=== PATIENT | female | born 1965 | race Caucasian/White ===

== ENCOUNTER 2021-01-21 13:11 | Outpatient (RCR) | payer MEDICARE, SELFPAY ==
[2018-10-16 16:53] VITALS: BMI 27.1
== END 2021-04-05 23:59 ==
LOC: IMMUN 13:11
PROVIDERS: Visit Provider Family Medicine
DX: Z23 Encounter for immunization (principal)
CPT/HCPCS: 0001A; 0002A; 91300

== ENCOUNTER → 2023-05-22 | Outpatient (CLI) | payer SELFPAY ==
--- NOTE | 2023-05-22 10:42 | RAD_ITS ---
INDICATION: mass right anterior shoulder -- clinically a ganglion cyst EXAMINATION/TECHNIQUE: X-RAY - RIGHT XR Shoulder Min 2 Views 4 VIEWS COMPARISON: FINDINGS: SOFT TISSUES: No soft tissue swelling or gas. No radiopaque foreign body. BONES/JOINTS: No acute fracture or subluxation.. Normal alignment. Preservation of the joint space.. No sclerotic or destructive changes observed. RAD/Shoulder min 2 Views IMPRESSION: Negative. Electronically Signed: Diallo Hooper, at 11:58 EDT ,
== END | disposition home or self-care (01) ==
PROVIDERS: Referring Provider Surgery; Visit Provider Surgery
DX: M25.811 Other specified joint disorders, right shoulder (principal); M67.40 Ganglion, unspecified site
CPT/HCPCS: 73030

== ENCOUNTER 2023-06-27 08:08 | Day surgery (SDC) | payer SELFPAY ==
--- NOTE | 2023-06-27 | MASS_PTH ---
PATIENT: DEREK SHETTY LOC: [facility] – [place] U#:[id number] AGE/SX: 57/F ROOM: RE06/27/[address]: Dr. Anirudh Amado MD : 1965 BED: DIS: 06/27/2023 SPEC #: [id number] RECD: 06/27/23 15:19 STATUS: MELODY LUISA #: [id number] RITA: 06/27/23 00:[address]: Anirudh Amado DEPT: SURGICAL PATHOLOGY RECD BY: Farhan Meza ENTERED: 06/28/23 09:33 SP TYPE: Mass OTHR DR: No Primary Care Phys Tissues: Shoulder, NOS Procedures: Surgery Specimen Level III HEADER OPERATION: Excision soft tissue mass right anterior shoulder PRE-OP DIAGNOSIS: Soft tissue mass right anterior shoulder TISSUE SUBMITTED: Soft tissue mass right anterior shoulder MICROSCOPIC DIAGNOSIS Soft tissue mass of right anterior shoulder, excision: Consistent with intramuscular fibrolipoma. AM:javier 06/29/2023 COMMENT Case has been reviewed in consultation with Dr. Carrizales who concurs with the above diagnosis. IDC:[place] MICROSCOPIC DESCRIPTION Slides are reviewed. GROSS DESCRIPTION Received in fixative is one container labeled with the patient's name and designated soft tissue mass right anterior shoulder. The specimen consists of a lobulated piece of brenner-yellow adipose tissue measuring 3.5 x 3.0 x 2.5 cm. The specimen is partially, previously sectioned. Sections reveal yellow adipose cut surfaces without area of hemorrhage, necrosis or cystic degeneration. Also present in the container are detached piece of soft tissue measuring in aggregate 1.5 x 1.5 x 0.5 cm. Clinical Laboratory Service Teacher sections are submitted in four cassettes. Cassette 4 contains the detached pieces of tissue. / [place]:javier 06/28/2023 TC:1 CPT: 58434
--- NOTE | 2023-06-27 07:49 | HP.PCM_ITS ---
History and Physical Date of Admission: 06/27/23 HISTORY OF PRESENT ILLNESS 57 year old woman presents with a soft tissue mass on her right anterior shoulder that she has had for 10 years. It has bee getting larger over the past several months. She denies trauma. She denies fever. She has no trouble moving her shoulder. Denies paresthesias right upper extremity. Patient is right hand dominant. She had a right shoulder x-ray on 05/22/23. It showed No soft tissue swelling or gas. No radiopaque foreign body. No acute fracture or subluxation.. Normal alignment. Preservation of the joint space.. No sclerotic or destructive changes observed. She presents at this time for further evaluation and treatment. PAST MEDICAL HISTORY Ganglion, right shoulder Mass of joint of right shoulder PAST SURGICAL HISTORY None. ALLERGIES No Known Allergies MEDICATIONS NK FAMILY HISTORY Non-contributory. SOCIAL HISTORY Smoking Status: Never smoker alcohol intake: current REVIEW OF SYSTEMS General - Denies fever, fatigue, and weight loss. Eyes - Denies cataracts and glaucoma. ENT - Denies nasal congestion and sore throat. Endocrine - Denies excessive thirst and urination. Skin - Denies suspicious lesions and skin cancer. Musculoskeletal - Denies joint pain, joint stiffness, weakness of muscles and joints, back pain, and arthritis. Has soft tissue mass right anterior shoulder. Neuro - Denies headaches. Cardiovascular - Denies chest pain, fatigue, and shortness of breath with exertion. Psych - Denies anxiety and depression. Respiratory - Denies chronic cough and shortness of breath. Gastrointestinal - Denies nausea, vomiting, diarrhea, and constipation. Hematologic - Denies abnormal bruising and bleeding. Genitourinary - Denies hematuria and urinary frequency. PHYSICAL EXAMINATION General - Alert and Oriented. HEENT - PERRL. EOMI. Throat is clear. Neck - Supple and nontender. No cervical adenopathy. Lungs - Clear to auscultation. Heart - Regular rate and rhythm. Abdomen - Soft and nondistended. Extremities - FROM. No axillary adenopathy. Radial pulses are palpable. Patient is right hand dominant. On her right anterior shoulder is a soft tissue mass that measures 7 cm. The mass is mobile. No evidence of infection. No recent infection. No paresthesias. Neuro - CN II-XII grossly intact. Psych - Normal mood and affect. ASSESSMENT 7 cm mass right anterior shoulder, clinically a ganglion cyst. PLAN Clinically the patient appears to have a ganglion cyst right anterior shoulder. She had a right shoulder x-ray on 05/22/23. It showed No soft tissue swelling or gas. No radiopaque foreign body. No acute fracture or subluxation.. Normal alignment. Preservation of the joint space.. No sclerotic or destructive changes observed. A ganglion cyst will have a stalk tracking to the shoulder joint or tendon. Surgery involves removing the cyst and the stalk that attaches it to the joint or tendon. Osteophytic spurs may be present as well and should be excised as well. Surgery will be done under general anesthetic on an outpatient basis. Tissue that is removed will be sent to Pathology for analysis to rule out carcinoma. Depending on the size of the cavity after removal of the mass will determine if a drain is necessary for a few days. A compression dressing will help to minimize seroma formation postoperatively. Patient was informed of the risks and complications of the procedure including alternatives to surgery. These were discussed with the patient personally. Patient voices understanding and wishes to proceed. Some of the risks and complications were included in a form from the [place] [employer]. Potential risks and complications included but not inclusive of bleeding, infection, seroma, hematoma, bruising, swelling, prolonged need for drains, loss of sensation to skin, wound breakdown, need for wound care, poor scarring, poor aesthetic outcome, intra operative cardiac or neurologic events, DVT, PE, and reaction to anesthesia. Assessment & Plan Assessment/Plan (1) Mass of joint of right shoulder: (2) Ganglion, right shoulder:
[2023-06-27 08:41] VITALS: BP 118/60; PULSE 64; RESP 18; TEMP 36.4; O2SAT 99; BMI 28.3
[2023-06-27] MEDS: Lactated Ringers 1,000 ML 15 ML IV (08:53)
[2023-06-27] MEDS: Cefazolin 2 GM in 0.9% Normal Saline 100 ML IV (11:52)
[2023-06-27] MEDS: Lidocaine 1%/Epi 1:100 (30ml) 30 ML VIAL (12:24)
--- NOTE | 2023-06-27 14:28 | OP.PCM_ITS ---
Problems Associated Problem List Diagnoses (1) Mass of joint of right shoulder: (2) Lipoma of right shoulder: (3) Ganglion, right shoulder: Report of Operation Date of Procedure: 06/27/23 Pre-Operative Diagnosis: 7 cm mass right anterior shoulder, clinically a ganglion cyst. Post-Operative Diagnosis: 7 cm submuscular mass right anterior shoulder, clinically a lipoma. Surgery/Procedure Performed:: Excision 7 cm submuscular mass lipoma right anterior shoulder with 7 cm complex closure. Description of Surgical Findings:: 7 year old woman presents with a soft tissue mass on her right anterior shoulder that she has had for 10 years. It has bee getting larger over the past several months. She denies trauma. She denies fever. She has no trouble moving her shoulder. Denies paresthesias right upper extremity. Patient is right hand dominant. She had a right shoulder x-ray on 05/22/23. It showed No soft tissue swelling or gas. No radiopaque foreign body. No acute fracture or subluxation.. Normal alignment. Preservation of the joint space.. No sclerotic or destructive changes observed. Patient was informed of the risks and complications of the procedure including alternatives to surgery. These were discussed with the patient personally. Patient voices understanding and wishes to proceed. Some of the risks and complications were included in a form from the [place] [employer]. Potential risks and complications included but not inclusive of bleeding, infection, seroma, hematoma, bruising, swelling, prolonged need for drains, loss of sensation to skin, partial or complete loss of skin flap and/or skin graft, wound breakdown, need for wound care, poor scarring, poor aesthetic outcome, intra operative cardiac or neurologic events, DVT, PE, and reaction to anesthesia. I used Oscar absorbable hemostat. Reference Number - [id number]. Lot Number - [id number]. Expiration - January 24, 2028. Surgeon: Anirudh Amado MD animal nutritionist: None Type of Anesthesia: General Anesthesiologist: Alexi Cary MD and Loni Vazquez CRNA Specimen's removed: Submuscular soft tissue mass lipoma right anterior shoulder to Pathology. Drains: Patrick. Estimated Blood Loss (mL): 50. Description of Procedure: Patient was taken to OR in supine position and was placed under general anesthesia. The right anterior shoulder was prepped and draped in the usual fashion. SCD's were placed for DVT prophylaxis. Perioperative antibiotics were given intravenously. Using xylocaine with epinephrine, the soft tissue mass right anterior shoulder was infiltrated. After waiting 5 minutes for the anesthetic to take effect, I made a curvilinear incision in a longitudinal direction down into the subcutaneous tissue. I the subcutaneous tissue down to the deltoid muscle. The soft tissue mass was submuscular. I the muscle fibers to gain access to this mass. Clinically looked like a lipoma and not a ganglion cyst. I sharply dissected the mass and excised it. It was well-encapsulated. After excision, the mass was sent to Pathology for analysis to rule out carcinoma. The wound was irrigated with saline. Hemostasis was obtained with electrocautery. Some of the deltoid muscle fibers were torn with the dissection of the submuscular mass. Oscar absorbable hemostat was sprayed into the wound to minimize seroma formation. A size 15 Patrick drain was placed through a separate stab incision inferiorly and secured to the skin with 3-0 Nylon purse string suture. The wound was closed in a complex fashion by approximating the deltoid muscle using 3-0 Vicry figure of eight interrupted sutures. The sutures were tied gently so as not to further tear the muscle. It was for approximation. Some of the deltoid muscle was stretched out and flabby. This made approximating the muscle a little easier without tearing the muscle any further as well as tightening an already stretched and flabby muscle. The adjacent trapezius muscle showed no evidence of involvement with this submuscular lipoma. After securing the muscle closure, I placed 3-0 Monocryl interrupted sutures for the deep dermis and subcutaneous tissue. The skin was approximated with 3-0 V lock unidirectional barbed running subcuticular suture. This was followed with Dermabond skin tissue adhesive. 4x4 gauze was applied to the incision followed by a compression guido wrap. Patient tolerated the procedure well and was sent to PACU in satisfactory condition. Patient will be sent home on antibiotics and pain medication and Valium for spasm. She will keep her head elevated during the initial postoperative period and be on a lifting restriction. Patient will followup in a week for a wound check and for discussion of the pathology report. Grafts/Implants Used: Oscar. Procedure Start Time: 12:24 Procedure Stop Time: 14:22 Complications None. Admit VTE Documentation VTE Present on Admission: No VTE Mechan Device Prophylaxis: SCD's VTE Pharm Prophylaxis ordered?: No Addendum Addendum: Surgery Charges CPT - 11676 ICD-10 - D17.21, M25.811 60090 D17.21, M25.811
[2023-06-27 14:31] VITALS: BP 118/60; BP 126/67; PULSE 88; RESP 16; TEMP 36.6; O2SAT 94
[2023-06-27 14:45] VITALS: BP 118/60; BP 121/64; PULSE 81; RESP 16; O2SAT 95
--- NOTE | 2023-06-27 14:47 | DCINST_ITS ---
Discharge Instructions Diet Discharge Diet: No restrictions (encourage nutritional supplementation with protein to help the healing process.) Activity Discharge Activity: May Not Drive, May Not Shower (until the drain is removed.) and - (no heavy lifting, elevate head. elevate head of bed when sleeping for 2 weeks (alternately may sleep on an extra pillow.) May shower in (days): 10 (tentative. after the drain is removed.) May resume sexual activity in: 4-6 weeks Weight Bearing Status: Weight bearing as tolerated Lifting Restrictions: 20 lbs. Keep extremity elevated above heart level: - (elevate head) Dressing / Incision Call your doctor if your incision/area has: Continuous Slow Oozing, Sudden Inc reased Bleeding, Increased Pain/ Swelling, Increased Redness, Foul Smelling Discharge and Swelling at the incision site Call your doctor if you observe: Fever of 101 or Higher, Coldness, Increased Pain, Shortness of breath, Chest pain, Calf discomfort and Uncontrolled pain Change Dressing in: do not change dressing (will change operative dressing in the office.) Cleanse incision/area with: - (may get incision wet in the shower after the drain is removed.) Drain: Suction (federica drain to bulb suction. empty and record output daily.) Follow Up Care Please Follow Up With: Anirudh Amado MD When: one week, 07/05/23, at 230pm. Call [phone] if any questions. Test Results: Test results from this visit will be discussed in further detail at your follow- up appointment, if applicable. Discharge Plan Admission Primary Reason for Your Visit: excision mass right anterior shoulder Attending Provider: Anirudh Amado Primary Care Provider: Care Physician,No Primary Discharge Orders/Prescriptions Prescriptions: New cefadroxil 500 mg capsule 500 mg PO BID Qty: 28 0RF L.acidoph,saliva-B.bif-S.therm [Acidophilus Probiotic Blend] 175 mg capsule 1 cap PO DAILY Qty: 30 0RF oxycodone-acetaminophen [Percocet] 5-325 mg tablet 1 tab PO Q6H PRN (Reason: pain (scale score 7-10)) 7 Days Qty: 28 0RF Rx Instructions: 28 tabs (twenty-eight) diazepam [Valium] 5 mg tablet 5 mg PO 4X/DAY PRN (Reason: muscle spasm) Qty: 30 0RF Rx Instructions: 30 tabs (thirty) Referrals / Follow Up: Care Physician,No Primary [Primary Care Provider] - Disposition Disposition (needs filled in before D/C Order can be placed): Home, Self Care
[2023-06-27 15:00] VITALS: BP 116/62; BP 118/60; PULSE 81; RESP 16; TEMP 36.2; O2SAT 95
[2023-06-27] MEDS: Acetaminophen 325 MG Tablet 650 MG PO (15:31)
[2023-06-27 16:32] VITALS: BP 116/61; BP 118/60; PULSE 71; RESP 16; TEMP 36.6; O2SAT 97
== END 2023-06-27 16:41 | disposition home or self-care (01) ==
LOC: SDC 08:10 → AC 08:11
PROVIDERS: Referring Provider Surgery; Visit Provider Surgery
PROC: (CPT 23073; principal; 2023-06-27 09:30)
DX: D17.21 Benign lipomatous neoplasm of skin and subcutaneous tissue of right arm (principal); M25.811 Other specified joint disorders, right shoulder
CPT/HCPCS: 23073; 13121; 01610; 88304; 88305; J7120; J2405

== ENCOUNTER 2023-10-16 00:59 | Emergency (ER) | payer OTHER, SELFPAY ==
[2023-10-16 01:00] VITALS: BP 127/79; PULSE 60; RESP 14; TEMP 36.1; O2SAT 97; BMI 24.5
--- NOTE | 2023-10-16 01:20 | CT_ITS ---
EXAM: CT ABDOMEN AND PELVIS WITHOUT INTRAVENOUS CONTRAST CLINICAL INDICATION: left flank pain left flank pain TECHNIQUE: Helically acquired images were obtained of the abdomen and pelvis without intravenous contrast. This CT exam was performed using one or more of the following dose reduction techniques: automated exposure control, adjustment of the mA and/or kV according to patient size, and/or use of iterative reconstruction technique. RADIATION DOSE: CTDIvol = 8.22 mGy, DLP = 406.44 mGy-cm COMPARISON: No relevant prior studies available. FINDINGS: LOWER THORAX: There is mild left basilar atelectasis. No cardiomegaly. No significant pericardial effusion. ABDOMEN: LIVER: The liver is enlarged. GALLBLADDER AND BILE DUCTS: Unremarkable. No calcified gallstones. No gallbladder distention or wall edema. No intra- or extrahepatic biliary ductal dilation. PANCREAS: Unremarkable. No focal cystic mass. SPLEEN: There are calcified granulomas in the spleen. ADRENALS: Unremarkable. No nodules. KIDNEYS AND URETERS: As seen on axial images 81-82, 5 mm wide mid left ureteral calculus at the L3-4 level. There is associated mild left hydronephrosis as well as proximal left periureteral fat infiltration. As seen on axial images 114-115, there is a 4 mm wide left pelvic calcification at the S1-2 level. The course of the left ureter is not clearly seen at and around this level, and this might represent a distal left ureteral calculus or might represent a phlebolith. There is a 6 mm nonobstructive left lower pole renal calculus. There is a simple appearing left lower pole renal cyst. No follow-up imaging is necessary for simple renal cysts or cysts that are too small to characterize. STOMACH AND BOWEL: Unremarkable. No stomach or bowel distention. No focal inflammatory change. PELVIS: APPENDIX: The appendix is seen on axial images 94-123. There is no evidence for acute appendicitis. BLADDER: Unremarkable. REPRODUCTIVE: There is a 3 cm simple appearing left ovarian cyst. ABDOMEN and PELVIS: INTRAPERITONEAL SPACE: Unremarkable. No ascites or other fluid collection. No free air. BONES/JOINTS: There are small calcifications in the uterus, possibly representing degenerating leiomyomas. There are multilevel degenerative changes in the visualized spine. There is grade 1 anterolisthesis at the L4-5 level, on a degenerative basis. No suspicious lytic or blastic abnormality. SOFT TISSUES: Unremarkable. No discrete abdominal or pelvic wall hernia. VASCULATURE: Unremarkable. Abdominal aorta is non-dilated. LYMPH NODES: Unremarkable. No enlarged lymph nodes. CT/Abdomen/Pelvis without Cont IMPRESSION: 1. 5 mm wide mid left ureteral calculus at the L3-4 level. There is associated mild left hydronephrosis. 2. Questionable finding of a 4 mm wide nonobstructive distal left ureteral calculus at the S1-2 level versus phlebolith. 3. Small nonobstructive left renal calculus. 4. Hepatomegaly. 5. 3 cm simple-appearing left ovarian cyst. No follow-up is necessary. 6. Small uterine calcifications, probably degenerating leiomyomas. Electronically Signed: Edmond Aguirre MD at 2:33 EST ,
--- NOTE | 2023-10-16 01:21 | EDS_ITS ---
HPI History of Present Illness Chief Complaint: Flank Pain Informant: patient Onset/Context/Timing Onset: Days Context: Gradual Onset Timing: Intermittent Narrative Narrative: Patient presents secondary to left flank pain. Over the past 2 days she has had intermittent pain to the left flank and some slight blood in her urine. Tonight she woke from sleep with severe pain in the left flank region. It seems to have subsided at this time. Her urine is currently bright red in color. She does not have dysuria. She denies history of kidney stone. [facility] Medical History Alcohol use Fibrolipoma Ganglion, right shoulder Lipoma of right shoulder Mass of joint of right shoulder Non-smoker Post-menopausal Restless legs Wears glasses Home Medications hydrocodone-acetaminophen 5-325mg 5mg-325mg 1 tab PO Q6H PRN PRN Pain 3 days #10 TABLETS 10/16/23 [Rx Last Taken Unknown] ibuprofen 600 mg tablet 600 mg PO Q8H PRN PRN pain #20 TABLETS 10/16/23 [Rx Last Taken Unknown] ondansetron 4 mg disintegrating tablet 4 mg PO Q8H PRN PRN Nausea #10 tabs 10/16/23 [Rx Last Taken Unknown] sulfamethoxazole 800 mg-trimethoprim 160 mg tablet (Bactrim DS) 1 tab PO BID #10 tabs 10/16/23 [Rx Last Taken Unknown] Allergy/AdvReac Type Severity Reaction Status Date / Time No Known Allergies Allergy Verified 10/16/23 01:04 Surgical History History of excision of mass Social History Smoking Status: Never smoker alcohol intake: current ROS ROS ED Constitutional Constitutional ED: Denies chills or fever(s) Eyes Eyes: Denies discharge from eye(s) ENT ENT ED: Denies discharge from eye(s), rhinorrhea or sore throat Cardiovascular Cardiovascular: Denies chest pain or palpitations Respiratory/Chest Respiratory/Chest: Denies cough or dyspnea Gastrointestinal Gastrointestinal: Reports abdominal pain; Denies diarrhea, nausea or vomiting Genitourinary Genitourinary ED: Reports hematuria; Denies difficulty urinating or dysuria Musculoskeletal Musculoskeletal: Reports back pain; Denies extremity pain Integumentary Denies Abrasions or rash Neurologic Neurologic: Denies headache(s) or weakness Psychiatric Psychiatric: Denies anxiety or depression Allergic/Immunologic Allergic/Immunologic ED: Denies lip swelling or urticaria EXAM Physical Exam Const Vital Signs: 10/16/23 01:00 Temperature 97 F L Temperature Source Temporal Pulse Rate 60 Respiratory Rate 14 Blood Pressure 127/79 H Blood Pressure Mean 95 Pulse Ox 97 Oxygen Delivery Method Room Air Positive well nourished and well developed General Appearance ED: well developed HEENT Reports moist mucous membranes Eyes EOMs intact bilaterally Chest Wall inspection of chest normal and palpation of chest normal Resp normal respiratory effort and clear to auscultation bilaterally Cardio regular rate and regular rhythm GI non-tender Palpation: soft Back/Spine General Back: CVA tenderness left Neuro oriented x3 and no sensory deficits noted Motor Exam: strength 5/5 throughout Psych mental status grossly normal Skin no rashes or lesions noted MDM MDM MDM Narrative Medical decision making narrative: IV line established. Patient given a dose of Toradol. Labwork obtained to evaluate for leukocytosis, anemia, and electrolyte derangement. Urinalysis obtained to evaluate for infection/hematuria. CT flank obtained to evaluate for possible kidney stone. History & Record Review Discussion w/independent historian: Patient Lab Data Attestation: I reviewed the patient's lab results. Labs: Laboratory Results - last 24 hr 10/16/23 10/16/23 01:40 01:48 WBC 6.7 RBC 4.70 Hgb 13.1 Hct 41.8 MCV 88.9 MCH 27.9 MCHC 31.3 L RDW Std Deviation 42.5 RDW Coeff of Vanessa 13.0 Plt Count 251 MPV 9.7 Immature Gran % (Auto) 0.400 Neut % (Auto) 69.7 Lymph % (Auto) 19.6 Donley % (Auto) 6.6 Eos % (Auto) 3.1 Baso % (Auto) 0.6 Absolute Neuts (auto) 4.7 Absolute Lymphs (auto) 1.31 Nucleated RBC % 0 Sodium 141 Potassium 3.3 L Chloride 109 H Carbon Dioxide 28.0 Anion Gap 4 L BUN 18 Creatinine 0.73 Estim Creat Clear Calc 83.68 Est GFR (MDRD) Af Amer 106 Est GFR (MDRD) Non-Af 88 BUN/Creatinine Ratio 24.7 H Glucose 124 H Calcium 9.9 Urine Color SEE COMMENT BELOW Urine Clarity Cloudy Urine pH 6.0 Ur Specific [place] 1.025 Urine Protein 100 H Urine Glucose (UA) Normal Urine Ketones 5 H Urine Occult Blood 250 H Urine Nitrite Positive H Urine Bilirubin Negative Urine Urobilinogen 1 H Ur Leukocyte Esterase 500 H Urine RBC > 100 SEEN Urine WBC 10-25 SEEN Ur Squamous Epith Cells 0-5 SEEN Urine Bacteria RARE Urine Mucus 0 SEEN Radiography Diagnostic Testing: Clinical Impression(s) from Imaging Studies Abdomen/Pelvis CT 10/16/23 01:20 IMPRESSION: 1. 5 mm wide mid left ureteral calculus at the L3-4 level. There is associated mild left hydronephrosis. 2. Questionable finding of a 4 mm wide nonobstructive distal left ureteral calculus at the S1-2 level versus phlebolith. 3. Small nonobstructive left renal calculus. 4. Hepatomegaly. 5. 3 cm simple-appearing left ovarian cyst. No follow-up is necessary. 6. Small uterine calcifications, probably degenerating leiomyomas. Electronically Signed: Edmond Aguirre MD at 2:33 EST , Treatment and Re-Evaluation :: CBC was normal white count 6.7 the hemoglobin of 13.1. Chemistry studies reveal slightly low potassium at 3.3. Urinalysis is positive for nitrites with greater than 100 red cells and 10-25 white cells. Rare bacteria are noted. Urine will be sent for culture and patient is given a dose of Rocephin here. CT flank reveals a 5 mm left mid ureteral calculus at the L3-L4 level. There is mild lef t hydronephrosis. There is a questionable distal 4 mm nonobstructive stone versus phlebolith. Test results are discussed with the patient. She is comfortable after only receiving Toradol here. I will write her prescriptions for Zofran, [place], ibuprofen along with Bactrim. Her urine has been sent for culture. She will call urology today for follow-up. Return instructions are given. Discharge Plan Triage Chief Complaint: Flank Pain ED Provider: Antonella Aguila Dx/Rx/DC Orders Clinical Impression: UTI (urinary tract infection), Ureterolithiasis Instructions: ED Cystitis Female Adult, ED Kidney Stone with Pain Prescriptions: New hydrocodone-acetaminophen 5-325 mg tablet 1 tab PO Q6H PRN PRN (Reason: Pain) 3 Days Qty: 10 0RF ibuprofen 600 mg tablet 600 mg PO Q8H PRN PRN (Reason: pain) Qty: 20 0RF ondansetron 4 mg tablet,disintegrating 4 mg PO Q8H PRN PRN (Reason: Nausea) Qty: 10 0RF sulfamethoxazole-trimethoprim [Bactrim DS] 800-160 mg tablet 1 tab PO BID Qty: 10 0RF Primary Care Provider: Care Physician,No Primary Referrals: Rajesh Arevalo MD [Med Staff - Active Staff] - As soon as possible Care Physician,No Primary [Primary Care Provider] - Disposition Disposition: Home, Self Care
[2023-10-16] MEDS: Ketorolac 15 MG/ML Vial IV (01:45)
[2023-10-16] MEDS: 0.9% Normal Saline (1000mL) 1,000 ML 150 ML IV (01:45)
[2023-10-16 01:51] LABS: Mucous, Urine 0 SEEN /hpf (<or=2+)
[2023-10-16 01:52] LABS: Absolute Lymphocyte Count 1.31 X10^3/uL (0.83-4.51); Absolute Neutrophil Count 4.7 X10^3/uL (2.0-7.7); Basophil# 0.04 X10^3/uL; Basophil% 0.6 % (0-1); Eosinophil# 0.21 X10^3/uL; Eosinophils% 3.1 % (0-5); Hematocrit 41.8 % (37-47); Hemoglobin 13.1 g/dL (12.0-15.0); Lymphocyte # 1.31 X10^3/ul (0.83-4.51); Lymphocyte % 19.6 % (19-41); Mean Corp Hgb Conc 31.3 g/dL (32-36); Mean Corpuscular Hgb 27.9 pg (27.0-32.0); Mean Corpuscular Volume 88.9 fL (81-99); Mean Platelet Vol. 9.7 fl (6.2-12.0); Monocyte# 0.44 X10^3/uL; Monocyte% 6.6 % (0-10); NRBC Flagged by Analyzer 0 % (0-5); Neutrophil # 4.67 X10^3/uL (2.7-7.7); Neutrophil % 69.7 % (47-70); Platelet Count 251 K/mm3 (150-450); RBC Distribution Width SD 42.5 fl (35.1-43.9); White Blood Count 6.7 K/mm3 (4.4-11.0)
[2023-10-16 01:53] LABS: Glucose, Dipstick Normal (Normal); Ketone-Dipstick 5 mg/dl (Negative); Leukocyte Esterase-Dipstick 500 /ul (Negative); Nitrite-Dipstick Positive (Negative); Occult Blood-Urine 250 /ul (Negative); Protein-Dipstick 100 mg/dl (Negative); Specific Gravity, Urine 1.025 (1.002-1.030); Urine Bilirubin Dipstick Negative (Negative); Urine Clarity Cloudy (Clear); Urine Urobilinogen 1 mg/dl (Normal)
[2023-10-16 01:54] LABS: Color, Urine SEE COMMENT BELOW (Yellow)
[2023-10-16 02:03] LABS: Bacteria RARE /hpf (None Seen); Red Blood Cells-Urine > 100 SEEN /hpf (0-5); Squamous Epithelial Cells - UA 0-5 SEEN /hpf (5-10); White Blood Cells 10-25 SEEN /hpf (0-5)
[2023-10-16 02:04] LABS: Anion Gap 4 (5-15); BUN 18 mg/dL (7-18); BUN/Creat Ratio 24.7 RATIO (10-20); Calcium,Total 9.9 mg/dL (8.5-10.1); Chloride 109 mmol/L (98-107); Creatinine, Serum 0.73 mg/dL (0.55-1.02); EST Glomerular Filtration Rate 88 mL/min (>60); Est Glom Filt Rate - Afr Amer 106 mL/min (>60); Estimated Creatinine Clearance 83.68 ml/min; Glucose 124 mg/dL (74-106); Potassium 3.3 mmol/L (3.5-5.1); Sodium Level 141 mmol/L (136-145)
[2023-10-16] MEDS: Ceftriaxone 1 GM/50 ML BAG IV (02:39)
== END 2023-10-16 03:36 | disposition home or self-care (01) ==
PROVIDERS: Emergency Provider Emergency Medicine; Visit Provider Emergency Medicine
DX: N20.1 Calculus of ureter (principal); N39.0 Urinary tract infection, site not specified; R31.9 Hematuria, unspecified; G25.81 Restless legs syndrome; Z79.899 Other long term (current) drug therapy
CPT/HCPCS: 74176; 80048; 81001; 85025; 87086; 96361; 96365; 96375; 99283; J7030

== ENCOUNTER → 2024-01-29 | Outpatient (CLI) | payer MEDICAID, SELFPAY ==
[2024-01-29 11:16] LABS: Bacteria 0 SEEN /hpf (None Seen); Mucous, Urine 0 SEEN /hpf (<or=2+); Red Blood Cells-Urine 0 SEEN /hpf (0-5); White Blood Cells 0 SEEN /hpf (0-5)
[2024-01-29 12:27] LABS: Color, Urine Yellow (Yellow); Glucose, Dipstick Normal (Normal); Ketone-Dipstick Negative (Negative); Leukocyte Esterase-Dipstick Negative /ul (Negative); Nitrite-Dipstick Negative (Negative); Occult Blood-Urine Negative /ul (Negative); Protein-Dipstick 15 mg/dl (Negative); Urine Bilirubin Dipstick Negative (Negative); Urine Clarity Sl. Cloudy (Clear); Urine Urobilinogen Normal (Normal)
[2024-01-29 12:39] LABS: Absolute Lymphocyte Count 1.41 X10^3/uL (0.83-4.51); Absolute Neutrophil Count 3.7 X10^3/uL (2.0-7.7); Basophil# 0.03 X10^3/uL; Basophil% 0.5 % (0-1); Eosinophil# 0.19 X10^3/uL; Eosinophils% 3.3 % (0-5); Hematocrit 42.7 % (37-47); Hemoglobin 13.3 g/dL (12.0-15.0); Lymphocyte # 1.41 X10^3/ul (0.83-4.51); Lymphocyte % 24.3 % (19-41); Mean Corp Hgb Conc 31.1 g/dL (32-36); Mean Corpuscular Hgb 27.5 pg (27.0-32.0); Mean Corpuscular Volume 88.4 fL (81-99); Mean Platelet Vol. 9.8 fl (6.2-12.0); Monocyte# 0.42 X10^3/uL; Monocyte% 7.2 % (0-10); NRBC Flagged by Analyzer 0 % (0-5); Neutrophil # 3.74 X10^3/uL (2.7-7.7); Neutrophil % 64.5 % (47-70); Platelet Count 321 K/mm3 (150-450); RBC Distribution Width CV 13.2 % (11.6-14.6); RBC Distribution Width SD 42.7 fl (35.1-43.9); Red Blood Count 4.83 M/mm3 (4.2-5.4); Squamous Epithelial Cells - UA 0-5 SEEN /hpf (5-10); White Blood Count 5.8 K/mm3 (4.4-11.0)
[2024-01-29 13:06] LABS: AST(SGOT) 27 U/L (15-37); Alanine Aminotransfer ALT/SGPT 29 U/L (13-56); Albumin, Serum 3.7 g/dL (3.2-5.0); Alkaline Phosphatase 129 U/L (45-117); Anion Gap 4 (5-15); BUN 18 mg/dL (7-18); BUN/Creat Ratio 26.5 RATIO (10-20); Calcium,Total 9.8 mg/dL (8.5-10.1); Chloride 109 mmol/L (98-107); Cholesterol 174 mg/dL (200); Creatinine, Serum 0.68 mg/dL (0.55-1.02); EST Glomerular Filtration Rate 95 mL/min (>60); Est Glom Filt Rate - Afr Amer 115 mL/min (>60); Globulin 3.8 g/dL (2.2-4.2); Glucose 96 mg/dL (74-106); High Density Lipoprotein 91 mg/dL; Potassium 4.1 mmol/L (3.5-5.1); Protein, Total 7.5 g/dL (6.4-8.2); Sodium Level 140 mmol/L (136-145); Triglycerides 77 mg/dL; Very Low Density Lipoprotein 15 mg/dL (5-40)
== END | disposition home or self-care (01) ==
LOC: BIMLAB 11:15
PROVIDERS: PCP Internal Medicine; Referring Provider Internal Medicine; Visit Provider Internal Medicine
DX: Z13.6 Encounter for screening for cardiovascular disorders (principal); N20.0 Calculus of kidney
CPT/HCPCS: 36415; 80053; 80061; 81001; 85025

== ENCOUNTER → 2024-02-06 | Outpatient (CLI) | payer MEDICAID, SELFPAY ==
--- NOTE | 2024-02-06 15:12 | BI_ITS ---
MAMMOGRAPHY - BILATERAL SCREENING REASON FOR EXAM: Female, 58 years old. Routine annual screening examination. PERTINENT HISTORY: Non-contributory. TECHNIQUE: Digital bilateral breast joseph (3D mammographic acquisition) in the CC and MLO projections. 2-D mediolateral oblique (MLO) and craniocaudad (CC) views of both breasts were obtained. CAD: Full Field Digital Mammography with Computer Added Detection was performed. COMPARISON: None. Baseline examination. FINDINGS: Breast Composition: There are scattered areas of fibroglandular density. There are no dominant masses or suspicious calcifications. There is a 4.5 mm x 7.3 mm well-defined nodule in the axillary region of the right breast suggestive of a small lymph node. No other significant abnormalities are identified. BI/SCRN MAMM (CAD)W/JOSEPH BILAT IMPRESSION: Negative screening mammogram. Yearly followup mammogram recommended. (A) ASSESSMENT CATEGORY: BIRADS Category 2: Benign. A letter regarding these results will be sent to the patient by the facility within 30 days. Approximately 10% of breast cancers are not detected by mammography. A normal mammogram should not delay biopsy of a clinically suspicious abnormality. [id number] Electronically Signed: Chao Moscoso MD at 8:26 EDT ,
== END | disposition home or self-care (01) ==
LOC: OPBI 15:12
PROVIDERS: PCP Nurse Practitioner; Referring Provider Internal Medicine; Visit Provider Internal Medicine
DX: Z12.31 Encounter for screening mammogram for malignant neoplasm of breast (principal)
CPT/HCPCS: 77063; 77067

== ENCOUNTER → 2024-03-06 | Outpatient (CLI) | payer MEDICAID, SELFPAY | END | disposition home or self-care (01) | LOC: LABSPEC 14:55 | PROVIDERS: PCP Nurse Practitioner; Referring Provider Nurse Practitioner Family; Visit Provider Nurse Practitioner Family | DX: Z12.4 Encounter for screening for malignant neoplasm of cervix (principal) | CPT/HCPCS: 87624; 88175; G0145 ==

== ENCOUNTER 2024-03-11 09:50 | Day surgery (SDC) | payer MEDICAID, SELFPAY ==
[2024-03-11 10:17] VITALS: BP 110/55; PULSE 70; RESP 16; TEMP 36.1; O2SAT 100; BMI 23.3
[2024-03-11] MEDS: Lactated Ringers 1,000 ML 15 ML IV (10:19)
--- NOTE | 2024-03-11 11:26 | HP.PCM_ITS ---
History and Physical Date of Admission: 03/11/24 Patient is a 58-year-old female who presents for screening colonoscopy. She confirms her preappointment questionnaire that she has not experienced any change in her bowel habits-and particularly denies any notice of blood. She also denies any family history of GI illness to include diverticulitis, inflammatory bowel disease, or colon cancer. Lastly she confirms that her prep was completed successfully and that her output is now clear.
--- NOTE | 2024-03-11 11:28 | HP.PCM_ITS ---
[facility] - General General Date of Service: 03/11/24 HPI Narrative DEREK SHETTY, is a 58 F who presents for screening colonoscopy. She confirms her preappointment questionnaire that she has not experienced any change in her bowel habits-and particularly denies any notice of blood. She also denies any family history of GI illness to include diverticulitis, inflammatory bowel disease, or colon cancer. Lastly she confirms that her prep was completed successfully and that her output is now clear. [facility] Medical History Alcohol use Fibrolipoma Kidney stone Non-smoker Post-menopausal Restless legs Wears glasses Home Medications ?Medication ?Instructions ?Recorded ?Last Taken ?Type ibuprofen 600 mg tablet 600 mg PO Q8H PRN PRN pain #20 10/16/23 Unknown Rx TABLETS aspirin 325 mg tablet 325 mg PO DAILY 02/22/24 03/06/24 History sennosides 15 mg tablet (Ex-Lax 15 mg PO DAILY PRN constipation 02/22/24 Unknown History (sennosides)) Allergy/AdvReac Type Severity Reaction Status Date / Time No Known Allergies Allergy Verified 03/11/24 10:16 Family History Father Diabetes Aortic aneurysm Sister Cancer nonhodgkins lymphoma Surgical History History of excision of mass Social History (Updated 03/06/24 @ 13:14 by Yennifer Mccray) adopted: No household members: significant other current occupational status: employed current occupation: [employer] pets and animals: No Smoking Status: Never smoker Electronic Cigarette Use: not used alcohol intake: current alcohol intake frequency: a few times a week Alcohol type: wine substance use type: does not use caffeine: Yes (1) Type: coffee what type of physical activity do you participate in: walking and aerobics frequency: 5-6 times per week seatbelt use: always do you feel safe at home: Yes additional social history: Single Past Medical/Surgical History Planned Operation Planned Operative Procedure/s: COLONOSCOPY Previous Hospitalizations/Surgeries HX Hospitalizations: No Any Problems With Anesthesia: No You/Your Family Experience Fever (Hyperthermia) With Anes: No Cholinesterase deficiency: No Cardiovascular Hx Hypertension: No Respiratory Hx Sleep Apnea: No Hx Respiratory Tract Infection/Cold (presently): No Do You Snore Loudly (louder than talking or can be heard): No Do You Often Feel Tired/ Fatigued/ Sleepy Dring Daytime?: No Has Anyone Observed You Stop Breathing During Sleep?: No Result (for STOP score): Negative Smoking Status: Never smoker Neurological Does patient have nerve stimulator: No Miscellaneous Recent Exposure to Contagious Disease: No Allergies No Known Allergies Allergy (Verified 03/11/24 10:16) Discharge After D/C, Where Do you Plan to Go: Return Home Vital Signs Vital Signs Vital Signs: 03/11/24 10:17 03/11/24 10:17 Temperature 96.9 F L Temperature Source Temporal Pulse Rate 70 Respiratory Rate 16 Respiratory Pattern Normal Blood Pressure 110/55 L Blood Pressure Mean 73 Blood Pressure Source Monitor Blood Pressure Position Semi-Fowlers Blood Pressure Location Left Arm Pulse Ox 100 Oxygen Delivery Method Room Air Weight Weight: 148 lb 9.465 oz Body Mass Index (BMI) 23.3 Physical Exam Const alert, oriented x3 and no apparent distress Resp normal respiratory effort GI GI Narrative: No scars, nondistended, soft, nontender to palpation x 4 quadrants Assessment & Plan Assessment/Plan (1) Encounter for screening for malignant neoplasm of colon: PLAN: Patient 58-year-old female with average risk for colon cancer who presents for first screening colonoscopy. She confirms her questionnaire and appears appropriate for today's procedure. Further she confirms that she completed a prep in anticipation of today's procedure. Procedure expectations and expectations for post procedure results reporting were discussed. Neither patient nor her spouse have any questions. Will now proceed to endoscopy suite for planned colonoscopy. Surgery Risks - Colonoscopy Risks Include but are not Limited To: Risks include but are not limited to: Bleeding, perforation requiring further surgery, inability to complete colonoscopy requiring barium enema.
[2024-03-11 12:30] VITALS: BP 107/68; BP 110/55; PULSE 64; RESP 16; TEMP 35.9; O2SAT 97
--- NOTE | 2024-03-11 12:33 | OP.COLON_ITS ---
Patient Name: Gabriela Wilson Procedure Date: 03/11/2024 11:28 AM Date of : 1965 Age: 58 Procedure: Colonoscopy Indications: Screening for colorectal malignant neoplasm Providers: Margarito Reyes MD Referring MD: Marlen Rodríguez Md Medicines: See the Anesthesia note for documentation of the administered medications Patient Profile: Last Colonoscopy: none. The patient's first colonoscopy is today. Complications: No immediate complications. Estimated blood loss: None. Procedure: Pre-Anesthesia Assessment: - The heart rate, respiratory rate, oxygen saturations, blood pressure, adequacy of pulmonary ventilation, and response to care were monitored throughout the procedure. After I obtained informed consent, the scope was passed under direct vision. Throughout the procedure, the patient's blood pressure, pulse, and oxygen saturations were monitored continuously. The Colonoscope was introduced through the anus and advanced to the cecum, identified by the appendiceal orifice, IC valve and transillumination. The colonoscopy was technically difficult and complex due to a tortuous colon. Successful completion of the procedure was aided by changing the patient to a supine position and using manual pressure. The patient tolerated the procedure well. The quality of the bowel preparation was good and adequate to identify polyps. Scope In: 11:43:21 AM Scope Withdrawal Time 0 hours 9 minutes 59 seconds Scope Out: 12:26:07 PM Total Procedure Duration Time 0 hours 42 minutes 46 seconds Findings: Skin tags were found on perianal exam. The ascending colon was moderately tortuous. The colon (entire examined portion) appeared normal. Internal hemorrhoids were found during retroflexion. The hemorrhoids were mild and Grade I (internal hemorrhoids that do not prolapse). No biopsies or other specimens were collected for this exam. Impression: - Perianal skin tags found on perianal exam. - Tortuous colon. - The entire examined colon is normal. - Internal hemorrhoids. No specimens collected. Recommendation: - Discharge patient to home (via wheelchair). - Resume previous diet today. - Continue present medications. - Repeat colonoscopy in 10 years for screening purposes. Procedure Code(s): --- Professional --- G0121, Colorectal cancer screening; colonoscopy on individual not meeting criteria for high risk Diagnosis Code(s): --- Professional --- Z12.11, Encounter for screening for malignant neoplasm of colon K64.0, First degree hemorrhoids K64.4, Residual hemorrhoidal skin tags Q43.8, Other specified congenital malformations of intestine CPT copyright 2021 [employer]. All rights reserved. The codes documented in this report are preliminary and upon pet care technician review may be revised to meet current compliance requirements. Margarito Reyes MD 03/11/2024 12:33:17 PM This report has been signed electronically. Number of Addenda: 0 Note Initiated On: 03/11/2024 11:28 AM
--- NOTE | 2024-03-11 12:33 | OP.CCLET_ITS ---
03/11/2024 Marlen Rodríguez Md Re : Colonoscopy procedure for Gabriela Wilson Dear Marcos This procedure was performed on Monday, March 11, 2024. My impressions and recommendations are as follows: Impressions : - Perianal skin tags found on perianal exam. - Tortuous colon. - The entire examined colon is normal. - Internal hemorrhoids. No specimens collected. Recommendations : - Discharge patient to home (via wheelchair). - Resume previous diet today. - Continue present medications. - Repeat colonoscopy in 10 years for screening purposes. My findings are described in the full procedure note, which is enclosed. If I can be of further assistance, please feel free to contact me at Doctor phone number(s): , Work: . Sincerely, Margarito Reyes MD 03/11/2024 12:33:17 PM This report has been signed electronically.
[2024-03-11 12:35] VITALS: BP 110/55; BP 114/74; PULSE 65; RESP 16; O2SAT 98
[2024-03-11 12:40] VITALS: BP 101/67; BP 110/55; PULSE 71; RESP 16; TEMP 36.3; O2SAT 99
[2024-03-11 12:50] VITALS: BP 110/55
== END 2024-03-11 13:12 | disposition home or self-care (01) ==
LOC: EN 09:52 → AC 09:54
PROVIDERS: PCP Internal Medicine; Referring Provider Internal Medicine; Visit Provider Surgery
PROC: 0DJD8ZZ Inspection of Lower Intestinal Tract, Via Natural or Artificial Opening Endoscopic (ICD-10-PCS; CPT 45378; principal; 2024-03-11 11:25)
DX: Z12.11 Encounter for screening for malignant neoplasm of colon (principal); K64.0 First degree hemorrhoids; Z79.82 Long term (current) use of aspirin; K64.4 Residual hemorrhoidal skin tags; Q43.8 Other specified congenital malformations of intestine; Z87.442 Personal history of urinary calculi
CPT/HCPCS: G0121; J7120; J2405

== ENCOUNTER → 2024-03-12 | Outpatient (CLI) | payer MEDICAID, SELFPAY ==
--- NOTE | 2024-03-12 15:11 | US_ITS ---
STUDY: ULTRASOUND TRANSVAGINAL CLINICAL: Female, 58 years old. pelvic pain; friable cervix TECHNIQUE: Transvaginal COMPARISON: None. FINDINGS: Normal uterine size measuring 7.2 x 5.9 x 4.5 cm in maximal craniocaudal dimension. 2.2 cm hypoechoic mass in the posterior fundus the uterus consistent with an intramural fibroid. Another 1.8 cm isoechoic mass in the posterior body of uterus consistent with an intramural fibroid.. Normal endometrial thickness measuring 2 mm. There are no endometrial masses, and there is no fluid in the endometrial cavity. Normal uterine cervix. Normal right ovary, measuring 3.0 x 1.8 x 2.0 cm. There are multiple follicles without a dominant cyst. Normal left ovary, measuring 4.3 x 3.8 x 3.2 cm. 3.2 cm oval anechoic mass with increased transmission of the left ovary consistent with a corpus luteum cyst.. There is no free fluid in the pelvis. Polycystic ovary disease: No. US/Transvaginal Non- IMPRESSION: 1. Multiple small uterine fibroids. Overall normal size of the uterus. 2. 3.2 cm left ovarian corpus luteum cyst. Electronically Signed: Maciej Carvalho MD at 20:17 EDT ,
== END | disposition home or self-care (01) ==
LOC: US 15:10
PROVIDERS: PCP Internal Medicine; Referring Provider Nurse Practitioner Family; Visit Provider Nurse Practitioner Family
DX: R10.2 Pelvic and perineal pain (principal)
CPT/HCPCS: 76830

== ENCOUNTER → 2024-05-13 | Outpatient (CLI) | payer MEDICAID, SELFPAY ==
--- NOTE | 2024-05-13 08:30 | PET_ITS ---
EXAMINATION: FDG PET-CT INDICATIONS: A 58-year-old with a history of cervical carcinoma presenting for initial staging examination. COMPARISON EXAMINATION: Pelvic ultrasound report dated 03/12/24. INDEX LESION SIZE SUV INTERPRETATION Lower pelvis, uterus-uterine cervix 43.7 mm 8.4 Fulfills quantitative criteria for viable neoplasm. TECHNIQUE: Following the intravenous administration of 13.16 mCi of F-18 deoxyglucose via the left antecubital fossa, multiplanar image acquisitions of the head, neck, chest, abdomen and pelvis to level of mid-thigh, lower extremities obtained at one hour post radiopharmaceutical administration contemporaneously interpreted with the current CT of the head, neck, chest, abdomen and pelvis to level of mid-thigh, lower extremities dated 05/13/24 via coregistration and pelvic ultrasound report dated 03/12/24 reveal: SERUM GLUCOSE LEVEL: 109 mg/dl. HEIGHT: 67 inches. WEIGHT: 151 lbs. FINDINGS: Head/Neck: There is no evidence of abnormal increased glucose metabolism in the pharyngeal mucosal space, parapharyngeal space, bilateral-lateral and anterior neck, hypopharynx and distribution of the laryngeal structures. The visualized portion of the cerebral cortical-subcortical structures demonstrate symmetric and preserved glucose metabolism. CHEST: There is no quantitative scintigraphic evidence of abnormal increased glucose metabolism within the context of the bilateral hemithorax pulmonary parenchyma, right and left hemithoracic pleural interface, mediastinal structures and thoracic perihilum.? Pertinent chest CT findings are as follows. There is atherosclerotic calcification defined in the thoracic aorta without evidence of dilatation-aneurysm formation. Coronary arterial calcification is observed. Right and left axillary soft tissue densities are ametabolic. There are no parenchymal densities-nodules defined in the right and left hemithorax with quantitively significant increased FDG uptake. Bilateral axillary soft tissue densities are ametabolic. Meticulous attention paid to the bilateral hemithorax reveals no evidence of increased tracer uptake. Abdomen/Pelvis: Enhanced tracer uptake is defined in the lower pelvis, uterus-uterine cervix. The calculated maximum standard uptake value is 8.4. The maximum axial diameter of the largest metabolic abnormality is 43.7 mm. Normal physiologic distribution of the radiopharmaceutical is apparent in the hepatic (3.0) and splenic parenchyma, both renal units, bladder and visualized intestinal tract. Diffuse radiopharmaceutical concentration is noted in all four quadrants of the abdomen and pelvis. Abdomen and pelvis CT findings are as follows. There is atherosclerotic calcification defined in the abdominal aorta without evidence of dilatation-aneurysm formation. Abdominal-pelvic arterial calcification is defined. Colonic diverticula are defined without evidence of diverticulitis. Bilateral inguinal soft tissue densities with fatty hilus are nonglucose avid. Right and left inguinal soft tissue densities are ametabolic. Calcifications are defined within the uterine mass formation. Cyst formation is defined without increased FDG uptake in the left adnexal region. Skeletal: L4 on L5 anterolisthesis is demonstrated. Degenerative changes are noted in the cervical, thoracic and lumbar spine. PET/PET/CT Tumor Base -Thigh Init IMPRESSION: 1. ABNORMAL EXAMINATION INDICATIVE OF MALIGNANT-VIABLE NEOPLASM. 2. Increased tracer uptake noted in the pelvis associated with the uterus-uterine cervix fulfills quantitative criteria for viable neoplasm. 3. No other quantitative significant hypermetabolic abnormalities are encountered. Electronic Signature Maciej Pearson D.O. Accurate Quantification of SUVs for this report are calculated using the exclusive [employer], (U.S. Patent No. [id number] [phone] [id number] [phone] [place] patent [id number] [phone] [phone] ). Standardization and correction of the FDG SUV metric exclusively available with [employer] intellectual property, allow for vendor non-specific objective quantitative sequential FDG PET-CT comparison and otherwise unobtainable optimization of the sensitivity and specificity of the examination. [email or web address]/[email or web address] Electronically Signed: Maciej Pearson DO at 8:32 EDT ,
== END | disposition home or self-care (01) ==
LOC: ONC 07:57
PROVIDERS: PCP Internal Medicine; Referring Provider Obstetrics & Gynecology; Visit Provider Obstetrics & Gynecology
DX: C53.8 Malignant neoplasm of overlapping sites of cervix uteri (principal); C57.8 Malignant neoplasm of overlapping sites of female genital organs; R87.613 High grade squamous intraepithelial lesion on cytologic smear of cervix (HGSIL); N93.9 Abnormal uterine and vaginal bleeding, unspecified
CPT/HCPCS: 78815; A9552

== ENCOUNTER → 2024-05-26 | Outpatient (CLI) | payer MEDICAID, SELFPAY ==
--- NOTE | 2024-05-26 07:52 | MRI_ITS ---
EXAM: MR PELVIS WITHOUT AND WITH INTRAVENOUS CONTRAST CLINICAL INDICATION: VAGINAL BLEEDING, ABNORMAL PAP TECHNIQUE: Multiplanar and multisequence MR images of the pelvis without and with intravenous contrast. CONTRAST: IV 15 cc Clariscan COMPARISON: No relevant prior studies available. FINDINGS: INTRAPERITONEAL SPACE: Normal. No ascites or other fluid collection. BLADDER: Normal. OVARIES: Right ovary measures 2.0 x 1.7 x 1.6 cm. Left ovary measures 4.1 x 3.9 x 3.5 cm and contains simple appearing 3.5 cm cyst which is likely physiologic in nature. ACR White Paper guidelines (Antunez, et. al. JACR 2020;17(2):248-254) suggest no follow-up is necessary. UTERUS/CERVIX: Uterus is retroverted measuring 7.6 x 6.4 x 4.7 cm. There are multiple uterine fibroids noted measuring up to 2.5 cm in diameter. 19 mm solid tissue nodule distends the fundal portion of the endometrial cavity which may represent an endometrial polyp or submucosal fibroid. BONES/JOINTS: Normal. SOFT TISSUES: Normal. No pelvic wall hernia. LYMPH NODES: Normal. No enlarged lymph nodes. MRI/Pelvis W/WO Contrast IMPRESSION: Fibroid uterus. Question submucosal fibroid versus endometrial polyp. Gynecological follow up recommended. Electronically Signed: Wilfred Kern MD at 10:06 EDT ,
== END | disposition home or self-care (01) ==
LOC: MRI 07:43
PROVIDERS: PCP Internal Medicine; Referring Provider Obstetrics & Gynecology; Visit Provider Obstetrics & Gynecology
DX: N93.9 Abnormal uterine and vaginal bleeding, unspecified (principal); R87.613 High grade squamous intraepithelial lesion on cytologic smear of cervix (HGSIL)
CPT/HCPCS: 72197; A9575

== ENCOUNTER 2024-06-13 07:30 | Day surgery (SDC) | payer MEDICAID, SELFPAY ==
[2024-06-13] VITALS (8 sets, daily range): BP systolic 107–119; BP diastolic 64–77; PULSE 59–67; RESP 16–18; TEMP 36.2–36.3; O2SAT 97–100; BMI 23.1
--- NOTE | 2024-06-13 08:02 | PRE.ANES_ITS ---
ASA Classification* ASA Classification ASA Classification: 2 Assessment & Plan Anesthesia* Anesthesia Assessment Anesthesia Assessment: Discussed sedation and/or anesthesia options, risks, benefits, and alternatives with patient/parents/legal guardian/POA. Questions invited. The patient/parents/legal guardian/POA seems to understand and agrees to proceed with anesthesia plan. Reviewed the physical assessment, medical history, allergy history and patient home medications list prior to surgery/procedure/anesthetic and documented any changes. Performed airway and anesthesia risk assessments. Anesthesia Type Anesthesia Type: MAC Anesthesia Focused Assessment* Airway Assessment Mouth opens: >3 cm Mallampati Score: II Focused Labs Anesthesia Preop lab: CBC WBC 5.9 K/mm3 (4.4-11.0) 06/05/24 10:35 RBC 4.73 M/mm3 (4.2-5.4) 06/05/24 10:35 Hgb 13.2 g/dL (12.0-15.0) 06/05/24 10:35 Hct 42.0 % (37-47) 06/05/24 10:35 Plt Count 289 K/mm3 (150-450) 06/05/24 10:35 CHEMISTRY Potassium 3.9 mmol/L (3.5-5.1) 06/05/24 10:35 Sodium 141 mmol/L (136-145) 06/05/24 10:35 Magnesium 2.4 mg/dL (1.6-2.6) 06/05/24 10:35 Phosphorus 3.1 mg/dL (2.5-4.9) 06/05/24 10:35 BUN 14 mg/dL (7-18) 06/05/24 10:35 Creatinine 0.69 mg/dL (0.55-1.02) 06/05/24 10:35 Glucose 83 mg/dL (74-106) 06/05/24 10:35 COAG Pre-Assessment Diagnosis/Proposed Procedure Planned Operative Procedure(s): RIGHT POSS LEFT INTERNAL JUGULAR PORT Anesthesia History Anesthesia History - gold leaf layer: Anesthesia History - gold leaf layer Hx Hospitalization No 06/12/24 13:45 Any Problems With Anesthesia No 06/12/24 13:45 Cholinesterase deficiency No 06/12/24 13:45 You/Your Family Experience No 06/12/24 13:45 fever (hyperthermia) with Relationship Recent Exposure to Contagious No 06/05/24 10:44 Disease Does patient have nerve No 06/12/24 13:45 stimulator Patient instructed to have device shut off --Does patient have Pacemaker or ICD? When Was Last Pacemaker Check QUESTION #4 FULL TEXT: You/Your Family Experience fever (hyperthermia) with Anesthesia Last Oral Intake Last Oral intake: Last Oral Intake NPO since Meds taken in AM with sips of water? Meds patient instructed to take am of surgery PONV PONV - gold leaf layer: PONV - gold leaf layer Female Yes 06/12/24 13:45 HX of Motion Sickness No 06/12/24 13:45 HX of N/V After Surgery No 06/12/24 13:45 Non-Smoker Yes 06/12/24 13:45 Duration of Surgery greater No 06/12/24 13:45 than 60 minutes Number of Risk Factors 2 06/12/24 13:45 PONV Score Moderate Risk 06/12/24 13:45 Height & Weight Height & Weight: Anesthesia: Height & Weight Height 5 ft 7 in 06/11/24 09:01 Respiratory Assessment Respiratory Assessment - gold leaf layer: Respiratory Tract Infection Hx - gold leaf layer Hx Respiratory Tract Infection No 06/12/24 13:45 STOP Sleep Apnea STOP Sleep Apnea - gold leaf layer: STOP Sleep Apnea - gold leaf layer Hx Hypertension No 06/12/24 13:45 Hx Sleep Apnea No 06/12/24 13:45 CPAP BIPAP Do you snore loudly (louder No 06/12/24 13:45 than talking or can be heard Do you often feel tired/ No 06/12/24 13:45 fatigued/ sleepy during daytime? Has anyone observed you stop No 06/12/24 13:45 breathing during sleep? STOP Results Negative 06/12/24 13:45 QUESTION #5 FULL TEXT : Do you snore loudly (louder than talking or can be heard through closed doors)? Tobacco Use History Tobacco Use History - gold leaf layer: Tobacco Use History - gold leaf layer Tobacco Use Smoking Status Never smoker 06/12/24 13:45 Hx Tobacco Use No 06/12/24 13:45 Years Smoking Packs Smoked per Day Smoking Cessation Date was within the last 15 years Hx Smoking Cessation Date Hx Smoking Cessation Counseling Hematologic Medial History Hematologic Hx - gold leaf layer: Hematologic Medical Hx - science consultant Hx of Blood Transfusion No 06/12/24 13:45 Hx of Transfusion in last 3 No 06/12/24 13:45 Months Date of Last Transfusion (if within last 3 months) Ever experience any problems No 06/12/24 13:45 with transfusion(s)? Specify any problems Hx of Preganancy in last 3 No 06/12/24 13:45 Months Nurse Filling Out Transfusion DSCHRIBER 06/12/24 13:45 & Questions: Date: 06/12/24 06/12/24 13:45 Time: 13:46 06/12/24 13:45 Patient unable to answer at this time (ie. confused, unrespo /Reproduction History /Reproductive History - gold leaf layer: /Reproductive Hx- gold leaf layer Hx Now No 06/12/24 13:45 Gestational Age (in weeks): EDC: Hx Hx Para Hx Section SAB No 06/12/24 13:45 Active Medications Active Medications: Current Medications Generic Name Dose Route Start Last Admin Trade Name Deonna PRN Reason Stop Dose Admin Cefazolin Sodium 2 gm/ Sodium 110 mls @ 150 mls/hr 06/13/24 09:30 Chloride IV 06/13/24 10:13 PREOP ONE Lactated Ringer's 1,000 mls @ 15 mls/hr 06/13/24 07:45 IV .Q48H SAWYER PFSH Medical History Cancer Alcohol use Encounter for education Fibrolipoma Wears glasses Post-menopausal Non-smoker Home Medications ?Medication ?Instructions ?Recorded ?Last Taken ?Type ibuprofen 600 mg tablet 600 mg PO Q8H PRN PRN pain #20 10/16/23 Unknown Rx TABLETS aspirin 325 mg tablet 325 mg PO DAILY 02/22/24 06/05/24 History lidocaine-prilocaine 2.5 %-2.5 % 1 applic topical ONCE PRN port 06/09/24 Unknown Rx topical cream access 30 days #30 grams ondansetron 8 mg disintegrating 8 mg PO Q8H PRN nausea and 06/09/24 Unknown Rx tablet vomiting #30 tabs prochlorperazine maleate 10 mg 10 mg PO Q6H PRN nausea and 06/09/24 Unknown Rx tablet vomiting #30 tabs Allergy/AdvReac Type Severity Reaction Status Date / Time No Known Allergies Allergy Verified 06/13/24 08:01 Family History Father Diabetes Aortic aneurysm Sister Cancer nonhodgkins lymphoma Surgical History Hx of shoulder surgery Hx of colonoscopy History of excision of mass Social History adopted: No household members: significant other current occupational status: employed current occupation: [employer] pets and animals: No Smoking Status: Never smoker Electronic Cigarette Use: not used alcohol intake: current alcohol intake frequency: a few times a week Alcohol type: wine substance use type: does not use caffeine: Yes (1) Type: coffee what type of physical activity do you participate in: walking and aerobics frequency: 5-6 times per week seatbelt use: always do you feel safe at home: Yes additional social history: Single Review of Systems (Anesthesia) ROS Narrative System reviewed and no additional complaints, except as documented.
[2024-06-13] MEDS: Lactated Ringers 1,000 ML 15 ML IV (08:05)
--- NOTE | 2024-06-13 09:42 | HP.PCM_ITS ---
History and Physical Date of Admission: 06/13/24 Date of Service: 06/11/24 MR#: [id number] Acct: [id number] Name: DEREK SHETTY Rep #: [id number] : 1965 Provider: Dr. Margarito Reyes MD Age/Sex: 58/F Location: [facility] Status: Signed Intake Vital Signs 06/05/2409:41 06/05/2410:44 06/09/2410:13 06/11/2409:01 Height 5 ft 7 in 5 ft 7 in 5 ft 7 in 5 ft 7 in Weight: 149 lb 5 oz 149 lb BMI 23.3 23.3 BP 129/74 H 111/73 Blood Pressure Location Lt brachial Rt brachial Position Sitting Sitting Respiration 16 17 Pulse 76 62 Pulse Source Monitor Monitor Temp 97.5 F L Pulse Oximetry (%) 95 97 Oxygen Delivery Method room air room air Intake Visit Reasons: PORT PLACEMENT Chief Complaint: port placement Is patient in pain?: No Allergies No Known Allergies Allergy (Verified 06/11/24 09:02) Medications ?Medication ?Instructions ?Recorded ?Confirmed ?Type ibuprofen 600 mg tablet 600 mg PO Q8H PRN PRN pain #20 10/16/23 06/11/24 Rx TABLETS aspirin 325 mg tablet 325 mg PO DAILY 02/22/24 06/11/24 History lidocaine-prilocaine 2.5 %-2.5 % 1 applic topical ONCE PRN port 06/09/24 06/11/24 Rx topical cream access 30 days #30 grams ondansetron 8 mg disintegrating 8 mg PO Q8H PRN nausea and 06/09/24 06/11/24 Rx tablet vomiting #30 tabs prochlorperazine maleate 10 mg 10 mg PO Q6H PRN nausea and 06/09/24 06/11/24 Rx tablet vomiting #30 tabs PFSH Medical History Encounter for education Kidney stone Fibrolipoma Wears glasses Post-menopausal Restless legs Non-smoker Surgical History History of excision of mass Family History Father Diabetes Aortic aneurysmSister Cancer nonhodgkins lymphoma Social History adopted: No household members: significant other current occupational status: employed current occupation: [employer] pets and animals: No Smoking Status: Never smoker Electronic Cigarette Use: not used alcohol intake: current alcohol intake frequency: a few times a week Alcohol type: wine substance use type: does not use caffeine: Yes (1) Type: coffee what type of physical activity do you participate in: walking and aerobics frequency: 5-6 times per week seatbelt use: always do you feel safe at home: Yes additional social history: Single HPI HPI HPI: Patient is a 58-year-old female who presents for consideration of port placement. Patient was diagnosed with squamous cell carcinoma of the cervix on April 28, 2024 after colposcopy with [employer]. They have met with oncology and plans are to begin chemotherapy 06/16/2024. Patient has no prior history of central line placement. Patient has no pacemaker or intracardiac defibrillator. Patient has no renal dysfunction and are not on hemodialysis. There is no history of staph or MRSA infection Mrs. Shetty is not currently prescribed blood thinners. ROS General General: No weight change, appetite, fatigue, colon cancer, breast cancer or weakness HEENT HEENT: No difficulty swallowing, eye injury, eye surgery, swollen glands or hoar seness Endo Endocrine: No thyroid disease, diabetes mellitus, thyroid cancer, Hair loss, heat intolerance or cold intolerance Skin Skin: No rash or changing moles Musc Musculoskeletal: No back problems, arthritis, rheumatoid arthritis, gout or joint pain Cardio Cardiovascular: No murmur, pacemaker, heart disease, atrial fibrillation, high blood pressure, heart attack, heart stent, palpitations, shortness of breat with exertion or chest pain Psych Psychiatric: No depression, anxiety or hearing voices Resp Respiratory: No shortness of breath, No sleep apnea, No cough, No COPD, No asthma, No emphysema and No wheezing Gastro Gastrointestinal: No abdominal pain, No nausea or vomiting, No diarrhea, Yes constipation, No blood in stool, No acid reflux, No hemorrhoids, No ulcers, No gallbladder problem and No black,tarry stools Cuauhtemoc Hematologic: Yes blood thinners, No blood disorders, No bleeding, No anemia and No blood clots Additional Details: asa 325mg Neuro Neurologic: No system reviewed and no additional complaints, except as documented, No as per HPI, No abnormal gait, No abnormal hearing, No abnormal movements, No abnormal speech, No behavioral changes, No burning sensations, No confusion, No convulsions, No disequilibrium, No dizziness, No localized weakness, No frequent falls, No headache(s), No lack of coordination, No loss of vision, No memory loss, No numbness, No other visual disturbances, No radicular pain, No restless legs, No sensory deficit, No syncope, No tingling, No tremor(s), No weakness and No other Exam Const General: cooperative and comfortable Orientation: alert, awake and oriented x3 Chest Other: Well-healed scar extending from shoulder to right upper lateral aspect of the chest. Otherwise no scars, rashes, or signs of infection bilaterally Assessment and Plan Assessment and Plan (1) Encounter for insertion of venous access port: Status: Acute Comment: Patient is a 58-year-old female with recent diagnosis of cervical SCC who requires placement of Port-A-Cath for chemotherapy administration. She is due to start chemotherapy in 5 days. Thus she has been placed on the schedule for this procedure on 06/13/2024. I find no contraindication with proceeding and did discuss with her procedure details as well as postprocedure expectations. Additionally, I discussed the need to monitor the area for signs of infection and to use the port only as necessary. All questions were answered. Plan: Plan to proceed to the operating room for ultrasound and fluoroscopic guided right possible left Port-A-Cath placement on 06/13/2024 I have examined the patient and the H&P has been reviewed. There are no clinical changes since date of exam.Procedure and post procedure expectations were reviewed. Neither patient or spouse offer any additional questions. Proceed to the operating room for port placement as described in detail above.
[2024-06-13] MEDS: Cefazolin 2 GM in 0.9% Normal Saline (100mL Bag) 100 ML IV (10:00)
[2024-06-13] MEDS: Bupiv/Epi 0.25% 30 ML Vial (11:05)
--- NOTE | 2024-06-13 11:16 | OP.PCM_ITS ---
Report of Operation Date of Procedure: 06/13/24 Pre-Operative Diagnosis: Cervical cancer requiring durable venous access for ad ministration of chemotherapy Post-Operative Diagnosis: Same Surgery/Procedure Performed:: Ultrasound and fluoroscopic guided placement of left internal jugular Port-A-Cath Surgeon: Margarito Reyes foreign exchange clerk: None Anesthesiologist: Alexi Cary Specimen's removed: None Estimated Blood Loss (mL): 15 Description of Procedure: After appropriate identification in the preoperative holding area the patient was brought to the operating room. There she was administered preoperative antibiotics and positioned supine on the operating room table. Once sedation was begun, the upper chest and lower cervical region were prepped and draped in usual sterile fashion. A formal timeout was then conducted to confirm both the patient and procedure. Ultrasound was used to localize the right internal jugu lar vein. Then a wheal of 0.25% bupivacaine with epinephrine was raised superficially in this location and the vein was accessed with 1 attempt under direct ultrasound guidance using a Seldinger technique and micro access kit to place a guidewire. Unfortunately the micro access guidewire would not pass in an antegrade fashion and fluoroscopy revealed curling in the region of the confluence of the internal jugular vein with the subclavian vein. Thus this wire was removed. I made a second attempt with the standard 035 guidewire and, again, could not achieve antegrade passage. This resistance to passage of the wire appeared to externally correspond to the level of the clavicular head. While experiencing this resistance I also noted on ultrasound that there was slight hematoma and contraction of the vein thus pressure was applied. I considered trying a third time in this region, however, diminutive size of the vessel at this point led me to proceed to the contralateral side. Now the left internal jugular vein was identified with ultrasound. Another wheal of 0.25% bupivacaine with epinephrine was raised over the successful and this time a 035 guidewire was inserted without initial resistance. Still, when I obtained a fluoroscopic picture the wire appeared to double back upon itself and so live fluoroscopy was used to advance the wire into the correct position within the [facility]. Next the position of the port pocket was determined and again local anesthetic was used to anesthetize the area of both the pocket and the tunneling cephalad. A transverse incision 3 cm in width was made down through the subcutaneous tissue. Selective electrocautery was used to obtain hemostasis. Then with blunt dissection the port pocket was developed. The catheter was connected to the tunneler and was tunneled up to the position of the guidewire. Here the dilator and peel-away sheath were placed over the guidewire and the guidewire was removed. Position was again confirmed with fluoroscopy. The catheter length was estimated based on the external placement of a hemostat to approximate the level of the joan and the cavoatrial junction. The catheter was then fed into the sheath and slowly the sheath was peeled away as the catheter was inserted fully into the neck. Back in the chest the excess catheter was trimmed and the port was connected to the catheter. The port was tied into the pocket using 2-0 Vicryl. Function was then tested using sterile saline on a Echevarria needle. It was locked with 3 mL of heparinized saline (concentration 50U/5mL). The port pocket was closed with a deep dermal stitch using a running 3-0 Vicryl followed by 4-0 Monocryl subcuticular stitch. The 1 cm incision in the neck was closed with a single interrupted subcuticular stitch using 4-0 Monocryl. Dermabond was applied as a dressing. Patient was then aroused from the sedation and taken to PACU for ongoing recovery were a portable chest x-ray was obtained to confirm port positioning and exclude any pneumothorax. Grafts/Implants Used: PowerPort 8 Danish ISP, reference [id number], lot [id number] Complications None Admit VTE Documentation VTE Mechan Device Prophylaxis: SCD's Procedures Cardiovascular CF Procedures 33xxx-39xxx: [id number] Insert tunneled cv cath
--- NOTE | 2024-06-13 11:18 | DCINST_ITS ---
Discharge Instructions Diet Discharge Diet: No restrictions Activity Discharge Activity: May Shower May shower in (days): 1 Ice area for (Minutes): 20 Additional Activity Instructions:: Limit the activity by the nearest upper extremity for 48 hours postop Dressing / Incision Call your doctor if your incision/area has: Increased Pain/ Swelling, Increased Redness, Foul Smelling Discharge and Swelling at the incision site Call your doctor if you observe: Fever of 101 or Higher Remove Dressing in: do not remove dressing (Dermabond (surgical glue) expected to dissolve spontaneously within 7 to 10 days postop using regular showering) Cleanse incision/area with: Soap & Water Follow Up Care Test Results: Test results from this visit will be discussed in further detail at your follow- up appointment, if applicable. Discharge Plan Admission Primary Reason for Your Visit: Port-A-Cath placement Attending Provider: Margarito Reyes Primary Care Provider: Marlen Rodríguez Instructions Print Language: Filipino Discharge Orders/Prescriptions Prescriptions: Continued aspirin 325 mg tablet 325 mg PO DAILY Patient Comments: ON HOLD FOR COLONOSCOPY 03/11/22 prochlorperazine maleate 10 mg tablet 10 mg PO Q6H PRN (Reason: nausea and vomiting) Qty: 30 2RF ondansetron 8 mg tablet,disintegrating 8 mg PO Q8H PRN (Reason: nausea and vomiting) Qty: 30 2RF lidocaine-prilocaine 2.5-2.5 % cream 1 applic topical ONCE PRN (Reason: port access) 30 Days Qty: 30 2RF ibuprofen 600 mg tablet 600 mg PO Q8H PRN PRN (Reason: pain) Qty: 20 0RF Referrals / Follow Up: Marlen Rodríguez MD [Primary Care Provider] - Disposition Disposition (needs filled in before D/C Order can be placed): Home, Self Care
--- NOTE | 2024-06-13 11:23 | PCM.POST.ANE ---
Anesthesia: Postop Eval I Current Vital Signs Temperature: 97.2 F Pulse Rate: 63 Blood Pressure: 110/69 Respiratory Rate: 18 Pulse Ox: 98 Oxygen Delivery Method: Room Air Assessment Airway patent: Yes Spontaneous unlabored respirations: Yes Mental status: Awake and Calm nausea: No Vomiting: No Anesthesia Complication: No Fluid Hydration Crystalloid volume administer (ml): 800 Total IV fluid infused: 800 Progress Note Anesthesia document: Postop Eval 1 completed: Yes
--- NOTE | 2024-06-13 11:25 | RAD_ITS ---
STUDY: X-RAY CHEST REASON FOR EXAM: Female, 58 years old. Status post port placement. TECHNIQUE: Single frontal view of the chest. COMPARISON: None. FINDINGS: Left internal jugular catheter placed with tip projected over the mid-SVC. Linear atelectasis at both bases. There is no demonstrated pleural abnormality. Normal size heart. Normal mediastinum and sally. Normal visualized pulmonary arteries. Normal visualized aortic arch and descending thoracic aorta. No abnormality of the visualized soft tissue structures of the upper abdomen. RAD/CXR for Line Placement IMPRESSION: Left internal jugular catheter placed with no complicating features. Bibasilar atelectasis. Electronically Signed: Lio Bain MD at 11:59 EDT ,
--- NOTE | 2024-06-13 12:48 | POSTOPAN2_ITS ---
Anesthesia Postop Eval I Sum Postop Eval Completion status Anesthesia document: Postop Eval 1 completed: Yes Anesthesia Postop Eval I Summary Anesthesia Postop Eval I Summary: Anesthesia Postop Eval I: Assessment Summary Airway patent Yes 06/13/24 11:29 GRINDER SET UP OPERATOR [email or web address] Spontaneous unlabored Yes 06/13/24 11:29 GRINDER SET UP OPERATOR [email or web address] respirations Mental status Awake,Calm 06/13/24 11:29 GRINDER SET UP OPERATOR [email or web address] nausea No 06/13/24 11:29 GRINDER SET UP OPERATOR [email or web address] Vomiting No 06/13/24 11:29 GRINDER SET UP OPERATOR [email or web address] Anesthesia Postop Eval I: Fluid Summary Crystalloid volume administer 800 06/13/24 11:29 GRINDER SET UP OPERATOR [email or web address] (ml) Colloids volume administered ( ml) Blood Product volume administered (ml) Total IV fluid infused 800 06/13/24 11:29 GRINDER SET UP OPERATOR [email or web address] Anesthesia Postop Eval I: Summary Notes Anesthesia Complication No 06/13/24 11:29 GRINDER SET UP OPERATOR [email or web address] Anesthesia Complication Comment: Post-operative progress note Anesthesia: Postop Eval II Evaluation Mental status: Awake Pain Level: 0 nausea: No Vomiting: No
--- NOTE | 2024-06-13 12:48 | PCM.POSTANE2 ---
Anesthesia Postop Eval I Sum Postop Eval Completion status Anesthesia document: Postop Eval 1 completed: Yes Anesthesia Postop Eval I Summary Anesthesia Postop Eval I Summary: Anesthesia Postop Eval I: Assessment Summary Airway patent Yes 06/13/24 11:29 [email or web address] [email or web address] Spontaneous unlabored Yes 06/13/24 11:29 HIDE [email or web address] respirations Mental status Awake,Calm 06/13/24 11:29 HIDE [email or web address] nausea No 06/13/24 11:29 HIDE MILL [email or web address] Vomiting No 06/13/24 11:29 HIDE [email or web address] Anesthesia Postop Eval I: Fluid Summary Crystalloid volume administer 800 06/13/24 11:29 HIDE [email or web address] (ml) Colloids volume administered ( ml) Blood Product volume administered (ml) Total IV fluid infused 800 06/13/24 11:29 HIDE [email or web address] Anesthesia Postop Eval I: Summary Notes Anesthesia Complication No 06/13/24 11:29 HIDE [email or web address] Anesthesia Complication Comment: Post-operative progress note Anesthesia: Postop Eval II Evaluation Mental status: Awake Pain Level: 0 nausea: No Vomiting: No
== END 2024-06-13 13:03 | disposition home or self-care (01) ==
LOC: SDC 07:31 → AC 07:33
PROVIDERS: PCP Internal Medicine; Referring Provider Surgery; Visit Provider Surgery
PROC: (CPT 36561; principal; 2024-06-13 09:15)
DX: Z45.2 Encounter for adjustment and management of vascular access device (principal); C53.9 Malignant neoplasm of cervix uteri, unspecified; Z79.82 Long term (current) use of aspirin
CPT/HCPCS: 36561; 00532; 71045; 77001; C1894; J7120; C1788; J2405

== ENCOUNTER → 2024-11-11 | Outpatient (CLI) | payer MEDICAID, SELFPAY ==
--- NOTE | 2024-11-11 07:30 | PET_ITS ---
EXAMINATION: FDG PET-CT INDICATIONS: A 59-year-old female with history of cervical carcinoma presenting for restaging examination. COMPARISON EXAMINATION: FDG PET-CT study dated 05/13/24 TECHNIQUE: Following the intravenous administration of 12.49 mCi of F-18 deoxyglucose via the left antecubital fossa, multiplanar image acquisitions of the neck, chest, abdomen and pelvis to level of mid thigh, obtained at one hour post radiopharmaceutical administration contemporaneously interpreted with the current CT of the neck, chest, abdomen and pelvis, to level of mid thigh, dated 11/11/24 via coregistration and FDG PET-CT study dated 05/13/24 reveals: BLOOD GLUCOSE LEVEL:?? 72 mg/dl?HEIGHT:?67 inches?WEIGHT: 151 lbs. FINDINGS: HEAD/NECK: There is no evidence of abnormal increased glucose metabolism in the pharyngeal mucosal space, parapharyngeal space, bilateral-lateral and anterior neck, hypopharynx and distribution of the laryngeal structures. The visualized portion of the cerebral cortical-subcortical structures demonstrate symmetric and preserved glucose metabolism. CHEST: There is no quantitative scintigraphic evidence of abnormal increased glucose metabolism within the context of the bilateral hemithorax pulmonary parenchyma, right and left hemithorax pleural interface, mediastinal structures and right-left thoracic perihilum. Alba-cath placement is noted. Previously defined morphologic-anatomic changes noted on review of CT of the chest dated 05/13/24, are essentially unchanged on the current examination. ABDOMEN/PELVIS: Normal physiologic distribution of the radiopharmaceutical is apparent in the hepatic and splenic parenchyma, both renal units, bladder and visualized intestinal tract. Diffuse radiopharmaceutical concentration is noted in all four quadrants of the abdomen and pelvis. The previously identified uterus-uterine cervix hypermetabolic foci defined on the examination dated 05/13/24 are not apparent on the present examination. Review of CT of the abdomen and pelvis dated 05/13/24 demonstrates no significant interval change. SKELETAL: Degenerative changes are noted in the cervical, thoracic and lumbar spine without evidence of increased radiopharmaceutical concentration. PET/PET/CT Tumor Base -Thigh Subs IMPRESSION: 1. NEGATIVE EXAMINATION. There is no definitive quantitative scintigraphic evidence of recurrent-metastatic/viable neoplasm. 2. Overall, compared to the prior FDG PET study dated 05/13/24, there is interim resolution of the prior defined uterus, uterine cervix hypermetabolic foci with current absence of defined viable neoplastic disease. Electronic Signature Maciej Pearson D.O. Accurate Quantification of SUVs for this report are calculated using the exclusive [employer]. (U.S. Patent No. [phone] [phone] patent [phone]). Standardization and correction of the FDG SUV metric via [employer] technology allow for vendor non-specific objective quantitative examination comparison and optimization of the sensitivity and specificity of the FDG PET-CT examination. [email or web address] Electronically Signed: Maciej Pearson DO at 7:39 EST ,
== END | disposition home or self-care (01) ==
LOC: ONC 07:13
PROVIDERS: PCP Internal Medicine; Referring Provider Obstetrics & Gynecology; Visit Provider Obstetrics & Gynecology
DX: C53.8 Malignant neoplasm of overlapping sites of cervix uteri (principal)
CPT/HCPCS: 78815; A9552

== ENCOUNTER → 2025-02-09 | Outpatient (CLI) | payer MEDICAID, SELFPAY ==
--- NOTE | 2025-02-09 13:56 | BI_ITS ---
EXAM: SCRN MAMM (CAD)W/JOSEPH BILAT DATE: 02/09/2025 CLINICAL HISTORY: F, Age 59 y/o , ANNUAL SCREENING BREAST CANCER RISK ASSESSMENT: Has not been calculated TECHNIQUE: Bilateral screening digital breast tomosynthesis with 2D and 3D images. Computer aided detection. COMPARISON: Prior exam(s) dated 02/06/2024. FINDINGS: TISSUE DENSITY: The breast tissue is heterogenously dense, which may obscure small masses. Bilateral Breast Mammographic Findings: There are no suspicious masses, suspicious microcalcifications, architectural distortion or secondary sign of malignancy identified in either breast. Benign-appearing round calcifications are seen in the right breast. Benign vascular calcifications are seen in the left breast. BI/SCRN MAMM (CAD)W/JOSEPH BILAT IMPRESSION: Right Breast: BIRADS 2 BENIGN FINDING. Left Breast: BIRADS 2 BENIGN FINDING. OVERALL FINAL ASSESSMENT: BIRADS 2 BENIGN FINDING RECOMMENDATION: Routine annual follow-up in 1 Year A letter with findings and recommendations will be mailed to the patient. Reading Location: [id number]
== END | disposition home or self-care (01) ==
LOC: OPBI 13:56
PROVIDERS: PCP Internal Medicine; Referring Provider Internal Medicine Hematology & Oncology; Visit Provider Internal Medicine Hematology & Oncology
DX: Z12.31 Encounter for screening mammogram for malignant neoplasm of breast (principal)
CPT/HCPCS: 77063; 77067

== ENCOUNTER 2025-02-24 10:57 | Inpatient (IN) | payer MEDICAID, SELFPAY ==
[2025-02-24 10:58] VITALS: BP 123/59; PULSE 85; RESP 14; TEMP 36.1; O2SAT 100; BMI 22.4
[2025-02-24 12:58] VITALS: PULSE 78; RESP 16
--- NOTE | 2025-02-24 13:22 | CT_ITS ---
PROCEDURE: ABDOMEN/PELVIS W IV CONT ONLY (procedure code [id number]), 02/24/2025 REASON FOR EXAM: ABDOMINAL PAIN AND VOMITING TECHNIQUE: CT abdomen and pelvis was performed with IV contrast. Multiplanar reformats were generated. CONTRAST: Isovue-300 VOLUME: 89mL RADIATION DOSE SUMMARY: CTDlvol: 6.65+ 11.07 mGy DLP: 536.85 mGycm One or more dose reduction techniques were used (e.g., Automated exposure control, adjustment of the mA and/or kV according to patient size, use of iterative reconstruction technique). COMPARISON: 11/11/2024 and prior FINDINGS: Lung bases: Mild atelectasis/scarring.. Liver: Unremarkable. Spleen: Granulomas. Gallbladder: Unremarkable. Pancreas: Unremarkable. Adrenals: Unremarkable. Kidneys: Small LEFT renal cysts and additional tiny hypodensities too small to characterize but likely to reflect additional cysts. Similar small nonobstructing intrarenal calculus on the LEFT. Bowel: Distended stomach. Marked wall thickening with trace adjacent stranding along the gastric pylorus and duodenal bulb with mild associated mucosal hyperemia. Question a contained perforation or focal ulcer posteriorly within the region measuring roughly 1.5 cm. Diverticulosis. Liquid contents of the colon suggesting malabsorption/diarrhea. Mild wall thickening and suggestion of mucosal hyperemia along the cecum/proximal ascending colon. Areas of apparent mild distal small bowel wall thickening may be related to underdistention in the absence of convincing adjacent inflammation. Top-normal caliber of the appendix without convincing adjacent inflammation. Lymph nodes: Unremarkable. Vasculature: Unremarkable. Peritoneum: Trace pelvic free fluid. Bladder: Underdistended and suboptimally evaluated, grossly unremarkable. Reproductive Organs: Uterine lesions up to roughly 2.7 cm with associated calcifications, incompletely characterized by CT, not clearly visible on prior exams possibly due to the lack of IV contrast. LEFT ovarian cyst measures 3.6 cm, similar to 11/11/2014 and minimally enlarged from 3.1 cm on 10/16/2023 and not previously FDG avid on recent PET/CT 11/11/2024, suggesting a benign neoplasm. Body Wall: Tiny fat containing umbilical hernia.. Bones: Lower lumbar spondylosis. Suspect demineralization. CT/Abdomen/Pelvis W IV Cont ONLY IMPRESSION: 1. Findings concerning for peptic ulcer disease with including a small 1.5 cm c ontained perforation versus ulcer. Given the degree of wall thickening, recommend either CT follow-up to resolution or endos copy to exclude an underlying infiltrative neoplasm. Distention of the upstream stomach could be physiologic in the setti ng of recent recently ingested material, reflective of gastroparesis, or perhaps associated gastric outlet obstruction. 2. Correlate for mild enterocolitis. Given mild RIGHT colonic wall thickening, recommend clinical follow-up to ensure resolution. 3. Trace pelvic free fluid, potentially physiologic if the patient is premenopa usal, or potentially reactive to the above. 4. Uterine lesions up to 2.7 cm, incompletely characterized by CT, possible fib roids however this is not definite. Given provided history of cervical cancer, recommend clinical/oncologic follow-up. 5. 3.6 cm LEFT ovarian cyst, also incompletely characterized by CT but minimall y enlarged from 10/16/2023 and not previously FDG avid, suggesting a benign neoplasm such as cystadenoma. 6. Additional description as above. Reading Location: [id number]
[2025-02-24 13:34] LABS: Absolute Lymphocyte Count 0.56 X10^3/uL (0.83-4.51); Absolute Neutrophil Count 4.4 X10^3/uL (2.0-7.7); Basophil# 0.03 X10^3/uL; Basophil% 0.5 % (0-1); Eosinophil# 0.09 X10^3/uL; Eosinophils% 1.6 % (0-5); Hematocrit 38.4 % (37-47); Hemoglobin 12.7 g/dL (12.0-15.0); Lymphocyte # 0.56 X10^3/ul (0.83-4.51); Lymphocyte % 10.2 % (19-41); Mean Corp Hgb Conc 33.1 g/dL (32-36); Mean Corpuscular Volume 90.8 fL (81-99); Mean Platelet Vol. 8.5 fl (6.2-12.0); Monocyte% 7.3 % (0-10); NRBC Flagged by Analyzer 0 % (0-5); Neutrophil # 4.41 X10^3/uL (2.7-7.7); Neutrophil % 80.2 % (47-70); POSITIVE DIFFERENTIAL YES; Platelet Count 192 K/mm3 (150-450); RBC Distribution Width CV 13.1 % (11.6-14.6); RBC Distribution Width SD 43.2 fl (35.1-43.9); Red Blood Count 4.23 M/mm3 (4.2-5.4); White Blood Count 5.5 K/mm3 (4.4-11.0)
[2025-02-24 13:57] LABS: AST(SGOT) 24 U/L (<=31); Alanine Aminotransfer ALT/SGPT 18 U/L (<=34); Albumin, Serum 4.1 g/dL (3.5-5.0); Alkaline Phosphatase 118 U/L (35-104); Anion Gap 11 (5-15); BUN 14 mg/dL (4-19); BUN/Creat Ratio 19.9 RATIO (10-20); Bilirubin, Direct 0.15 mg/dL (0.00-0.30); Calcium,Total 9.6 mg/dL (7.6-11.0); Carbon Dioxide 23.6 mmol/L (21.0-32.0); Chloride 103 mmol/L (98-108); Creatinine, Serum 0.69 mg/dL (0.70-1.20); EST Glomerular Filtration Rate 101 (>60); Estimated Creatinine Clearance 87.48 ml/min (50-250); Globulin 2.5 g/dL (2.2-4.2); Glucose 98 mg/dL (70-99); Lipase 43 U/L (13-75); Potassium 3.1 mmol/L (3.3-5.1); Protein, Total 6.6 g/dL (5.9-8.4); Sodium Level 138 mmol/L (133-145); Total Bilirubin 0.31 mg/dL (0.00-1.30)
[2025-02-24 14:00] VITALS: BP 117/63; PULSE 57; RESP 15; O2SAT 97
[2025-02-24 14:19] LABS: Bacteria 0 SEEN /hpf (None Seen); Mucous, Urine 0 SEEN /hpf (<or=2+); Red Blood Cells-Urine 0 SEEN /hpf (0-5); Squamous Epithelial Cells - UA 0 SEEN /hpf (5-10)
[2025-02-24 14:26] LABS: Color, Urine Straw (Yellow); Glucose, Dipstick Normal (Normal); Ketone-Dipstick 50 mg/dl (Negative); Leukocyte Esterase-Dipstick 25 /ul (Negative); Nitrite-Dipstick Negative (Negative); Occult Blood-Urine Negative /ul (Negative); Protein-Dipstick 30 mg/dl (Negative); Specific Gravity, Urine 1.015 (1.002-1.030); Urine Bilirubin Dipstick Negative (Negative); Urine Clarity Clear (Clear); Urine Urobilinogen Normal (Normal)
[2025-02-24 14:37] LABS: White Blood Cells 0-5 SEEN /hpf (0-5)
--- NOTE | 2025-02-24 14:37 | EX.ED.DYSGE1 ---
HPI History of Present Illness Chief Complaint: Abd Pain Informant: patient Narrative Narrative: 59-year-old female presenting to the emergency room with a chief complaint of abdominal pain and vomiting. Patient notes that on Sunday she began to have pain from her epigastrium to the suprapubic region. She states that anytime she tries to eat anything solid she has vomiting. She notes no real change in bowel movements or urination. No fevers. She states that she has several large lipomas that she was can have Dr. Reyes evaluate for removal and wonders if they are constricting something. She does not feel bloated. She denies any black or bloody stools. She notes that otherwise she has been very healthy and notes that last year she underwent chemotherapy radiation for cervical cancer. Patient notes rare alcohol use. She states she takes an aspirin maybe a couple times a week. She states she used to take it daily. She notes no other significant anti-inflammatory use. PFSH PFSH Medical History History of brachytherapy CINV (chemotherapy-induced nausea and vomiting) Herpes zoster Encounter for chemotherapy management Cancer Alcohol use Encounter for education Fibrolipoma Wears glasses Post-menopausal Non-smoker Home Medications ?Medication ?Instructions ?Recorded ?Last Taken ?Type aspirin 325 mg tablet 325 mg PO DAILY PRN fever or pain 07/07/24 Unknown History Allergy/AdvReac Type Severity Reaction Status Date / Time No Known Allergies Allergy Verified 02/24/25 10:58 Family History Father Diabetes Aortic aneurysm Sister Cancer nonhodgkins lymphoma Surgical History History of removal of Port-a-Cath Hx of shoulder surgery Hx of colonoscopy History of excision of mass Social History adopted: No household members: significant other current occupational status: employed current occupation: [employer] pets and animals: No Smoking Status: Never smoker Electronic Cigarette Use: not used alcohol intake: current alcohol intake frequency: a few times a week Alcohol type: wine substance use type: does not use caffeine: Yes (1) Type: coffee what type of physical activity do you participate in: walking and aerobics frequency: 5-6 times per week seatbelt use: always do you feel safe at home: Yes additional social history: Single ROS ROS ED Constitutional Constitutional ED: Denies chills, fever(s) or weight loss Eyes Eyes: Denies change in vision or diplopia ENT ENT ED: Denies ear pain, rhinorrhea or sore throat Cardiovascular Cardiovascular: Denies chest pain, orthopnea, palpitations or racing heartbeat Respiratory/Chest Respiratory/Chest: Denies cough, dyspnea or orthopnea Gastrointestinal Gastrointestinal: Reports abdominal pain, nausea and vomiting; Denies diarrhea Genitourinary Genitourinary ED: Denies dysuria, hematuria or urinary frequency Musculoskeletal Musculoskeletal: Denies arthralgias or myalgias Integumentary Denies abscess or rash Neurologic Neurologic: Denies headache(s) or weakness Psychiatric Psychiatric: Denies anxiety, depression, suicidal ideation or suicidal thoughts Endocrine Endocrinology: Denies polydipsia, polyphagia or polyuria Allergic/Immunologic Allergic/Immunologic ED: Denies mouth swelling, tongue swelling or urticaria EXAM Physical Exam Const Vital Signs: 02/24/25 10:58 02/24/25 12:58 02/24/25 14:00 Temperature 97 F L Temperature Source Temporal Pulse Rate 85 78 57 L Respiratory Rate 14 16 15 Blood Pressure 123/59 H 117/63 Blood Pressure Mean 80 81 Pulse Ox 100 97 Oxygen Delivery Method Room Air Room Air Positive well nourished and well developed General Appearance ED: well developed HEENT Reports normocephalic, head/scalp atraumatic and moist mucous membranes Eyes PERRL and EOMs intact bilaterally Neck no lymphadenopathy, supple and no JVD Resp normal respiratory effort and clear to auscultation bilaterally Cardio regular rate, regular rhythm and no murmurs GI Inspection: Negative for abdominal distention Auscultation: normoactive bowel sounds Palpation: soft and tender epigastric and RUQ; Negative for guarding or rebound tenderness present Back/Spine no CVA tenderness and normal ROM Extremity normal to inspection General Extremety ED: Negative for edema General Extremity: Negative for edema Neuro oriented x3 and CN's II-XII intact bilaterally Sensorium / Orientation: alert Motor Exam: strength 5/5 throughout Psych mental status grossly normal Mood & Affect: Negative for depressed or tearful Skin no rashes or lesions noted and no wounds Skin Narrative: There are multiple large lipomas in the subcutaneous tissue particularly over the lower anterior chest wall. These are soft nontender mobile MDM MDM MDM Narrative Medical decision making narrative: Differential diagnosis includes but not limited to GERD gastritis pancreatitis biliary colic bowel obstruction colitis anemia UTI Basic blood work states shows a white count of 5.5 hemoglobin 12.7 platelet count of 192. BMP within normal limits liver enzymes showed an alkaline phosphatase of 118. Lipase of 43. Urinalysis with no overt infection. CT of the abdomen pelvis was obtained which demonstrates a: 1. Findings concerning for peptic ulcer disease with including a small 1.5 cm contained perforation versus ulcer. Given the degree of wall thickening, recommend either CT follow-up to resolution or endoscopy to exclude an underlying infiltrative neoplasm. Distention of the upstream stomach could be physiologic in the setting of recent recently ingested material, reflective of gastroparesis, or perhaps associated gastric outlet obstruction. Patient was started on a Protonix drip. I spoke with Dr. Rondon from gastroenterology plan is admission for endoscopy and further evaluation. Patient was updated is comfortable with this plan History & Record Review Discussion w/independent historian: Patient Additional record(s) reviewed:: Prior ED visit and Prior labs Lab Data Attestation: I reviewed the patient's lab results. Labs: Laboratory Results - last 24 hr 02/24/25 02/24/25 13:27 14:09 WBC 5.5 RBC 4.23 Hgb 12.7 Hct 38.4 MCV 90.8 MCH 30.0 MCHC 33.1 RDW Std Deviation 43.2 RDW Coeff of Vanessa 13.1 Plt Count 192 MPV 8.5 Immature Gran % (Auto) 0.200 Neut % (Auto) 80.2 H Lymph % (Auto) 10.2 L [place] % (Auto) 7.3 Eos % (Auto) 1.6 Baso % (Auto) 0.5 Absolute Neuts (auto) 4.4 Absolute Lymphs (auto) 0.56 L Nucleated RBC % 0 Sodium 138 Potassium 3.1 L Chloride 103 Carbon Dioxide 23.6 Anion Gap 11 BUN 14 Creatinine 0.69 L Estim Creat Clear Calc 87.48 Est GFR (MDRD) Non-Af 101 BUN/Creatinine Ratio 19.9 Glucose 98 Calcium 9.6 Total Bilirubin 0.31 Direct Bilirubin 0.15 AST 24 ALT 18 Alkaline Phosphatase 118 H Total Protein 6.6 Albumin 4.1 Globulin 2.5 Lipase 43 Urine Color Straw Urine Clarity Clear Urine pH 6.0 Ur Specific [place] 1.015 Urine Protein 30 H Urine Glucose (UA) Normal Urine Ketones 50 H Urine Occult Blood Negative Urine Nitrite Negative Urine Bilirubin Negative Urine Urobilinogen Normal Ur Leukocyte Esterase 25 H Urine RBC 0 SEEN Urine WBC 0-5 SEEN Ur Squamous Epith Cells 0 SEEN Calcium Oxalate Crystal 1+ Urine Bacteria 0 SEEN Urine Mucus 0 SEEN Radiography Diagnostic Testing: Clinical Impression(s) from Imaging Studies Abdomen/Pelvis CT 02/24/25 13:22 IMPRESSION: 1. Findings concerning for peptic ulcer disease with including a small 1.5 cm contained perforation versus ulcer. Given the degree of wall thickening, recommend either CT follow-up to resolution or endoscopy to exclude an underlying infiltrative neoplasm. Distention of the upstream stomach could be physiologic in the setting of recent recently ingested material, reflective of gastroparesis, or perhaps associated gastric outlet obstruction. 2. Correlate for mild enterocolitis. Given mild RIGHT colonic wall thickening, recommend clinical follow-up to ensure resolution. 3. Trace pelvic free fluid, potentially physiologic if the patient is premenopausal, or potentially reactive to the above. 4. Uterine lesions up to 2.7 cm, incompletely characterized by CT, possible fibroids however this is not definite. Given provided history of cervical cancer, recommend clinical/oncologic follow-up. 5. 3.6 cm LEFT ovarian cyst, also incompletely characterized by CT but minimally enlarged from 10/16/2023 and not previously FDG avid, suggesting a benign neoplasm such as cystadenoma. 6. Additional description as above. Reading Location: [id number] Management Discussion w/another healthcare provider: Hospitalist (Dr Jean Baptiste) and Interchange Agent (Dr Rondon) Discharge Plan Dx/Rx/DC Orders Clinical Impression: Abdominal pain, acute, Gastric outlet obstruction Disposition Disposition: Acute Care Hospital [facility]
[2025-02-24 14:38] LABS: Calcium Oxalate Crystals Ur 1+ /hpf (<or=2+)
[2025-02-24] MEDS: Pantoprazole Sodium 80 MG in 0.9% Normal Saline (50mL Bag) 15 ML 420 MG IV BOLUS (15:55)
[2025-02-24 15:56] VITALS: BP 125/71; PULSE 60; PULSE 67; RESP 14; RESP 15; TEMP 36.2; O2SAT 99
[2025-02-24] MEDS: Pantoprazole Sodium 80 MG in 0.9% Normal Saline (100mL Bag) 80 ML 10 MG CONT INF (15:58)
[2025-02-24 16:16] VITALS: BMI 21.7
[2025-02-24 16:17] VITALS: BP 117/66; PULSE 69; RESP 18; TEMP 37.1; O2SAT 100
--- NOTE | 2025-02-24 16:31 | HP.PCM.HOS_ITS ---
HPI - General General Date of Admission: 02/24/25 HPI Narrative DEREK SHETTY, is a 59 F who presents to the hospital with abdominal pain in her epigastric region. She says that she has been feeling bloated intermittently for the last couple of months that is steadily gotten more consistent and more severe. She has not had pain until this weekend. She says the symptoms only occur with food and stays localized in her epigastric region. She does have a history of stage Ib cervical cancer and has completed both chemotherapy and brachytherapy and her last PET scan was negative for any type of cancer. CT of her abdomen today shows significant edema around her first portion of duodenum consistent with possible peptic ulcer disease and there may or may not be a perforation on the read. The case was discussed with gastroenterology by the ED physician, gastroenterology felt comfortable managing the patient at this institution. No fevers or chills and she is hemodynamically very stable. PFSH Medical History Kidney stones History of brachytherapy CINV (chemotherapy-induced nausea and vomiting) Herpes zoster Encounter for chemotherapy management Cancer Alcohol use Encounter for education Fibrolipoma Wears glasses Post-menopausal Non-smoker Home Medications ?Medication ?Instructions ?Recorded ?Last Taken ?Type aspirin 325 mg tablet 325 mg PO DAILY PRN fever or pain 07/07/24 Unknown History Allergy/AdvReac Type Severity Reaction Status Date / Time No Known Allergies Allergy Verified 02/24/25 10:58 Family History Father Diabetes Aortic aneurysm Sister Cancer nonhodgkins lymphoma Surgical History History of removal of Port-a-Cath Hx of shoulder surgery Hx of colonoscopy History of excision of mass Social History adopted: No household members: significant other current occupational status: employed current occupation: [employer] pets and animals: No Smoking Status: Never smoker Electronic Cigarette Use: not used alcohol intake: current alcohol intake frequency: a few times a week Alcohol type: wine substance use type: does not use caffeine: Yes (1) Type: coffee what type of physical activity do you participate in: walking and aerobics frequency: 5-6 times per week seatbelt use: always do you feel safe at home: Yes additional social history: Single ROS Constitutional Constitutional: Denies chills, fatigue, fever(s) or malaise Eyes Eyes: Denies blurry vision ENT HEENT: Denies headache(s) or nasal discharge Cardiovascular Cardiovascular: Denies chest pain, dyspnea on exertion or syncope Respiratory/Chest Respiratory/Chest: Denies cough, shortness of breath at rest or shortness of breath with exertion Gastrointestinal Gastrointestinal: Reports abdominal pain and nausea; Denies constipation, diarrhea or vomiting Genitourinary Genitourinary: Denies dysuria Neurologic Neurologic: Denies focal weakness, numbness or tremor(s) Psychiatric Psychiatric: Denies anxiety or depression Vital Signs Vital Signs Vital Signs: 02/24/25 10:58 02/24/25 12:58 02/24/25 14:00 Temperature 97 F L Temperature Source Temporal Pulse Rate 85 78 57 L Respiratory Rate 14 16 15 Blood Pressure 123/59 H 117/63 Blood Pressure Mean 80 81 Blood Pressure Source Blood Pressure Position Blood Pressure Location Pulse Ox 100 97 Oxygen Delivery Method Room Air Room Air 02/24/25 15:56 02/24/25 15:56 02/24/25 16:17 Temperature 97.1 F L 97.1 F L 98.8 F Temperature Source Axillary Oral Pulse Rate 67 60 69 Respiratory Rate 15 14 18 Blood Pressure 125/71 H 125/71 H 117/66 Blood Pressure Mean 89 89 83 Blood Pressure Source Monitor Blood Pressure Position Semi-Fowlers Blood Pressure Location Left Arm Pulse Ox 99 99 100 Oxygen Delivery Method Room Air Room Air Weight Weight: 138 lb 6.4 oz Body Mass Index (BMI) 21.7 Physical Exam Narrative General: Alert, Oriented x3, Cooperative, No apparent distress HEENT: Atraumatic, PERRLA, EOMI, Normocephalic Oral: Moist Mucosa Neck: Supple, No JVD Lungs: Clear to auscultation, Normal air movement, No rhonchi, No wheeze, No rales Cardiovascular: Regular rate, Regular Rhythm, Normal S1, Normal S2, No murmurs Abdomen: Soft, epigastric tenderness to palpation, Non-Distended, No Hepato- splenomegaly Extremities: No edema, Capillary Refill Less than 3 Seconds Skin: No rashes, No breakdown Musculoskeletal: No Tenderness to Palpation of Joints or Extremities Neurological: No focal neurological deficits, Motor Exam 5/5 strength throughout, Sensory exam intact to light touch and pain Psych/Mental Status: Normal Affect, Appropriate Results Lab / Micro Data 02/24/25 13:27 02/24/25 13:27 Labs: Laboratory Results - last 24 hr 02/24/25 13:27: WBC 5.5, RBC 4.23, Hgb 12.7, Hct 38.4, MCV 90.8, MCH 30.0, MCHC 33.1, RDW Std Deviation 43.2, RDW Coeff of Vanessa 13.1, Plt Count 192, MPV 8.5, Immature Gran % (Auto) 0.200, Neut % (Auto) 80.2 H, Lymph % (Auto) 10.2 L, [place] % (Auto) 7.3, Eos % (Auto) 1.6, Baso % (Auto) 0.5, Absolute Neuts (auto) 4.4, A bsolute Lymphs (auto) 0.56 L, Nucleated RBC % 0, Sodium 138, Potassium 3.1 L, Chloride 103, Carbon Dioxide 23.6, Anion Gap 11, BUN 14, Creatinine 0.69 L, Estim Creat Clear Calc 87.48, Est GFR (MDRD) Non-Af 101, BUN/Creatinine Ratio 19.9, Glucose 98, Calcium 9.6, Total Bilirubin 0.31, Direct Bilirubin 0.15, AST 24, ALT 18, Alkaline Phosphatase 118 H, Total Protein 6.6, Albumin 4.1, Globulin 2.5, Lipase 43 02/24/25 14:09: Urine Color Straw, Urine Clarity Clear, Urine pH 6.0, Ur Specific [place] 1.015, Urine Protein 30 H, Urine Glucose (UA) Normal, Urine Ketones 50 H, Urine Occult Blood Negative, Urine Nitrite Negative, Urine Bilirubin Negative, Urine Urobilinogen Normal, Ur Leukocyte Esterase 25 H, Urine RBC 0 SEEN, Urine WBC 0-5 SEEN, Ur Squamous Epith Cells 0 SEEN, Calcium Oxalate Crystal 1+, Urine Bacteria 0 SEEN, Urine Mucus 0 SEEN Imaging Radiology Impression Abdomen/Pelvis CT 02/24/25 13:22 IMPRESSION: 1. Findings concerning for peptic ulcer disease with including a small 1.5 cm contained perforation versus ulcer. Given the degree of wall thickening, recommend either CT follow-up to resolution or endoscopy to exclude an underlying infiltrative neoplasm. Distention of the upstream stomach could be physiologic in the setting of recent recently ingested material, reflective of gastroparesis, or perhaps associated gastric outlet obstruction. 2. Correlate for mild enterocolitis. Given mild RIGHT colonic wall thickening, recommend clinical follow-up to ensure resolution. 3. Trace pelvic free fluid, potentially physiologic if the patient is premenopausal, or potentially reactive to the above. 4. Uterine lesions up to 2.7 cm, incompletely characterized by CT, possible fibroids however this is not definite. Given provided history of cervical cancer, recommend clinical/oncologic follow-up. 5. 3.6 cm LEFT ovarian cyst, also incompletely characterized by CT but minimally enlarged from 10/16/2023 and not previously FDG avid, suggesting a benign neoplasm such as cystadenoma. 6. Additional description as above. Reading Location: [id number] Assessment & Plan Assessment/Plan (1) Gastric outlet obstruction: (2) Abdominal pain, acute: PLAN: Plan 1. Peptic ulcer disease with possible perforation leading to partial gastric outlet obstruction ? Will consult gastroenterology for endoscopy ? N.p.o. ? Zofran and pain medication for symptom management ? She received a bolus of Protonix in the ER and will continue with Protonix drip ? She is currently denying any emesis therefore we will hold off on placing NG tube at this time ? Will continue with IV fluids ? CT scan demonstrated 1.5 cm contained perforation versus ulcer in the first portion of the duodenum 2. Cervical cancer in remission ? She completed brachytherapy and chemotherapy ? CT scan on this admission demonstrates uterine lesions up to 2.7 cm that are possible fibroids however given her cancer history needs to follow-up with Mill Controller/Onc DVT: SCDs 56 minutes was spent on direct patient care, including documentation as well as chart review and collaboration with colleagues Charges/Coding Visit Charges Inpatient E&M: 54641 Init Hosp L2
[2025-02-24] MEDS: 0.9% Normal Saline (1000mL) 1,000 ML 100 ML IV (17:10)
[2025-02-24 20:37] VITALS: BP 106/60; PULSE 66; RESP 14; TEMP 36.8; O2SAT 97
[2025-02-25] MEDS: Ondansetron 4 MG/2 ML Vial IV (00:11)
[2025-02-25] MEDS: Pantoprazole Sodium 80 MG in 0.9% Normal Saline (100mL Bag) 80 ML 10 MG CONT INF ×3 (02:06→22:56)
[2025-02-25 02:08] VITALS: BP 107/62; PULSE 65; RESP 16; TEMP 36.8; O2SAT 97
[2025-02-25] MEDS: 0.9% Normal Saline (1000mL) 1,000 ML 100 ML IV ×3 (02:49→20:44)
[2025-02-25 06:23] LABS: Absolute Lymphocyte Count 0.54 X10^3/uL (0.83-4.51); Absolute Neutrophil Count 3.1 X10^3/uL (2.0-7.7); Basophil# 0.02 X10^3/uL; Basophil% 0.5 % (0-1); Eosinophil# 0.14 X10^3/uL; Eosinophils% 3.3 % (0-5); Hematocrit 35.4 % (37-47); Hemoglobin 11.7 g/dL (12.0-15.0); Lymphocyte # 0.54 X10^3/ul (0.83-4.51); Lymphocyte % 12.8 % (19-41); Mean Corp Hgb Conc 33.1 g/dL (32-36); Mean Corpuscular Hgb 30.3 pg (27.0-32.0); Mean Corpuscular Volume 91.7 fL (81-99); Monocyte# 0.42 X10^3/uL; NRBC Flagged by Analyzer 0 % (0-5); Neutrophil # 3.08 X10^3/uL (2.7-7.7); Neutrophil % 73.2 % (47-70); POSITIVE DIFFERENTIAL YES; Platelet Count 179 K/mm3 (150-450); RBC Distribution Width CV 13.2 % (11.6-14.6); RBC Distribution Width SD 44.1 fl (35.1-43.9); Red Blood Count 3.86 M/mm3 (4.2-5.4); White Blood Count 4.2 K/mm3 (4.4-11.0)
[2025-02-25 06:24] LABS: Anion Gap 11 (5-15); BUN 11 mg/dL (4-19); BUN/Creat Ratio 17.1 RATIO (10-20); Calcium,Total 8.9 mg/dL (7.6-11.0); Chloride 107 mmol/L (98-108); Creatinine, Serum 0.63 mg/dL (0.70-1.20); EST Glomerular Filtration Rate 103 (>60); Estimated Creatinine Clearance 95.81 ml/min (50-250); Glucose 82 mg/dL (70-99); Potassium 3.2 mmol/L (3.3-5.1); Sodium Level 138 mmol/L (133-145)
--- NOTE | 2025-02-25 07:25 | PN.HOSP_ITS ---
Reason for Visit Reason for Visit: Diagnoses Adult hypertrophic pyloric stenosis (02/24/25) Unspecified abdominal pain (02/24/25) Subjective Subjective Patient is a 59-year-old lady who presented with intractable nausea vomiting and inability to keep food down. CT of the abdomen and pelvis obtained on admission did show Findings concerning for peptic ulcer disease with including a small 1.5 cm contained perforation versus ulcer. Admitted to regular nursing floor for subsequent management Objective Data Objective Data Vital Signs: Vital Signs Temp Pulse Resp BP Pulse Ox O2 Del Method 98.3 F 65 16 107/62 97 Room Air 02/25/25 02:08 02/25/25 02:08 02/25/25 02:08 02/25/25 02:08 02/25/25 02:08 02/25/25 02:08 Oxygen Delivery Method Room Air Weight: 62.777 kg Body Mass Index (BMI) 21.7 Intake & Output: Intake and Output for Last 24 Hours 02/23/25 02/24/25 02/25/25 23:59 23:59 23:59 Intake Total 35 / 35 1065 / 1065 Balance 35 / 35 1065 / 1065 Lab / Micro Data 02/25/25 05:10 02/25/25 05:10 Labs: Laboratory Results - last 24 hr 02/24/25 13:27: WBC 5.5, RBC 4.23, Hgb 12.7, Hct 38.4, MCV 90.8, MCH 30.0, MCHC 33.1, RDW Std Deviation 43.2, RDW Coeff of Vanessa 13.1, Plt Count 192, MPV 8.5, Immature Gran % (Auto) 0.200, Neut % (Auto) 80.2 H, Lymph % (Auto) 10.2 L, [place] % (Auto) 7.3, Eos % (Auto) 1.6, Baso % (Auto) 0.5, Absolute Neuts (auto) 4.4, A bsolute Lymphs (auto) 0.56 L, Nucleated RBC % 0, Sodium 138, Potassium 3.1 L, Chloride 103, Carbon Dioxide 23.6, Anion Gap 11, BUN 14, Creatinine 0.69 L, Estim Creat Clear Calc 87.48, Est GFR (MDRD) Non-Af 101, BUN/Creatinine Ratio 19.9, Glucose 98, Calcium 9.6, Total Bilirubin 0.31, Direct Bilirubin 0.15, AST 24, ALT 18, Alkaline Phosphatase 118 H, Total Protein 6.6, Albumin 4.1, Globulin 2.5, Lipase 43 02/24/25 14:09: Urine Color Straw, Urine Clarity Clear, Urine pH 6.0, Ur Specific [place] 1.015, Urine Protein 30 H, Urine Glucose (UA) Normal, Urine Ketones 50 H, Urine Occult Blood Negative, Urine Nitrite Negative, Urine Bilirubin Negative, Urine Urobilinogen Normal, Ur Leukocyte Esterase 25 H, Urine RBC 0 SEEN, Urine WBC 0-5 SEEN, Ur Squamous Epith Cells 0 SEEN, Calcium Oxalate Crystal 1+, Urine Bacteria 0 SEEN, Urine Mucus 0 SEEN 02/25/25 05:10: WBC 4.2 L, RBC 3.86 L, Hgb 11.7 L, Hct 35.4 L, MCV 91.7, MCH 30.3, MCHC 33.1, RDW Std Deviation 44.1 H, RDW Coeff of Vanessa 13.2, Plt Count 179, MPV 9.0, Immature Gran % (Auto) 0.200, Neut % (Auto) 73.2 H, Lymph % (Auto) 12.8 L, [place] % (Auto) 10.0, Eos % (Auto) 3.3, Baso % (Auto) 0.5, Absolute Neuts (auto) 3.1, Absolute Lymphs (auto) 0.54 L, Nucleated RBC % 0, Sodium 138, P otassium 3.2 L, Chloride 107, Carbon Dioxide 21.0, Anion Gap 11, BUN 11, C reatinine 0.63 L, Estim Creat Clear Calc 95.81, Est GFR (MDRD) Non-Af 103, BUN/Creatinine Ratio 17.1, Glucose 82, Calcium 8.9 Radiography Diagnostic Testing: Radiology Impression Abdomen/Pelvis CT 02/24/25 13:22 IMPRESSION: 1. Findings concerning for peptic ulcer disease with including a small 1.5 cm contained perforation versus ulcer. Given the degree of wall thickening, recommend either CT follow-up to resolution or endoscopy to exclude an underlying infiltrative neoplasm. Distention of the upstream stomach could be physiologic in the setting of recent recently ingested material, reflective of gastroparesis, or perhaps associated gastric outlet obstruction. 2. Correlate for mild enterocolitis. Given mild RIGHT colonic wall thickening, recommend clinical follow-up to ensure resolution. 3. Trace pelvic free fluid, potentially physiologic if the patient is premenopausal, or potentially reactive to the above. 4. Uterine lesions up to 2.7 cm, incompletely characterized by CT, possible fibroids however this is not definite. Given provided history of cervical cancer, recommend clinical/oncologic follow-up. 5. 3.6 cm LEFT ovarian cyst, also incompletely characterized by CT but minimally enlarged from 10/16/2023 and not previously FDG avid, suggesting a benign neoplasm such as cystadenoma. 6. Additional description as above. Reading Location: [facility] Physical Exam Narrative GENERAL: cooperative HEENT: Atraumatic; normocephalic EYES; Anicteric, Normal Conjunctiva NECK; supple, normal thyroid, RESPIRATORY: Diminished to auscultation CARDIOVASCULAR: Regular S1 S2, GI: soft, normoactive bowel sounds, : No Renal angle tenderness; EXTREMITIES: No edema, no clubbing, MUSCULOSKELETAL: no muscle wasting NEURO: Awake; no lateralizing signs. SKIN: No Rash PSYCH; Flat affect Assessment & Plan Assessment/Plan (1) Gastric outlet obstruction: (2) Abdominal pain, acute: PLAN: Plan Patient is a 59-year-old lady who presented with intractable nausea vomiting and inability to keep food down. CT of the abdomen and pelvis obtained on admission did show Findings concerning for peptic ulcer disease with including a small 1.5 cm contained perforation versus ulcer. Admitted to regular nursing floor for subsequent management 1. Gastric outlet obstruction ? Patient presented with intractable nausea vomiting and abdominal pain and inability to keep food down. CT of the abdomen and pelvis obtained on admission did show Findings concerning for peptic ulcer disease with including a small 1.5 cm contained perforation versus ulcer. Admitted to regular nursing floor for subsequent management. Patient was kept n.p.o. after midnight started on Protonix as well as Zofran for symptom management and consult placed to GI for endoscopy 2. Cervical cancer ? In remission following brachytherapy and chemotherapy. CT scan on this admission demonstrates uterine lesions up to 2.7 cm that are possible fibroids given her previous history of cervical cancer patient was informed of the result and the need to schedule an appointment with her ASSOCIATION EXECUTIVE following discharge for subsequent eval 3. Ovarian cyst ? CT did show 3.6 cm LEFT ovarian cyst, also incompletely characterized by CT but minimally enlarged from 10/16/2023 and not previously FDG avid, suggesting a benign neoplasm such as cystadenoma. Plan is for patient to follow-up with ASSOCIATION EXECUTIVE as outpatient 4. Hypokalemia -Corrected per protocol 5. Anemia ? Secondary to chronic disorder monitoring H&H and transfuse if patient becomes symptomatic or hemoglobin falls below 7 6. DVT prophylaxis ? SCDs only given the suspicion of contained peptic ulcer with perforation Charges/Coding Visit Charges Inpatient E&M: 23699 Subs Hosp L2
[2025-02-25 08:32] VITALS: BP 106/53; PULSE 65; RESP 16; TEMP 36.6; O2SAT 98
[2025-02-25] MEDS: Acetaminophen 325 MG Tablet 650 MG PO (09:41)
[2025-02-25] MEDS: Potassium Chloride 10mEq/100mL 10 MEQ/100 ML IV.SOLN. 100 MEQ IV BOLUS ×4 (09:59→13:17)
[2025-02-25 11:07] VITALS: BP 112/55; PULSE 77; RESP 16; TEMP 36.9; O2SAT 97
--- NOTE | 2025-02-25 14:30 | CASEMGMT ---
RN?CM?GUEST ROOM INSPECTOR?CM?to room to meet with patient for initial transition planning/care coordination?assessment.?RN?CM?introduced self and role at [facility].? Pt voices understanding and consents to?assessment?at this time.? Pt resting in bed in no distress at this time. Sig other, Derek, @ bedside and pt agreeable to him being present during assessment.? Pt is A/O at this time and answers all questions appropriately.?? Care providers, pharmacy, and demographics verified/updated at this time. Strata: 2 PCP: Dr Rodríguez Specialists: Dr Joseph-oncology, Dr Savage-radiation onc Preferred Pharmacy: [facility] [place] Insurance: [employer]. Prescription Benefit:?yes Living Will/HPOA:?Pt does not currently have LW/HCPOA. LNOK: One adult child, son/Juwan Living Arrangements: Lives w/boyfriend, Derek, in one-story home w/one step to enter. Independent. Transportation:?Pt states drives self and states no transportation concerns at this time.? Derek also drives. DME: ? Denies using any DME and denies needs. HHC/SNF: No history of either. No needs identified. Pt wishes to return home and states has no concerns with going home at time of discharge.? ?CM?to follow for any discharge planning/needs.? Pt voices no further concerns/needs at this time.? Advised pt to ask for?CM?if any further questions/concerns/needs arise.? Voices understanding. PLAN:??Home Alejo BSN?RN?CM
[2025-02-25 14:59] VITALS: BP 108/53; PULSE 63; RESP 16; TEMP 36.8; O2SAT 99
--- NOTE | 2025-02-25 18:37 | CON.PCM.GI_ITS ---
HPI Consult Data Date of Consult: 02/25/25 HPI Narrative Reason for Consultation: Abdominal pain and gastric outlet obstruction HPI Narrative: DEREK SHETTY, is a 59-year-old female with squamous cell cancer of the cervix, p16 positive, clinical stage IIA. Started primary radiation therapy with cisplatin chemosensitization May?June 2024. Treatment tolerated so far with no grade 3 or 4 toxicities. Imaging with PET/CT October 2024 showed complete resolution of previously noted abnormal uptake; complete remission. She presented to the emergency room with a chief complaint of abdominal pain and vomiting. Patient notes that on Sunday she began to have pain from her epigastrium to the suprapubic region. She states that anytime she tries to eat anything solid she has vomiting. She notes no real change in bowel movements or urination. She states she takes an aspirin maybe a couple times a week. She states she used to take it daily. She notes no other significant anti-inflammatory medications. CT Abdomen/ Pelvis: Bowel: Distended stomach. Marked wall thickening with trace adjacent stranding along the gastric pylorus and duodenal bulb with mild associated mucosal hyperemia. Question a contained perforation or focal ulcer posteriorly within the region measuring roughly 1.5 cm. Diverticulosis. Liquid contents of the colon suggesting malabsorption/diarrhea. Mild wall thickening and suggestion of mucosal hyperemia along the cecum/proximal ascending colon. Areas of apparent mild distal small bowel wall thickening may be related to underdistention in the absence of convincing adjacent inflammation. Top-normal caliber of the appendix without convincing adjacent inflammation. PFSH Medical History Kidney stones History of brachytherapy CINV (chemotherapy-induced nausea and vomiting) Herpes zoster Encounter for chemotherapy management Cancer Alcohol use Encounter for education Fibrolipoma Wears glasses Post-menopausal Non-smoker Home Medications ?Medication ?Instructions ?Recorded ?Last Taken ?Type aspirin 325 mg tablet 325 mg PO DAILY PRN fever or pain 07/07/24 Unknown History Allergy/AdvReac Type Severity Reaction Status Date / Time No Known Allergies Allergy Verified 02/24/25 10:58 Family History Father Diabetes Aortic aneurysm Sister Cancer nonhodgkins lymphoma Surgical History History of removal of Port-a-Cath Hx of shoulder surgery Hx of colonoscopy History of excision of mass Social History adopted: No household members: significant other current occupational status: employed current occupation: [employer] pets and animals: No Smoking Status: Never smoker Electronic Cigarette Use: not used alcohol intake: current alcohol intake frequency: a few times a week Alcohol type: wine substance use type: does not use caffeine: Yes (1) Type: coffee what type of physical activity do you participate in: walking and aerobics frequency: 5-6 times per week seatbelt use: always do you feel safe at home: Yes additional social history: Single ROS Constitutional Constitutional: Denies fatigue, fever(s), poor appetite, weight gain or weight loss Gastrointestinal Gastrointestinal: Denies belching, bloating, change in bowel habits, change in stool character, chewing difficulty, coffee ground emesis, constipation, cramping, diarrhea, dyspepsia, dysphagia, early satiety, excessive flatus, fecal incontinence, heartburn, hematemesis, hematochezia, hemorrhoids, loose stools, melena, nausea, odynophagia, rectal bleeding, tenesmus, vomiting or weight changes Physical Exam Const alert, oriented x3, no apparent distress and healthy appearing General Appearance: cooperative GI normal to inspection, nondistended, normoactive bowel sounds, soft to palpation, non-tender and non-distended Percussion: normal to percussion Rectal Exam: deferred Medical Records Data Medical Nutrition Assessment Dietitian: Malnutrition Criteria Met Start: 02/25/25 15:10 Freq: Status: Active Protocol: Document 02/25/25 15:10 SB (Rec: 02/25/25 15:11 SB [id number]) Nutrition Malnutrition Evidence of Yes Malnutrition Exists Malnutrition (severe Acute Illness/Injury ): Evidenced By Suboptimal Energy Intake (Severe),Weight Loss (Severe) Clinical Problem Acute Disease or Injury Related Malnutrition Etiology severe related to inadequate oral intake and GI dysfunction Signs/Symptoms as evidenced by PO meeting <50% of estimated nutrition needs x 5-6 days and 5% unintentional weight loss x 2-3 weeks. Status Active Problem Recommendation Dietitian Recommend advanced diet as tolerated to transitional Recommendations/ with goal to regular diet. Changes Recommend 240ml apple Ensure Clear TID with meals. Will determine other ONS as diet is advanced. Will monitor weight trends. Lab / Micro Data 02/25/25 05:10 02/25/25 05:10 Labs: Laboratory Results - last 24 hr 02/25/25 05:10: WBC 4.2 L, RBC 3.86 L, Hgb 11.7 L, Hct 35.4 L, MCV 91.7, MCH 30.3, MCHC 33.1, RDW Std Deviation 44.1 H, RDW Coeff of Vanessa 13.2, Plt Count 179, MPV 9.0, Immature Gran % (Auto) 0.200, Neut % (Auto) 73.2 H, Lymph % (Auto) 12.8 L, [place] % (Auto) 10.0, Eos % (Auto) 3.3, Baso % (Auto) 0.5, Absolute Neuts (auto) 3.1, Absolute Lymphs (auto) 0.54 L, Nucleated RBC % 0, Sodium 138, P otassium 3.2 L, Chloride 107, Carbon Dioxide 21.0, Anion Gap 11, BUN 11, C reatinine 0.63 L, Estim Creat Clear Calc 95.81, Est GFR (MDRD) Non-Af 103, BUN/Creatinine Ratio 17.1, Glucose 82, Calcium 8.9 Assessment & Plan Assessment/Plan (1) Gastric outlet obstruction: (2) Abdominal pain, acute: PLAN: Plan 59-year-old female with squamous cell cancer of the cervix, p16 positive, clinical stage IIA. Started primary radiation therapy with cisplatin chemosensitization May?June 2024. She presents with abdominal pain in the setting of taking 325 mg of aspirin per day. Abdominal imaging shows p. Talk with her extensively regarding the possibility of eptic ulcer disease with possible perforation leading to partial gastric outlet obstruction gastric adenocarcinoma versus NSAID induced ulcers in the setting of diseases such as H. pylori. She will undergo an upper endoscopy with possible stent placement across the pyloric sphincter. She was explained alternatives, risk and benefits occluding withstanding, infection, sepsis, perforation, need for emergency or to . She will have an ASA of 3. Charges/Coding Visit Charges Inpatient E&M: 04037 Init Hosp L3
--- NOTE | 2025-02-25 20:19 | EKG12_ITS ---
Test Reason : PRE-OP Blood Pressure : */* mmHG Vent. Rate : 54 BPM Atrial Rate : 54 BPM P-R Int : 136 ms QRS Dur : 92 ms QT Int : 462 ms P-R-T Axes : 14 20 23 degrees QTcB Int : 438 ms Sinus bradycardia with Premature atrial complexes Otherwise normal ECG No previous ECGs available Confirmed by LISSETH HOLDEN, ELVIA ([id number]), sound editor TRESA RECINOS ([id number]) on 02/27/2025 6:37:15 AM Referred By: BE Confirmed By: ELVIA MONTANEZ MD
[2025-02-25 22:51] VITALS: BP 103/69; PULSE 65; RESP 16; TEMP 36.6; O2SAT 98
[2025-02-26] VITALS (10 sets, daily range): BP systolic 94–114; BP diastolic 49–71; PULSE 53–87; RESP 16–18; TEMP 36.4–37; O2SAT 97–100; BMI 21.7
[2025-02-26 05:54] LABS: Absolute Lymphocyte Count 0.39 X10^3/uL (0.83-4.51); Absolute Neutrophil Count 1.9 X10^3/uL (2.0-7.7); Basophil# 0.03 X10^3/uL; Basophil% 1.1 % (0-1); Eosinophil# 0.14 X10^3/uL; Eosinophils% 5.1 % (0-5); Hematocrit 36.1 % (37-47); Hemoglobin 12.2 g/dL (12.0-15.0); Lymphocyte # 0.39 X10^3/ul (0.83-4.51); Lymphocyte % 14.3 % (19-41); Mean Corp Hgb Conc 33.8 g/dL (32-36); Mean Corpuscular Volume 91.9 fL (81-99); Mean Platelet Vol. 8.8 fl (6.2-12.0); Monocyte# 0.25 X10^3/uL; Monocyte% 9.2 % (0-10); NRBC Flagged by Analyzer 0 % (0-5); Neutrophil # 1.91 X10^3/uL (2.7-7.7); Neutrophil % 69.9 % (47-70); POSITIVE DIFFERENTIAL YES; Platelet Count 156 K/mm3 (150-450); RBC Distribution Width CV 13.1 % (11.6-14.6); RBC Distribution Width SD 44.2 fl (35.1-43.9); Red Blood Count 3.93 M/mm3 (4.2-5.4); White Blood Count 2.7 K/mm3 (4.4-11.0)
[2025-02-26 05:58] LABS: Differential Indicated SCAN CRITERIA MET
[2025-02-26 06:21] LABS: Anion Gap 9 (5-15); BUN 6 mg/dL (4-19); BUN/Creat Ratio 9.6 RATIO (10-20); Carbon Dioxide 20.8 mmol/L (21.0-32.0); Chloride 108 mmol/L (98-108); Creatinine, Serum 0.65 mg/dL (0.70-1.20); EST Glomerular Filtration Rate 103 (>60); Estimated Creatinine Clearance 89.39 ml/min (50-250); Glucose 86 mg/dL (70-99); Magnesium 1.8 mg/dL (1.5-2.2); Potassium 3.4 mmol/L (3.3-5.1); Sodium Level 138 mmol/L (133-145)
--- NOTE | 2025-02-26 06:30 | EGD_PTH ---
PATIENT: DEREK SHETTY LOC: MS3 U#:[id number] AGE/SX: 59/F ROOM: MT318 RE02/24/[address]: Dr. Eric Sweet MD : 1965 BED: 1 DIS: 02/27/2025 SPEC #: [id number] RECD: 02/26/25 09:54 STATUS: MELODY REQ #: [id number] RITA: 02/26/25 06:[address]: Marco Rondon DEPT: SURGICAL PATHOLOGY RECD BY: Zeke Desir ENTERED: 02/26/25 10:45 SP TYPE: EGD BIOPSY OTHR DR: MD Dr. Eric Stratton MD Dr. Nicholas F Kotsonis, MD Tissues: A - COLON BIOPSY Procedures: Immunohistochemical Stains Surgery Specimen Level IV Comments: @ Ordering doctor for SUIV edited from to @ by GIO at 02/26/25 1045 @ Submitting doctor edited from to @ by GIO at 02/26/25 1045 HEADER OPERATION: EGD, biopsy, dilation, hemostasis PRE-OP DIAGNOSIS: Gastric outlet obstruction, abdominal pain, acute TISSUE SUBMITTED: A- Pyloric channel ulcer biopsy MICROSCOPIC DIAGNOSIS A. Stomach, pyloric channel ulcer, biopsy: * Gastric mucosa with active chronic inflammation and reactive/reparative changes. * IHC is negative for for H pylori organisms. MICROSCOPIC DESCRIPTION Slides are reviewed. All matched controls reacted appropriately. These tests were developed and their performance characteristics determined by [facility]. They may not have been cleared or approved by the U.S. Food and Drug Administration. The FDA has determined that such clearance or approval is not necessary.? The above immunohistochemical/dualISH?markers are ordered and reviewed by the Pathologist. GROSS DESCRIPTION A. Received in formalin in a container labeled with the patient's name, date of , and pyloric channel ulcer biopsy are 2 brenner-pink fragments of mucosal tissue measuring 0.3 x 0.3 x 0.3 cm and 0.5 x 0.3 x 0.2 cm. Submitted in toto in A1. [facility] 02-26-2025 CPT:75611, 85496
--- NOTE | 2025-02-26 06:35 | PRE.ANES_ITS ---
ASA Classification* ASA Classification ASA Classification: 2 Assessment & Plan Anesthesia* Anesthesia Assessment Anesthesia Assessment: Discussed sedation and/or anesthesia options, risks, benefits, and alternatives with patient/parents/legal guardian/POA. Questions invited. The patient/parents/legal guardian/POA seems to understand and agrees to proceed with anesthesia plan. Reviewed the physical assessment, medical history, allergy history and patient home medications list prior to surgery/procedure/anesthetic and documented any changes. Performed airway and anesthesia risk assessments. Anesthesia Type Anesthesia Type: MAC History Source History Obtained from:: Patient and Chart Anesthesia Focused Assessment* Temperature: 98.2 F Pulse Rate: 62 Blood Pressure: 107/59 Respiratory Rate: 16 Pulse Ox: 100 Oxygen Delivery Method: Room Air Airway Assessment Mouth opens: >3 cm Mallampati Score: III Teeth Condition: Caps/Crowns (Patient has 1 capped tooth.) and Chipped/Broken (Patient has a couple broken teeth.) Neck Range of motion (ROM): Full ROM Focused Labs Anesthesia Preop lab: CBC WBC 2.7 K/mm3 (4.4-11.0) L 02/26/25 05:35 02/26/25 RBC 3.93 M/mm3 (4.2-5.4) L 02/26/25 05:35 02/26/25 Hgb 12.2 g/dL (12.0-15.0) 02/26/25 05:35 02/26/25 Hct 36.1 % (37-47) L 02/26/25 05:35 02/26/25 Plt Count 156 K/mm3 (150-450) 02/26/25 05:35 02/26/25 CHEMISTRY Potassium 3.4 mmol/L (3.3-5.1) 02/26/25 05:35 02/26/25 Sodium 138 mmol/L (133-145) 02/26/25 05:35 02/26/25 Magnesium 1.8 mg/dL (1.5-2.2) 02/26/25 05:35 02/26/25 Phosphorus 3.0 mg/dL (2.7-4.5) 02/26/25 05:35 02/26/25 BUN 6 mg/dL (4-19) 02/26/25 05:35 02/26/25 Creatinine 0.65 mg/dL (0.70-1.20) L 02/26/25 05:35 Glucose 86 mg/dL (70-99) 02/26/25 05:35 02/26/25 COAG Pre-Assessment Diagnosis/Proposed Procedure Planned Operative Procedure(s): Esophagogastroduodenoscopy. 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 When Was Last Pacemaker Check QUESTION #4 FULL TEXT: You/Your Family Experience fever (hyperthermia) with Anesthesia Last Oral Intake Last Oral intake: Last Oral Intake NPO since 00:00 02/26/25 06:11 Meds taken in AM with sips of No 02/26/25 06:11 water? Meds patient instructed to take am of surgery PONV PONV - ceramics test engineer: PONV - ceramics test engineer Female HX of Motion Sickness HX of N/V After Surgery Non-Smoker Duration of Surgery greater than 60 minutes Number of Risk Factors PONV Score Height & Weight Height & Weight: Anesthesia: Height & Weight Height 5 ft 6.93 in 02/26/25 06:11 Weight: 62.777 kg 02/26/25 06:11 Body Mass Index (BMI) 21.7 02/26/25 06:11 Respiratory Assessment Respiratory Assessment - ceramics test engineer: Respiratory Tract Infection Hx - ceramics test engineer Hx Respiratory Tract Infection No 02/25/25 00:16 STOP Sleep Apnea STOP Sleep Apnea - ceramics test engineer: STOP Sleep Apnea - ceramics test engineer Hx Hypertension No 02/24/25 16:16 Hx Sleep Apnea No 02/24/25 16:16 CPAP BIPAP Do you snore loudly (louder No 02/24/25 16:16 than talking or can be heard Do you often feel tired/ No 02/24/25 16:16 fatigued/ sleepy during daytime? Has anyone observed you stop No 02/24/25 16:16 breathing during sleep? STOP Results Negative 02/24/25 16:16 QUESTION #5 FULL TEXT : Do you snore loudly (louder than talking or can be heard through closed doors)? Tobacco Use History Tobacco Use History - ceramics test engineer: Tobacco Use History - ceramics test engineer Tobacco Use Smoking Status Never smoker 02/24/25 16:16 Hx Tobacco Use No 02/24/25 16:16 Years Smoking Packs Smoked per Day Smoking Cessation Date was within the last 15 years Hx Smoking Cessation Date Hx Smoking Cessation Counseling Hematologic Medial History Hematologic Hx - ceramics test engineer: Hematologic Medical Hx - formula room worker Hx of Blood Transfusion No 02/24/25 16:16 Hx of Transfusion in last 3 No 02/24/25 16:16 Months Date of Last Transfusion (if within last 3 months) Ever experience any problems No 02/24/25 16:16 with transfusion(s)? Specify any problems Hx of Preganancy in last 3 N/A 02/24/25 16:16 Months Nurse Filling Out Transfusion FSTEINER 02/24/25 16:16 & Questions: Date: 02/24/25 02/24/25 16:16 Time: 16:21 02/24/25 16:16 Patient unable to answer at this time (ie. confused, unrespo /Reproduction History /Reproductive History - ceramics test engineer: /Reproductive Hx- ceramics test engineer Hx Now No 02/25/25 00:16 Gestational Age (in weeks): EDC: Hx Hx Para Hx Section SAB No 02/25/25 00:16 Active Medications Active Medications: Current Medications Generic Name Dose Route Start Last Admin Trade Name Freq PRN Reason Stop Dose Admin Pantoprazole Sodium 80 mg/ 100 mls @ 10 mls/hr 02/24/25 15:35 02/25/25 22:56 Sodium Chloride CONT INF 10 mls/hr Q10H SAWYER Administration Sodium Chloride 1,000 mls @ 100 mls/hr 02/24/25 17:02 02/25/25 20:44 IV 100 mls/hr .Q10H SAWYER Administration Morphine Sulfate 2 - 4 mg 02/24/25 17:02 Morphine 2 Mg/Ml Syringe IV Q3H PRN PRN Pain Score 6-10 Morphine Sulfate 2 - 4 mg 02/24/25 17:04 Morphine 4 Mg/Ml Syringe IV Q3H PRN PRN Pain Score 6-10 Ondansetron HCl 4 mg 02/24/25 17:02 02/25/25 00:11 Ondansetron 4 Mg/2 Ml Vial IV 4 mg Q8H PRN PRN Administration NAUSEA/VOMITING PFSH Medical History Kidney stones History of brachytherapy CINV (chemotherapy-induced nausea and vomiting) Herpes zoster Encounter for chemotherapy management Cancer Alcohol use Encounter for education Fibrolipoma Wears glasses Post-menopausal Non-smoker Home Medications ?Medication ?Instructions ?Recorded ?Last Taken ?Type aspirin 325 mg tablet 325 mg PO DAILY PRN fever or pain 07/07/24 Unknown History Allergy/AdvReac Type Severity Reaction Status Date / Time No Known Allergies Allergy Verified 02/24/25 10:58 Family History Father Diabetes Aortic aneurysm Sister Cancer nonhodgkins lymphoma Surgical History History of removal of Port-a-Cath Hx of shoulder surgery Hx of colonoscopy History of excision of mass Social History adopted: No household members: significant other current occupational status: employed current occupation: [employer] pets and animals: No Smoking Status: Never smoker Electronic Cigarette Use: not used alcohol intake: current alcohol intake frequency: a few times a week Alcohol type: wine substance use type: does not use caffeine: Yes (1) Type: coffee what type of physical activity do you participate in: walking and aerobics frequency: 5-6 times per week seatbelt use: always do you feel safe at home: Yes additional social history: Single Review of Systems (Anesthesia) ROS Narrative System reviewed and no additional complaints, except as documented.
[2025-02-26] MEDS: Lactated Ringers 1,000 ML 15 ML IV (06:43)
[2025-02-26 06:55] LABS: Differential Comment SCANNED
[2025-02-26 06:56] LABS: Platelet Estimate ADEQUATE (ADEQ); Red Cell Morphology NORM C+C NORMAL (NORM C&C)
--- NOTE | 2025-02-26 07:02 | PCM.PN.BLA ---
Progress Note Patient is for upper endoscopy today to evaluate her upper GI tract. She has been n.p.o. since midnight. Physical Exam Const alert, oriented x3, no apparent distress and healthy appearing General Appearance: cooperative GI normal to inspection, nondistended, normoactive bowel sounds, soft to palpation, non-tender and non-distended Percussion: normal to percussion Rectal Exam: deferred Assessment & Plan Assessment/Plan (1) Gastric outlet obstruction: (2) Abdominal pain, acute: PLAN: Plan 59-year-old female with squamous cell cancer of the cervix, p16 positive, clinical stage IIA. Started primary radiation therapy with cisplatin chemosensitization May?June 2024. She presents with abdominal pain in the setting of taking 325 mg of aspirin per day. Abdominal imaging shows p. Talk with her extensively regarding the possibility of eptic ulcer disease with possible perforation leading to partial gastric outlet obstruction gastric adenocarcinoma versus NSAID induced ulcers in the setting of diseases such as H. pylori. She will undergo an upper endoscopy with possible stent placement across the pyloric sphincter. She was explained alternatives, risk and benefits occluding withstanding, infection, sepsis, perforation, need for emergency or to . She will have an ASA of 3. 02/26/2025-all questions and concerns answered prior to the procedure. Further recommendation to follow after she undergoes upper endoscopy. Visit Charges Inpatient E&M: 81433 [facility] Hosp L3
--- NOTE | 2025-02-26 07:35 | OP.CCLET_ITS ---
02/26/2025 Marlen Rodríguez Md Re : Upper GI endoscopy procedure for Gabriela Wilson Dear Marcos This procedure was performed on February. My impressions and recommendations are as follows: Impressions : - No gross lesions in the entire esophagus. - Oozing gastric ulcer with a visible vessel. Treated with a heater probe. - Gastric stenosis was found at the pylorus. Dilated. - Non-bleeding duodenal ulcer with no stigmata of bleeding. Biopsied. Recommendations : - Return patient to [facility] for [facility] care. - Full liquid diet today. - Use Protonix (pantoprazole) 40 mg PO BID indefinitely. - Use sucralfate tablets 1 gram PO BID for 1 month. - Continue present medications. My findings are described in the full procedure note, which is enclosed. If I can be of further assistance, please feel free to contact me at . Sincerely, Marco Rondon, 02/26/2025 7:33:51 AM This report has been signed electronically.
--- NOTE | 2025-02-26 07:35 | OP.EGD_ITS ---
Patient Name: Gabriela Wilson Procedure Date: 02/26/2025 6:41 AM Date of : 1965 Age: 59 Procedure: Upper GI endoscopy Indications: Epigastric abdominal pain, Failure to respond to medical treatment, Abnormal CT of the GI tract Providers: Marco Rondon DO Medicines: Monitored Anesthesia Care Patient Profile: This is a 59 year old female. Refer to note in patient chart for documentation of history and physical. Patient has symptoms of acute epigastric abdominal pain. Complications: No immediate complications. Procedure: Pre-Anesthesia Assessment: - Prior to the procedure, a History and Physical was performed, and patient medications and allergies were reviewed. The patient is competent. The risks and benefits of the procedure and the sedation options and risks were discussed with the patient. All questions were answered and informed consent was obtained. Patient identification and proposed procedure were verified by the physician in the pre-procedure area. Mental Status Examination: alert and oriented. Airway Examination: normal oropharyngeal airway and neck mobility. Respiratory Examination: clear to auscultation. CV Examination: normal. Prophylactic Antibiotics: The patient does not require prophylactic antibiotics. Prior Anticoagulants: The patient has taken no anticoagulant or antiplatelet agents except for NSAID medication. ASA Grade Assessment: II - A patient with mild systemic disease. After reviewing the risks and benefits, the patient was deemed in satisfactory condition to undergo the procedure. The anesthesia plan was to use monitored anesthesia care (MAC). Immediately prior to administration of medications, the patient was re-assessed for adequacy to receive sedatives. The heart rate, respiratory rate, oxygen saturations, blood pressure, adequacy of pulmonary ventilation, and response to care were monitored throughout the procedure. The physical status of the patient was re-assessed after the procedure. After obtaining informed consent, the endoscope was passed under direct vision. Throughout the procedure, the patient's blood pressure, pulse, and oxygen saturations were monitored continuously. The Endoscope was introduced through the mouth, and advanced to the third part of the duodenum. Small bowel enteroscopy was deemed necessary. The upper GI endoscopy was accomplished without difficulty. The patient tolerated the procedure well. Scope In: 7:08:25 AM Scope Out: 7:25:55 AM Total Procedure Duration Time 0 hours 17 minutes 30 seconds Findings: No gross lesions were noted in the entire esophagus. One oozing cratered gastric ulcer with a visible vessel was found at the pylorus. The lesion was 25 mm in largest dimension. Coagulation for hemostasis using heater probe was successful. Estimated blood loss was minimal. A benign-appearing, intrinsic severe stenosis was found at the pylorus. This was non-traversed. A TTS dilator was passed through the scope. Dilation with a 15 mm pyloric balloon dilator was performed. The dilation site was examined and showed moderate improvement in luminal narrowing. Estimated blood loss was minimal. One non-bleeding cratered duodenal ulcer with no stigmata of bleeding was found in the duodenal bulb. The lesion was 20 mm in largest dimension. Biopsies were taken with a cold forceps for histology. Verification of patient identification for the specimen was done. Estimated blood loss was minimal. Impression: - No gross lesions in the entire esophagus. - Oozing gastric ulcer with a visible vessel. Treated with a heater probe. - Gastric stenosis was found at the pylorus. Dilated. - Non-bleeding duodenal ulcer with no stigmata of bleeding. Biopsied. Recommendation: - Return patient to [facility] for [facility] care. - Full liquid diet today. - Use Protonix (pantoprazole) 40 mg PO BID indefinitely. - Use sucralfate tablets 1 gram PO BID for 1 month. - Continue present medications. Procedure Code(s): --- Professional --- 93182, 59, Small intestinal endoscopy, enteroscopy beyond second portion of duodenum, not including ileum; with control of bleeding (eg, injection, bipolar cautery, unipolar cautery, laser, heater probe, stapler, plasma brick wheeler) 20764, 59, Esophagogastroduodenoscopy, flexible, transoral; with dilation of gastric/duodenal stricture(s) (eg, balloon, bougie) 68317, 59,51, Small intestinal endoscopy, enteroscopy beyond second portion of duodenum, not including ileum; with biopsy, single or multiple CPT copyright 2021 [employer]. All rights reserved. The codes documented in this report are preliminary and upon lab rep review may be revised to meet current compliance requirements. Marco Rondon DO 02/26/2025 7:33:51 AM This report has been signed electronically. Number of Addenda: 0 Note Initiated On: 02/26/2025 6:41 AM
--- NOTE | 2025-02-26 07:37 | PCM.POST.ANE ---
Anesthesia: Postop Eval I Current Vital Signs Temperature: 97.7 F Pulse Rate: 87 Blood Pressure: 94/71 Respiratory Rate: 16 Pulse Ox: 98 Oxygen Delivery Method: Room Air Assessment Airway patent: Yes Spontaneous unlabored respirations: Yes Mental status: Awake and Calm nausea: No Vomiting: No Anesthesia Complication: No Fluid Hydration Crystalloid volume administer (ml): 300 Total IV fluid infused: 300 Progress Note Anesthesia document: Postop Eval 1 completed: Yes
--- NOTE | 2025-02-26 08:21 | PCM.PN.HOSP ---
Reason for Visit Reason for Visit: Diagnoses Adult hypertrophic pyloric stenosis (02/24/25) Unspecified abdominal pain (02/24/25) Subjective Subjective Case was discussed with GI the day prior. Plan is for patient to undergo upper endoscopy this a.m. Objective Data Objective Data Vital Signs: Vital Signs Temp Pulse Resp BP Pulse Ox O2 Del Method 97.5 F L 69 16 113/66 98 Room Air 02/26/25 07:40 02/26/25 07:40 02/26/25 07:40 02/26/25 07:40 02/26/25 07:40 02/26/25 07:40 Oxygen Delivery Method Room Air Weight: 62.777 kg Body Mass Index (BMI) 21.7 Intake & Output: Intake and Output for Last 24 Hours 02/24/25 02/25/25 02/26/25 23:59 23:59 23:59 Intake Total 35 35 3505.00 / 3505.00 Balance 35 35 3505.00 / 3505.00 Medical Nutrition Assessment Dietitian: Malnutrition Criteria Met Start: 02/25/25 15:10 Freq: Status: Active Protocol: Document 02/25/25 15:10 SB (Rec: 02/25/25 15:11 SB [id number]) Nutrition Malnutrition Evidence of Yes Malnutrition Exists Malnutrition (severe Acute Illness/Injury ): Evidenced By Suboptimal Energy Intake (Severe),Weight Loss (Severe) Clinical Problem Acute Disease or Injury Related Malnutrition Etiology severe related to inadequate oral intake and GI dysfunction Signs/Symptoms as evidenced by PO meeting <50% of estimated nutrition needs x 5-6 days and 5% unintentional weight loss x 2-3 weeks. Status Active Problem Recommendation Dietitian Recommend advanced diet as tolerated to transitional Recommendations/ with goal to regular diet. Changes Recommend 240ml apple Ensure Clear TID with meals. Will determine other ONS as diet is advanced. Will monitor weight trends. Lab / Micro Data 02/26/25 05:35 02/26/25 05:35 Labs: Laboratory Results - last 24 hr 02/26/25 05:35: WBC 2.7 L, RBC 3.93 L, Hgb 12.2, Hct 36.1 L, MCV 91.9, MCH 31.0, MCHC 33.8, RDW Std Deviation 44.2 H, RDW Coeff of Vanessa 13.1, Plt Count 156, MPV 8.8, Immature Gran % (Auto) 0.400, Neut % (Auto) 69.9, Lymph % (Auto) 14.3 L, [place] % (Auto) 9.2, Eos % (Auto) 5.1 H, Baso % (Auto) 1.1 H, Absolute Neuts (auto) 1.9 L, Absolute Lymphs (auto) 0.39 L, Nucleated RBC % 0, Differential Comment SCANNED, Platelet Estimate ADEQUATE, RBC Morphology NORM C+C, Sodium 138, Potassium 3.4, Chloride 108, Carbon Dioxide 20.8 L, Anion Gap 9, BUN 6, Creatinine 0.65 L, Estim Creat Clear Calc 89.39, Est GFR (MDRD) Non-Af 103, BUN/Creatinine Ratio 9.6 L, Glucose 86, Calcium 9.0, Phosphorus 3.0, Magnesium 1.8 Physical Exam Narrative GENERAL: cooperative HEENT: Atraumatic; normocephalic EYES; Anicteric, Normal Conjunctiva NECK; supple, normal thyroid, RESPIRATORY: Diminished to auscultation CARDIOVASCULAR: Regular S1 S2, GI: soft, normoactive bowel sounds, : No Renal angle tenderness; EXTREMITIES: No edema, no clubbing, MUSCULOSKELETAL: no muscle wasting NEURO: Awake; no lateralizing signs. SKIN: No Rash PSYCH; Flat affect Assessment & Plan Assessment/Plan (1) Gastric outlet obstruction: (2) Abdominal pain, acute: PLAN: Plan Patient is a 59-year-old lady who presented with intractable nausea vomiting and inability to keep food down. CT of the abdomen and pelvis obtained on admission did show Findings concerning for peptic ulcer disease with including a small 1.5 cm contained perforation versus ulcer. Admitted to regular nursing floor for subsequent management 1. Gastric outlet obstruction ? Patient presented with intractable nausea vomiting and abdominal pain and inability to keep food down. CT of the abdomen and pelvis obtained on admission did show Findings concerning for peptic ulcer disease with including a small 1.5 cm contained perforation versus ulcer. Admitted to regular nursing floor for subsequent management. Patient was kept n.p.o. after midnight started on Protonix as well as Zofran for symptom management and consult placed to GI for endoscopy ? 02/26/2025;Case was discussed with GI the day prior. Plan is for patient to undergo upper endoscopy this a.m. ? Patient EGD this a.m. did show - No gross lesions in the entire esophagus. - Oozing gastric ulcer with a visible vessel. Treated with a heater probe. - Gastric stenosis was found at the pylorus. Dilated. - Non-bleeding duodenal ulcer with no stigmata of bleeding. Biopsied. 2. History of cervical cancer ? In remission following brachytherapy and chemotherapy. CT scan on this admission demonstrates uterine lesions up to 2.7 cm that are possible fibroids given her previous history of cervical cancer patient was informed of the result and the need to schedule an appointment with her CARPET RENOVATOR following discharge for subsequent eval 3. Ovarian cyst ? CT did show 3.6 cm LEFT ovarian cyst, also incompletely characterized by CT but minimally enlarged from 10/16/2023 and not previously FDG avid, suggesting a benign neoplasm such as cystadenoma. Plan is for patient to follow-up with CARPET RENOVATOR as outpatient 4. Hypokalemia -Corrected per protocol 5. Anemia ? Secondary to chronic disorder monitoring H&H and transfuse if patient becomes symptomatic or hemoglobin falls below 7 6. DVT prophylaxis ? SCDs only given the suspicion of contained peptic ulcer with perforation Charges/Coding Visit Charges Inpatient E&M: 48415 Subs Hosp L2
--- NOTE | 2025-02-26 10:40 | PCM.POSTANE2 ---
Anesthesia Postop Eval I Sum Postop Eval Completion status Anesthesia document: Postop Eval 1 completed: Yes Anesthesia Postop Eval I Summary Anesthesia Postop Eval I Summary: Anesthesia Postop Eval I: Assessment Summary Airway patent Yes 02/26/25 07:37 [email or web address] Spontaneous unlabored Yes 02/26/25 07:37 [email or web address] respirations Mental status Awake,Calm 02/26/25 07:37 [email or web address] nausea No 02/26/25 07:37 [email or web address] Vomiting No 02/26/25 07:37 [email or web address] Anesthesia Postop Eval I: Fluid Summary Crystalloid volume administer 300 02/26/25 07:37 [email or web address] (ml) Colloids volume administered ( ml) Blood Product volume administered (ml) Total IV fluid infused 300 02/26/25 07:37 [email or web address] Anesthesia Postop Eval I: Summary Notes Anesthesia Complication No 02/26/25 07:37 [email or web address] Anesthesia Complication Comment: Post-operative progress note Anesthesia: Postop Eval II Evaluation Mental status: Awake and Calm Pain Level: 0 nausea: No Vomiting: No Complications Anesthesia Complication: No
[2025-02-26] MEDS: 0.9% Normal Saline (1000mL) 1,000 ML 100 ML IV (11:28)
[2025-02-26] MEDS: Pantoprazole Sodium 80 MG in 0.9% Normal Saline (100mL Bag) 80 ML 10 MG CONT INF (18:48)
[2025-02-27] MEDS: 0.9% Normal Saline (1000mL) 1,000 ML 100 ML IV ×2 (00:17→10:19)
[2025-02-27 02:32] VITALS: BP 99/49; PULSE 55; RESP 18; TEMP 36.6; O2SAT 99
[2025-02-27] MEDS: Pantoprazole Sodium 80 MG in 0.9% Normal Saline (100mL Bag) 80 ML 10 MG CONT INF (05:10)
--- NOTE | 2025-02-27 07:16 | PCM.PN.HOSP ---
Reason for Visit Reason for Visit: Diagnoses Adult hypertrophic pyloric stenosis (02/24/25) Unspecified abdominal pain (02/24/25) Objective Data Objective Data Vital Signs: Vital Signs Temp Pulse Resp BP Pulse Ox O2 Del Method 97.9 F 55 L 18 99/49 L 99 Room Air 02/27/25 02:32 02/27/25 02:32 02/27/25 02:32 02/27/25 02:32 02/27/25 02:32 02/27/25 02:32 Oxygen Delivery Method Room Air Weight: 62.777 kg Body Mass Index (BMI) 21.7 Intake & Output: Intake and Output for Last 24 Hours 02/25/25 02/26/25 02/27/25 23:59 23:59 23:59 Intake Total 3505.00 / 3505.00 2600 / 2600 650 / 650 Balance 3505.00 / 3505.00 2600 / 2600 650 / 650 Medical Nutrition Assessment Dietitian: Malnutrition Criteria Met Start: 02/25/25 15:10 Freq: Status: Active Protocol: Document 02/25/25 15:10 SB (Rec: 02/25/25 15:11 SB [id number]) Nutrition Malnutrition Evidence of Yes Malnutrition Exists Malnutrition (severe Acute Illness/Injury ): Evidenced By Suboptimal Energy Intake (Severe),Weight Loss (Severe) Clinical Problem Acute Disease or Injury Related Malnutrition Etiology severe related to inadequate oral intake and GI dysfunction Signs/Symptoms as evidenced by PO meeting <50% of estimated nutrition needs x 5-6 days and 5% unintentional weight loss x 2-3 weeks. Status Active Problem Recommendation Dietitian Recommend advanced diet as tolerated to transitional Recommendations/ with goal to regular diet. Changes Recommend 240ml apple Ensure Clear TID with meals. Will determine other ONS as diet is advanced. Will monitor weight trends. Lab / Micro Data 02/26/25 05:35 02/26/25 05:35 Physical Exam Narrative GENERAL: cooperative HEENT: Atraumatic; normocephalic EYES; Anicteric, Normal Conjunctiva NECK; supple, normal thyroid, RESPIRATORY: Diminished to auscultation CARDIOVASCULAR: Regular S1 S2, GI: soft, normoactive bowel sounds, : No Renal angle tenderness; EXTREMITIES: No edema, no clubbing, MUSCULOSKELETAL: no muscle wasting NEURO: Awake; no lateralizing signs. SKIN: No Rash PSYCH; Flat affect Assessment & Plan Assessment/Plan (1) Gastric outlet obstruction: (2) Abdominal pain, acute: PLAN: Plan Patient is a 59-year-old lady who presented with intractable nausea vomiting and inability to keep food down. CT of the abdomen and pelvis obtained on admission did show Findings concerning for peptic ulcer disease with including a small 1.5 cm contained perforation versus ulcer. Admitted to regular nursing floor for subsequent management 1. Gastric outlet obstruction ? Patient presented with intractable nausea vomiting and abdominal pain and inability to keep food down. CT of the abdomen and pelvis obtained on admission did show Findings concerning for peptic ulcer disease with including a small 1.5 cm contained perforation versus ulcer. Admitted to regular nursing floor for subsequent management. Patient was kept n.p.o. after midnight started on Protonix as well as Zofran for symptom management and consult placed to GI for endoscopy ? 02/26/2025;Case was discussed with GI the day prior. Plan is for patient to undergo upper endoscopy this a.m. ? Patient EGD this a.m. did show - No gross lesions in the entire esophagus. - Oozing gastric ulcer with a visible vessel. Treated with a heater probe. - Gastric stenosis was found at the pylorus. Dilated. - Non-bleeding duodenal ulcer with no stigmata of bleeding. Biopsied. 2. History of cervical cancer ? In remission following brachytherapy and chemotherapy. CT scan on this admission demonstrates uterine lesions up to 2.7 cm that are possible fibroids given her previous history of cervical cancer patient was informed of the result and the need to schedule an appointment with her CERTIFIED MARINE MECHANIC following discharge for subsequent eval 3. Ovarian cyst ? CT did show 3.6 cm LEFT ovarian cyst, also incompletely characterized by CT but minimally enlarged from 10/16/2023 and not previously FDG avid, suggesting a benign neoplasm such as cystadenoma. Plan is for patient to follow-up with CERTIFIED MARINE MECHANIC as outpatient 4. Hypokalemia -Corrected per protocol 5. Anemia ? Secondary to chronic disorder monitoring H&H and transfuse if patient becomes symptomatic or hemoglobin falls below 7 6. DVT prophylaxis ? SCDs only given the suspicion of contained peptic ulcer with perforation severe malnutrition Related to: inadequate oral intake and GI dysfunction As evidenced by: PO meeting <50% of estimated nutrition needs x 5-6 days and 5% unintentional weight loss x 2-3 weeks. With treatment/resources used including: Recommend advanced diet as tolerated to transitional with goal to regular diet. Recommend 240ml apple Ensure Clear TID with meals. Will determine other ONS as diet is advanced. Will monitor weight trends.
[2025-02-27 07:21] LABS: Absolute Lymphocyte Count 0.48 X10^3/uL (0.83-4.51); Absolute Neutrophil Count 2.1 X10^3/uL (2.0-7.7); Basophil# 0.03 X10^3/uL; Eosinophil# 0.13 X10^3/uL; Eosinophils% 4.3 % (0-5); Hematocrit 34.9 % (37-47); Hemoglobin 11.7 g/dL (12.0-15.0); Lymphocyte # 0.48 X10^3/ul (0.83-4.51); Lymphocyte % 15.7 % (19-41); Mean Corp Hgb Conc 33.5 g/dL (32-36); Mean Corpuscular Hgb 30.5 pg (27.0-32.0); Mean Corpuscular Volume 90.9 fL (81-99); Mean Platelet Vol. 8.9 fl (6.2-12.0); Monocyte% 9.8 % (0-10); NRBC Flagged by Analyzer 0 % (0-5); Neutrophil % 68.9 % (47-70); POSITIVE DIFFERENTIAL YES; Platelet Count 166 K/mm3 (150-450); RBC Distribution Width CV 13.3 % (11.6-14.6); RBC Distribution Width SD 43.8 fl (35.1-43.9); Red Blood Count 3.84 M/mm3 (4.2-5.4); White Blood Count 3.1 K/mm3 (4.4-11.0)
[2025-02-27 07:48] LABS: Anion Gap 8 (5-15); BUN 6 mg/dL (4-19); BUN/Creat Ratio 8.8 RATIO (10-20); Calcium,Total 8.9 mg/dL (7.6-11.0); Carbon Dioxide 25.8 mmol/L (21.0-32.0); Chloride 105 mmol/L (98-108); Creatinine, Serum 0.63 mg/dL (0.70-1.20); EST Glomerular Filtration Rate 103 (>60); Estimated Creatinine Clearance 92.23 ml/min (50-250); Glucose 90 mg/dL (70-99); Potassium 3.1 mmol/L (3.3-5.1); Sodium Level 139 mmol/L (133-145)
[2025-02-27 08:30] VITALS: BP 106/59; PULSE 54; RESP 16; TEMP 36.8; O2SAT 95
--- NOTE | 2025-02-27 08:35 | DS.PCM_ITS ---
Providers Date of Admission: 02/24/25 Date of Discharge: 02/27/25 Primary Care Physician: Dr. Marlen Rodríguez MD Consultations 02/24/25 17:02 Consult: Gastroenterology Routine Consulting Provider: [facility] Reason for Consult: PUD with possible perf EMERGENT Consult: No Notified: Yes Date Notified: 02/24/25 Time Notified: 20:01 Method of Notification: Text Reason For Visit: GASTRIC OUTLET OBSTRUCTION Diagnosis Discharge Diagnosis (1) Gastric outlet obstruction: Status: Acute Code(s): K31.1 - Adult hypertrophic pyloric stenosis (2) Abdominal pain, acute: Status: Acute Code(s): R10.9 - Unspecified abdominal pain Plan Patient is a 59-year-old lady who presented with intractable nausea vomiting and inability to keep food down. CT of the abdomen and pelvis obtained on admission did show Findings concerning for peptic ulcer disease with including a small 1.5 cm contained perforation versus ulcer. Admitted to regular nursing floor for subsequent management 1. Gastric outlet obstruction ? Patient presented with intractable nausea vomiting and abdominal pain and inability to keep food down. CT of the abdomen and pelvis obtained on admission did show Findings concerning for peptic ulcer disease with including a small 1.5 cm contained perforation versus ulcer. Admitted to regular nursing floor for subsequent management. Patient was kept n.p.o. after midnight started on Protonix as well as Zofran for symptom management and consult placed to GI for endoscopy ? 02/26/2025;Case was discussed with GI the day prior. Plan is for patient to undergo upper endoscopy this a.m. ? Patient EGD this a.m. did show - No gross lesions in the entire esophagus. - Oozing gastric ulcer with a visible vessel. Treated with a heater probe. - Gastric stenosis was found at the pylorus. Dilated. - Non-bleeding duodenal ulcer with no stigmata of bleeding. Biopsied. ?02/27/2025 prescription written for Protonix. Patient was instructed to avoid nonsteroidal anti-inflammatory drugs (ibuprofen and naproxen). Patient was also instructed to stop taking aspirin for pain 2. History of cervical cancer ? In remission following brachytherapy and chemotherapy. CT scan on this admission demonstrates uterine lesions up to 2.7 cm that are possible fibroids given her previous history of cervical cancer patient was informed of the result and the need to schedule an appointment with her [facility] following discharge for subsequent eval 3. Ovarian cyst ? CT did show 3.6 cm LEFT ovarian cyst, also incompletely characterized by CT but minimally enlarged from 10/16/2023 and not previously FDG avid, suggesting a benign neoplasm such as cystadenoma. Plan is for patient to follow-up with [facility] as outpatient 4. Hypokalemia -Corrected per protocol 5. Anemia ? Secondary to chronic disorder monitoring H&H and transfuse if patient becomes symptomatic or hemoglobin falls below 7 6. DVT prophylaxis ? SCDs only given the suspicion of contained peptic ulcer with perforation 7. Severe malnutrition Related to: inadequate oral intake and GI dysfunction As evidenced by: PO meeting <50% of estimated nutrition needs x 5-6 days and 5% unintentional weight loss x 2-3 weeks. With treatment/resources used including: Recommend advanced diet as tolerated to transitional with goal to regular diet. Recommend 240ml apple Ensure Clear TID with meals. Will determine other ONS as diet is advanced. Will monitor weight trends. 8. Hypokalemia ? Corrected for protocol Medications at Discharge Home Medications pantoprazole 40 mg tablet,delayed release 40 mg PO DAILY 90 days #90 tabs 02/27/25 polysaccharide iron complex 150 mg iron capsule (Ferrex) 150 mg PO DAILY 90 days #90 caps 02/27/25 potassium chloride 20 mEq tablet,extended release(part/cryst) 20 meq PO DAILYCM #20 tabs 02/27/25 Hospital Course Summary of Care Provided Minutes Spent on Discharge: 32 Physical Exam Narrative GENERAL: cooperative HEENT: Atraumatic; normocephalic EYES; Anicteric, Normal Conjunctiva NECK; supple, normal thyroid, RESPIRATORY: Diminished to auscultation CARDIOVASCULAR: Regular S1 S2, GI: soft, normoactive bowel sounds, : No Renal angle tenderness; EXTREMITIES: No edema, no clubbing, MUSCULOSKELETAL: no muscle wasting NEURO: Awake; no lateralizing signs. SKIN: No Rash PSYCH; Flat affect Medical Records Data Medical Nutrition Assessment Dietitian: Malnutrition Criteria Met Start: 02/25/25 15:10 Freq: Status: Active Protocol: Document 02/25/25 15:10 SB (Rec: 02/25/25 15:11 SB [id number]) Nutrition Malnutrition Evidence of Yes Malnutrition Exists Malnutrition (severe Acute Illness/Injury ): Evidenced By Suboptimal Energy Intake (Severe),Weight Loss (Severe) Clinical Problem Acute Disease or Injury Related Malnutrition Etiology severe related to inadequate oral intake and GI dysfunction Signs/Symptoms as evidenced by PO meeting <50% of estimated nutrition needs x 5-6 days and 5% unintentional weight loss x 2-3 weeks. Status Active Problem Recommendation Dietitian Recommend advanced diet as tolerated to transitional Recommendations/ with goal to regular diet. Changes Recommend 240ml apple Ensure Clear TID with meals. Will determine other ONS as diet is advanced. Will monitor weight trends. Weight / BMI Weight Weight: 62.777 kg Body Mass Index (BMI) 21.7 ABG / Lab / Microbiology Data 02/27/25 06:57 02/27/25 06:57 Laboratory: Laboratory Results - last 24 hr 02/27/25 06:57: WBC 3.1 L, RBC 3.84 L, Hgb 11.7 L, Hct 34.9 L, MCV 90.9, MCH 30.5, MCHC 33.5, RDW Std Deviation 43.8, RDW Coeff of Vanessa 13.3, Plt Count 166, MPV 8.9, Immature Gran % (Auto) 0.300, Neut % (Auto) 68.9, Lymph % (Auto) 15.7 L , [place] % (Auto) 9.8, Eos % (Auto) 4.3, Baso % (Auto) 1.0, Absolute Neuts (auto) 2.1, Absolute Lymphs (auto) 0.48 L, Nucleated RBC % 0, Sodium 139, Potassium 3.1 L, Chloride 105, Carbon Dioxide 25.8, Anion Gap 8, BUN 6, Creatinine 0.63 L, Estim Creat Clear Calc 92.23, Est GFR (MDRD) Non-Af 103, BUN/Creatinine Ratio 8.8 L, Glucose 90, Calcium 8.9 D/C Instructions Discharge Diet: No restrictions Discharge Activity: Return to Normal Activity Call your doctor if you observe: Fever of 101 or Higher, Shortness of breath, Fainting spells and Chest pain DC O2, CPAP, BIPAP Needs Home O2 Discharge instructions: No Meaningful Use Info Meaningful Use Meaningful Use Diagnoses (Choose all that apply): None applicable Ischemic Stroke Statin Dosing Therapy Reference: STATIN DOSE THERAPY REFERENCE: * Patients > 75 years receive moderate or high dose statin therapy. * Patients 75 years or YOUNGER should receive HIGH intensity statin dose unless contraindicated. You will be required to document reason for non-treatment if statin daily dose does not meet guidelines. HIGH DOSE STATIN THERAPY DAILY Atorvastatin > than or = to 40 mg Rosuvastatin > than or = to 20 mg Amlodipine + Atorvastatin > than or = to 2.5/40 mg Ezetimibe + Simvastatin 10/80 mg Simvastatin 80mg Discharge Plan Admission Admit Date/Time: 02/24/25 15:37 Attending Provider: Eric Sweet Primary Care Provider: Marlen Rodríguez Consulting Providers: Stefano Jean Baptiste Discharge Orders/Prescriptions Prescriptions: New polysaccharide iron complex [Ferrex 150] 150 mg iron Capsule 150 mg PO DAILY 90 Days Qty: 90 0RF potassium chloride 20 mEq Tablet,Er Particles/Crystals 20 meq PO DAILYCM Qty: 20 0RF pantoprazole 40 mg Tablet,Delayed Release (Dr/Ec) 40 mg PO DAILY 90 Days Qty: 90 0RF Discontinued aspirin 325 mg tablet 325 mg PO DAILY PRN (Reason: fever or pain) Referrals / Follow Up: Marlen Rodríguez MD [Primary Care Provider] - Within 2 Weeks Disposition Disposition (needs filled in before D/C Order can be placed): Home, Self Care Charges/Coding Visit Charges Inpatient E&M: 77129 Disch Hosp >30min
[2025-02-27] MEDS: Potassium Chloride 10mEq/100mL 10 MEQ/100 ML IV.SOLN. 100 MEQ IV BOLUS ×4 (10:19→14:20)
--- NOTE | 2025-02-27 10:25 | PHA.DC_ITS ---
Pharmacy [facility] has performed discharge medication reconciliation and counseling for this patient. The patient's discharge medication list was reviewed for discrepancies and discrepancies were resolved. The patient was counseled on the following discharge medications and changes in medications for homegoing were reviewed. The Reason for Use, instructions for use, and potential side effects were reviewed for all new medications. The patient's questions regarding all of their medications were answered. 1. Pantoprazole 40 mg PO daily 2. Potassium chloride 20 mEq PO daily with a meal 3. Ferrex 150 mg PO daily The patient was able to verbally demonstrate an understanding of their discharge medications. Medications at Discharge Home Medications pantoprazole 40 mg tablet,delayed release 40 mg PO DAILY 90 days #90 tabs 02/27/25 polysaccharide iron complex 150 mg iron capsule (Ferrex) 150 mg PO DAILY 90 days #90 caps 02/27/25 potassium chloride 20 mEq tablet,extended release(part/cryst) 20 meq PO DAILYCM #20 tabs 02/27/25
[2025-02-27] MEDS: Pantoprazole Sodium 40 MG Tablet PO (12:12)
[2025-02-27] MEDS: Iron Polysaccharide Complex 150 MG CAPSULE PO (12:13)
[2025-02-27 16:03] VITALS: BP 125/75; PULSE 58; RESP 16; TEMP 36.5; O2SAT 100
== END 2025-02-27 16:15 | disposition home or self-care (01) | DRG 380 ==
LOC: ED 15:29 → MS3 15:50
PROVIDERS: Internal Medicine Gastroenterology; Admitting Provider Family Medicine; Emergency Provider Emergency Medicine; PCP Internal Medicine; Visit Provider Internal Medicine
PROC: 0DJ08ZZ Inspection of Upper Intestinal Tract, Via Natural or Artificial Opening Endoscopic (ICD-10-PCS; CPT 43235; principal; 2025-02-26 06:25)
DX: K31.1 Adult hypertrophic pyloric stenosis (principal); E43 Unspecified severe protein-calorie malnutrition; E46 Unspecified protein-calorie malnutrition; K26.9 Duodenal ulcer, unspecified as acute or chronic, without hemorrhage or perforation; K52.9 Noninfective gastroenteritis and colitis, unspecified; E87.6 Hypokalemia; K25.9 Gastric ulcer, unspecified as acute or chronic, without hemorrhage or perforation; D27.1 Benign neoplasm of left ovary; Z79.82 Long term (current) use of aspirin; Z92.3 Personal history of irradiation; Z92.21 Personal history of antineoplastic chemotherapy; N83.8 Other noninflammatory disorders of ovary, fallopian tube and broad ligament; Z79.899 Other long term (current) drug therapy; Z79.02 Long term (current) use of antithrombotics/antiplatelets; Z88.8 Allergy status to other drugs, medicaments and biological substances; Z88.1 Allergy status to other antibiotic agents; Z88.5 Allergy status to narcotic agent; Z98.890 Other specified postprocedural states; Z87.442 Personal history of urinary calculi; Z85.41 Personal history of malignant neoplasm of cervix uteri
CPT/HCPCS: 36415; 74177; 80048; 80076; 81001; 83690; 83735; 84100; 85025; 88305; 93005; 99285; C1889; Q9967; A4216; J2405

== ENCOUNTER → 2025-04-13 | Outpatient (CLI) | payer MEDICAID, SELFPAY ==
--- NOTE | 2025-04-13 15:26 | US_ITS ---
PROCEDURE: ABDOMEN LIMITED 04/13/2025 REASON FOR EXAM: Abdominal wall lump. Large lipoma. TECHNIQUE: ABDOMEN LIMITED COMPARISON: Abdomen CT of [id number] FINDINGS: Isoechoic to surrounding subcutaneous fat there is potentially an encapsulated lesion measuring 1.5 cm transverse 0 point 5 cm AP. Lesion is not identified in the sagittal plane. US/Abdomen Limited IMPRESSION: Vaguely discernible possible lipoma as detailed above. Reading Location: [facility]
== END | disposition home or self-care (01) ==
LOC: US 15:24
PROVIDERS: PCP Internal Medicine; Referring Provider Internal Medicine; Visit Provider Internal Medicine
DX: R19.00 Intra-abdominal and pelvic swelling, mass and lump, unspecified site (principal)
CPT/HCPCS: 76705

== ENCOUNTER 2025-06-09 05:55 | Day surgery (SDC) | payer MEDICAID, SELFPAY ==
--- OUTSIDE RECORDS SUMMARY | 2025-06-09 06:01 | XMS RPT_ITS | CCD ---
Author Organization [facility] Care Team Providers Care Director Of Architecture Name Role Phone Dr. Anirudh Amado Attending Provider Care Physician, No Primary Primary Care Provider Unavailable Dr. Anirudh Amado Other Provider [phone] Care Physician, No Primary Primary Care Provider Unavailable Dr. Anirudh Amado Attending Provider [phone] Dr. Anirudh Amado Referring Provider [phone] Dr. Anirudh Amado Other Provider [phone] Care Physician, No Primary Referring Provider Un available Linette 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, ISABELLA-C Elena Rendon Attending Provider Care Physician, No Primary Primary Care Provider Unavailable Care Physician, No Primary Referring Provider Un available Dr. Marlen Rodríguez Attending Provider Unavailable Primary Care Provider Bethany Phipps MD Unavailable Yakelin Godwin MD Unavailable Dr. Marlen Rodríguez MD Primary Care Provider Dr. Bethany Torres MD Attending Provider [phone] Bethany Torres MD Referring Provider Dr. Marlen Rodríguez MD Referring Provider Dr. Emma Joseph MD Attending Provider Dr. Ruben Savage DO Attending Provider Dr. Ruben Savage DO Referring Provider Dr. Margarito Reyes MD Attending Provider Polly Giles PA-C Attending Provider Dr. Emma Joseph MD Referring Provider PROVIDER, UNKNOWN Attending Unavailable PROVIDER, UNKNOWN Admitting Unavailable PROVIDER, UNKNOWN Attending Unavailable PROVIDER, UNKNOWN Admitting Unavailable PROVIDER, UNKNOWN Admitting Unavailable PROVIDER, UNKNOWN Attending Unavailable PROVIDER, UNKNOWN Attending Unavailable PROVIDER, UNKNOWN Admitting Unavailable PROVIDER, UNKNOWN Attending Unavailable PROVIDER, UNKNOWN Admitting Unavailable GODWIN, YAKELIN Attending Unavailable PROVIDER, UNKNOWN Admitting Unavailable TORRES, SAREENA Attending Unavailable TORRES, SAREENA Admitting Unavailable TORRES, SAREENA Attending Unavailable TORRES, SAREENA Admitting Unavailable PROVIDER, UNKNOWN Admitting Unavailable PROVIDER, UNKNOWN Attending Unavailable PROVIDER, UNKNOWN Admitting Unavailable PROVIDER, UNKNOWN Attending Unavailable GODWIN, YAKELIN Attending Unavailable PROVIDER, UNKNOWN Admitting Unavailable GODWIN, YAKEILN Attending Unavailable PROVIDER, UNKNOWN Admitting Unavailable GODWIN, YAKELIN Attending Unavailable TORRES, SAREENA Referring Unavailable PROVIDER, UNKNOWN Admitting Unavailable TORRES, SAREENA Referring Unavailable PROVIDER, UNKNOWN Attending Unavailable PROVIDER, UNKNOWN Admitting Unavailable PROVIDER, UNKNOWN Attending Unavailable PROVIDER, UNKNOWN Admitting Unavailable PROVIDER, UNKNOWN Attending Unavailable PROVIDER, UNKNOWN Admitting Unavailable PROVIDER, UNKNOWN Attending Unavailable PROVIDER, UNKNOWN Admitting Unavailable PROVIDER, UNKNOWN Admitting Unavailable PROVIDER, UNKNOWN Attending Unavailable PROVIDER, UNKNOWN Admitting Unavailable PROVIDER, UNKNOWN Attending Unavailable PROVIDER, UNKNOWN Attending Unavailable PROVIDER, UNKNOWN Admitting Unavailable PROVIDER, UNKNOWN Admitting Unavailable PROVIDER, UNKNOWN Attending Unavailable GODWIN, YAKELIN Attending Unavailable PROVIDER, UNKNOWN Admitting Unavailable GODWIN, YAKELIN Attending Unavailable PROVIDER, UNKNOWN Admitting Unavailable Marcos HOLDEN, Dr. Gee Primary Care Provider Polly Giles PA-C Attending Provider Dr. Diallo Santoro DO Emergency Provider [phone]. Stefano Jean Baptiste MD Admit Provider Dr. Stefano Jean Baptiste MD Other Provider Dr. Eric Sweet MD Attending Provider Unavaila Dr. Stefano Renteria MD Attending Provider Dr. Eric Sweet MD Other Provider Unavailable Dr. Eric Sweet MD Referring Provider UnavailDr. Marco Degroot DO Attending Provider Dr. Nilo Andrews MD Attending Provider Markel HOLDEN, Dr. Stefano Prado Referring Provider Marcos HOLDEN, Dr. Gee Attending Provider Marcos HOLDEN, Dr. Gee Primary Care Provider Marcos HOLDEN, Dr. Gee Referring Provider Dr. Ruben Savage DO Attending Provider Opal HOLDEN, Dr. Carter Attending Provider Stefano Jean Baptiste Referring Unavailable Nilo Andrews Attending Unavailable [place], Marlen Primary Care Unavailable Emma Joseph Referring Unavailable Emma Joseph Attending Unavailable Marcos, Marlen Primary Care Unavailable [place], Marlen Primary Care Unavailable Ruben Savage Attending Unavailable Ruben Savage Referring Unavailable Marcos, Marlen Referring Unavailable Friend, Marco Attending Unavailable Marcos, Marlen Primary Care Unavailable Marcos, Marlen Referring Unavailable [place], Marlen Attending Unavailable Marcos, Marlen Primary Care Unavailable [place], Marlen Primary Care Unavailable Ruben Savage Attending Unavailable Ruben Savage Referring Unavailable Marcos, Marlen Referring Unavailable Friend, Marco Attending Unavailable [place], Marlen Primary Care Unavailable Marcos, Marlen Primary Care Unavailable Margarito Reyes Attending Unavailable Margarito Reyes Consulting Unavailable Margarito Reyes Referring Unavailable [place], Marlen Primary Care Unavailable Margarito Reyes Attending Unavailable Margarito Reyes Referring Unavailable [place], Amrlen Primary Care Unavailable Marcos, Marlen Referring Unavailable Friend, Marco Attending Unavailable [place], Marlen Primary Care Unavailable Ruben Savage Referring Unavailable Ruben Savage Attending Unavailable [place], Marlen Primary Care Unavailable [place], Marlen Referring Unavailable Edison 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, Rosita Attending Unavailable Marcos, Marlen Primary Care Unavailable Ruben Savage Referring Unavailable Ruben Savage Attending Unavailable [place], Marlen Primary Care Unavailable Marcos, Marlen Referring Unavailable Ruben Savage Attending Unavailable Marcos, Marlen Referring Unavailable Marcos, Marlen Primary Care Unavailable Edison 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, Rosita Attending Unavailable Marcos, Marlen Referring Unavailable Marcos, Marlen Primary Care Unavailable Emma Joseph Attending Unavailable Marcos, Marlen Referring Unavailable [place], Marlen Primary Care Unavailable Margarito Reyes Attending Unavailable Marcos, Marlen Primary Care Unavailable [place], Marlen Referring Unavailable Margarito Reyes Attending Unavailable Marcos, Marlen Primary Care Unavailable [place], Marlen Referring Unavailable Edison 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, Rosita Attending Unavailable [place], Marlen Primary Care Unavailable Marcos, Marlen Referring Unavailable Edison 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, Rosita Attending Unavailable [place], Marlen Referring Unavailable [place], Marlen Primary Care Unavailable Ruben Savage Attending Unavailable Marcos, Marlen Referring Unavailable Polly Giles Attending Unavailable Marcos, Marlen Primary Care Unavailable Marcos, Marlen Referring Unavailable Marcos, Marlen Attending Unavailable [place], Marlen Primary Care Unavailable Stefano Jean Baptiste Admitting Unavailable Eric Sweet Attending Unavailable Lian Jean Baptistes F Consulting Unavailable Marcos, Marlen Primary Care Unavailable Eric Sweet Consulting Unavailable Stefano Jean Baptiste Consulting Unavailable Eric Sweet Attending Unavailable Anup Jean Baptisteolas F Admitting Unavailable Marcos, Marlen Primary Care Unavailable Lian Jean Baptistes Johan Attending Unavailable Marco Rondon Attending Unavailable Eric Sweet Referring Unavailable Marcos, Marlen Primary Care Unavailable Ruben Savage Attending Unavailable Janette, Ruben Referring Unavailable [place], Marlen Primary Care Unavailable Ruben Savage Attending Unavailable Janette, Ruben Referring Unavailable [place], Marlen Primary Care Unavailable Ruben Savage Attending Unavailable Janette, Ruben Referring Unavailable Marcos, Marlen Primary Care Unavailable Marcos, Marlen Referring Unavailable Emma Joseph Attending Unavailable Marcos, Marlen Primary Care Unavailable Ruben Savage Attending Unavailable Janette, Ruben Referring Unavailable Marcos, Marlen Primary Care Unavailable Marcos, Marlen Referring Unavailable Edison 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, Rosita Attending Unavailable [place], Marlen Primary Care Unavailable Ruben Savage Attending Unavailable Ruben Savage Referring Unavailable [place], Marlen Primary Care Unavailable [place], Marlen Referring Unavailable Emam Joseph Attending Unavailable [place], Marlen Primary Care Unavailable Marcos, Marlen Referring Unavailable Rosita Hogan NP Attending Unavailable [place], Marlen Primary Care Unavailable Bethany Torres Referring Unavailable Bethany Torres Attending Unavailable Medications Current Medications Medication Drug Class(es) Dates Sig (Normalized) Sig (Original) dyclonine hydrochloride 2 mg oral lozenge (1 source) Start: 07-28-2024 1 ml ketorolac tromethamine 15 mg/ml cartridge (1 source) Nonsteroidal Anti-inflammatory Drug, Cyclooxygenase Inhibitor Start: 07-28-2024 End: 08-02-2024 take 15 mg intravenous bolus route every six hours 15 mg, Intravenous Push, Every 6 hours, 20 doses, First dose on 07/28/24 at 1730, Last dose on 08/02/24 at 1130 1 ml naloxone hydrochloride 0.4 mg/ml injection (1 source) Opioid Antagonist Start: 07-28-2024 Reedy (Nk) (1 source) Start: 05-22-2023 Reedy (Nk) Active May 22, 2023 12:00am 2 ml ondansetron 2 mg/ml injection (12 sources) Serotonin-3 Receptor Antagonist Start: 07-28-2024 Start: 06-09-2024 End: 02-24-2025 take 1 tablet by mouth every eight hours as needed for nausea and vomiting Ondansetron 8 mg tablet,disintegrating Discontinued 8 mg PO Q8H as needed for nausea and vomiting June 09, 2024 12:00am February 24, 2025 2:30pm Malignant neoplasm of cervix Malignant neoplasm of overlapping sites of cervix uteri Start: 10-16-2023 End: 01-29-2024 take 1 tablet by mouth every eight hours as needed for nausea Ondansetron 4 mg tablet,disintegrating Discontinued 4 mg PO EVERY 8 HOURS NEEDED as needed for Nausea October 16, 2023 1:00am January 29, 2024 10:13am pantoprazole 40 mg delayed release oral tablet (3 sources) Proton Pump Inhibitor Start: 02-27-2025 take 1 tablet by mouth once daily Pantoprazole 40 mg Tablet,Delayed Release (Dr/Ec) Active 40 mg PO DAILY 90 90 0 February 27, 2025 12:00am polysaccharide iron complex 150 mg oral capsule (3 sources) Start: 02-27-2025 Polysaccharide Iron Complex (Ferrex 150) 150 mg iron Capsule Active 150 mg PO DAILY 90 90 0 February 27, 2025 12:00am sucralfate 1000 mg oral tablet (6 sources) Aluminum Complex Start: 05-04-2025 take 1 tablet by mouth three times daily Sucralfate 1 gram tablet Active 1 g PO THREE TIMES A DAY 84 28 0 May 04, 2025 1:39pm May 31, 2025 12:00am Start: 03-13-2025 End: 04-10-2025 take 1 tablet by mouth three times daily Sucralfate 1 gram tablet Discontinued 1 g PO THREE TIMES A DAY 84 28 0 April 07, 2025 5:59pm April 09, 2025 12:00am April 10, 2025 12:08am Completed/Discontinued Medications Medication Drug Class(es) Dates Sig (Normalized) Sig (Original) acetaminophen 500 mg oral tablet (1 source) Start: 07-28-2024 take 1000 mg by mouth every six hours 1,000 mg, Oral, Every 6 hours, First dose on Sun07/28/24 at 1730, Until Discontinued acetaminophen 325 mg / HYDROcodone bitartrate 5 mg oral tablet (7 sources) Opioid Agonist Start: 10-16-2023 End: 01-29-2024 Hydrocodone-Acetami nophen 5-325 mg tablet Discontinued 1 {tbl} PO EVERY 6 HOURS NEEDED as needed for Pain 10 3 October 16, 2023 January 29, 2024 10:13am Calculus of ureter Calculus of ureter Start: 10-16-2023 End: 01-29-2024 take 1 tablet by mouth every six hours as needed Hydrocodone-Acetaminophen Discontinued 1 TABLET PO EVERY 6 HOURS NEEDED 10 October 16, 2023 January 29, 2024 10:13am acetaminophen 325 mg / oxyCODONE hydrochloride 5 mg oral tablet (8 sources) Opioid Agonist Start: 06-27-2023 End: 07-19-2023 take 7-10 tablets by mouth every six hours as needed for pain Oxycodone-Acetaminophen (Percocet) 5-325 mg tablet Discontinued 1 {tbl} PO EVERY 6 HOURS as needed for pain (scale score 7-10) 28 7 0 June 27, 2023 July 19, 2023 2:56pm Other acute postprocedural pain Other acute postprocedural pain 28 tabs (twenty-eight) amoxicillin 500 mg oral capsule (9 sources) Penicillin-class Antibacterial Start: 10-16-2018 End: 10-26-2018 take 2 capsules by mouth twice daily Amoxicillin 500 mg capsule Discontinued 1000 mg PO TWICE A DAY 40 10 October 16, 2018 1:00am October 25, 2018 1:00am October 26, 2018 1:07am Start: 10-16-2018 End: 10-26-2018 take 1000 mg by mouth twice daily Amoxicillin Discontinued 1000 MG PO TWICE A DAY 40 October 16, 2018 1:00am October 26, 2018 1:07am aspirin 325 mg oral tablet (14 sources) Platelet Aggregation Inhibitor, Nonsteroidal Anti-inflammatory Drug Start: 02-22-2024 End: 02-27-2025 take 1 tablet by mouth once daily as needed for pain Aspirin 325 mg tablet Discontinued 325 mg PO DAILY as needed for fever or pain July 07, 2024 8:11am February 27, 2025 8:36am Start: 01-29-2024 End: 02-22-2024 take 1 tablet by mouth once daily Aspirin (Adult Aspirin Regimen) 81 mg tablet,delayed release (DR/EC) Discontinued 81 mg PO DAILY January 29, 2024 12:00am February 22, 2024 11:38am calcium chloride 0.0014 meq/ml / potassium chloride 0.004 meq/ml / sodium chloride 0.103 meq/ml / sodium lactate 0.028 meq/ml injectable solution (1 source) Start: 07-28-2024 End: 07-28-2024 Intravenous, at 125 mL/hr, CONTINUOUS, Starting on Sun07/28/24 at 0800, Until Sun07/28/24 at 1605 cefadroxil 500 mg oral capsule (8 sources) Cephalosporin Antibacterial Start: 06-27-2023 End: 07-19-2023 take 1 capsule by mouth twice daily Cefadroxil 500 mg capsule Discontinued 500 mg PO TWICE A DAY 28 0 June 27, 2023 12:00am July 19, 2023 2:56pm cholecalciferol 0.01 mg oral capsule (4 sources) Vitamin D Start: 08-25-2024 End: 02-24-2025 take 1 capsule by mouth once daily Cholecalciferol (Vitamin D3) 10 mcg (400 unit) capsule Discontinued 10 ug PO daily August 25, 2024 12:00am February 24, 2025 2:30pm diazePAM 5 mg oral tablet (8 sources) Benzodiazepine Start: 06-27-2023 End: 10-16-2023 take 1 tablet by mouth four times daily as needed for muscle spasms Diazepam (Valium) 5 mg tablet Discontinued 5 mg PO 4 TIMES DAILY as needed for muscle spasm 30 0 June 27, 2023 3:06pm October 16, 2023 2:04am 30 tabs (thirty) 0.4 ml enoxaparin sodium 100 mg/ml prefilled syringe (1 source) Low Molecular Weight Heparin Start: 07-28-2024 inject 40 mg by subcutaneous injection every twenty-four hours 40 mg, Subcutaneous, EVERY 24 HOURS, First dose on Sun07/28/24 at 1730, Until Discontinued, Post-op ergocalciferol 1.25 mg oral capsule (4 sources) Provitamin D2 Compound Start: 08-22-2024 End: 11-21-2024 take 1 capsule by mouth every week vitamin D2 ergocalciferol (DRISDOL) 1.25 MG (10531 UT) capsule Take 1 Capsule by mouth once weekly. 8 Capsule 08/22/2024 11/21/2024 Discontinued Gadoterate Meglumine (DOTAREM) 377 MG/ML solution (1 source) Start: 07-18-2024 End: 07-18-2024 take 1 dose intravenously once 20 mL, Intravenous Push, Once at Radiology exam, 1 dose, Starting on Sun07/18/24 at 0954, Until Sun07/18/24 at 0954, Imaging Protocol Orders 0.5 ml heparin sodium, porcine [id number] unt/ml prefilled syringe (1 source) Unfractionated Heparin, Anti-coagulant Start: 07-28-2024 End: 07-28-2024 inject 1 dose by subcutaneous injection once 5,000 Units, Subcutaneous, ONCE, 1 dose, On Sun07/28/24 at 0700, Pre-op Start: 07-28-2024 End: 07-28-2024 inject 1 dose by subcutaneous injection once 5,000 Units, Subcutaneous, ONCE, 1 dose, On Sun07/28/24 at 0700, Pre-op HYDROmorphone (1 source) Opioid Agonist Start: 07-28-2024 End: 07-30-2024 HYDROmorphone (DILAUDID) 1 mg/mL IV bolus from infusion bag (1 source) Start: 07-30-2024 End: 07-30-2024 2 mg, IV Bolus, PRN, 1 dose, Starting on Sun07/30/24 at 1123, Until Sun07/30/24 at 1118, Pain, prior to brachy removal ibuprofen 600 mg oral tablet (20 sources) Nonsteroidal Anti-inflammatory Drug Start: 10-16-2023 End: 02-24-2025 take 1 tablet by mouth every eight hours as needed for pain Ibuprofen 600 mg tablet Discontinued 600 mg PO EVERY 8 HOURS NEEDED as needed for pain October 16, 2023 1:00am February 24, 2025 2:30pm L.Acidoph,Saliva-B.B if-S.Therm (Acidophilus Probiotic Blend) 175 mg capsule (8 sources) Start: 06-27-2023 End: 10-16-2023 take 1 capsule by mouth once daily L.Acidoph,Saliva-B .Bif-S.Therm (Acidophilus Probiotic Blend) 175 mg capsule Discontinued 1 NMA PO DAILY June 27, 2023 12:00am October 16, 2023 2:04am Start: 06-27-2023 End: 10-16-2023 take 1 capsule by mouth once daily L.Acidoph,Saliva-B.Bif-S.Therm (Acidophi liz Probiotic Blend) 175 mg capsule Discontinued 1 NMA PO DAILY June 27, 2023 12:00am October 16, 2023 2:04am Start: 06-27-2023 End: 10-16-2023 take 1 capsule by mouth once daily L.Acidoph,Saliva-B.Bif-S.Therm (Acidophi liz Probiotic Blend) 175 mg capsule Discontinued 1 CAP PO DAILY June 27, 2023 12:00am October 16, 2023 2:04am Start: 06-27-2023 End: 10-16-2023 take 1 capsule by mouth once daily L.Acidoph,Saliva-B.Bif-S.Therm (Acidophi liz Probiotic Blend) 175 mg capsule Discontinued 1 CAP PO DAILY June 26, 2023 11:00pm October 16, 2023 1:04am Start: 06-27-2023 take 1 capsule by mouth once daily QuintinSaliva-B.Bif-S.Therm (Acidophi liz Probiotic Blend) 175 mg capsule Active 1 CAP PO DAILY June 27, 2023 12:00am lidocaine 25 mg/ml / prilocaine 25 mg/ml topical cream (4 sources) Antiarrhythmic, Amide Local Anesthetic Start: 06-09-2024 End: 01-27-2025 Lidocaine-Prilocaine 2.5-2.5 % cream Discontinued 1 NMA TOPICAL ONCE as needed for port access June 09, 2024 12:00am January 27, 2025 7:55am Malignant neoplasm of cervix Malignant neoplasm of overlapping sites of cervix uteri loperamide hydrochloride 2 mg oral capsule (1 source) Opioid Agonist Start: 07-28-2024 take 2 mg by mouth four times daily 2 mg, Oral, 4 TIMES DAILY, First dose on Sun07/28/24 at 1730, Until Discontinued, Post-op 1 ml LORazepam 2 mg/ml injection (1 source) Benzodiazepine Start: 07-30-2024 End: 07-30-2024 take 1 dose intravenously once 1 mg, Intravenous Push, ONCE, 1 dose, On Sun07/30/24 at 1100 Start: 07-30-2024 End: 07-30-2024 take 1 dose intravenously once 1 mg, Intravenous Push, ONCE, 1 dose, On Sun07/30/24 at 1100 microencapsulated potassium chloride 20 meq extended release oral tablet (9 sources) Start: 02-27-2025 End: 04-01-2025 take 1 tablet by mouth once daily at mealtime Potassium Chloride 20 mEq Tablet,Er Particles/Crystals Discontinued 20 meq PO DAILY WITH MEALS February 27, 2025 12:00am April 01, 2025 7:55am Start: 07-29-2024 End: 07-30-2024 take 1 dose by mouth once 40 mEq, Oral, ONCE, 1 dose, On Sun07/30/24 at 1300 Start: 07-14-2024 End: 07-17-2024 take 1 tablet by mouth twice daily Potassium Chloride 20 mEq tablet extended release Discontinued 20 meq PO TWICE A DAY 6 3 0 July 14, 2024 12:00am July 16, 2024 12:00am July 17, 2024 12:06am prochlorperazine 10 mg oral tablet (4 sources) Phenothiazine Start: 06-09-2024 End: 02-24-2025 take 1 tablet by mouth every six hours as needed for nausea and vomiting Prochlorperazine Maleate 10 mg tablet Discontinued 10 mg PO EVERY 6 HOURS as needed for nausea and vomiting 30 June 09, 2024 12:00am February 24, 2025 2:30pm Chemotherapy-induced nausea and vomiting Nausea with vomiting, unspecified Adverse effect of antineoplastic and immunosuppressive drugs, initial encounter 72 hr scopolamine 0.0139 mg/hr transdermal system (1 source) Anticholinergic Start: 07-28-2024 End: 07-28-2024 1.5 mg, Transdermal, EVERY 72 HOURS, First dose on Sun07/28/24 at 0700, Until Discontinued, Pre-op sennosides, long term 15 mg oral tablet (20 sources) Start: 02-22-2024 End: 06-09-2024 take 1 tablet by mouth once daily as needed for constipation Sennosides (Ex-Lax (Sennosides)) 15 mg tablet Discontinued 15 mg PO DAILY as needed for constipation February 22, 2024 12:00am June 09, 2024 11:25am 1000 ml sodium chloride 9 mg/ml injection (1 source) Start: 07-28-2024 End: 07-30-2024 Intravenous, at 25 mL/hr, CONTINUOUS, Starting on Sun07/28/24 at 0900, Until Sun07/30/24 at 1141 sulfamethoxazole 800 mg / trimethoprim 160 mg oral tablet (7 sources) Dihydrofolate Reductase Inhibitor Antibacterial, Sulfonamide Antimicrobial Start: 10-16-2023 End: 01-29-2024 Sulfamethoxazole-Trime thoprim (Bactrim Ds) 800-160 mg tablet Discontinued 1 {tbl} PO TWICE A DAY 10 October 16, 2023 1:00am January 29, 2024 10:13am valACYclovir 1000 mg oral tablet (4 sources) Herpesvirus Nucleoside Analog DNA Polymerase Inhibitor, Herpes Simplex Virus Nucleoside Analog DNA Polymerase Inhibitor, Herpes Zoster Virus Nucleoside Analog DNA Polymerase Inhibitor Start: 06-17-2024 End: 06-23-2024 Valacyclovir 1 gram tablet Discontinued 1000 mg PO THREE TIMES A DAY 21 0 June 17, 2024 12:00am June 23, 2024 9:19am Herpes zoster Zoster without complications Problems Active Problems Problem Classification Problem Date Documented Da te Episodic/Chronic Abdominal pain (8 sources) Acute abdominal pain; Translations: [Unspecified abdominal pain] Onset: 5 03-07-2025 Episodic Administrative/social admission (6 sources) Persons encountering health services in other specified circumstances; Translations: [Other reasons for seeking consultation] 01-29-2024 Episodic Blindness and vision defects (2 sources) Disorder of vision; 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-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 Calculus of urinary tract (9 sources) Ureteric stone; Translations: [Calculus of ureter] 10-16-2023 Episodic Cancer of cervix (20 sources) Overlapping malignant neoplasm of uterine cervix; Translations: [Malignant neoplasm of overlapping sites of cervix uteri] Onset: 4 05-02-2024 Chronic Cancer of other female genital organs (1 source) 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; Translations: [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] 05-02-2024 Chronic Gastroduodenal ulcer (except hemorrhage) (3 sources) Peptic ulcer; Translations: [Peptic ulcer, site unspecified, unspecified as acute or chronic, without hemorrhage or perforation] 04-01-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 Genitourinary symptoms and ill-defined conditions (2 sources) Post-void dribbling; Translations: [Post-void dribbling] 01-29-2024 Chronic Immunizations and screening for infectious disease (2 sources) Immunization due; Translations: [Encounter for immunization] 04-01-2025 Episodic Maintenance chemotherapy; radiotherapy (5 sources) Patient encounter status; Translations: [Encounter for antineoplastic chemotherapy] Onset: 4 06-17-2024 Chronic Nutritional deficiencies (1 source) Vitamin D deficiency; Translations: [Vitamin D deficiency, unspecified] 08-28-2024 Chronic Other aftercare (6 sources) Patient encounter status; Translations: [Encounter for adjustment and management of vascular access device] 06-11-2024 Episodic Comment on above: Patient is a 58-year -old female with recent diagnosis of cervical SCC who requires placement of Port-A-Cath for chemotherapy administration. She is due to start chemotherapy in 5 days. Thus she has been placed on the schedule for this procedure on 06/13/2024. I find no contraindication with proceeding and did discuss with her procedure details as well as postprocedure expectations. Additionally, I discussed the need to monitor the area for signs of infection and to use the port only as necessary. All questions were answered. Other and unspecified benign neoplasm (8 sources) Lipoma of shoulder; Translations: [Benign lipomatous neoplasm of skin and subcutaneous tissue of right arm] 06-27-2023 Episodic Comment on above: 7 cm sub-muscular li sumanth right anterior shoulder Other and unspecified benign neoplasm (4 sources) Benign lipomatous neoplasm of skin and subcutaneous tissue of right arm; Translations: [Lipoma of other specified sites] 06-27-2023 Episodic Other and unspecified benign neoplasm (7 sources) Lipoma (clinical); Translations: [Benign lipomatous neoplasm, unspecified] 07-05-2023 Episodic Comment on above: 7 cm sub-muscular fi brolipoma right anterior shoulder Other and unspecified benign neoplasm (4 sources) Benign lipomatous neoplasm, unspecified; Translations: [Lipoma, unspecified site] 07-05-2023 Episodic Other and unspecified benign neoplasm (3 sources) Lipoma of abdominal wall; Translations: [Benign lipomatous neoplasm of skin and subcutaneous tissue of trunk] 04-01-2025 Episodic Other and unspecified benign neoplasm (1 source) Benign lipomatous neoplasm of skin and subcutaneous tissue of trunk; Translations: [Benign lipomatous neoplasm of skin and subcutaneous tissue of trunk] Onset: Episodic Other circulatory disease (8 sources) Device in situ; Translations: [Presence of other vascular implants and grafts] 01-15-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 Comment on above: Patient 59-year-old female who presents for port removal after completing chemoradiation for cervical cancer. Patient reports that port functioned well during these treatment administrations. Port last used July 2024. Posttreatment imaging showed excellent treatment response. Given the length of time between last port use and today as well as patient's excellent treatment response I find it reasonable to proceed with patient's request for port removal. This was accomplished during today's visit in uncomplicated fashion. Full details are given in the procedures section of today's note. Postprocedural wound care instructions provided. Other connective tissue disease (1 source) Ganglion cyst of right shoulder; Translations: [Ganglion, right shoulder] 05-22-2023 Episodic Other connective tissue disease (1 source) Ganglion, right shoulder; Translations: [Ganglion of joint] 05-22-2023 Episodic Other disorders of stomach and duodenum (10 sources) Pyloric obstruction; Translations: [Adult hypertrophic pyloric stenosis] 02-24-2025 Episodic Other disorders of stomach and duodenum (2 sources) Adult hypertrophic pyloric stenosis; Translations: [Adult hypertrophic pyloric stenosis] Onset: 5 Episodic Other female genital disorders (2 sources) Vaginal bleeding; Translations: [Abnormal uterine and vaginal bleeding, unspecified] 05-02-2024 Chronic Other female genital disorders (1 source) Abnormal uterine and vaginal bleeding, unspecified; Translations: [Abnormal uterine and vaginal bleeding, unspecified] Onset: 4 Chronic Other gastrointestinal disorders (1 source) Intra-abdominal and pelvic swelling, mass and lump, unspecified site; Translations: [Intra-abdominal and pelvic swelling, mass and lump, unspecified site] Onset: 5 Episodic Other nervous system disorders (8 sources) Acute postoperative pain; Translations: [Other acute postprocedural pain] 06-27-2023 Episodic Other non-traumatic joint disorders (5 sources) Mass of shoulder region; Translations: [Other specified joint disorders, right shoulder] 05-22-2023 Episodic Other non-traumatic joint disorders (10 sources) Other specified joint disorders, right shoulder; Translations: [Other symptoms referable to joint, shoulder region] 05-22-2023 Episodic Comment on above: 7 cm mass right ante rior shoulder Other nutritional; endocrine; and metabolic disorders (1 source) Disorder of phosphorus metabolism; Translations: [Other disorders of phosphorus metabolism] 08-22-2024 Chronic Other nutritional; endocrine; and metabolic disorders (1 source) Other disorders of phosphorus metabolism; Translations: [Other disorders of phosphorus metabolism] Onset: 4 Chronic Other upper respiratory infections (18 sources) Streptococcal sore throat; Translations: [Streptococcal pharyngitis] 10-16-2018 Episodic Residual codes; unclassified (3 sources) History of antineoplastic chemotherapy; Translations: [Personal history of antineoplastic chemotherapy] 08-22-2024 Episodic Residual codes; unclassified (8 sources) Past history of procedure; Translations: [Other specified postprocedural states] 01-27-2025 Episodic Residual codes; unclassified (1 source) Personal history of irradiation; Translations: [Personal history of irradiation] Onset: 5 Episodic Residual codes; unclassified (1 source) Personal history of antineoplastic chemotherapy; Translations: [Personal history of antineoplastic chemotherapy] Onset: 5 Episodic Unclassified (4 sources) Malignant neoplasm of cervix; Translations: [C53.8 - Malignant neoplasm of overlapping sites of cervix uteri] Unclassified (5 sources) Vision problem; Translations: [H54.7 - Unspecified visual loss] Urinary tract infections (7 sources) Urinary tract infectious disease; Translations: [Urinary tract infection, site not specified] 10-16-2023 Episodic Viral infection (4 sources) Herpes zoster; Translations: [Zoster without complications] 06-17-2024 Episodic Past or Other Problems Problem Classification Problem Date Documented Date Episodic/Chronic Cancer of cervix (3 sources) Cervicovaginal cytology: High grade squamous intraepithelial lesion or carcinoma; Translations: [High grade squamous intraepithelial lesion on cytologic smear of cervix (HGSIL)] Onset: 07-18-2024 05-02-2024 Episodic E Codes: Adverse effects of medical drugs (1 source) Adverse effect of antineoplastic and immunosuppressive drugs, initial encounter; Translations: [Adverse effect of antineoplastic and immunosuppressive drugs, initial encounter] Onset: 07-21-2024 Episodic Fluid and electrolyte disorders (10 sources) Hypokalemia; Translations: [Hypokalemia] Onset: 12-16-2024 07-14-2024 Episodic Nausea and vomiting (5 sources) Chemotherapy-induced nausea and vomiting; Translations: [Nausea with vomiting, unspecified] Onset: 07-21-2024 07-21-2024 Episodic Other aftercare (1 source) Encounter for adjustment and management of vascular access device; Translations: [Encounter for adjustment and management of vascular access device] Onset: 06-23-2024 Episodic Other screening for suspected conditions (not mental disorders or infectious disease) (14 sources) Encounter for screening for malignant neoplasm of colon; Translations: [Special screening for malignant neoplasms of colon] Onset: 08-22-2024 01-29-2024 Episodic Results Test Name Value Interpretation Reference Range Facility Gastroenterology Visit Repor ton 05-08-2025 Gastroenterology Visit Report Normal [facility] Abdomen Limitedon 04-13-2025 Abdomen Limited Normal [facility] Internal Medicine Office Vis iton 03-31-2025 Internal Medicine Office Visit Normal [facility] HUMAN PAPILLOMA VIRUSon 05-2 HPV HIGH RISK Negative Normal Negative [facility] That{img} System Comment on above: Order Comment: This test is performed using an automated nucleic acid amplification assay ([employer], [employer] [place], [place]). This assay detects RNA of HPV types 16,18,31,33,35,39,45,51,52,56,58,59,66 and 68 in cervical specimens. Result Comment: A ne gative result does not exclude the possibility of low levels of infection. Performed By: #### H EPATIC, CH8, CA125, FETIBC #### [facility] [address] [place] [address], [phone] Progress Noteson 03-20-2025 Traffic Signal Technician Authentication Interface Message Text GYNECOLOGIC ONCOLOGY - OFFICE NOTE REASON FOR VISIT: Cervical Cancer, Follow-Up Visit REFERRING PHYSICIAN: Dr. Iona Emmanuel MD (CLIP LOADING MACHINE FEEDER in [place]) PCP: Dr. Marlen Rodríguez MD RADIATION ONCOLOGIST: Dr. 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 She was treated with primary chemoradiation. She presents today for a follow-up visit. All treatments completed on July 30, 2024. Today the patient states she is feeling well. Recently had an EGD - told she has a peptic ulcer She denies fevers, chills, chest pain, shortness or breath. No coughing or wheezing. No headaches or dizziness. No change in vision or hearing. No new skin rashes. No hot flashes or easy bruising. No neuropathy. No nausea or vomiting. No bloating or pain. No diarrhea or constipation. No vaginal bleeding or rectal bleeding. No hematuria or dysuria. Appetite intact. Energy level good. GENETIC/TUMOR TESTING: - 05/02/2024: Cervical Biopsy = P16 Positive. PDL1 Positive (CPS 10). ONCOLOGY HISTORY: - 03/06/2024: Pap Smear = HGSIL. Positive HR HPV. - 03/12/2024: Pelivc US ([facility]) = Uterus 7.2cm. Fibroids. EMS 2mm. Normal Ovaries. No FF - 05/02/2024: Cervical Biopsy = Moderately Differentiated SCC of the Cervix - 05/02/2024: CA-125 = 74.4 - 05/13/2024: PET/CT ([facility]) = Abnormal exam with hypermetabolic cervical mass and uterus. No other distant mets. - 07/18/2024: MRI Pelvis = Multiple fibroids. Cervical Tumor up to 3.8cm in size. Tumor invades lower uterus. No parametrial disease. Hyperenhancement of the vagina. No lymphadenopathy. - 07/23/2024: Patient completed Whole Pelvic RT with Sensitizing Cisplatin at [facility] - 07/30/2024: Patient completed Brachytherapy at [facility]. 800 x 3, Tandem and Ring - 11/21/2024: PET/CT at [place] = [facility] MEDICAL HISTORY: Medical History[1] SURGICAL HISTORY: Review of patient's past surgical history indicates: EXCISION, LIPOMA Right Shoulder DENTAL SURGERY Mcdavid Teeth Removal COLONOSCOPY (02/2024) INSERTION, GALO SLEEVE (07/28/2024) Procedure: EXAM UNDER ANESTHESIA, PLACEMENT OF BRACHYTHERAPY DEVICE FOR CERVICAL CANCER TREATMENT, under ultrasound guidance; Surgeon: Bethany Torres MD; Location: PERIOPERATIVE SERVICES; Service: Gynecologic Oncology CLIP LOADING MACHINE FEEDER HISTORY: OB History Para Term AB Living 1 1 0 0 0 0 SAB IAB Ectopic Multiple Live Births 0 0 0 0 0 Obstetric Comments - x 1 Menarche in 9th Grade Not yet menopausal - had a 6 month time period with no menstrual period History of OCP use when she was younger for a couple of year No prior HRT use Mammogram February 2024 Colonoscopy February 2024 Has never had a DEXA scan FAMILY HISTORY: Family History[2] SOCIAL HISTORY: Social History[3] MEDICATIONS: Current Outpatient Medications Medication Instructions ibuprofen (MOTRIN) 600 mg, EVERY 8 HOURS PRN Sennosides 15 mg, DAILY ALLERGIES: Allergies[4] PHYSICAL EXAMINATION: Vitals: 03/20/25 0728 BP: 117/64 Pulse: 62 Resp: 14 Temp: 98.5 ???F (36.9 ???C) SpO2: 100% Performance Status: 0 General: Pt is well appearing, in NAD HEENT: No lymphadenopathy, non tender Lymph: No cervical, supraclavicular or axillary lymphadenopathy Breast: Not performed Cardiac: RRR, no murmurs, rubs or gallops Pulmonary: CTAP b, no wheezes, rales or crackles Abdomen: Soft, nontender, non distended, no masses or hernias, positive, normal bowel sounds : A thermoforming operator was present for the gynecologic portion of today's examination. No palpable groin adenopathy. Normal external genitalia, vulva and vagina without lesions. Moderate radiation changes with scarring and shortening of vagina. Some bleeding with collection of the pap smear. No visible or palpable tumors. Extremities: Warm, no cyanosis, no edema, [place] Psych: Normal affect, demeanor, normal, non-pressured speech Neuro: Intact RESULTS: No New Result. 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 She was treated with primary chemoradiation. She presents today for a follow-up visit. All treatments completed on July 30, 2024. I had a long conversation today with the patient in the office. We reviewed her treatment course to date. We discussed her symptoms in great detail. We reviewed the findings on physical examination, which was within normal limits. No evidence of disease recurrence. She was very pleased to hear this good news. Pap collected today. We reviewed signs and symptoms that could be concerning for cancer recurrence. She will call the office should she experience any of these. Follow up in [address] Hooper. The patient understands the plan and agrees. Routine precautions were reviewed and all questions were answered. BETHANY TORRES MD FACOG [facility] - Gynecolog (more content not included)... Normal [facility] [employer] Traffic Signal Technician Authentication Interface Message Text Patient was identified by name and date of . Juana Seo MA Body Mass Index is 22.62. Body Surface Area is 1.76 square meters according to the formula of Chantel and Chantel. ..Patient at risk for falls:No Falls Risk protocol implemented: No Normal The That{img} System Basic Metabolic Profile (BMP )on 02-28-2025 BUN Normal 02-14 [facility] Comment on above: Result Comment: Canc elled via OM: Order cancelled - Patient discharged Performed By: #### L 500.2500, L100.0100 ####[facility] [address] [place], [address] BUN/CRE Normal 10-20 [facility] Comment on above: Result Comment: Canc elled via OM: Order cancelled - Patient discharged Performed By: #### L 500.2500, L100.0100 ####[facility] [address] [place], [address] Calcium Normal 7.6-11.0 [facility] Comment on above: Result Comment: Canc elled via OM: Order cancelled - Patient discharged Performed By: #### L 500.2500, L100.0100 ####[facility] [address] [place], [address] CL Normal 98-108 [facility] Comment on above: Result Comment: Canc elled via OM: Order cancelled - Patient discharged Performed By: #### L 500.2500, L100.0100 ####[facility] [address] [place], [address] CO2 Normal 21.0-32.0 [facility] Comment on above: Result Comment: Canc elled via OM: Order cancelled - Patient discharged Performed By: #### L 500.2500, L100.0100 ####[facility] [address] [place], [address] CREAT,SERUM Normal 0.70-1.20 [facility] Comment on above: Result Comment: Canc elled via OM: Order cancelled - Patient discharged Performed By: #### L 500.2500, L100.0100 ####[facility] [address] [place], [address] eGFR Normal >60 [facility] Comment on above: Result Comment: Canc elled via OM: Order cancelled - Patient discharged Performed By: #### L 500.2500, L100.0100 ####[facility] [address] [place], [address] GAP Normal 5-15 [facility] Comment on above: Result Comment: Canc elled via OM: Order cancelled - Patient discharged Performed By: #### L 500.2500, L100.0100 ####[facility] [address] [place], [address] GLU Normal 70-99 [facility] Comment on above: Result Comment: Canc elled via OM: Order cancelled - Patient discharged Performed By: #### L 500.2500, L100.0100 ####[facility] [address] [place], [address] Potassium Normal 3.3-5.1 [facility] Comment on above: Result Comment: Canc elled via OM: Order cancelled - Patient discharged Performed By: #### L 500.2500, L100.0100 ####[facility] [address] [place], [address] Basic Metabolic Profile (BMP) Normal 133-145 [facility] Comment on above: Result Comment: Canc elled via OM: Order cancelled - Patient discharged Performed By: #### L 500.2500, L100.0100 ####[facility] [address] [place], [address] CBC W/Diff, Automatedon 05-0 Absolute Neut Normal 2.0-7.7 [facility] Comment on above: Result Comment: Canc elled via OM: Order cancelled - Patient discharged Performed By: #### L 500.2500, L100.0100 ####[facility] [address] [place], [address] HCT Normal 37-47 [facility] Comment on above: Result Comment: Canc elled via OM: Order cancelled - Patient discharged Performed By: #### L 500.2500, L100.0100 ####[facility] [address] [place], [address] HGB Normal 12.0-15.0 [facility] Comment on above: Result Comment: Canc elled via OM: Order cancelled - Patient discharged Performed By: #### L 500.2500, L100.0100 ####[facility] [address] [place], [address] MCH Normal 27.0-32.0 [facility] Comment on above: Result Comment: Canc elled via OM: Order cancelled - Patient discharged Performed By: #### L 500.2500, L100.0100 ####[facility] [address] [place], [address] MCHC Normal 32-36 [facility] Comment on above: Result Comment: Canc elled via OM: Order cancelled - Patient discharged Performed By: #### L 500.2500, L100.0100 ####[facility] [address] [place], [address] MCV Normal 81-99 [facility] Comment on above: Result Comment: Canc elled via OM: Order cancelled - Patient discharged Performed By: #### L 500.2500, L100.0100 ####[facility] [address] [place], [address] NEUT% Normal 47-70 [facility] Comment on above: Result Comment: Canc elled via OM: Order cancelled - Patient discharged Performed By: #### L 500.2500, L100.0100 ####[facility] [address] [place], [address] PLT Normal 150-450 [facility] Comment on above: Result Comment: Canc elled via OM: Order cancelled - Patient discharged Performed By: #### L 500.2500, L100.0100 ####[facility] [address] [place], [address] RBC Normal 4.2-5.4 [facility] Comment on above: Result Comment: Canc elled via OM: Order cancelled - Patient discharged Performed By: #### L 500.2500, L100.0100 ####[facility] [address] [place], [address] RDW CV Normal 11.6-14.6 [facility] Comment on above: Result Comment: Canc elled via OM: Order cancelled - Patient discharged Performed By: #### L 500.2500, L100.0100 ####[facility] [address] [place], [address] RDW SD Normal 35.1-43.9 [facility] Comment on above: Result Comment: Canc elled via OM: Order cancelled - Patient discharged Performed By: #### L 500.2500, L100.0100 ####[facility] [address] [place], [address] WBC Normal 4.4-11.0 [facility] Comment on above: Result Comment: Canc elled via OM: Order cancelled - Patient discharged Performed By: #### L 500.2500, L100.0100 ####[facility] [address] [place], [address] Absolute lymphocyte countOrd ered By: Eric Sweet on 02-27-2025 Lymphocytes Auto (Unsp spec) [#/Vol] 0.48 10*3/uL Low 0.83-4.51 [facility] Absolute neutrophil countOrd ered By: Eric Sweet on 02-27-2025 Neutrophils (Bld) [#/Vol] 2.1 10*3/uL 2.0-7.7 [facility] Anion gap in Serum or Plasma Ordered By: Eric Sweet on 02-27-2025 Anion gap [Moles/Vol] 8 mmol/L 5-15 [facility] Automated lymphocyte count a s percentage of total leukocytesOrdered By: Eric Sweet on 02-27-2025 Lymphocytes/100 WBC Auto (Unsp spec) 15.7 % Low 19-41 [facility] BUN/creatinine ratioOrdered By: Eric Sweet on 02-27-2025 Urea nitrogen/Creatinine [Mass ratio] 8.8 mg/mg Low 10-20 [facility] Basic Metabolic Profile (BMP )on 02-27-2025 BUN/CRE 8.8 RATIO Low 10-20 [facility] Comment on above: Performed By: #### L 100.0100, L500.2500 ####[facility] [address] [place], [address] Calcium [Mass/Vol] 8.9 mg/dL Normal 7.6-11.0 [facility] Comment on above: Performed By: #### L 100.0100, L500.2500 ####[facility] [address] [place], [address] Chloride [Moles/Vol] 105 mmol/L Normal 98-108 [facility] Comment on above: Performed By: #### L 100.0100, L500.2500 ####[facility] [address] [place], [address] CO2 [Moles/Vol] 25.8 mmol/L Normal 21.0-32.0 [facility] Comment on above: Performed By: #### L 100.0100, L500.2500 ####[facility] [address] [place], [address] Creatinine [Mass/Vol] 0.63 mg/dL Low 0.70-1.20 [facility] Comment on above: Performed By: #### L 100.0100, L500.2500 ####[facility] [address] [place], [address] ECRCL 92.23 ml/min Normal 50-250 [facility] Comment on above: Performed By: #### L 100.0100, L500.2500 ####[facility] [address] [place], [address] GAP 8 Normal 5-15 [facility] Comment on above: Performed By: #### L 100.0100, L500.2500 ####[facility] [address] [place], [address] GFR/1.73 sq M.predicted among non-blacks MDRD (S/P/Bld) [Vol rate/Area] 103 mL/min/{1.73_m2} Normal >60 [facility] Comment on above: Result Comment: mL/m in/1.73m2 CKD-EPI Creatinine Equation (2020) Performed By: #### L 100.0100, L500.2500 ####[facility] [address] [place], [address] Glucose [Mass/Vol] 90 mg/dL Normal 70-99 [facility] Comment on above: Performed By: #### L 100.0100, L500.2500 ####[facility] [address] [place], [address] Potassium [Moles/Vol] 3.1 mmol/L Low 3.3-5.1 [facility] Comment on above: Performed By: #### L 100.0100, L500.2500 ####[facility] [address] [place], [address] Sodium [Moles/Vol] 139 mmol/L Normal 133-145 [facility] Comment on above: Performed By: #### L 100.0100, L500.2500 ####[facility] [address] [place], [address] Urea nitrogen [Mass/Vol] 6 mg/dL Normal 4-19 [facility] Comment on above: Performed By: #### L 100.0100, L500.2500 ####[facility] [address] [place], [address] Basophil percentageOrdered B y: Eric Sweet on 02-27-2025 Basophils/100 WBC (Bld) 1.0 % 0-1 [facility] CBC W/Diff, Automatedon Absolute Lymph 0.48 X10 3/uL Low 0.83-4.51 [facility] Comment on above: Performed By: #### L 100.0100, L500.2500 ####[facility] [address] [place], [address] Absolute Neut 2.1 X10 3/uL Normal 2.0-7.7 [facility] Comment on above: Performed By: #### L 100.0100, L500.2500 ####[facility] [address] [place], [address] Basophils/100 WBC (Bld) 1.0 % Normal 0-1 [facility] Comment on above: Performed By: #### L 100.0100, L500.2500 ####[facility] [address] [place], [address] Eosinophils/100 WBC (Bld) 4.3 % Normal 0-5 [facility] Comment on above: Performed By: #### L 100.0100, L500.2500 ####[facility] [address] [place], [address] Erythrocyte distribution width (RBC) [Ratio] 13.3 % Normal 11.6-14.6 [facility] Comment on above: Performed By: #### L 100.0100, L500.2500 ####[facility] [address] [place], [address] Hematocrit (Bld) [Volume fraction] 34.9 % Low 37-47 [facility] Comment on above: Performed By: #### L 100.0100, L500.2500 ####[facility] [address] [place], [address] Hemoglobin (Bld) [Mass/Vol] 11.7 g/dL Low 12.0-15.0 [facility] Comment on above: Performed By: #### L 100.0100, L500.2500 ####[facility] [address] [place], [address] IG% 0.300 Normal 0.0-0.9 [facility] Comment on above: Result Comment: IG% - Immature Granulocytes (promyelocytes, myelocytes andmetamyelocytes) > 1% indicates that a LEFT SHIFT is Present. Performed By: #### L 100.0100, L500.2500 ####[facility] [address] [place], [address] Lymphocytes/100 WBC (Bld) 15.7 % Low 19-41 [facility] Comment on above: Performed By: #### L 100.0100, L500.2500 ####[facility] [address] [place], [address] MCH (RBC) [Entitic mass] 30.5 pg Normal 27.0-32.0 [facility] Comment on above: Performed By: #### L 100.0100, L500.2500 ####[facility] [address] [place], [address] MCHC (RBC) [Mass/Vol] 33.5 g/dL Normal 32-36 [facility] Comment on above: Performed By: #### L 100.0100, L500.2500 ####[facility] [address] [place], [address] MCV (RBC) [Entitic vol] 90.9 fL Normal 81-99 [facility] Comment on above: Performed By: #### L 100.0100, L500.2500 ####[facility] [address] [place], [address] Monocytes/100 WBC (Bld) 9.8 % Normal 0-10 [facility] Comment on above: Performed By: #### L 100.0100, L500.2500 ####[facility] [address] [place], [address] Neutrophils/100 WBC (Bld) 68.9 % Normal 47-70 [facility] Comment on above: Performed By: #### L 100.0100, L500.2500 ####[facility] [address] [place], [address] Nucleated RBC (Bld) [#/Vol] 0 10*3/uL Normal 0-5 [facility] Comment on above: Performed By: #### L 100.0100, L500.2500 ####[facility] [address] [place], [address] Platelet mean volume (Bld) [Entitic vol] 8.9 fL Normal 6.2-12.0 [facility] Comment on above: Performed By: #### L 100.0100, L500.2500 ####[facility] [address] [place], [address] Platelets (Bld) [#/Vol] 166 10*3/uL Normal 150-450 [facility] Comment on above: Performed By: #### L 100.0100, L500.2500 ####[facility] [address] [place], [address] RBC (Bld) [#/Vol] 3.84 10*6/uL Low 4.2-5.4 [facility] Comment on above: Performed By: #### L 100.0100, L500.2500 ####[facility] [address] [place], [address] RDW SD 43.8 fl Normal 35.1-43.9 [facility] Comment on above: Performed By: #### L 100.0100, L500.2500 ####[facility] [address] [place], [address] WBC (Bld) [#/Vol] 3.1 10*3/uL Low 4.4-11.0 [facility] Comment on above: Performed By: #### L 100.0100, L500.2500 ####[facility] [address] [place], [address] Carbon dioxide, total [Moles /volume] in Central venous bloodOrdered By: Eric Sweet on 02-27-2025 CO2 [Moles/Vol] 25.8 mmol/L 21.0-32.0 [facility] Chloride assayOrdered By: Bird Sweet on 02-27-2025 Chloride [Moles/Vol] 105 mmol/L 98-108 [facility] Eosinophil percentageOrdered By: Eric Sweet on 02-27-2025 Eosinophils/100 WBC (Bld) 4.3 % 0-5 [facility] Erythrocyte distribution wid th ratioOrdered By: Eric Sweet on 02-27-2025 Erythrocyte distribution width (RBC) [Ratio] 13.3 % 11.6-14.6 [facility] Erythrocyte distribution wid th standard deviationOrdered By: Eric Sweet on 02-27-2025 Erythrocyte distribution width (RBC) [Ratio] 43.8 fl 35.1-43.9 [facility] Glomerular filtration rate ( GFR) estimation/1.73 sq m using serum, plasma, or whole bOrdered By: Eric Sweet on 02-27-2025 GFR/1.73 sq M.predicted among non-blacks MDRD (S/P/Bld) [Vol rate/Area] 103 mL/min/{1.73_m2} >60 [facility] Comment on above: mL/min/1.73m2 CKD-EP I Creatinine Equation (2020) Hematocrit Auto (Bld) [Volum e fraction]Ordered By: Eric Sweet on 02-27-2025 Hematocrit (Bld) [Volume fraction] 34.9 % Low 37-47 [facility] Hemoglobin measurementOrdere d By: Eric Sweet on 02-27-2025 Hemoglobin (Bld) [Mass/Vol] 11.7 g/dL Low 12.0-15.0 [facility] Immature granulocytes/100 WB C Auto (Bld)Ordered By: Eric Sweet on 02-27-2025 Immature granulocytes/100 WBC (Bld) 0.300 % 0.0-0.9 [facility] Comment on above: IG% - Immature Granu locytes (promyelocytes, myelocytes and metamyelocytes) > 1% indicates that a LEFT SHIFT is Present. MCV (mean corpuscular volume ) determinationOrdered By: Eric Sweet on 02-27-2025 MCV (RBC) [Entitic vol] 90.9 fL 81-99 [facility] Mean corpuscular hemoglobin (MCH) determinationOrdered By: Eric Sweet on 02-27-2025 MCH (RBC) [Entitic mass] 30.5 pg 27.0-32.0 [facility] Mean corpuscular hemoglobin concentration (MCHC) determinationOrdered By: Eric Sweet on 02-27-2025 MCHC (RBC) [Mass/Vol] 33.5 g/dL 32-36 [facility] Mean platelet volume determi nationOrdered By: Eric Sweet on 02-27-2025 Platelet mean volume (Bld) [Entitic vol] 8.9 fL 6.2-12.0 [facility] Monocyte percentageOrdered B y: Eric Sweet on 02-27-2025 Monocytes/100 WBC (Bld) 9.8 % 0-10 [facility] Neutrophil percentageOrdered By: Eric Sweet on 02-27-2025 Neutrophils/100 WBC (Bld) 68.9 % 47-70 [facility] Nucleated red blood cell per centageOrdered By: Eric Sweet on 02-27-2025 Nucleated RBC/100 WBC (Bld) [Ratio] 0 % 0-5 [facility] Platelet countOrdered By: Bird Sweet on 02-27-2025 Platelets (Bld) [#/Vol] 166 10*3/uL 150-450 [facility] Potassium measurement (mass/ volume)Ordered By: Eric Sweet on 02-27-2025 Potassium (Unsp spec) [Mass/Vol] 3.1 mmol/L Low 3.3-5.1 [facility] RBC Auto (Bld) [#/Vol]Ordere d By: Eric Sweet on 02-27-2025 RBC (Bld) [#/Vol] 3.84 10*6/uL Low 4.2-5.4 [facility] Serum creatinine measurement (mass/volume)Ordered By: Eric Sweet on 02-27-2025 Creatinine [Mass/Vol] 0.63 mg/dL Low 0.70-1.20 [facility] Serum glucose measurement (m ass/volume)Ordered By: Eric Sweet on 02-27-2025 Glucose [Mass/Vol] 90 mg/dL 70-99 [facility] Serum or plasma calcium malvin urement (mass/volume)Ordered By: Eric Sweet on 02-27-2025 Calcium [Mass/Vol] 8.9 mg/dL 7.6-11.0 [facility] Serum or plasma urea nitroge n measurement (mass/volume)Ordered By: Eric Sweet on 02-27-2025 Urea nitrogen [Mass/Vol] 6 mg/dL 4-19 [facility] Sodium levelOrdered By: Blas Sweet on 02-27-2025 Sodium [Moles/Vol] 139 mmol/L 133-145 [facility] White blood cell (WBC) count Ordered By: Eric Sweet on 02-27-2025 WBC (Bld) [#/Vol] 3.1 10*3/uL Low 4.4-11.0 [facility] Basic Metabolic Profile (BMP )on 02-26-2025 BUN/CRE 9.6 RATIO Low 10-20 [facility] Comment on above: Performed By: #### L 500.2500, L501.5200, L501.2300, L100.0100 ####[facility] [address] [place], [address] Calcium [Mass/Vol] 9.0 mg/dL Normal 7.6-11.0 [facility] Comment on above: Performed By: #### L 500.2500, L501.5200, L501.2300, L100.0100 ####[facility] [address] [place], [address] Chloride [Moles/Vol] 108 mmol/L Normal 98-108 [facility] Comment on above: Performed By: #### L 500.2500, L501.5200, L501.2300, L100.0100 ####[facility] [address] [place], [address] CO2 [Moles/Vol] 20.8 mmol/L Low 21.0-32.0 [facility] Comment on above: Performed By: #### L 500.2500, L501.5200, L501.2300, L100.0100 ####[facility] [address] [place], [address] Creatinine [Mass/Vol] 0.65 mg/dL Low 0.70-1.20 [facility] Comment on above: Performed By: #### L 500.2500, L501.5200, L501.2300, L100.0100 ####[facility] [address] [place], [address] ECRCL 89.39 ml/min Normal 50-250 [facility] Comment on above: Performed By: #### L 500.2500, L501.5200, L501.2300, L100.0100 ####[facility] [address] [place], [address] GAP 9 Normal 5-15 [facility] Comment on above: Performed By: #### L 500.2500, L501.5200, L501.2300, L100.0100 ####[facility] [address] [place], [address] GFR/1.73 sq M.predicted among non-blacks MDRD (S/P/Bld) [Vol rate/Area] 103 mL/min/{1.73_m2} Normal >60 [facility] Comment on above: Result Comment: mL/m in/1.73m2 CKD-EPI Creatinine Equation (2020) Performed By: #### L 500.2500, L501.5200, L501.2300, L100.0100 ####[facility] [address] [place], [address] Glucose [Mass/Vol] 86 mg/dL Normal 70-99 [facility] Comment on above: Performed By: #### L 500.2500, L501.5200, L501.2300, L100.0100 ####[facility] [address] [place], [address] Potassium [Moles/Vol] 3.4 mmol/L Normal 3.3-5.1 [facility] Comment on above: Performed By: #### L 500.2500, L501.5200, L501.2300, L100.0100 ####[facility] [address] [place], [address] Sodium [Moles/Vol] 138 mmol/L Normal 133-145 [facility] Comment on above: Performed By: #### L 500.2500, L501.5200, L501.2300, L100.0100 ####[facility] [address] [place], [address] Urea nitrogen [Mass/Vol] 6 mg/dL Normal 4-19 [facility] Comment on above: Performed By: #### L 500.2500, L501.5200, L501.2300, L100.0100 ####[facility] [address] [place], [address] Blood manual differential co mment interpretation (narrative result)Ordered By: Eric Sweet on 02-26-2025 Manual differential comment Claus (Bld) [Interp] SCANNED [facility] CBC W/Diff, Automatedon PLT EST ADEQUATE Normal ADEQ [facility] Comment on above: Performed By: #### L 500.2500, L501.5200, L501.2300, L100.0100 ####[facility] [address] [place], [address] RED CELL MORPH NORM C+C Normal NORM C C [facility] Comment on above: Performed By: #### L 500.2500, L501.5200, L501.2300, L100.0100 ####[facility] [address] [place], [address] SMEAR COMMENT SCANNED Normal [facility] Comment on above: Performed By: #### L 500.2500, L501.5200, L501.2300, L100.0100 ####[facility] [address] [place], [address] EGD Reporton 02-26-2025 EGD Report Normal [facility] Erythrocyte morphology asses smentOrdered By: Eric Sweet on 02-26-2025 RBC morphology finding Nom (Bld) NORM C+C NORMAL NORM C&C [facility] Immunohistochemical Stainson 02-26-2025 Immunohistochemical Stains Normal [facility] Comment on above: Performed By: #### P IMHI ####[facility] [address] [place], [address] MR/POSTOP.ANEon 02-26-2025 MR/POSTOP.ANE Normal [facility] MR/[id number] 02-26-2025 MR/POSTOPAN2 Normal [facility] Magnesiumon 02-26-2025 Magnesium [Mass/Vol] 1.8 mg/dL Normal 1.5-2.2 [facility] Comment on above: Performed By: #### L 500.2500, L501.5200, L501.2300, L100.0100 ####[facility] [address] [place], [address] Magnesium measurement (mass/ volume)Ordered By: Eric Sweet on 02-26-2025 Magnesium (Unsp spec) [Mass/Vol] 1.8 mg/dL 1.5-2.2 [facility] Phosphoruson 02-26-2025 Phosphate [Mass/Vol] 3.0 mg/dL Normal 2.7-4.5 [facility] Comment on above: Performed By: #### L 500.2500, L501.5200, L501.2300, L100.0100 ####[facility] [address] [place], [address] Platelet estimateOrdered By: Eric Sweet on 02-26-2025 Platelets LM Ql (Bld) ADEQUATE ADEQ [facility] 12 Lead EKGon 02-25-2025 12 Lead EKG Normal [facility] Basic Metabolic Profile (BMP )on 02-25-2025 BUN/CRE 17.1 RATIO Normal 10-20 [facility] Comment on above: Performed By: #### L 100.0100, L500.2500 ####[facility] [address] [place], [address] Calcium [Mass/Vol] 8.9 mg/dL Normal 7.6-11.0 [facility] Comment on above: Performed By: #### L 100.0100, L500.2500 ####[facility] [address] [place], [address] Chloride [Moles/Vol] 107 mmol/L Normal 98-108 [facility] Comment on above: Performed By: #### L 100.0100, L500.2500 ####[facility] [address] [place], [address] CO2 [Moles/Vol] 21.0 mmol/L Normal 21.0-32.0 [facility] Comment on above: Performed By: #### L 100.0100, L500.2500 ####[facility] [address] [place], [address] Creatinine [Mass/Vol] 0.63 mg/dL Low 0.70-1.20 [facility] Comment on above: Performed By: #### L 100.0100, L500.2500 ####[facility] [address] [place], [address] ECRCL 95.81 ml/min Normal 50-250 [facility] Comment on above: Performed By: #### L 100.0100, L500.2500 ####[facility] [address] [place], [address] GAP 11 Normal 5-15 [facility] Comment on above: Performed By: #### L 100.0100, L500.2500 ####[facility] [address] [place], [address] GFR/1.73 sq M.predicted among non-blacks MDRD (S/P/Bld) [Vol rate/Area] 103 mL/min/{1.73_m2} Normal >60 [facility] Comment on above: Result Comment: mL/m in/1.73m2 CKD-EPI Creatinine Equation (2020) Performed By: #### L 100.0100, L500.2500 ####[facility] [address] [place], [address] Glucose [Mass/Vol] 82 mg/dL Normal 70-99 [facility] Comment on above: Performed By: #### L 100.0100, L500.2500 ####[facility] [address] [place], [address] Potassium [Moles/Vol] 3.2 mmol/L Low 3.3-5.1 [facility] Comment on above: Performed By: #### L 100.0100, L500.2500 ####[facility] [address] [place], [address] Sodium [Moles/Vol] 138 mmol/L Normal 133-145 [facility] Comment on above: Performed By: #### L 100.0100, L500.2500 ####[facility] [address] [place], [address] Urea nitrogen [Mass/Vol] 11 mg/dL Normal 4-19 [facility] Comment on above: Performed By: #### L 100.0100, L500.2500 ####[facility] [address] [place], [address] CBC W/Diff, Automatedon 04-3 0-2025 Absolute Lymph 0.54 X10 3/uL Low 0.83-4.51 [facility] Comment on above: Performed By: #### L 100.0100, L500.2500 ####[facility] [address] [place], [address] Absolute Neut 3.1 X10 3/uL Normal 2.0-7.7 [facility] Comment on above: Performed By: #### L 100.0100, L500.2500 ####[facility] [address] [place], [address] Basophils/100 WBC (Bld) 0.5 % Normal 0-1 [facility] Comment on above: Performed By: #### L 100.0100, L500.2500 ####[facility] [address] [place], [address] Eosinophils/100 WBC (Bld) 3.3 % Normal 0-5 [facility] Comment on above: Performed By: #### L 100.0100, L500.2500 ####[facility] [address] [place], [address] Erythrocyte distribution width (RBC) [Ratio] 13.2 % Normal 11.6-14.6 [facility] Comment on above: Performed By: #### L 100.0100, L500.2500 ####[facility] [address] [place], [address] Hematocrit (Bld) [Volume fraction] 35.4 % Low 37-47 [facility] Comment on above: Performed By: #### L 100.0100, L500.2500 ####[facility] [address] [place], [address] Hemoglobin (Bld) [Mass/Vol] 11.7 g/dL Low 12.0-15.0 [facility] Comment on above: Performed By: #### L 100.0100, L500.2500 ####[facility] [address] [place], [address] IG% 0.200 Normal 0.0-0.9 [facility] Comment on above: Result Comment: IG% - Immature Granulocytes (promyelocytes, myelocytes andmetamyelocytes) > 1% indicates that a LEFT SHIFT is Present. Performed By: #### L 100.0100, L500.2500 ####[facility] [address] [place], [address] Lymphocytes/100 WBC (Bld) 12.8 % Low 19-41 [facility] Comment on above: Performed By: #### L 100.0100, L500.2500 ####[facility] [address] [place], [address] MCH (RBC) [Entitic mass] 30.3 pg Normal 27.0-32.0 [facility] Comment on above: Performed By: #### L 100.0100, L500.2500 ####[facility] [address] [place], [address] MCHC (RBC) [Mass/Vol] 33.1 g/dL Normal 32-36 [facility] Comment on above: Performed By: #### L 100.0100, L500.2500 ####[facility] [address] [place], [address] MCV (RBC) [Entitic vol] 91.7 fL Normal 81-99 [facility] Comment on above: Performed By: #### L 100.0100, L500.2500 ####[facility] [address] [place], [address] Monocytes/100 WBC (Bld) 10.0 % Normal 0-10 [facility] Comment on above: Performed By: #### L 100.0100, L500.2500 ####[facility] [address] [place], [address] Neutrophils/100 WBC (Bld) 73.2 % High 47-70 [facility] Comment on above: Performed By: #### L 100.0100, L500.2500 ####[facility] [address] [place], [address] Nucleated RBC (Bld) [#/Vol] 0 10*3/uL Normal 0-5 [facility] Comment on above: Performed By: #### L 100.0100, L500.2500 ####[facility] [address] [place], [address] Platelet mean volume (Bld) [Entitic vol] 9.0 fL Normal 6.2-12.0 [facility] Comment on above: Performed By: #### L 100.0100, L500.2500 ####[facility] [address] [place], [address] Platelets (Bld) [#/Vol] 179 10*3/uL Normal 150-450 [facility] Comment on above: Performed By: #### L 100.0100, L500.2500 ####[facility] [address] [place], [address] RBC (Bld) [#/Vol] 3.86 10*6/uL Low 4.2-5.4 [facility] Comment on above: Performed By: #### L 100.0100, L500.2500 ####[facility] [address] [place], [address] RDW SD 44.1 fl High 35.1-43.9 [facility] Comment on above: Performed By: #### L 100.0100, L500.2500 ####[facility] [address] [place], [address] WBC (Bld) [#/Vol] 4.2 10*3/uL Low 4.4-11.0 [facility] Comment on above: Performed By: #### L 100.0100, L500.2500 ####[facility] [address] [place], [address] MR/CON.PCM.GIon 02-25-2025 MR/CON.PCM.GI Normal [facility] Abdomen/Pelvis W IV Cont ONL Yon 02-24-2025 Abdomen/Pelvis W IV Cont ONLY Normal [facility] Basic Metabolic Profile (BMP )on 02-24-2025 BUN/CRE 19.9 RATIO Normal 10-20 [facility] Comment on above: Performed By: #### L 500.2500, L100.0100, L500.3400, L501.2450 ####[facility] [address] [place], [address] Calcium [Mass/Vol] 9.6 mg/dL Normal 7.6-11.0 [facility] Comment on above: Performed By: #### L 500.2500, L100.0100, L500.3400, L501.2450 ####[facility] [address] [place], [address] Chloride [Moles/Vol] 103 mmol/L Normal 98-108 [facility] Comment on above: Performed By: #### L 500.2500, L100.0100, L500.3400, L501.2450 ####[facility] [address] [place], [address] CO2 [Moles/Vol] 23.6 mmol/L Normal 21.0-32.0 [facility] Comment on above: Performed By: #### L 500.2500, L100.0100, L500.3400, L501.2450 ####[facility] [address] [place], [address] Creatinine [Mass/Vol] 0.69 mg/dL Low 0.70-1.20 [facility] Comment on above: Performed By: #### L 500.2500, L100.0100, L500.3400, L501.2450 ####[facility] [address] [place], [address] ECRCL 87.48 ml/min Normal 50-250 [facility] Comment on above: Performed By: #### L 500.2500, L100.0100, L500.3400, L501.2450 ####[facility] [address] [place], [address] GAP 11 Normal 5-15 [facility] Comment on above: Performed By: #### L 500.2500, L100.0100, L500.3400, L501.2450 ####[facility] [address] [place], [address] GFR/1.73 sq M.predicted among non-blacks MDRD (S/P/Bld) [Vol rate/Area] 101 mL/min/{1.73_m2} Normal >60 [facility] Comment on above: Result Comment: mL/m in/1.73m2 CKD-EPI Creatinine Equation (2020) Performed By: #### L 500.2500, L100.0100, L500.3400, L501.2450 ####[facility] [address] [place], [address] Glucose [Mass/Vol] 98 mg/dL Normal 70-99 [facility] Comment on above: Performed By: #### L 500.2500, L100.0100, L500.3400, L501.2450 ####[facility] [address] [place], [address] Potassium [Moles/Vol] 3.1 mmol/L Low 3.3-5.1 [facility] Comment on above: Performed By: #### L 500.2500, L100.0100, L500.3400, L501.2450 ####[facility] [address] [place], [address] Sodium [Moles/Vol] 138 mmol/L Normal 133-145 [facility] Comment on above: Performed By: #### L 500.2500, L100.0100, L500.3400, L501.2450 ####[facility] [address] [place], [address] Urea nitrogen [Mass/Vol] 14 mg/dL Normal 4-19 [facility] Comment on above: Performed By: #### L 500.2500, L100.0100, L500.3400, L501.2450 ####[facility] [address] [place], [address] Bilirubin Test strip Ql (U)O rdered By: Diallo Santoro on 02-24-2025 Bilirubin Ql (U) Negative Negative [facility] Bilirubin directOrdered By: Diallo Santoro on 02-24-2025 Bilirubin.direct [Mass/Vol] 0.15 mg/dL 0.00-0.30 [facility] Bilirubin, totalOrdered By: Diallo Santoro on 02-24-2025 Bilirubin [Mass/Vol] 0.31 mg/dL 0.00-1.30 [facility] CBC W/Diff, Automatedon 01-28 Absolute Lymph 0.56 X10 3/uL Low 0.83-4.51 [facility] Comment on above: Performed By: #### L 500.2500, L100.0100, L500.3400, L501.2450 ####[facility] [address] [place], [address] Absolute Neut 4.4 X10 3/uL Normal 2.0-7.7 [facility] Comment on above: Performed By: #### L 500.2500, L100.0100, L500.3400, L501.2450 ####[facility] [address] [place], [address] Basophils/100 WBC (Bld) 0.5 % Normal 0-1 [facility] Comment on above: Performed By: #### L 500.2500, L100.0100, L500.3400, L501.2450 ####[facility] [address] [place], [address] Eosinophils/100 WBC (Bld) 1.6 % Normal 0-5 [facility] Comment on above: Performed By: #### L 500.2500, L100.0100, L500.3400, L501.2450 ####[facility] [address] [place], [address] Erythrocyte distribution width (RBC) [Ratio] 13.1 % Normal 11.6-14.6 [facility] Comment on above: Performed By: #### L 500.2500, L100.0100, L500.3400, L501.2450 ####[facility] [address] [place], [address] Hematocrit (Bld) [Volume fraction] 38.4 % Normal 37-47 [facility] Comment on above: Performed By: #### L 500.2500, L100.0100, L500.3400, L501.2450 ####[facility] [address] [place], [address] Hemoglobin (Bld) [Mass/Vol] 12.7 g/dL Normal 12.0-15.0 [facility] Comment on above: Performed By: #### L 500.2500, L100.0100, L500.3400, L501.2450 ####[facility] [address] [place], [address] IG% 0.200 Normal 0.0-0.9 [facility] Comment on above: Result Comment: IG% - Immature Granulocytes (promyelocytes, myelocytes andmetamyelocytes) > 1% indicates that a LEFT SHIFT is Present. Performed By: #### L 500.2500, L100.0100, L500.3400, L501.2450 ####[facility] [address] [place], [address] Lymphocytes/100 WBC (Bld) 10.2 % Low 19-41 [facility] Comment on above: Performed By: #### L 500.2500, L100.0100, L500.3400, L501.2450 ####[facility] [address] [place], [address] MCH (RBC) [Entitic mass] 30.0 pg Normal 27.0-32.0 [facility] Comment on above: Performed By: #### L 500.2500, L100.0100, L500.3400, L501.2450 ####[facility] [address] [place], [address] MCHC (RBC) [Mass/Vol] 33.1 g/dL Normal 32-36 [facility] Comment on above: Performed By: #### L 500.2500, L100.0100, L500.3400, L501.2450 ####[facility] [address] [place], [address] MCV (RBC) [Entitic vol] 90.8 fL Normal 81-99 [facility] Comment on above: Performed By: #### L 500.2500, L100.0100, L500.3400, L501.2450 ####[facility] [address] [place], [address] Monocytes/100 WBC (Bld) 7.3 % Normal 0-10 [facility] Comment on above: Performed By: #### L 500.2500, L100.0100, L500.3400, L501.2450 ####[facility] [address] [place], [address] Neutrophils/100 WBC (Bld) 80.2 % High 47-70 [facility] Comment on above: Performed By: #### L 500.2500, L100.0100, L500.3400, L501.2450 ####[facility] [address] [place], [address] Nucleated RBC (Bld) [#/Vol] 0 10*3/uL Normal 0-5 [facility] Comment on above: Performed By: #### L 500.2500, L100.0100, L500.3400, L501.2450 ####[facility] [address] [place], [address] Platelet mean volume (Bld) [Entitic vol] 8.5 fL Normal 6.2-12.0 [facility] Comment on above: Performed By: #### L 500.2500, L100.0100, L500.3400, L501.2450 ####[facility] [address] [place], [address] Platelets (Bld) [#/Vol] 192 10*3/uL Normal 150-450 [facility] Comment on above: Performed By: #### L 500.2500, L100.0100, L500.3400, L501.2450 ####[facility] [address] [place], [address] RBC (Bld) [#/Vol] 4.23 10*6/uL Normal 4.2-5.4 [facility] Comment on above: Performed By: #### L 500.2500, L100.0100, L500.3400, L501.2450 ####[facility] [address] [place], [address] RDW SD 43.2 fl Normal 35.1-43.9 [facility] Comment on above: Performed By: #### L 500.2500, L100.0100, L500.3400, L501.2450 ####[facility] [address] [place], [address] WBC (Bld) [#/Vol] 5.5 10*3/uL Normal 4.4-11.0 [facility] Comment on above: Performed By: #### L 500.2500, L100.0100, L500.3400, L501.2450 ####[facility] [address] [place], [address] Calcium oxalate crystals det ection in urine sediment by light microscopyOrdered By: Diallo Santoro on 02-24-2025 Calcium oxalate crystals LM Ql (Urine sed) 1+ /hpf [facility] Emergency Department Summary on 02-24-2025 Emergency Department Summary Normal [facility] H AND P Exam - Hospitaliston 02-24-2025 H&P Exam - Hospitalist Normal [place] Ketones Test strip Ql (U)Ord ered By: Diallo Santoro on 02-24-2025 Ketones Ql (U) 50 mg/dl High Negative [facility] Laboratory - Chemistry and C hemistry - challengeOrdered By: Diallo Santoro on 02-24-2025 AST [Catalytic activity/Vol] 24 U/L <32 [facility] Lipaseon 02-24-2025 Lipase [Catalytic activity/Vol] 43 U/L Normal 13-75 [facility] Comment on above: Result Comment: Plea se note:LIPASE revised reference range effective 23.New Lipase methodology. Expected to produce lower valuesthan the previous assay method.NEW Reference Range: 13 - 75 U/L Performed By: #### L 500.2500, L100.0100, L500.3400, L501.2450 ####[facility] [address] [place], [address] Lipase measurementOrdered By : Diallo Santoro on 02-24-2025 Lipase [Catalytic activity/Vol] 43 U/L 13-75 [facility] Comment on above: Please note:LIPASE r evised reference range effective 23. New Lipase methodology. Expected to produce lower values than the previous assay method. NEW Reference Range: 13 - 75 U/L Liver Profileon 02-24-2025 Albumin [Mass/Vol] 4.1 g/dL Normal 3.5-5.0 [facility] Comment on above: Performed By: #### L 500.2500, L100.0100, L500.3400, L501.2450 ####[facility] [address] [place], [address] ALK PHOS 118 U/L High 35-104 [facility] Comment on above: Performed By: #### L 500.2500, L100.0100, L500.3400, L501.2450 ####[facility] [address] [place], [address] ALT [Catalytic activity/Vol] 18 U/L Normal <=34 [facility] Comment on above: Performed By: #### L 500.2500, L100.0100, L500.3400, L501.2450 ####[facility] [address] [place], [address] AST [Catalytic activity/Vol] 24 U/L Normal <=31 [facility] Comment on above: Performed By: #### L 500.2500, L100.0100, L500.3400, L501.2450 ####[facility] [address] [place], [address] Bilirubin [Mass/Vol] 0.31 mg/dL Normal 0.00-1.30 [facility] Comment on above: Performed By: #### L 500.2500, L100.0100, L500.3400, L501.2450 ####[facility] [address] [place], [address] Bilirubin.direct [Mass/Vol] 0.15 mg/dL Normal 0.00-0.30 [facility] Comment on above: Performed By: #### L 500.2500, L100.0100, L500.3400, L501.2450 ####[facility] [address] [place], [place], [address] Globulin (S) [Mass/Vol] 2.5 g/dL Normal 2.2-4.2 [facility] Comment on above: Performed By: #### L 500.2500, L100.0100, L500.3400, L501.2450 ####[facility] [address] [place], [address] T PROT 6.6 g/dL Normal 5.9-8.4 [facility] Comment on above: Performed By: #### L 500.2500, L100.0100, L500.3400, L501.2450 ####[facility] [address] [place], [place], [address] Microscopic analysis of urin e for red blood cells (RBC)Ordered By: Diallo Santoro on 02-24-2025 Microscopic analysis of urine for red blood cells (RBC) 0 SEEN /hpf 0-5 [facility] Mucus LM Ql (Urine sed)Order ed By: Diallo Santoro on 02-24-2025 Mucus Ql (Urine sed) 0 SEEN /hpf [facility] Nitrite Test strip Ql (U)Ord ered By: Diallo Santoro on 02-24-2025 Nitrite Ql (U) Negative Negative [facility] Protein Test strip Ql (U)Ord ered By: Diallo Santoro on 02-24-2025 Protein Ql (U) 30 mg/dl High Negative [facility] Serum globulin measurementOr dered By: Diallo Santoro on 02-24-2025 Globulin (S) [Mass/Vol] 2.5 g/dL 2.2-4.2 [facility] Serum or plasma alanine hardin otransferase (ALT) measurementOrdered By: Diallo Santoro on 02-24-2025 ALT [Catalytic activity/Vol] 18 U/L <35 [facility] Serum or plasma albumin malvin urement (mass/volume)Ordered By: Diallo Santoro on 02-24-2025 Albumin [Mass/Vol] 4.1 g/dL 3.5-5.0 [facility] Serum or plasma alkaline jesus sphatase measurementOrdered By: Diallostephany Santoro on 02-24-2025 ALP [Catalytic activity/Vol] 118 U/L High 35-104 [facility] Squamous epithelial cells de tection in urine sediment by light microscopyOrdered By: Diallo Santoro on 02-24-2025 Epithelial cells.squamous LM Ql (Urine sed) 0 SEEN /hpf 5-10 [facility] Total proteinOrdered By: Gregg mak Yvan on 02-24-2025 Protein [Mass/Vol] 6.6 g/dL 5.9-8.4 [facility] Urinalysis, Completeon 02-24 CA OX CRYSTAL 1+ /hpf Normal [facility] Comment on above: Order Comment: CLEAN CATCH Performed By: #### L 400.0001 ####[facility] [address] [place], [address] WBC 0-5 SEEN Normal 0-5 [facility] Comment on above: Order Comment: CLEAN CATCH Performed By: #### L 400.0001 ####[facility] [address] [place], [address] BACTERIA 0 SEEN Normal None Seen [facility] Comment on above: Order Comment: CLEAN CATCH Performed By: #### L 400.0001 ####[facility] [address] [place], [address] EPI,SQUAMOUS 0 SEEN Normal 5-10 [facility] Comment on above: Order Comment: CLEAN CATCH Performed By: #### L 400.0001 ####[facility] [address] [place], [address] Mucus Ql (Urine sed) 0 SEEN Normal [facility] Comment on above: Order Comment: CLEAN CATCH Performed By: #### L 400.0001 ####[facility] [address] [place], [address] RBC 0 SEEN Normal 0-5 [facility] Comment on above: Order Comment: CLEAN CATCH Performed By: #### L 400.0001 ####[facility] [address] [place], [place], [address] Urine clarityOrdered By: Gregg Santoro on 02-24-2025 Clarity (U) Clear Clear [facility] Urine color determinationOrd ered By: Diallo Santoro on 02-24-2025 Color (U) Straw Yellow [facility] Urine glucose detectionOrder ed By: Diallo Santoro on 02-24-2025 Glucose Ql (U) Normal mg/dl Normal [facility] Urine leukocyte esterase det ection by dipstickOrdered By: Diallo Santoro on 02-24-2025 Leukocyte esterase Test strip Ql (U) 25 /ul High Negative [facility] Urine pHOrdered By: Diallo francois on 02-24-2025 pH (U) 6.0 [pH] 5.0 - 8.0 [facility] Urine sediment bacteria coun t by microscopy (number/high power field)Ordered By: Diallo Santoro on 02-24-2025 Bacteria LM.HPF (Urine sed) [#/Area] 0 /[HPF] None Seen [facility] Urine specific gravity measu rementOrdered By: Diallo Santoro on 02-24-2025 Specific gravity (U) [Rel density] 1.015 1.002-1.030 [facility] Urine urobilinogen measureme ntOrdered By: Diallo Santoro on 02-24-2025 Urobilinogen Ql (U) Normal mg/dl Normal [facility] White blood cell countOrdere d By: Diallo Santoro on 02-24-2025 White blood cell count 0-5 SEEN /hpf 0-5 [facility] Breast imaging reportOrdered By: Nan Sepulveda on 02-09-2025 Study report [facility] Imaging Services [address] [place], [place] [address] SCRN MAMM (CAD)W/JOSEPH BILAT MR#: [id number] Acct: [id number] Name: DEREK SHETTY Rep #: [id number] : 1965 F 59 From: Mayo Sepulveda DO PCP: Dr. Marlen Rodríguez MD Status: REG CLI Study:SCRN MAMM (CAD)W/JOSEPH BILAT Date of Exa m: 02/09/25 Exam# [id number] Ordering Dr: Emma Joseph MD EXAM: SCRN MAMM (CAD)W/JOSEPH BILAT DATE: 02/09/2025 CLINICAL HISTORY: F, Age 59 y/o , ANNUAL SCREENING BREAST CANCER RISK ASSESSMENT: Has not been calculated TECHNIQUE: Bilateral screening digital breast tomosynthesis with 2D and 3D images. Computeraided detection. COMPARISON: Prior exam(s) dated 02/06/2024. FINDINGS: TISSUE DENSITY: The breast tissue is heterogenously dense, which may obscure small masses. Bilateral Breast Mammographic Findings: There are no suspicious masses, suspicious microcalcifications, architectural distortion or secondary sign of malignancy identified in either breast. Benign-appearing round calcifications are seen in the right breast. Benign vascular calcifications are seen in the left breast. BI/SCRN MAMM (CAD)W/JOSEPH BILAT IMPRESSION: Right Breast: BIRADS 2 BENIGN FINDING. Left Breast: BIRADS 2 BENIGN FINDING. OVERALL FINAL ASSESSMENT: BIRADS 2 BENIGN FINDING RECOMMENDATION: Routine annual follow-up in 1 Year A letter with findings and recommendations will be mailed to the patient. Reading Location: [facility] CC: Dr. Marlen Rodríguez MD; Dr. Emma Joseph MD ~ Tablet Tester: Signed [facility] SCRN MAMM (CAD)W/JOSEPH BILATo n 02-09-2025 SCRN MAMM (CAD)W/JOSEPH BILAT Normal [facility] Surgery Visit Reporton 01-27 Surgery Visit Report Normal [facility] Radiation Oncology Visiton 0 01-20-2025 Radiation Oncology Visit Normal [facility] Surgery Visit Reporton 01-15 Surgery Visit Report Normal [facility] Absolute lymphocyte countOrd ered By: Rosita Hogan on 12-16-2024 Lymphocytes Auto (Unsp spec) [#/Vol] 0.56 10*3/uL Low 0.83-4.51 [facility] Absolute neutrophil countOrd ered By: Rosita Hogan on 12-16-2024 Neutrophils (Bld) [#/Vol] 4.2 10*3/uL 2.0-7.7 [facility] Albumin to globulin ratioOrd ered By: Rosita Hogan on 12-16-2024 Albumin/Globulin [Mass ratio] 1.0 {ratio} 0.9-2.4 [facility] Automated lymphocyte count a s percentage of total leukocytesOrdered By: Rosita Hogan on 12-16-2024 Lymphocytes/100 WBC Auto (Unsp spec) 10.4 % Low -41 [facility] Basophil percentageOrdered B y: Rosita Hogan on 12-16-2024 Basophils/100 WBC (Bld) 0.4 % 0-1 [facility] Bilirubin, totalOrdered By: Rosita Hogan on 12-16-2024 Bilirubin [Mass/Vol] 0.20 mg/dL 0.20-1.00 [facility] Comment on above: For patients on eltr ombopag therapy, use of Dimension Hassell TBIL is not recommended. Blood urea nitrogen (BUN)/cr eatinine ratioOrdered By: Rosita Hogan on 12-16-2024 Urea nitrogen/Creatinine [Mass ratio] 29.5 mg/mg High 10-20 [facility] CBC W/Diff, Automatedon 11-29 Absolute Lymph 0.56 X10 3/uL Low 0.83-4.51 [facility] Comment on above: Performed By: #### L 500.4050, L100.0100 ####[facility] [address] [place], [address] Absolute Neut 4.2 X10 3/uL Normal 2.0-7.7 [facility] Comment on above: Performed By: #### L 500.4050, L100.0100 ####[facility] [address] [place], [address] Basophils/100 WBC (Bld) 0.4 % Normal 0-1 [facility] Comment on above: Performed By: #### L 500.4050, L100.0100 ####[facility] [address] [place], [address] Eosinophils/100 WBC (Bld) 3.2 % Normal 0-5 [facility] Comment on above: Performed By: #### L 500.4050, L100.0100 ####[facility] [address] [place], [address] Erythrocyte distribution width (RBC) [Ratio] 12.9 % Normal 11.6-14.6 [facility] Comment on above: Performed By: #### L 500.4050, L100.0100 ####[facility] [address] [place], [address] Hematocrit (Bld) [Volume fraction] 38.4 % Normal 37-47 [facility] Comment on above: Performed By: #### L 500.4050, L100.0100 ####[facility] [address] [place], [address] Hemoglobin (Bld) [Mass/Vol] 12.6 g/dL Normal 12.0-15.0 [facility] Comment on above: Performed By: #### L 500.4050, L100.0100 ####[facility] [address] [place], [address] IG% 0.400 Normal 0.0-0.9 [facility] Comment on above: Result Comment: IG% - Immature Granulocytes (promyelocytes, myelocytes andmetamyelocytes) > 1% indicates that a LEFT SHIFT is Present. Performed By: #### L 500.4050, L100.0100 ####[facility] [address] [place], [address] Lymphocytes/100 WBC (Bld) 10.4 % Low 19-41 [facility] Comment on above: Performed By: #### L 500.4050, L100.0100 ####[facility] [address] [place], [address] MCH (RBC) [Entitic mass] 30.1 pg Normal 27.0-32.0 [facility] Comment on above: Performed By: #### L 500.4050, L100.0100 ####[facility] [address] [place], [address] MCHC (RBC) [Mass/Vol] 32.8 g/dL Normal 32-36 [facility] Comment on above: Performed By: #### L 500.4050, L100.0100 ####[facility] [address] [place], [address] MCV (RBC) [Entitic vol] 91.6 fL Normal 81-99 [facility] Comment on above: Performed By: #### L 500.4050, L100.0100 ####[facility] [address] [place], [address] Monocytes/100 WBC (Bld) 7.8 % Normal 0-10 [facility] Comment on above: Performed By: #### L 500.4050, L100.0100 ####[facility] [address] [place], [address] Neutrophils/100 WBC (Bld) 77.8 % High 47-70 [facility] Comment on above: Performed By: #### L 500.4050, L100.0100 ####[facility] [address] [place], [address] Nucleated RBC (Bld) [#/Vol] 0 10*3/uL Normal 0-5 [facility] Comment on above: Performed By: #### L 500.4050, L100.0100 ####[facility] [address] [place], [address] Platelet mean volume (Bld) [Entitic vol] 8.4 fL Normal 6.2-12.0 [facility] Comment on above: Performed By: #### L 500.4050, L100.0100 ####[facility] [address] [place], [address] Platelets (Bld) [#/Vol] 233 10*3/uL Normal 150-450 [facility] Comment on above: Performed By: #### L 500.4050, L100.0100 ####[facility] [address] [place], [address] RBC (Bld) [#/Vol] 4.19 10*6/uL Low 4.2-5.4 [facility] Comment on above: Performed By: #### L 500.4050, L100.0100 ####[facility] [address] [place], [address] RDW SD 42.6 fl Normal 35.1-43.9 [facility] Comment on above: Performed By: #### L 500.4050, L100.0100 ####[facility] [address] [place], [address] WBC (Bld) [#/Vol] 5.4 10*3/uL Normal 4.4-11.0 [facility] Comment on above: Performed By: #### L 500.4050, L100.0100 ####[facility] [address] [place], [address] Carbon dioxide measurementOr dered By: Rosita Hogan on 12-16-2024 CO2 [Moles/Vol] 28.0 mmol/L 21.0-32.0 [facility] Chloride measurementOrdered By: Rosita Hogan on 12-16-2024 Chloride [Moles/Vol] 108 mmol/L High 98-107 [facility] Comprehensive Metabolic Prof ilon 12-16-2024 Albumin [Mass/Vol] 3.5 g/dL Normal 3.2-5.0 [facility] Comment on above: Performed By: #### L 500.4050, L100.0100 ####[facility] [address] [place], [address] Albumin/Globulin [Mass ratio] 1.0 {ratio} Normal 0.9-2.4 [facility] Comment on above: Performed By: #### L 500.4050, L100.0100 ####[facility] [address] [place], [address] ALK P 137 U/L High 45-117 [facility] Comment on above: Performed By: #### L 500.4050, L100.0100 ####[facility] [address] [place], [address] ALT [Catalytic activity/Vol] 25 U/L Normal 13-56 [facility] Comment on above: Performed By: #### L 500.4050, L100.0100 ####[facility] [address] [place], [address] AST [Catalytic activity/Vol] 25 U/L Normal 15-37 [facility] Comment on above: Performed By: #### L 500.4050, L100.0100 ####[facility] [address] [place], [address] Bilirubin [Mass/Vol] 0.20 mg/dL Normal 0.20-1.00 [facility] Comment on above: Result Comment: For patients on eltrombopag therapy, use of Dimension Hassell TBIL is not recommended. Performed By: #### L 500.4050, L100.0100 ####[facility] [address] [place], [address] BUN/CRE 29.5 RATIO High 10-20 [facility] Comment on above: Performed By: #### L 500.4050, L100.0100 ####[facility] [address] [place], [address] CA,Total 9.4 mg/dL Normal 8.5-10.1 [facility] Comment on above: Performed By: #### L 500.4050, L100.0100 ####[facility] [address] [place], [address] Chloride [Moles/Vol] 108 mmol/L High 98-107 [facility] Comment on above: Performed By: #### L 500.4050, L100.0100 ####[facility] [address] [place], [address] CO2 [Moles/Vol] 28.0 mmol/L Normal 21.0-32.0 [facility] Comment on above: Performed By: #### L 500.4050, L100.0100 ####[facility] [address] [place], [address] Creatinine [Mass/Vol] 0.61 mg/dL Normal 0.55-1.02 [facility] Comment on above: Result Comment: The validity of the calculated GFR GFRAA in patients over70 years has not been determined. Clinical correlation isessential. Performed By: #### L 500.4050, L100.0100 ####[facility] [address] [place], [address] ECRCL 98.95 ml/min Normal [facility] Comment on above: Performed By: #### L 500.4050, L100.0100 ####[facility] [address] [place], [address] EST GFR - AA 130 mL/min Normal >60 [facility] Comment on above: Result Comment: Afri can [place] GFR Calc Performed By: #### L 500.4050, L100.0100 ####[facility] [address] [place], [address] GAP 7 Normal 5-15 [facility] Comment on above: Performed By: #### L 500.4050, L100.0100 ####[facility] [address] [place], [address] GFR/1.73 sq M.predicted among non-blacks MDRD (S/P/Bld) [Vol rate/Area] 107 mL/min/{1.73_m2} Normal >60 [facility] Comment on above: Result Comment: Non- GFR Calc Performed By: #### L 500.4050, L100.0100 ####[facility] [address] [place], [address] Globulin (S) [Mass/Vol] 3.4 g/dL Normal 2.2-4.2 [facility] Comment on above: Performed By: #### L 500.4050, L100.0100 ####[facility] [address] [place], [address] Glucose [Mass/Vol] 104 mg/dL Normal 74-106 [facility] Comment on above: Result Comment: Fast ing Glucose result from 100 to 125 mg/dLsuggests IMPAIRED HOMEOSTASIS per A.D.A. criteria. Performed By: #### L 500.4050, L100.0100 ####[facility] [address] [place], [address] Potassium [Moles/Vol] 3.4 mmol/L Low 3.5-5.1 [facility] Comment on above: Performed By: #### L 500.4050, L100.0100 ####[facility] [address] [place], [address] Sodium [Moles/Vol] 144 mmol/L Normal 136-145 [facility] Comment on above: Performed By: #### L 500.4050, L100.0100 ####[facility] [address] [place], [address] T PROT 6.9 g/dL Normal 6.4-8.2 [facility] Comment on above: Performed By: #### L 500.4050, L100.0100 ####[facility] [address] [place], [address] Urea nitrogen [Mass/Vol] 18 mg/dL Normal 7-18 [facility] Comment on above: Performed By: #### L 500.4050, L100.0100 ####[facility] [address] [place], [address] Eosinophil percentageOrdered By: Rosita Hogan on 12-16-2024 Eosinophils/100 WBC (Bld) 3.2 % 0-5 [facility] Erythrocyte distribution wid th (RBC) [Ratio]Ordered By: Rosita AntonEdison on 12-16-2024 Erythrocyte distribution width (RBC) [Entitic vol] 42.6 fL 35.1-43.9 [facility] Erythrocyte distribution wid th ratioOrdered By: Rosita AntonEdison on 12-16-2024 Erythrocyte distribution width (RBC) [Ratio] 12.9 % 11.6-14.6 [facility] [facility] Erythrocyte distribution wid th standard deviationOrdered By: Rosita Hogan on 12-16-2024 Erythrocyte distribution width (RBC) [Ratio] 42.6 fl 35.1-43.9 [facility] Estimated glomerular filtrat ion rate (GFR) AmericanOrdered By: Rosita Hogan on 12-16-2024 Estimated GFR (MDRD) Amer 130 mL/min >60 [facility] Comment on above: GFR Calc Estimation of creatinine alexx aranceOrdered By: Rosita Hogan on 12-16-2024 Estimated Creatinine Clearance Calc 98.95 ml/min [facility] Glomerular filtration rate ( GFR) estimationOrdered By: Rosita AntonEdison on 12-16-2024 Estimated GFR (MDRD) Non-Af Amer 107 mL/min >60 [facility] Comment on above: Non- GFR Calc GFR/1.73 sq M.predicted among non-blacks MDRD (S/P/Bld) [Vol rate/Area] 107 mL/min/{1.73_m2} >60 [facility] Comment on above: Non- GFR Calc Glucose measurementOrdered B y: Rosita Hogan on 12-16-2024 Glucose [Mass/Vol] 104 mg/dL 74-106 [facility] Comment on above: Fasting Glucose resu lt from 100 to 125 mg/dL suggests IMPAIRED HOMEOSTASIS per A.D.A. criteria. Hematocrit Auto (Bld) [Volum e fraction]Ordered By: Rosita Hogan on 12-16-2024 Hematocrit (Bld) [Volume fraction] 38.4 % 37-47 [facility] Hemoglobin measurementOrdere d By: Rosita Hogan on 12-16-2024 Hemoglobin (Bld) [Mass/Vol] 12.6 g/dL 12.0-15.0 [facility] Immature granulocytes/100 WB C Auto (Bld)Ordered By: Rosita Hogan on 12-16-2024 Immature granulocytes/100 WBC (Bld) 0.400 % 0.0-0.9 [facility] Comment on above: IG% - Immature Granu locytes (promyelocytes, myelocytes and metamyelocytes) > 1% indicates that a LEFT SHIFT is Present. Laboratory - Chemistry and C hemistry - challengeOrdered By: Rosita Hogan on 12-16-2024 AST [Catalytic activity/Vol] 25 U/L 15-37 [facility] Lymphocytes Auto (Unsp spec) [#/Vol]Ordered By: Rosita Hogan on 12-16-2024 Lymphocytes (Bld) [#/Vol] 0.56 10*3/uL Low 0.83-4.51 [facility] Lymphocytes/100 WBC Auto (Un sp spec)Ordered By: Rosita Hogan on 12-16-2024 Lymphocytes/100 WBC (Bld) 10.4 % Low 19-41 [facility] MCV (mean corpuscular volume ) determinationOrdered By: Rosita Hogan on 12-16-2024 MCV (RBC) [Entitic vol] 91.6 fL 81-99 [facility] Mean corpuscular hemoglobin (MCH) determinationOrdered By: Rosita Hogan on 12-16-2024 MCH (RBC) [Entitic mass] 30.1 pg 27.0-32.0 [facility] Mean corpuscular hemoglobin concentration (MCHC) determinationOrdered By: Rosita AntonEdison on 12-16-2024 MCHC (RBC) [Mass/Vol] 32.8 g/dL 32-36 [facility] Mean platelet volume determi nationOrdered By: Rosita Edison on 12-16-2024 Platelet mean volume (Bld) [Entitic vol] 8.4 fL 6.2-12.0 [facility] Monocyte percentageOrdered B y: Rosita AntonEdison on 12-16-2024 Monocytes/100 WBC (Bld) 7.8 % 0-10 [facility] Neutrophil percentageOrdered By: Rosita Edison on 12-16-2024 Neutrophils/100 WBC (Bld) 77.8 % High 47-70 [facility] Nucleated red blood cell per centageOrdered By: Rosita AntonEdison on 12-16-2024 Nucleated RBC/100 WBC (Bld) [Ratio] 0 % 0-5 [facility] Oncology Visit Reporton 11-29 Oncology Visit Report Normal [facility] Platelet countOrdered By: Jori Hogan on 12-16-2024 Platelets (Bld) [#/Vol] 233 10*3/uL 150-450 [facility] Potassium measurementOrdered By: Rosita AntonEdison on 12-16-2024 Potassium [Moles/Vol] 3.4 mmol/L Low 3.5-5.1 [facility] RBC Auto (Bld) [#/Vol]Ordere d By: Rosita AntonEdison on 12-16-2024 RBC (Bld) [#/Vol] 4.19 10*6/uL Low 4.2-5.4 [facility] Serum anion gap measurementO rdered By: Rosita Edison on 12-16-2024 Anion gap [Moles/Vol] 7 mmol/L 5-15 [facility] Serum globulin measurementOr dered By: Rosita AntonEdison on 12-16-2024 Globulin (S) [Mass/Vol] 3.4 g/dL 2.2-4.2 [facility] Serum or plasma alanine hardin otransferase (ALT) measurementOrdered By: Rosita AntonEdison on 12-16-2024 ALT [Catalytic activity/Vol] 25 U/L 13-56 [facility] Serum or plasma albumin malvin urement (mass/volume)Ordered By: Rosita Hogan on 12-16-2024 Albumin [Mass/Vol] 3.5 g/dL 3.2-5.0 [facility] Serum or plasma alkaline jesus sphatase measurementOrdered By: Rosita Hogan on 12-16-2024 ALP [Catalytic activity/Vol] 137 U/L High 45-117 [facility] Serum or plasma calcium malvin urement (mass/volume)Ordered By: Rosita Hogan on 12-16-2024 Calcium [Mass/Vol] 9.4 mg/dL 8.5-10.1 [facility] Serum or plasma creatinine m easurement (mass/volume)Ordered By: Rosita Hogan on 12-16-2024 Creatinine [Mass/Vol] 0.61 mg/dL 0.55-1.02 [facility] Comment on above: The validity of the calculated GFR & GFRAA in patients over 70 years has not been determined. Clinical correlation is essential. Serum or plasma urea nitroge n measurement (mass/volume)Ordered By: Rosita Hogan on 12-16-2024 Urea nitrogen [Mass/Vol] 18 mg/dL 7-18 [facility] Sodium levelOrdered By: Rosita Hogan on 12-16-2024 Sodium [Moles/Vol] 144 mmol/L 136-145 [facility] Total proteinOrdered By: Wander Hogan on 12-16-2024 Protein [Mass/Vol] 6.9 g/dL 6.4-8.2 [facility] White blood cell (WBC) count Ordered By: Rosita Hogan on 12-16-2024 WBC (Bld) [#/Vol] 5.4 10*3/uL 4.4-11.0 [facility] Telephone Encounteron 2024 Traffic Signal Technician Authentication Interface Message Text PT called back asking about the results of her Pet scan Asked for a call back AM. Normal [facility] Telephone Encounteron 2024 Traffic Signal Technician Authentication Interface Message Text Received call from Pt She is asking for a call back with the results of her PET scan received and scanned in on 11/21 from [facility]. Please call pt when ever you are available Normal [facility] Progress Noteson 11-21-2024 Traffic Signal Technician Authentication Interface Message Text GYNECOLOGIC ONCOLOGY - OFFICE NOTE REASON FOR VISIT: Cervical Cancer, Follow-Up Visit REFERRING PHYSICIAN: Dr. Iona Emmanuel MD (CLIP LOADING MACHINE FEEDER in [place]) PCP: Dr. Marlen Rodríguez MD RADIATION ONCOLOGIST: Dr. 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 She was treated with primary chemoradiation. She presents today for a follow-up visit. All treatments completed on July 30, 2024. Today the patient states she is feeling well. She denies fevers, chills, chest pain, shortness or breath. No coughing or wheezing. No headaches or dizziness. No change in vision or hearing. No new skin rashes. No hot flashes or easy bruising. No neuropathy. No nausea or vomiting. No bloating or pain. No diarrhea or constipation. No vaginal bleeding or rectal bleeding. No hematuria or dysuria. Appetite intact. Energy level good. GENETIC/TUMOR TESTING: - 05/02/2024: Cervical Biopsy = P16 Positive. PDL1 Positive (CPS 10). ONCOLOGY HISTORY: - 03/06/2024: Pap Smear = HGSIL. Positive HR HPV. - 03/12/2024: Pelivc US ([facility]) = Uterus 7.2cm. Fibroids. EMS 2mm. Normal Ovaries. No FF - 05/02/2024: Cervical Biopsy = Moderately Differentiated SCC of the Cervix - 05/02/2024: CA-125 = 74.4 - 05/13/2024: PET/CT ([facility]) = Abnormal exam with hypermetabolic cervical mass and uterus. No other distant mets. - 07/18/2024: MRI Pelvis = Multiple fibroids. Cervical Tumor up to 3.8cm in size. Tumor invades lower uterus. No parametrial disease. Hyperenhancement of the vagina. No lymphadenopathy. - 07/23/2024: Patient completed Whole Pelvic RT with Sensitizing Cisplatin at [facility] - 07/30/2024: Patient completed Brachytherapy at [facility]. 800 x 3, Tandem and Ring 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 HISTORY: OB History Para Term AB Living 1 1 0 0 0 0 SAB IAB Ectopic Multiple Live Births 0 0 0 0 0 Obstetric Comments - x 1 Menarche in 9th Grade Not yet menopausal - had a 6 month time period with no menstrual period History of OCP use when she was younger for a couple of year No prior HRT use Mammogram February 2024 Colonoscopy February 2024 Has never had a DEXA scan FAMILY HISTORY: Family History Problem Relation Age of Onset Lymphoma Sister 23 Non Hodgkins Lymphoma Colon Cancer Negative Family History of Prostate cancer Negative Family History of Pancreatic Cancer Negative Family History of Ovarian Cancer Negative Family History of Uterine Cancer Negative Family History of Breast Cancer Negative Family History of SOCIAL HISTORY: Social History Socioeconomic History Marital status: Single Tobacco Use Smoking status: Never Smokeless tobacco: Never Vaping Use Vaping status: Never Used Substance and Sexual Activity Alcohol use: Yes Comment: occassionally Drug use: Never Social History Narrative Lives in [place] lives with her No Pets Occasional/Social EtoH Non-smoker No current or past drug use Works at [employer] MEDICATIONS: Current Outpatient Medications Medication Instructions ibuprofen (MOTRIN) 600 mg, EVERY 8 HOURS PRN Sennosides 15 mg, DAILY ALLERGIES: No Known Allergies PHYSICAL EXAMINATION: Vitals: 11/21/24 0745 BP: 122/72 Pulse: 78 Resp: 14 Temp: 99.3 ???F (37.4 ???C) SpO2: 98% Performance Status: 0 General: Pt is well appearing, in NAD HEENT: No lymphadenopathy, non tender Lymph: No cervical, supraclavicular or axillary lymphadenopathy Breast: Not performed Cardiac: RRR, no murmurs, rubs or gallops Pulmonary: CTAP b, no wheezes, rales or crackles Abdomen: Soft, nontender, non distended, no masses or hernias, positive, normal bowel sounds : A thermoforming operator was present for the gynecologic portion of today's examination. No palpable groin adenopathy. Normal external genitalia, vulva and vagina without lesions. Moderate radiation changes. Shortening of the vagina. No separately palpable or visible cervix. No Masses. Extremities: Warm, no cyanosis, no edema, [place] Psych: Normal affect, demeanor, normal, non-pressured speech Neuro: Intact RESULTS: PET/CT was done recently at [place] - Report was not yet available at the time of my visit with the patient. 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 She was treated with primary chemoradiation. She presents today for (more content not included)... Normal [facility] PET/CT Tumor Base -Thigh Sub son 11-11-2024 PET/CT Tumor Base -Thigh Subs Normal [facility] Blood manual differential co mment interpretation (narrative result)Ordered By: Rosita Hogan on 09-01-2024 Manual differential comment Claus (Bld) [Interp] SCANNED [facility] CBC W/Diff, Automatedon 11-0 TOXIC GRAN RARE Normal [facility] Comment on above: Performed By: #### L 500.4050, L100.0100, L501.5200 ####[facility] [address] [place], [place], [id number] REACTIVE LYMPH 2+ Normal [facility] Comment on above: Performed By: #### L 500.4050, L100.0100, L501.5200 ####[facility] [address] [place], [place], [id number] SMEAR COMMENT SCANNED Normal [facility] Comment on above: Performed By: #### L 500.4050, L100.0100, L501.5200 ####[facility] [address] [place], [place], [phone] Comprehensive Metabolic Prof ilon 09-01-2024 Albumin [Mass/Vol] 3.5 g/dL Normal 3.2-5.0 [facility] Comment on above: Performed By: #### L 500.4050, L100.0100, L501.5200 ####[facility] [address] [place], [address] Albumin/Globulin [Mass ratio] 1.1 {ratio} Normal 0.9-2.4 [facility] Comment on above: Performed By: #### L 500.4050, L100.0100, L501.5200 ####[facility] [address] [place], [address] ALK P 130 U/L High 45-117 [facility] Comment on above: Performed By: #### L 500.4050, L100.0100, L501.5200 ####[facility] [address] [place], [address] ALT [Catalytic activity/Vol] 23 U/L Normal 13-56 [facility] Comment on above: Performed By: #### L 500.4050, L100.0100, L501.5200 ####[facility] [address] [place], [address] AST [Catalytic activity/Vol] 21 U/L Normal 15-37 [facility] Comment on above: Performed By: #### L 500.4050, L100.0100, L501.5200 ####[facility] [address] [place], [address] Bilirubin [Mass/Vol] 0.20 mg/dL Normal 0.20-1.00 [facility] Comment on above: Result Comment: For patients on eltrombopag therapy, use of Dimension Hassell TBIL is not recommended. Performed By: #### L 500.4050, L100.0100, L501.5200 ####[facility] [address] [place], [address] BUN/CRE 24.7 RATIO High 10-20 [facility] Comment on above: Performed By: #### L 500.4050, L100.0100, L501.5200 ####[facility] [address] [place], [address] CA,Total 9.2 mg/dL Normal 8.5-10.1 [facility] Comment on above: Performed By: #### L 500.4050, L100.0100, L501.5200 ####[facility] [address] [place], [address] Chloride [Moles/Vol] 112 mmol/L High 98-107 [facility] Comment on above: Performed By: #### L 500.4050, L100.0100, L501.5200 ####[facility] [address] [place], [address] CO2 [Moles/Vol] 25.0 mmol/L Normal 21.0-32.0 [facility] Comment on above: Performed By: #### L 500.4050, L100.0100, L501.5200 ####[facility] [address] [place], [address] Creatinine [Mass/Vol] 0.61 mg/dL Normal 0.55-1.02 [facility] Comment on above: Result Comment: The validity of the calculated GFR GFRAA in patients over70 years has not been determined. Clinical correlation isessential. Performed By: #### L 500.4050, L100.0100, L501.5200 ####[facility] [address] [place], [address] ECRCL 98.95 ml/min Normal [facility] Comment on above: Performed By: #### L 500.4050, L100.0100, L501.5200 ####[facility] [address] [place], [address] EST GFR - AA 130 mL/min Normal >60 [facility] Comment on above: Result Comment: Afri can Australian GFR Calc Performed By: #### L 500.4050, L100.0100, L501.5200 ####[facility] [address] [place], [address] GAP 4 Low 5-15 [facility] Comment on above: Performed By: #### L 500.4050, L100.0100, L501.5200 ####[facility] [address] [place], [address] GFR/1.73 sq M.predicted among non-blacks MDRD (S/P/Bld) [Vol rate/Area] 108 mL/min/{1.73_m2} Normal >60 [facility] Comment on above: Result Comment: Non- GFR Calc Performed By: #### L 500.4050, L100.0100, L501.5200 ####[facility] [address] [place], [address] Globulin (S) [Mass/Vol] 3.1 g/dL Normal 2.2-4.2 [facility] Comment on above: Performed By: #### L 500.4050, L100.0100, L501.5200 ####[facility] [address] [place], [address] Glucose [Mass/Vol] 117 mg/dL High 74-106 [facility] Comment on above: Result Comment: Fast ing Glucose result from 100 to 125 mg/dLsuggests IMPAIRED HOMEOSTASIS per A.D.A. criteria. Performed By: #### L 500.4050, L100.0100, L501.5200 ####[facility] [address] [place], [address] Potassium [Moles/Vol] 3.5 mmol/L Normal 3.5-5.1 [facility] Comment on above: Performed By: #### L 500.4050, L100.0100, L501.5200 ####[facility] [address] [place], [address] Sodium [Moles/Vol] 142 mmol/L Normal 136-145 [facility] Comment on above: Performed By: #### L 500.4050, L100.0100, L501.5200 ####[facility] [address] [place], [address] T PROT 6.6 g/dL Normal 6.4-8.2 [facility] Comment on above: Performed By: #### L 500.4050, L100.0100, L501.5200 ####[facility] [address] [place], [address] Urea nitrogen [Mass/Vol] 15 mg/dL Normal 7-18 [facility] Comment on above: Performed By: #### L 500.4050, L100.0100, L501.5200 ####[facility] [address] [place], [address] Magnesiumon 09-01-2024 Magnesium [Mass/Vol] 2.3 mg/dL Normal 1.6-2.6 [facility] Comment on above: Performed By: #### L 500.4050, L100.0100, L501.5200 ####[facility] [address] [place], [address] Magnesium measurementOrdered By: Rosita Hogan on 09-01-2024 Magnesium [Mass/Vol] 2.3 mg/dL 1.6-2.6 [facility] Manual differential comment Claus (Bld) [Interp]Ordered By: Rosita Hogan on 09-01-2024 Differential Comment SCANNED [facility] Oncology Visit Reporton Oncology Visit Report Normal [facility] Reactive lymphocyte countOrd ered By: Rosita Hogan on 09-01-2024 Reactive Lymphocytes 2+ [facility] Toxic granules LM Ql (Bld)Or dered By: Rosita Hogan on 09-01-2024 Toxic Granulation RARE [facility] Toxic leukocyte granulation detectionOrdered By: Rosita Hogan on 09-01-2024 Toxic granules LM Ql (Bld) RARE [facility] Progress Noteson 08-28-2024 Traffic Signal Technician Authentication Interface Message Text I reviewed the results of the lab work from 08/22/2024: Iron 62, Iron Saturation 15, TIBC 402, Transferring 287 Vitamin D 26.2 CA-125 = 45.3 Albumin 3.9, Direct Bili 0.06, Total Bili 0.3, Alk Phos 99, AST 22, ALT 18, Total Protein 6.3 Glucose 81, Na 141, K+ 4.4, Chloride 108, CO2 25, BUN 14, Creat 0.61 Calcium 9.1 Magnesium 2.0 WBC 3.2, Hgb 11.8, Hct 35.0, Plt 239, ANC 2330 Rx was sent in by my 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 for high dose vitamin D. Replacement last week. BETHANY TORRES MD [facility] - Gynecologic Oncology Office Pager: [phone] Normal [facility] Radiation Oncology Visiton 1 Radiation Oncology Visit Normal [facility] BASIC METABOLIC PANELon 10-2 Anion gap [Moles/Vol] 12 mmol/L Normal 10-20 [facility] Comment on above: Performed By: #### H NATALIYA MILES8, CA125, FETIBC #### [facility] [address] [place] [address], Calcium [Mass/Vol] 9.1 mg/dL Normal 8.6-10.3 [facility] Comment on above: Performed By: #### Alex MILES CH8, CA125, FETIBC #### [facility] [address] [place] [address], Chloride [Moles/Vol] 108 mmol/L High 98-107 [facility] Comment on above: Performed By: #### Alex MILES CH8, CA125, FETIBC #### [facility] [address] [place] [address], CO2 [Moles/Vol] 25 mmol/L Normal 21- [facility] Comment on above: Performed By: #### Alex MILES CH8, CA125, FETIBC #### [facility] [address] [place], [place], Creatinine [Mass/Vol] 0.61 mg/dL Normal 0.60-1.20 [facility] Comment on above: Performed By: #### Alex MILES, CH8, CA125, FETIBC #### [facility] [address] [place] [address], ESTIMATED GFR (CKD-EPI) 104 mL/min/1.73sqm Normal >=60 [facility] Comment on above: Result Comment: 2020 CKD EPI Equation using Creatinine without Race Comment: Estimated glomerular filtration rate (eGFR) is calculated without a race coefficient. Values should be interpreted in the context of the patient's full clinical presentation. Reference: 1. Brayden C, Alexandre M, Milli ROBERT, et al.. A Unifying Approach for GFR Estimation: Recommendations of the NKF-ASN Task Force on Reassessing the Inclusion of Race in Diagnosing Kidney Disease. [place] Journal of Kidney Diseases 2021;79(2):268-88.e1. 2. N Engl J Med 1 Vol. 385 Issue 19 Pages [phone] Performed By: #### H EPAALON, CH8, CA125, FETIBC #### [facility] [address] [place] [address], Glucose [Mass/Vol] 81 mg/dL Normal 74-109 [facility] Comment on above: Performed By: #### H EPAALON, CH8, CA125, FETIBC #### [facility] [address] [place] [address], Potassium [Moles/Vol] 4.4 mmol/L Normal 3.5-5.0 [facility] Comment on above: Performed By: #### H EPAALON, CH8, CA125, FETIBC #### [facility] [address] [place] [address], Sodium [Moles/Vol] 141 mmol/L Normal 136-145 [facility] Comment on above: Performed By: #### H EPATIC, CH8, CA125, FETIBC #### [facility] [address] [place] [address], Urea nitrogen [Mass/Vol] 14 mg/dL Normal 7-25 [facility] Comment on above: Performed By: #### H EPATIC, CH8, CA125, FETIBC #### [facility] [address] [facility] [address] [place], [place], Basic metabolic 2000 panelon 08-22-2024 Anion gap [Moles/Vol] 12 mmol/L 10 - 20 [facility] Calcium [Mass/Vol] 9.1 mg/dL 8.6 - 10. 3 mg/dL [facility] Chloride [Moles/Vol] 108 mmol/L High 98 - 10 7 mmol/L [facility] CO2 [Moles/Vol] 25 mmol/L 21 - 31 mmol/L [facility] Creatinine [Mass/Vol] 0.61 mg/dL 0.60 - 1.20 mg/dL [facility] GFR/1.73 sq M.predicted CKD-EPI (S/P/Bld) [Vol rate/Area] 104 - PINF [facility] Comment on above: 2020 CKD EPI Equatio n using Creatinine without Race Comment: Estimated glomerular filtration rate (eGFR) is calculated without a race coefficient. Values should be interpreted in the context of the patient's full clinical presentation. Reference: 1. Brayden C, Bachelsie M, Milli DC, et al.. A Unifying Approach for GFR Estimation: Recommendations of the NKF-ASN Task Force on Reassessing the Inclusion of Race in Diagnosing Kidney Disease. [place] Journal of Kidney Diseases 202;79(2):268-88.e1. 2. N Engl J Med 2020 Vol. 385 Issue 19 Pages [phone] Glucose [Mass/Vol] 81 mg/dL 74 - 109 mg/dL [facility] Potassium [Moles/Vol] 4.4 mmol/L 3.5 - 5.0 mmol/L [facility] Sodium [Moles/Vol] 141 mmol/L 136 - 145 mmol/L [facility] Urea nitrogen [Mass/Vol] 14 mg/dL 7 - 25 mg/dL [facility] CA 125on 08-22-2024 Cancer Ag 125 Qn 45.3 High NINF [facility] Interpretation and review of laboratory results Abnormal [facility] The [employer] Antonina Access DxI CA 125 (cancer antigen 125) assay is a sandwich chemiluminescence immunoassay. Results obtained with different test methods or kits cannot be used interchangeably. Serial testing for patient CA 125 antigen concentrations should be used in conjunction with other clinical methods used for monitoring ovarian cancer. Monitor concentrations should not be interpreted as absolute evidence for the presence or absence of cancer. Patients with confirmed ovarian carcinoma may have pretreatment CA 125 values in the same range as healthy individuals. Elevations may be observed in patients with nonmalignant disease. Therefore, a CA 125 value, regardless of level, should not be interpreted as absolute evidence of the presence or absence of malignant disease. [facility] CA125 45.3 IU/mL High <35.1 The [facility] Comment on above: Order Comment: The AOI Medical Access DxI CA 125 (cancer antigen 125) assay is a sandwich chemiluminescence immunoassay. Results obtained with different test methods or kits cannot be used interchangeably. Serial testing for patient CA 125 antigen concentrations should be used in conjunction with other clinical methods used for monitoring ovarian cancer. Monitor concentrations should not be interpreted as absolute evidence for the presence or absence of cancer. Patients with confirmed ovarian carcinoma may have pretreatment CA 125 values in the same range as healthy individuals. Elevations may be observed in patients with nonmalignant disease. Therefore, a CA 125 value, regardless of level, should not be interpreted as absolute evidence of the presence or absence of malignant disease. Performed By: #### H EPATIC, CH8, CA125, FETIBC #### [facility] [address] [place] [address], [id number] CBC WITH DIFFERENTIALOrdered By: Marisa Gambino on 08-22-2024 Basophils (Bld) [#/Vol] 0.03 10*3/uL 0.00 - 0.20 K/uL [facility] Basophils/100 WBC (Bld) 1.1 % NINF - 1.9 % [facility] Eosinophils (Bld) [#/Vol] 0.12 10*3/uL 0.00 - 0.70 K/uL [facility] Eosinophils/100 WBC (Bld) 3.9 % 0.1 - 4.0 % [facility] Erythrocyte distribution width (RBC) [Ratio] 22.4 % High 11.5 - 14.5 % [facility] Hematocrit (Bld) [Volume fraction] 35.0 % Low 36.0 - 46.0 % [facility] Hemoglobin (Bld) [Mass/Vol] 11.8 g/dL Low 12.0 - 15.0 g/dL [facility] Interpretation and review of laboratory results Abnormal [facility] Lymphocytes (Bld) [#/Vol] 0.26 10*3/uL Low 1.00 - 4.80 K/uL [facility] Lymphocytes/100 WBC (Bld) 8.3 % Low 24.0 - 44.0 % [facility] MCH (RBC) [Entitic mass] 31.9 pg 26.0 - 34.0 pg [facility] MCHC (RBC) [Mass/Vol] 33.7 g/dL 32.0 - 35.9 g/dL [facility] MCV (RBC) [Entitic vol] 95 fL 80 - 100 fL [facility] Monocytes (Bld) [#/Vol] 0.42 10*3/uL 0.20 - 1.00 K/uL [facility] Monocytes/100 WBC (Bld) 13.1 % High 2.0 - 11.0 % [facility] Neutrophils (Bld) [#/Vol] 2.33 10*3/uL 1.50 - 8.00 K/uL [facility] Neutrophils/100 WBC (Bld) 73.6 % 31.0 - 76.0 % [facility] Platelet mean volume (Bld) [Entitic vol] 7.3 fL Low 7.5 - 11.2 fL [facility] Platelets (Bld) [#/Vol] 239 10*3/uL 150 - 400 K/uL [facility] RBC (Bld) [#/Vol] 3.70 10*6/uL Low [facility] WBC (Bld) [#/Vol] 3.2 10*3/uL Low 4.5 - 11.5 K/uL [facility] CBC WITH DIFFERENTIALon 07-30 Basophils (Bld) [#/Vol] 0.03 10*3/uL Normal 0.00-0.20 [facility] Comment on above: Performed By: #### H EPATIC, CH8, CA125, FETIBC #### [facility] [address] [place], [id number] Basophils/100 WBC (Bld) 1.1 % Normal <=1.9 [facility] Comment on above: Performed By: #### H EPATIC, CH8, CA125, FETIBC #### [facility] [address] [place] [address], Eosinophils (Bld) [#/Vol] 0.12 10*3/uL Normal 0.00-0.70 The [facility] Comment on above: Performed By: #### H EPATIC, CH8, CA125, FETIBC #### [facility] [address] [place] [address], Eosinophils/100 WBC (Bld) 3.9 % Normal 0.1-4.0 The [facility] Comment on above: Performed By: #### H EPAALON, CH8, CA125, FETIBC #### [facility] [address] [place] [address], Erythrocyte distribution width (RBC) [Ratio] 22.4 % High 11.5-14.5 The [facility] Comment on above: Performed By: #### H EPAALON, CH8, CA125, FETIBC #### [facility] [address] [place] [address], Hematocrit (Bld) [Volume fraction] 35.0 % Low 36.0-46.0 The [facility] Comment on above: Performed By: #### H EPATIC, CH8, CA125, FETIBC #### [facility] [address] [place] [address], Hemoglobin (Bld) [Mass/Vol] 11.8 g/dL Low 12.0-15.0 The [facility] Comment on above: Performed By: #### H EPATIC, CH8, CA125, FETIBC #### [facility] [address] [place] [address], Lymphocytes (Bld) [#/Vol] 0.26 10*3/uL Low 1.00-4.80 The [facility] Comment on above: Performed By: #### H EPATIC, CH8, CA125, FETIBC #### [facility] [address] [place] [address], Lymphocytes/100 WBC (Bld) 8.3 % Low 24.0-44.0 The [facility] Comment on above: Performed By: #### H EPATIC, CH8, CA125, FETIBC #### [facility] [address] [place] [address], MCH (RBC) [Entitic mass] 31.9 pg Normal 26.0-34.0 The [facility] Comment on above: Performed By: #### H EPAALON, CH8, CA125, FETIBC #### [facility] [address] [place] [address], MCHC (RBC) [Mass/Vol] 33.7 g/dL Normal 32.0-35.9 The [facility] Comment on above: Performed By: #### H EPAALON, CH8, CA125, FETIBC #### [facility] [address] [place] [address], MCV (RBC) [Entitic vol] 95 fL Normal 80-100 T [facility] Comment on above: Performed By: #### Alex EPAALON, CH8, CA125, FETIBC #### [facility] [address] [place] [address], Monocytes (Bld) [#/Vol] 0.42 10*3/uL Normal 0.20-1.00 The [facility] Comment on above: Performed By: #### H EPATIC, CH8, CA125, FETIBC #### [facility] [address] [place] [address], Monocytes/100 WBC (Bld) 13.1 % High 2.0-11.0 [facility] Comment on above: Performed By: #### H EPATIC, CH8, CA125, FETIBC #### [facility] [address] [place] [address], Neutrophils (Bld) [#/Vol] 2.33 10*3/uL Normal 1.50-8.00 The [facility] Comment on above: Performed By: #### H EPATIC, CH8, CA125, FETIBC #### [facility] [address] [place] [address], Neutrophils/100 WBC (Bld) 73.6 % Normal 31.0-76.0 The [facility] Comment on above: Performed By: #### H GINGER CH8, CA125, FETIBC #### [facility] [address] [place] [address], Platelet mean volume (Bld) [Entitic vol] 7.3 fL Low 7.5-11.2 The [facility] Comment on above: Performed By: #### H GINGER CH8, CA125, FETIBC #### [facility] [address] [place] [address], Platelets (Bld) [#/Vol] 239 10*3/uL Normal 150-400 The [facility] Comment on above: Performed By: #### H GINGER CH8, CA125, FETIBC #### [facility] [address] [place] [address], RBC (Bld) [#/Vol] 3.70 10*6/uL Low 4.00-5.20 The [facility] Comment on above: Performed By: #### H GINGER CH8, CA125, FETIBC #### [facility] [address] [place], [place], WBC (Bld) [#/Vol] 3.2 10*3/uL Low 4.5-11.5 The [facility] Comment on above: Performed By: #### Alex MILES CH8, CA125, FETIBC #### [facility] [address] [place] [address], HEPATIC FUNCTION PANELon Albumin [Mass/Vol] 3.9 g/dL 3.5 - 5.7 g/dL [facility] ALP [Catalytic activity/Vol] 99 U/L [facility] ALT [Catalytic activity/Vol] 18 U/L [facility] AST [Catalytic activity/Vol] 22 U/L [facility] Bilirubin [Mass/Vol] 0.3 mg/dL 0.3 - 1 .0 mg/dL [facility] Bilirubin.direct [Mass/Vol] 0.06 mg/dL 0.03 - 0.18 mg/dL [facility] Interpretation and review of laboratory results Normal [facility] Protein [Mass/Vol] 6.3 g/dL 6.0 - 8.3 g/dL [facility] Albumin [Mass/Vol] 3.9 g/dL Normal 3.5-5.7 The [facility] Comment on above: Performed By: #### H EPATIC, CH8, CA125, FETIBC #### [facility] [address] [place] [address], ALK 99 IU/L Normal 34-104 [facility] Comment on above: Performed By: #### H EPATIC, CH8, CA125, FETIBC #### [facility] [address] [place] [address], ALT [Catalytic activity/Vol] 18 U/L Normal 7-52 [facility] Comment on above: Performed By: #### H EPATIC, CH8, CA125, FETIBC #### [facility] [address] [place] [address], AST [Catalytic activity/Vol] 22 U/L Normal 13-39 [facility] Comment on above: Performed By: #### H EPATIC, CH8, CA125, FETIBC #### [facility] [address] [place] [address], Bilirubin [Mass/Vol] 0.3 mg/dL Normal 0.3-1.0 The [facility] Comment on above: Performed By: #### H EPATIC, CH8, CA125, FETIBC #### [facility] [address] [place] [address], Bilirubin.direct [Mass/Vol] 0.06 mg/dL Normal 0.03-0.18 [facility] Comment on above: Performed By: #### H EPATIC, CH8, CA125, FETIBC #### [facility] [address] [place] [address], Protein [Mass/Vol] 6.3 g/dL Normal 6.0-8.3 The [facility] Comment on above: Performed By: #### H EPATIC, CH8, CA125, FETIBC #### [facility] [address] [place] [address], IRON AND TIBCon 08-22-2024 Iron [Mass/Vol] 62 ug/dL 50 - 212 ug/dL [facility] Iron binding capacity [Mass/Vol] 402 ug/mL 250 - 410 ug/mL [facility] Iron saturation [Mass fraction] 15 % Low 20 - 55 % [facility] Transferrin [Mass/Vol] 287 mg/dL 203 - 362 mg/dL [facility] % SAT CORRECT PRD 15 % Low 20-55 The [facility] Comment on above: Performed By: #### H IGNGER, CH8, CA125, FETIBC #### [facility] [address] [place] [address], FE CORRECT PRD 62 ug/dL Normal 50-212 The [facility] Comment on above: Performed By: #### H GINGER, CH8, CA125, FETIBC #### [facility] [address] [place] [address], TIBC CORRECT PRD 402 ug/mL Normal 250-410 The [facility] Comment on above: Performed By: #### H GINGER, REDD, CA125, FETIBC #### [facility] [address] [place] [address], TRANSFER CORRECT PRD 287 mg/dL Normal 203-362 The [facility] Comment on above: Performed By: #### H GINGER, CH8, CA125, FETIBC #### [facility] [address] [place] [address], MAGNESIUMon 08-22-2024 Interpretation and review of laboratory results Normal [facility] Magnesium [Mass/Vol] 2.0 mg/dL 1.9 - 2 .7 mg/dL [facility] Magnesium [Mass/Vol] 2.0 mg/dL Normal 1.9-2.7 [facility] Comment on above: Performed By: #### H GINGER, CH8, CA125, FETIBC #### [facility] [address] [place] [address], MANUAL DIFF AND MORPHon 10-2 Anisocytosis Ql (Bld) Moderate [facility] Cells Counted Total (Bld) [#] [facility] Ovalocytes LM Ql (Bld) Few [facility] Schistocytes LM Ql (Bld) Few [facility] ANISOCYTOSIS Moderate Normal [facility] Comment on above: Performed By: #### H EPATIC, CH8, CA125, FETIBC #### [facility] [address] [place] [address], CELLS COUNTED TOTAL # IN BLOOD Normal [facility] Comment on above: Performed By: #### H EPATIC, CH8, CA125, FETIBC #### [facility] [address] [place] [address], FRAGMENTED RBC Few Normal [facility] Comment on above: Performed By: #### H EPATIC, CH8, CA125, FETIBC #### [facility] [address] [place] [address], OVALOCYTES Few Normal [facility] Comment on above: Performed By: #### H EPATIC, CH8, CA125, FETIBC #### [facility] [address] [place] [address], No Panel InformationOrdered By: Marisa Gambino on 08-22-2024 [facility] No Panel Informationon 08-22 Interpretation and review of laboratory results Abnormal [facility] Progress Noteson 08-22-2024 Traffic Signal Technician Authentication Interface Message Text Patient was identified by name and date of . Janet Jean RN Patient at risk for falls:No Falls Risk protocol implemented: No Patient arrived to clinic for blood obtained via venipuncture from [facility] using 23G 3/4 in butterfly needle, sent to lab, patient tolerated well. Patient verbalized follow up instructions and discharged home. Janet Jean RN Normal [facility] Traffic Signal Technician Authentication Interface Message Text GYNECOLOGIC ONCOLOGY - OFFICE NOTE REASON FOR VISIT: Cervical Cancer, Follow-Up REFERRING PHYSICIAN: Dr. Iona Emmanuel MD (CLIP LOADING MACHINE FEEDER in [place]) PCP: Dr. Marlen Rodríguez MD RADIATION ONCOLOGIST: Dr. 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 She was treated with primary chemoradiation. She presents today for a follow-up visit. All treatments completed on July 30, 2024. Today the patient states she is feeling well. She denies fevers, chills, chest pain, shortness or breath. No coughing or wheezing. No headaches or dizziness. No change in vision or hearing. No new skin rashes. No hot flashes or easy bruising. No neuropathy. No nausea or vomiting. No bloating or pain. No diarrhea or constipation. No vaginal bleeding or rectal bleeding. No hematuria or dysuria. Appetite intact. Energy level good. GENETIC/TUMOR TESTING: - 05/02/2024: Cervical Biopsy = P16 Positive. PDL1 Positive (CPS 10). ONCOLOGY HISTORY: - 03/06/2024: Pap Smear = HGSIL. Positive HR HPV. - 03/12/2024: Pelivc US ([facility]) = Uterus 7.2cm. Fibroids. EMS 2mm. Normal Ovaries. No FF - 05/02/2024: Cervical Biopsy = Moderately Differentiated SCC of the Cervix - 05/02/2024: CA-125 = 74.4 - 05/13/2024: PET/CT ([facility]) = Abnormal exam with hypermetabolic cervical mass and uterus. No other distant mets. - 07/18/2024: MRI Pelvis = Multiple fibroids. Cervical Tumor up to 3.8cm in size. Tumor invades lower uterus. No parametrial disease. Hyperenhancement of the vagina. No lymphadenopathy. - 07/23/2024: Patient completed Whole Pelvic RT with Sensitizing Cisplatin at [facility] - 07/30/2024: Patient completed Brachytherapy at [facility]. 800 x 3, Tandem and Ring MEDICAL HISTORY: Past Medical History: Diagnosis Date Abnormal Pap smear of cervix History of chemotherapy History of radiation therapy Malignant neoplasm of overlapping sites of cervix (HCC) Vaginal bleeding SURGICAL HISTORY: Review of patient's past surgical history indicates: EXCISION, LIPOMA Right Shoulder DENTAL SURGERY [facility] Teeth Removal COLONOSCOPY (02/2024) INSERTION, GALO SLEEVE (07/28/2024) Procedure: EXAM UNDER ANESTHESIA, PLACEMENT OF BRACHYTHERAPY DEVICE FOR CERVICAL CANCER TREATMENT, under ultrasound guidance; Surgeon: Bethany Torres MD; Location: PERIOPERATIVE SERVICES; Service: Gynecologic Oncology CLIP LOADING MACHINE FEEDER HISTORY: OB History Para Term AB Living 1 1 0 0 0 0 SAB IAB Ectopic Multiple Live Births 0 0 0 0 0 Obstetric Comments - x 1 Menarche in 9th Grade Not yet menopausal - had a 6 month time period with no menstrual period History of OCP use when she was younger for a couple of year No prior HRT use Mammogram February 2024 Colonoscopy February 2024 Has never had a DEXA scan FAMILY HISTORY: Family History Problem Relation Age of Onset Lymphoma Sister 23 Non Hodgkins Lymphoma Colon Cancer Negative Family History of Prostate cancer Negative Family History of Pancreatic Cancer Negative Family History of Ovarian Cancer Negative Family History of Uterine Cancer Negative Family History of Breast Cancer Negative Family History of SOCIAL HISTORY: Social History Socioeconomic History Marital status: Single Tobacco Use Smoking status: Never Smokeless tobacco: Never Vaping Use Vaping status: Never Used Substance and Sexual Activity Alcohol use: Yes Comment: occassionally Drug use: Never Social History Narrative Lives in [place] lives with her No Pets Occasional/Social EtoH Non-smoker No current or past drug use Works at [employer] MEDICATIONS: Current Outpatient Medications Medication Instructions ibuprofen (MOTRIN) 600 mg, EVERY 8 HOURS PRN Sennosides 15 mg, DAILY ALLERGIES: No Known Allergies PHYSICAL EXAMINATION: Vitals: 08/22/24 0759 BP: 122/70 Pulse: 59 Resp: 14 Temp: 98.2 ???F (36.8 ???C) SpO2: 100% Performance Status: 0 General: Pt is well appearing, in NAD HEENT: No lymphadenopathy, non tender Lymph: No cervical, supraclavicular or axillary lymphadenopathy Breast: Not performed Cardiac: RRR, no murmurs, rubs or gallops Pulmonary: CTAP b, no wheezes, rales or crackles Abdomen: Soft, nontender, non distended, no masses or hernias, positive, normal bowel sounds : A thermoforming operator was present for the gynecologic portion of today's examination. No palpable groin adenopathy. Normal external genitalia, vulva and vagina without lesions. Cervix scarred and flush with upper vagina. No concerning lesions. Extremities: Warm, no cyanosis, no edema, [place] Psych: Normal affect, demeanor, normal, non-pressured speech Neuro: Intact RESULTS: No New Results. 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 She was treated with primary chemoradiation. She presents today for a follow-up visit. All (more content not included)... Normal [facility] Traffic Signal Technician Authentication Interface Message Text RADIATION ONCOLOGY FOLLOW UP VISIT DATE OF VISIT: 08/22/2024 Referring Physician: Dr. Torres DIAGNOSIS: (C53.8) Malignant neoplasm of overlapping sites of cervix (HCC) (primary encounter diagnosis) clinical stage IB p16 positive mod diff non keratinizing SCCA SCC cervix s/p TVUS (03/11/2024), cervical biopsy (05/02/2024), PET scan 4.4 cm cervix SUV max 8.4; MRI pelvis (fibroids no nodes, cervical disease only, no SW ext or nodes.). 45 Gy /25 fx + weekly cisplatin 06/17- 07/23/24. Brachy 800 x 3 T+R Cancer Staging Malignant neoplasm of overlapping sites of cervix (HCC) Staging form: Cervix Uteri, AJCC 9th Edition - Clinical: FIGO Stage IB (cT1b, cN0, cM0) - Signed by Yakelin Godwin MD on 07/18/2024 TIME SINCE TREATMENT: 1 month INTERVAL HISTORY: Derek Shetty is a 59 year old female with cervical cancer status post 45 Gy /25 fx + weekly cisplatin 06/17- 07/23/24. Then Brachytherapy tandem and ring boost 800 x 3 completed on 07/30/24. She is doing well and reported only watery vaginal discharge, no other complaints. Here today for routine follow up . Sees [facility] in [place] on Sunday and Dr Torres today I have reviewed Derek Shetty's medical, surgical and other pertinent history in detail, and have updated medication and allergy information in the electronic medical record. Allergies: Patient has no known allergies. PMH: Past Medical History: Diagnosis Date Abnormal Pap smear of cervix Vaginal bleeding Current Medications: Current Outpatient Medications Medication Sig Dispense Refill ibuprofen (MOTRIN) 600 MG tablet Take 600 mg by mouth every 8 hours as needed. Sennosides 15 MG TABS Take 15 mg by mouth daily. No current facility-administered medications for this visit. FamHx: Family History Problem Relation Age of Onset Lymphoma Sister 23 Non Hodgkins Lymphoma Colon Cancer Negative Family History of Prostate cancer Negative Family History of Pancreatic Cancer Negative Family History of Ovarian Cancer Negative Family History of Uterine Cancer Negative Family History of Breast Cancer Negative Family History of SocHx: Social History Socioeconomic History Marital status: Single Tobacco Use Smoking status: Never Smokeless tobacco: Never Vaping Use Vaping status: Never Used Substance and Sexual Activity Alcohol use: Yes Comment: occassionally Drug use: Never Social History Narrative Lives in [place] lives with her No Pets Occasional/Social EtoH Non-smoker No current or past drug use Works at [employer] Per HPI A 10-point ROS was performed, all other review of systems are negative, or as detailed in the patient history. Pain Evaluation: The patient's pain was assessed. Pain score reported at 0 Vital Signs: PER [facility] intake ECOG PS: 0 PE: NAD [facility] exam performed by Dr Torres All current data personally reviewed as outlined above. Assessment and Plan: In summary, Derek Shetty is a 59 year old female with FIGO 1B cervical cancer who is status post chemoradiation followed by brachytherapy boost completed on 07/30/24. She will continue to follow with [facility] in [place] and Dr Torres. Vaginal dilator and instructions given today. Survivorship discussed. . Thank you for allowing us to participate in the care of this patient. Please do not hesitate to contact me should any questions arise. Normal The [facility] Traffic Signal Technician Authentication Interface Message Text Patient was identified by name and date of . [place] Body Mass Index is 22.75. Body Surface Area is 1.77 square meters according to the formula of Chantel and Chantel. ..Patient at risk for falls:No Falls Risk protocol implemented: No Normal [facility] VITAMIN D, 25-HYDROXYon 10-2 25-hydroxyvitamin D IA [Mass/Vol] 26.2 ng/mL Low 30 - 100 ng/mL [facility] Interpretation and review of laboratory results Abnormal [facility] Deficient : <20.0 ng/mL Insufficient : 20.0-29.9 ng/mL Sufficient : 30.0 - 100.0 ng/mL Potential Toxicity : >100.0 ng/mL [facility] VITD25 26.2 ng/mL Low 30-100 [facility] Comment on above: Order Comment: Defic ient : <20.0 ng/mL Insufficient : 20.0-29.9 ng/mL Sufficient : 30.0 - 100.0 ng/mL Potential Toxicity : >100.0 ng/mL Performed By: #### V ITD25 #### S [facility] [address] [place] [address], Telephone Encounteron 2023 Traffic Signal Technician Authentication Interface Message Text Patient identified by three identifiers. Patient informed that per Dr. Torres she does not need any further procedures or surgery on Aarti 08/04/24 so that will be cancelled. I also informed her that Dr. Torres does not need to see her on 08/15 for a post op visit so that appointment is cancelled. I informed the patient that she will follow up with Dr. Torres and Dr. Godwin on 08/22. Patient verbalized understanding. ANTONIO NovoaN, RN Normal [facility] BASIC METABOLIC PANELon Anion gap [Moles/Vol] 9 mmol/L Low 10-20 [facility] Comment on above: Performed By: #### Keith Kaplan CH8 #### S PATHOLOG[facility] LABORATORY [address] [place] [address], Calcium [Mass/Vol] 8.3 mg/dL Low 8.6-10.3 [facility] Comment on above: Performed By: #### Keith Kaplan, CH8 #### S [facility] [address] [place] [address], Chloride [Moles/Vol] 103 mmol/L Normal 98-107 [facility] Comment on above: Performed By: #### Keith Kaplan, CH8 #### S [facility] [address] [place] [address], CO2 [Moles/Vol] 29 mmol/L Normal 21-31 [facility] Comment on above: Performed By: #### Keith Kaplan, CH8 #### S PATH[facility] [address] [place] [address], Creatinine [Mass/Vol] 0.39 mg/dL Low 0.60-1.20 [facility] Comment on above: Performed By: #### Keith Kaplan, NATALIYA8 #### S PATHOLOG[facility] LABORATORY [address] [place] [address], ESTIMATED GFR (CKD-EPI) 116 mL/min/1.73sqm Normal >=60 The [facility] Comment on above: Result Comment: 2020 CKD EPI Equation using Creatinine without Race Comment: Estimated glomerular filtration rate (eGFR) is calculated without a race coefficient. Values should be interpreted in the context of the patient's full clinical presentation. Reference: 1. Brayden Mao, Alexandre M, Milli ROBERT, et al.. A Unifying Approach for GFR Estimation: Recommendations of the NKF-ASN Task Force on Reassessing the Inclusion of Race in Diagnosing Kidney Disease. Australian Journal of Kidney Diseases 202;79(2):268-88.e1. 2. N Engl J Med 2020 Vol. 385 Issue 19 Pages 5171-4479 Performed By: #### Keith Kaplan CH8 #### S PATH[facility] [address] [place] [address], Glucose [Mass/Vol] 89 mg/dL Normal 74-109 [facility] Comment on above: Performed By: #### Keith Kaplan CH8 #### S PATH[facility] LAB[facility]ATORY [address] [place] [address], Potassium [Moles/Vol] 3.6 mmol/L Normal 3.5-5.0 [facility] Comment on above: Performed By: ###Nakul Kaplan CH8 #### S PATH[facility] [address] [place] [address], Sodium [Moles/Vol] 137 mmol/L Normal 136-145 [facility] Comment on above: Performed By: #### Keith Kaplan CH8 #### S PATH[facility] [address] [place] [address], Urea nitrogen [Mass/Vol] 10 mg/dL Normal 7-25 [facility] Comment on above: Performed By: #### Keith Kaplan, CH8 #### S [facility] [address] [place] [address], Basic metabolic 2000 panelon 07-30-2024 Anion gap [Moles/Vol] 9 mmol/L Low 10 - 20 [facility] Calcium [Mass/Vol] 8.3 mg/dL Low 8.6 - 10. 3 mg/dL [facility] Chloride [Moles/Vol] 103 mmol/L 98 - 10 7 mmol/L [facility] CO2 [Moles/Vol] 29 mmol/L 21 - 31 mmol/L [facility] Creatinine [Mass/Vol] 0.39 mg/dL Low 0.60 - 1.20 mg/dL [facility] GFR/1.73 sq M.predicted CKD-EPI (S/P/Bld) [Vol rate/Area] 116 - PINF [facility] Comment on above: 2020 CKD EPI Equatio n using Creatinine without Race Comment: Estimated glomerular filtration rate (eGFR) is calculated without a race coefficient. Values should be interpreted in the context of the patient's full clinical presentation. Reference: 1. Brayden C, Alexandre M, Milli DC, et al.. A Unifying Approach for GFR Estimation: Recommendations of the NKF-ASN Task Force on Reassessing the Inclusion of Race in Diagnosing Kidney Disease. Australian Journal of Kidney Diseases 202;79(2):268-88.e1. 2. N Engl J Med 2020 Vol. 385 Issue 19 Pages 5374-4611 Glucose [Mass/Vol] 89 mg/dL 74 - 109 mg/dL [facility] Interpretation and review of laboratory results Abnormal [facility] Potassium [Moles/Vol] 3.6 mmol/L 3.5 - 5.0 mmol/L [facility] Sodium [Moles/Vol] 137 mmol/L 136 - 145 mmol/L [facility] Urea nitrogen [Mass/Vol] 10 mg/dL 7 - 25 mg/dL [facility] CBC panel Auto (Bld)on 07-30 Erythrocyte distribution width (RBC) [Ratio] 16.2 % High 11.5 - 14.5 % [facility] Hematocrit (Bld) [Volume fraction] 27.8 % Low 36.0 - 46.0 % [facility] Hemoglobin (Bld) [Mass/Vol] 9.3 g/dL Low 12.0 - 15.0 g/dL [facility] Interpretation and review of laboratory results Abnormal [facility] MCH (RBC) [Entitic mass] 29.7 pg 26.0 - 34.0 pg [facility] MCHC (RBC) [Mass/Vol] 33.4 g/dL 32.0 - 35.9 g/dL [facility] MCV (RBC) [Entitic vol] 89 fL 80 - 100 fL [facility] Platelet mean volume (Bld) [Entitic vol] 7.1 fL Low 7.5 - 11.2 fL [facility] Platelets (Bld) [#/Vol] 143 10*3/uL Low 150 - 400 K/[facility]L [facility] RBC (Bld) [#/Vol] 3.12 10*6/uL Low [facility] WBC (Bld) [#/Vol] 1.4 10*3/uL Critically low 4.5 - 11 .5 K/uL [facility] COMPLETE BLOOD COUNTon 07-30 Erythrocyte distribution width (RBC) [Ratio] 16.2 % High 11.5-14.5 The [facility] Comment on above: Performed By: #### H GINGER CH8, CA125, FETIBC #### [facility] PATHOLOGY LABORATORY [address] [place] [address], Hematocrit (Bld) [Volume fraction] 27.8 % Low 36.0-46.0 The [facility] Comment on above: Performed By: #### H GINGER CH8, CA125, FETIBC #### [facility] PATHOLOGY LABORATORY [address] [place] [address], Hemoglobin (Bld) [Mass/Vol] 9.3 g/dL Low 12.0-15.0 The [facility] Comment on above: Performed By: #### H GINGER CH8, CA125, FETIBC #### [facility] PATHOLOGY LABORATORY [address] [place] [address], MCH (RBC) [Entitic mass] 29.7 pg Normal 26.0-34.0 The [facility] Comment on above: Performed By: #### H GINGER CH8, CA125, FETIBC #### [facility] PATHOLOGY LABORATORY [address] [place] [address], MCHC (RBC) [Mass/Vol] 33.4 g/dL Normal 32.0-35.9 The [facility] Comment on above: Performed By: #### H GINGER, CH8, CA125, FETIBC #### [facility] PATHOLOGY LABORATORY [address] [place] [address], MCV (RBC) [Entitic vol] 89 fL Normal 80-100 T he [facility] Comment on above: Performed By: #### REDD STEPHENS, CA125, FETIBC #### S PATHOLOGY LABORATORY [address] [place] [address], Platelet mean volume (Bld) [Entitic vol] 7.1 fL Low 7.5-11.2 The [facility] Comment on above: Performed By: #### REDD STEPHENS, CA125, FETIBC #### S PATHOLOGY LABORATORY [address] [place], [place], Platelets (Bld) [#/Vol] 143 10*3/uL Low 150-400 The [facility] Comment on above: Performed By: #### Alex MILES CHAmy, CA125, FETIBC #### S PATHOLOG[facility] LABORATORY [address] [place] [address], RBC (Bld) [#/Vol] 3.12 10*6/uL Low 4.00-5.20 The [facility] Comment on above: Performed By: #### REDD STEPHENS, CA125, FETIBC #### S PATHOLOGY LABORATORY [address] [place] [address], WBC (Bld) [#/Vol] 1.4 10*3/uL Critically low 4.5-11.5 Th e [facility] Comment on above: Performed By: #### REDD STEPHENS, CA125, FETIBC #### S PATHOLOG[facility] LABORATORY [address] [place] [address], MAGNESIUMon 07-30-2024 Interpretation and review of laboratory results Normal [facility] Magnesium [Mass/Vol] 1.9 mg/dL 1.9 - 2 .7 mg/dL [facility] Magnesium [Mass/Vol] 1.9 mg/dL Normal 1.9-2.7 The [facility] Comment on above: Performed By: #### REDD Beyer #### S PATHOLOGY LABORATORY [address] [place] [address], No Panel Informationon 07-30 [facility] 07-30-2024 Traffic Signal Technician Authentication Interface Message Text RADIATION ONCOLOGY END OF TREATMENT SUMMARY Ms. Shetty completed a course of external beam radiotherapy in our department. Her history and radiation treatment is summarized below. 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 s/p 45 Gy /25 fx + weekly cisplatin Joey06/17- 07/23/24 Cancer Staging Malignant neoplasm of overlapping sites of cervix (HCC) Staging form: Cervix Uteri, AJCC 9th Edition - Clinical: FIGO Stage IB (cT1b, cN0, cM0) - Signed by Yakelin Godwin MD on 07/18/2024 Radiation Treatments Active CTV_High Most recent treatment: Dose given: 8 Gy (07/28/2024-07/30/24) Total: Dose given: 24 Gy Elapsed Days: 2 Details of treatment Treatment dates: 07/28-07/30/24 Concurrent systemic Therapy: none Tolerance and Response: Overall, Derek Shetty, who received external beam pelvic radiation with concurrent weekly radiosensitizing cisplatin in [place] completed 07/23/24, received tandem and ring HDR brachy therapy 07/28-07/30/24. She tolerated her radiation treatment well with no unanticipated acute toxicities. She will return in [address] Torres and myself in follow up. Normal [facility] Traffic Signal Technician Authentication Interface Message Text .Patient was identified by name and date of . DIONNA Lira .Patient at risk for falls:Yes Falls Risk protocol implemented: Yes Normal [facility] Anesthesia Postprocedure Toma ortiz 07-29-2024 Traffic Signal Technician Authentication Interface Message Text Anesthesia Postoperative Assessment: Vital Signs (most recent): BP 115/49 (BP Location: left arm) Pulse 67 Temp 36.6 ???C (97.9 ???F) (Oral) Resp 18 SpO2 98% Anesthesia Post Evaluation Level of consciousness: awake and alert Post-procedure exam normal. Body temperature, hydration status, PONV and pain evaluated and addressed. Cardiopulmonary status stable ANESTHESIA NOTABLE EVENTS: No notable events documented. Normal [facility] BASIC METABOLIC PANELon 10-0 Anion gap [Moles/Vol] 12 mmol/L Normal 10-20 [facility] Comment on above: Performed By: #### H EPATIC, CH8, CA125, FETIBC #### [facility] PATHOLOGY LABORATORY [address] [place] [address], Calcium [Mass/Vol] 8.3 mg/dL Low 8.6-10.3 The [facility] Comment on above: Performed By: #### H EPATIC, CH8, CA125, FETIBC #### [facility] PATHOLOGY LAB[facility]ATORY [address] [place] [address], Chloride [Moles/Vol] 102 mmol/L Normal 98-107 The [facility] Comment on above: Performed By: #### H EPATIC, CH8, CA125, FETIBC #### [facility] PATHOLOGY LAB[facility]ATORY [address] [place] [address], CO2 [Moles/Vol] 28 mmol/L Normal 21-31 The [facility] Comment on above: Performed By: #### H EPATIC, CH8, CA125, FETIBC #### [facility] PATHOLOGY [facility]ATORY [address] [place] [address], Creatinine [Mass/Vol] 0.48 mg/dL Low 0.60-1.20 The [facility] Comment on above: Performed By: #### H EPATIC, CH8, CA125, FETIBC #### [facility] PATHOLOG[facility]ATORY [address] [place] [address], ESTIMATED GFR (CKD-EPI) 110 mL/min/1.73sqm Normal >=60 The [facility] Comment on above: Result Comment: 2020 CKD EPI Equation using Creatinine without Race Comment: Estimated glomerular filtration rate (eGFR) is calculated without a race coefficient. Values should be interpreted in the context of the patient's full clinical presentation. Reference: 1. Brayden C, Alexandre M, Milli ROBERT, et al.. A Unifying Approach for GFR Estimation: Recommendations of the NKF-ASN Task Force on Reassessing the Inclusion of Race in Diagnosing Kidney Disease. Australian Journal of Kidney Diseases 2021;79(2):268-88.e1. 2. N Engl J Med 2021 Vol. 385 Issue 19 Pages 7958-8888 Performed By: #### H GINGER, CH8, CA125, FETIBC #### S PATHOLOGY LABORATORY [address] [place] [address], Glucose [Mass/Vol] 85 mg/dL Normal 74-109 The [facility] Comment on above: Performed By: #### H GINGER, CH8, CA125, FETIBC #### S PATHOLOGY LABORATORY [address] [place] [address], Potassium [Moles/Vol] 3.3 mmol/L Low 3.5-5.0 The [facility] Comment on above: Performed By: #### H GINGER CH8, CA125, FETIBC #### [facility] PATH[facility] [address] [place] [address], Sodium [Moles/Vol] 139 mmol/L Normal 136-145 The [facility] Comment on above: Performed By: #### H GINGER CHAmy, CA125, FETIBC #### [facility] PATH[facility]ORY [address] [place] [address], Urea nitrogen [Mass/Vol] 11 mg/dL Normal 7-25 The [facility] Comment on above: Performed By: #### H GINGER, CH8, CA125, FETIBC #### [facility] PATHOLOG[facility]ATORY [address] [place] [address], Basic metabolic 2000 panelon 07-29-2024 Anion gap [Moles/Vol] 12 mmol/L 10 - 20 Met [facility] Calcium [Mass/Vol] 8.3 mg/dL Low 8.6 - 10. 3 mg/dL [facility] Chloride [Moles/Vol] 102 mmol/L 98 - 10 7 mmol/L [facility] CO2 [Moles/Vol] 28 mmol/L 21 - 31 mmol/L [facility] Creatinine [Mass/Vol] 0.48 mg/dL Low 0.60 - 1.20 mg/dL [facility] GFR/1.73 sq M.predicted CKD-EPI (S/P/Bld) [Vol rate/Area] 110 - PINF [facility] Comment on above: 2020 CKD EPI Equatio n using Creatinine without Race Comment: Estimated glomerular filtration rate (eGFR) is calculated without a race coefficient. Values should be interpreted in the context of the patient's full clinical presentation. Reference: 1. Brayden C, Alexandre M, Milli ROBERT, et al.. A Unifying Approach for GFR Estimation: Recommendations of the NKF-ASN Task Force on Reassessing the Inclusion of Race in Diagnosing Kidney Disease. Australian Journal of Kidney Diseases 2021;79(2):268-88.e1. 2. N Engl J Med 1 Vol. 385 Issue 19 Pages 8659-7272 Glucose [Mass/Vol] 85 mg/dL 74 - 109 mg/dL [facility] Potassium [Moles/Vol] 3.3 mmol/L Low 3.5 - 5.0 mmol/L [facility] Sodium [Moles/Vol] 139 mmol/L 136 - 145 mmol/L [facility] Urea nitrogen [Mass/Vol] 11 mg/dL 7 - 25 mg/dL [facility] CBC WITH DIFFERENTIALOrdered By: Morena Sage on 07-29-2024 Erythrocyte distribution width (RBC) [Ratio] 17.5 % High 11.5 - 14.5 % [facility] Hematocrit (Bld) [Volume fraction] 28.4 % Low 36.0 - 46.0 % [facility] Hemoglobin (Bld) [Mass/Vol] 9.3 g/dL Low 12.0 - 15.0 g/dL [facility] MCH (RBC) [Entitic mass] 29.6 pg 26.0 - 34.0 pg [facility] MCHC (RBC) [Mass/Vol] 32.8 g/dL 32.0 - 35.9 g/dL [facility] MCV (RBC) [Entitic vol] 90 fL 80 - 100 fL [facility] Platelet mean volume (Bld) [Entitic vol] 7.5 fL 7.5 - 11.2 fL [facility] Platelets (Bld) [#/Vol] 129 10*3/uL Low 150 - 400 K/uL [facility] RBC (Bld) [#/Vol] 3.15 10*6/uL Low [facility] WBC (Bld) [#/Vol] 1.4 10*3/uL Critically low 4.5 - 11 .5 K/uL [facility] CBC WITH DIFFERENTIALon Erythrocyte distribution width (RBC) [Ratio] 17.5 % High 11.5-14.5 The [facility] Comment on above: Performed By: #### CLARENCE HENDRICKS MDIFF ####[facility] [id number] [place], [place], Hematocrit (Bld) [Volume fraction] 28.4 % Low 36.0-46.0 [facility] Comment on above: Performed By: #### CLARENCE HENDRICKS MDIFF ####[facility] [id number] [place], [place], MCH (RBC) [Entitic mass] 29.6 pg Normal 26.0-34.0 [facility] Comment on above: Performed By: #### CLARENCE HENDRICKS MDIFF ####[facility] [id number] [place], [place], MCHC (RBC) [Mass/Vol] 32.8 g/dL Normal 32.0-35.9 [facility] Comment on above: Performed By: #### CLARENCE HENDRICKS MDIFF ####[facility] [id number] [place], [place], MCV (RBC) [Entitic vol] 90 fL Normal 80-100 T [facility] Comment on above: Performed By: #### CLARENCE HENDRICKS MDIFF ####[facility] [id number] [place], [place], Platelet mean volume (Bld) [Entitic vol] 7.5 fL Normal 7.5-11.2 The [facility] Comment on above: Performed By: #### CLARENCE HENDRICKS MDIFF ####[facility] PATHOLOGY [id number] [place], [place], Platelets (Bld) [#/Vol] 129 10*3/uL Low 150-400 The [facility] Comment on above: Performed By: #### CLARENCE HENDRICKS MDIFF ####S PATHOLOGY [id number] [place], [place], CBC panel Auto (Bld)Ordered By: Judi Virgen on 10-01-2024 Erythrocyte distribution width (RBC) [Ratio] 15.8 % High 11.5 - 14.5 % [facility] Hematocrit (Bld) [Volume fraction] 27.7 % Low 36.0 - 46.0 % [facility] Hemoglobin (Bld) [Mass/Vol] 9.3 g/dL Low 12.0 - 15.0 g/dL [facility] Interpretation and review of laboratory results Abnormal [facility] MCH (RBC) [Entitic mass] 29.5 pg 26.0 - 34.0 pg [facility] MCHC (RBC) [Mass/Vol] 33.5 g/dL 32.0 - 35.9 g/dL [facility] MCV (RBC) [Entitic vol] 88 fL 80 - 100 fL [facility] Platelet mean volume (Bld) [Entitic vol] 6.7 fL Low 7.5 - 11.2 fL [facility] Platelets (Bld) [#/Vol] 131 10*3/uL Low 150 - 400 K/uL [facility] RBC (Bld) [#/Vol] 3.15 10*6/uL Low [facility] WBC (Bld) [#/Vol] 1.4 10*3/uL Critically low 4.5 - 11 .5 K/uL [facility] COMPLETE BLOOD COUNTon 07-29 Erythrocyte distribution width (RBC) [Ratio] 15.8 % High 11.5-14.5 The [facility] Comment on above: Performed By: #### CLARENCE HENDRICKS MDIFF #### [facility] [address] [place], [place], Hematocrit (Bld) [Volume fraction] 27.7 % Low 36.0-46.0 The [facility] Comment on above: Performed By: #### CLARENCE HENDRICKS MDIFF #### [facility] [address] [place], [place], Hemoglobin (Bld) [Mass/Vol] 9.3 g/dL Low 12.0-15.0 The [facility] Comment on above: Performed By: #### CLARENCE HENDRICKS MDIFF #### [facility] [address] [place], [place], Performed By: #### CLARENCE HENDRICKS MDIFF ####[facility] [id number] [place], [place], MCH (RBC) [Entitic mass] 29.5 pg Normal 26.0-34.0 The [facility] Comment on above: Performed By: #### CLARENCE HENDRICKS MDIFF #### [facility] [address] [place], [place], MCHC (RBC) [Mass/Vol] 33.5 g/dL Normal 32.0-35.9 The [facility] Comment on above: Performed By: #### CLARENCE HENDRICKS MDIFF #### [facility] [address] [place], [place], MCV (RBC) [Entitic vol] 88 fL Normal 80-100 T [facility] Comment on above: Performed By: #### CLARENCE HENDRICKS MDIFF #### [facility] [address] [place], [place], Platelet mean volume (Bld) [Entitic vol] 6.7 fL Low 7.5-11.2 The [facility] Comment on above: Performed By: #### CLARENCE HENDRICKS MDIFF #### [facility] PATHOLOG[facility] LAB[facility]ATORY [address] [place], [place], Platelets (Bld) [#/Vol] 131 10*3/uL Low 150-400 The [facility] Comment on above: Performed By: #### CLARENCE HENDRICKS MDIFF #### [facility] [address] [place], [place], RBC (Bld) [#/Vol] 3.15 10*6/uL Low 4.00-5.20 The [facility] Comment on above: Performed By: #### CLARENCE HENDRICKS MDIFF #### S PATHOLOGY LABORATORY [address] [place], [place], Performed By: #### CLARENCE HENDRICKS MDIFF ####[facility] [id number] [place], [place], WBC (Bld) [#/Vol] 1.4 10*3/uL Critically low 4.5-11.5 Th e [facility] Comment on above: Performed By: #### C CLARENCE LIAO MDIFF #### [facility] [address] [place], [place], Performed By: #### C CLARENCE LIAO MDIFF ####[facility] [id number] [place], [place], MAGNESIUMon 07-29-2024 Magnesium [Mass/Vol] 1.7 mg/dL Low 1.9 - 2 .7 mg/dL [facility] Magnesium [Mass/Vol] 1.7 mg/dL Low 1.9-2.7 [facility] Comment on above: Performed By: #### H EPATIC, CH8, CA125, FETIBC #### [facility] PATHOLOGY LABORATORY [address] [place], [place], MANUAL DIFF AND MORPHon 10-0 Anisocytosis Ql (Bld) Slight [facility] [place] cells LM Ql (Bld) Few Me [facility] Cells Counted Total (Bld) [#] 100 {cells} [facility] Eosinophils (Bld) [#/Vol] 0.03 10*3/uL 0.00 - 0.70 K/uL [facility] Eosinophils/100 WBC (Bld) 2.0 % 0.1 - 4.0 % [facility] Lymphocytes (Bld) [#/Vol] 0.22 10*3/uL Low 1.00 - 4.80 K/uL [facility] Lymphocytes/100 WBC (Bld) 16.0 % Low 24.0 - 44.0 % [facility] Monocytes (Bld) [#/Vol] 0.11 10*3/uL Low 0.20 - 1.00 K/uL [facility] Monocytes/100 WBC (Bld) 8.0 % 2.0 - 11.0 % [facility] Neutrophils (Bld) [#/Vol] 1.04 10*3/uL Low 1.50 - 8.00 K/uL [facility] Neutrophils/100 WBC (Bld) 74.0 % 31.0 - 76.0 % [facility] Ovalocytes LM Ql (Bld) Few Me [facility] Polychromasia LM Ql (Bld) Slight [facility] ANISOCYTOSIS Slight Normal The [facility] Comment on above: Performed By: #### CLARENCE HENDRICKS MDIFF ####S PATHOLOGY [id number] [place], [place], JAY CELLS Few Normal The [facility] Comment on above: Performed By: #### CLARENCE HENDRICKS MDIFF ####[facility] [id number] [place], [place], CELLS COUNTED TOTAL # IN BLOOD 100 Normal The [facility] Comment on above: Performed By: #### CLARENCE HENDRICKS MDIFF ####[facility] [id number] [place], [place], EOSINOPHILS % BY MANUAL COUNT 2.0 % Normal 0.1-4.0 The [facility] Comment on above: Performed By: #### CLARENCE HENDRICKS MDIFF ####S PATHOLOGY [id number] [place], EOSINOPHILS ABS BY MANUAL COUNT 0.03 K/uL Normal 0.00-0.70 The [facility] Comment on above: Performed By: #### CLARENCE HENDRICKS MDIFF ####S PATHOLOGY [id number] [place], [place], LYMPHOCYTES % BY MANUAL COUNT 16.0 % Low 24.0-44.0 The [facility] Comment on above: Performed By: #### CLARENCE HENDRICKS MDIFF ####S PATHOLOGY [id number] [place], LYMPHOCYTES ABS BY MANUAL COUNT 0.22 K/uL Low 1.00-4.80 The [facility] Comment on above: Performed By: #### CLARENCE HENDRICKS MDIFF ####S PATHOLOGY [id number] [place], [place], MONOCYTES % BY MANUAL COUNT 8.0 % Normal 2.0-11.0 The [facility] Comment on above: Performed By: #### CLARENCE HENDRICKS MDIFF ####[facility] [id number] [place], MONOCYTES ABS BY MANUAL COUNT 0.11 K/uL Low 0.20-1.00 The [facility] Comment on above: Performed By: #### CLARENCE HENDRICKS MDIFF ####S PATHOLOGY [id number] [place], NEUTROPHILS % BY MANUAL COUNT 74.0 % Normal 31.0-76.0 The [facility] Comment on above: Performed By: #### CLARENCE HENDRICKS MDIFF ####S PATHOLOGY [id number] [place], NEUTROPHILS ABS BY MANUAL COUNT 1.04 K/uL Low 1.50-8.00 The [facility] Comment on above: Performed By: #### CLARENCE HENDRICKS MDIFF ####S PATHOLOGY [id number] [place], [place], OVALOCYTES Few Normal The [facility] Comment on above: Performed By: #### CLARENCE HENDRICKS MDIFF ####S PATHOLOGY [id number] [place], [place], POLYCHROMASIA Slight Normal The [facility] Comment on above: Performed By: #### CLARENCE HENDRICKS MDIFF ####[facility] PATHOLOGY [id number] [place], [place], No Panel InformationOrdered By: Morena Sage on 07-29-2024 Interpretation and review of laboratory results Abnormal [facility] No Panel Informationon 07-29 Interpretation and review of laboratory results Abnormal [facility] PATHOLOGY REVIEWOrdered By: Minesh Flanagan on 07-29-2024 Pathologist Slide Review Pancytopenia present including mild neutropenia, moderate normochromic, normocytic anemia, and mild thrombocytopenia. No blast cells, significant schistocytes, or platelet clumps seen. Findings may be secondary to the patient's underlying disease process/treatment. That{img} Work Phone: . I certify that I personally conducted the diagnostic evaluation of the above specimen(s) and have rendered the final diagnosis(es). [facility] Work Phone: [facility] Work Phone: PATHOLOGY REVIEWon PATHOLOGIST SLIDE REVIEW Pancytopenia present including mild neutropenia, moderate normochromic, normocytic anemia, and mild thrombocytopenia. No blast cells, significant schistocytes, or platelet clumps seen. Findings may be secondary to the patient's underlying disease process/treatment. Normal [facility] Comment on above: Order Comment: Elect ronically Signed Out by Minesh Flanagan MD on 07/29/2024.I certify that I personally conducted the diagnostic evaluation of the above specimen(s) and have rendered the final diagnosis(es). Performed By: #### P R ####[facility] [id number] [place], [address] Progress Noteson 07-29-2024 Traffic Signal Technician Authentication Interface Message Text /DARIUS Ornelas notified of critical wbc value of 1.4. /DARIUS Ornelas read back critical results. New orders not received. Normal [facility] RAD ONC ARIA SESSION SUMMARY on 07-29-2024 Course Elapsed Days 1 [facility] Course First Treatment Date 07/28/2024 12:40 PM [facility] Course ID 2 [facility] Course Intent Curative [facility] Course Last Treatment Date 07/29/2024 12:06 PM [facility] Course Start Date 06/26/2024 3:39 PM [facility] Plan Fractions Treated to Date 1 [facility] Plan Fractions Treated Today 2 [facility] Plan ID TR [id number] [facility] Plan Name Plan_Brachy boost_HR CTV [facility] Plan Prescribed Dose Per Fraction 8 Gy [facility] Plan Primary Reference Point TR Fx2 [facility] Plan Total Fractions Prescribed 1 [facility] Plan Total Prescribed Dose 800 cGy [facility] Reference Point Dosage Given to Date 7.047 Gy [facility] Reference Point Dosage Given to Date 7.411 Gy [facility] Reference Point Dosage Given to Date 8 Gy [facility] Reference [facility] ID [id number] [facility] ID AR2 [facility] Reference Point ID TR Fx2 [facility] Reference Point Session Dosage Given 7.047 Gy [facility] Reference Point Session Dosage Given 7.411 Gy [facility] Reference Point Session Dosage Given 8 Gy [facility] Session Number 2 [facility] An[facility] Preprocedure Eval uationon 07-28-2024 Traffic Signal Technician Authentication Interface Message Text ASA: 3 Past Medical History and Review of Systems Pulmonary Dental Endo Neuro/Psych Cardiovascular GI/Hepatic/Renal Heme/Other Physical Exam Airway Mallampati: II Dental Pulmonary Cardiovascular Neuro Plan Anesthesia plan: MAC; (NC) Anesthesia risks / alternatives discussed pre-op Past medical history, surgical history, allergies, and medications reviewed Attestation: Anesthesia options were discussed with the patient and/or legal shared services representative. The risks, benefits and alternatives were reviewed. Questions regarding anesthesia were answered. Patient and/or legal shared services representative knows such anesthetics and procedures may be performed by Resident physicians, Certified Anesthesiologist Assistants, or Certified Nurse Anesthetists under the supervision of a physician. The patient /or the patient's legal shared services representative agree with the plan for anesthesia. MHPATFORM Normal [facility] Traffic Signal Technician Authentication Interface Message Text Patient taken to PACU. Patient was awake, comfortable, and stable on arrival. Anesthesia Transfer of Care Note Past Medical History: Past Medical History: Diagnosis Date Abnormal Pap smear of cervix Vaginal bleeding Sleep Apnea/Positive STOP-BANG: No Problem List: Patient Active Problem List: Malignant neoplasm of overlapping sites of cervix (HCC) [C53.8] Past Surgical History: Review of patient's past surgical history indicates: EXCISION, LIPOMA Right Shoulder DENTAL SURGERY Mcdavid Teeth Removal COLONOSCOPY (02/2024) Allergies: Patient has no known allergies. Basic Operating Room Facts: Surgeon(s): Bethany Torres MD Anesthesiologist: Silvano Fabian MD CAA: Molly Torres CAA EXAM UNDER ANESTHESIA, PLACEMENT OF BRACHYTHERAPY DEVICE FOR CERVICAL CANCER TREATMENT, under ultrasound guidance (Vagina) Intraoperative Events: No acute event ASA: 3 EBL: 10 mL Urine 10 mL Lactated Ringers and NaCl 0.9%: Fluid Totals (Filter: LR and NaCl 0.9% Medications Shown) Medication Calculated Total Lactated Ringers 600 mL / 1 bag Cell Saver: Not documented Blood Volume Values: Blood Products None MTP Blood: MTP PRBC: Not documented MTP FFP: Not documented MTP PLT: Not documented MTP Cryo: Not documented MTP Whole Blood: Not documented Current Vasoactive Medications: {Vasoactive Medications: None Lines, Drains, Airways Peripheral IV Access: Left (Active) Peripheral IV Access: 07/28/24 0704 20 gauge Anterior;Proximal;Righ t Forearm (Active) Site Assessment WNL 07/28/24703 Infusion Status Port #1 Patent 07/28/24703 Airway Insertion Details [REMOVED] Advanced Airway: LMA #3 (Removed) 07/28/24 0746 Pre-Oxygenation/ Induction: Mask Rapid Sequence Induction?: Mask Ventilation: Easy Blade Type: Blade Size: Visualization: Airway Type: LMA Airway Size: #3 Post Insertion Assessment: Confirmation: Equal bilateral breath sounds, CO2 confirmed # Attempts >1: Special Equipment: Present on Admission?: Previously Removed / Not Present: Removal Reason: Not Removed at Discharge: Removed 07/28/24822 Measured from: Lips 07/28/24745 Secured via: Taped 07/28/24745 All non-working IVs have been removed: N/A Laboratory Data: CBC (last 3 years, up to 8 values) 07/18/2024 05/02/2024 12:14 PM 9:32 AM WBC 3.3 7.3 RBC 4.11 4.99 Hgb 12.2 14.0 Hct 36.9 43.6 MCV 90 87 RDW 14.5 13.6 Plt 154 316 BMP (last 3 years, up to 8 values) 07/18/2024 05/02/2024 12:14 PM 9:32 AM Na 137 139 K 4.0 4.4 Cl 101 105 CO2 30 25 Gap 10 13 Glu 103 85 BUN 13 17 Cr 0.60 0.72 Ca 9.8 10.0 eGFR 105 98 Basic Metabolic Panel No lab values to display. No results found for: INR No result for BNP LFT's (last 3 years, up to 8 values) No lab values to display. Arterial Blood Gases None Hand off Completed: Yes 1. The patient was identified. 2. Pertinent medical history was relayed. 3. A brief discussion was had about any pertinent surgical/ procedural issues. 4. Intraoperative/ anesthetic management issue and concerns were discussed. 5. Plans for the early post-operative period relayed. 6. An opportunity for questions and acknowledgment of understanding of the report was received. SALOMÓN Mobley The That{img} System Brief Operative Noteon 07-28 Traffic Signal Technician Authentication Interface Message Text Brief Operative Note MAIN OR 03 Derek Shetty 59 year old female Surgical Contact Serial Number: [id number] Preoperative Diagnosis: Pre-op Diagnosis * Malignant neoplasm of overlapping sites of cervix (HCC) [C53.8] Postoperative Diagnosis: * Malignant neoplasm of overlapping sites of cervix (HCC) [C53.8] Procedures: Exam under anesthesia Placement of brachytherapy device under ultrasound guidance Surgeon(s): Surgeon(s): Bethany Torres MD Staff: Scrub: Naila Sky, MAGDI Bank Vault Clerk Nurse: Ariela Neely RN Aviation Project Manager: Margarita Ornelas MD Anesthesia: General Anesthesiologist: Silvano Fabian MD CAA: Molly Torres CAA Specimen(s): * No specimens in log * Estimated Blood Loss: 10cc UOP 10cc IVF 600cc Lines/Drains: Peripheral IV Access: Left (Active) Peripheral IV Access: 07/28/24703 20 gauge Anterior;Proximal;Righ t Forearm (Active) Site Assessment WNL 07/28/24703 Infusion Status Port #1 Patent 07/28/24703 Temporarily Retained Foreign Object: Yes Location: vagina Object: Tandem and ring brachytherapy device Anticipated removal date: 07/30 Findings: Atrophic EFG, 3cm pedunculated skin tag on R perineum, significant scarring of vaginal canal and cervix, correct placement of T AND R device confirmed with transabdominal ultrasound Complications: None Status at end of surgery: Stable Activity: bedrest Surgical wound class: Yes, wound was clean contaminated. Patient Class: Planned Extended Recovery. Is this a patient scheduled as an outpatient that needs to be admitted as an inpatient? Yes, Clinical indication for admission: Other: radiation oncology treatment for three days Dr. Torres was present in the OR for the critical portion of the procedure and procedure sign-out. Signed by Margarita Ornelas MD 07/28/2024 8:18 AM GYNECOLOGIC ONCOLOGY - ATTENDING ADDENDUM I have reviewed the resident's documentation. Please refer to my dictated operative note for full details of the surgery. BETHANY TORRES MD FACOG [facility] - Gynecologic Oncology Office Pager: [phone] Normal The [facility] Interval H AND P Noteon 07-01 Traffic Signal Technician Authentication Interface Message Text H AND P updated. The patient was examined and there are no findings. Medications, allergies, and pertinent laboratory and diagnostic tests were also reviewed at this time. Surgery still indicated. Vitals: 07/28/24 0624 BP: 121/82 Pulse: 84 Resp: 16 Temp: 97.5 ???F (36.4 ???C) SpO2: 100% NAD RRR Warm well perfused Abd soft nontender Pelvic deferred Charlene Ornelas MD, MEd CLIP LOADING MACHINE FEEDER PGY4 Normal The That{img} System Traffic Signal Technician Authentication Interface Message Text H AND P reviewed. The patient was examined and there are no changes to the H AND P. Medications, allergies, and pertinent laboratory and diagnostic tests were also reviewed at this time. Surgery still indicated. Charlene Ornelas MD, MEd CLIP LOADING MACHINE FEEDER PGY4 GYNECOLOGIC ONCOLOGY - ATTENDING ADDENDUM I personally saw and evaluated the patient in the pre-operative holding area prior to the surgery. We reviewed the plan for the surgery and reviewed the consent form. I reviewed all relevant laboratory and imaging studies. All of the patient's questions were answered. BETHANY TORRES MD [facility] - Gynecologic Oncology Office Pager: [phone] Normal The That{img} System Laboratory - Blood bankon ABO and Rh group Nom (Bld) Blood group O Rh(D) positive [facility] Note[facility] 07-28-2024 Traffic Signal Technician Authentication Interface Message Text GYNECOLOGIC ONCOLOGY - OPERATIVE REPORT - DR. RHETT VILLAFUERTE OR 03 Derek Shetty 59 year old female Surgical Contact Serial Number: [id number] DATE OF PROCEDURE: July 28, 2024 PROCEDURE: EXAMINATION UNDER ANESTHESIA. ULTRASOUND-GUIDED DILATION OF CERVIX AND PLACEMENT OF TANDEM AND RING BRACHYTHERAPY DEVICE PRE-OPERATIVE DIAGNOSIS: Locally Advanced Cervical Cancer, Need for Brachytherapy POST-OPERATIVE DIAGNOSIS: Same SURGEON: Dr. Bethany Torres MD [facility] RADIATION ONCOLOGIST: Dr. Yakelin Godwin MD FORTUNE COOKIE MAKER: Dr. Charlene Orenlas, PGY4 ANESTHESIA: General LMA Anesthesia. Dr. Silvano Fabian MD EBL: 10CC FLUIDS: 600CC of LR URINE OUTPUT: 10CC DRAINS/CATHETERS/IMPLA NTS: Floyd Catheter to [place], Tandem and Ring Brachytherapy Device, Vaginal Packing COMPLICATIONS: None INDICATIONS FOR THE PROCEDURE: The patient is a 59 year old with locally advanced cervical cancer. She was treated with primary chemoradiation at an outside hospital. She was referred back to [facility] for Brachytherapy treatment. INTRA-OPERATIVE FINDINGS: The patient had normal external genitalia. No palpable groin adenopathy. 3cm polypoid lesion right posterior vulva / upper buttock. Extensive scarring of the vagina. No normal cervix - it was quite scarred. Difficult to visualize the anatomy with a speculum in place due to how small the vagina was. Uterus sounded to 6.5cm. We confirmed adequate dilation and placement of the device with the Ultrasound. SURGEON'S NARRATIVE: After the risks, benefits, and alternatives were discussed with the patient, informed consent was signed. She was brought to the operating room, where general anesthesia was induced and found to be adequate. Bilateral sequential compression devices were placed on the lower extremities. She received a dose of prophylactic antibiotics. She was placed in dorsal lithotomy position. I performed an examination under anesthesia, with the above dictated findings noted. She was prepared and draped in the usual sterile fashion. A floyd catheter was placed sterilely. A speculum was placed inside the vagina. The cervix was grasped with a tenaculum. The bladder was backfilled with 200CC of Sterile Water. Under ultrasound guidance, the cervix was dilated and sounded. The brachytherapy device was placed and adequate position confirmed on ultrasound. The tenaculum and speculum were removed. The bladder was drained. Vaginal packing was placed. This concluded the procedure. The patient was awoken from anesthesia and taken to the recovery room in good condition. All counts were correct x 2. I was present for the entire procedure. BETHANY TORRES MD FACOG [facility] - Gynecologic Oncology Office Pager: [phone] Normal The [facility] Progress Noteson 07-28-2024 Traffic Signal Technician Authentication Interface Message Text GYNECOLOGY ONCOLOGY POST-OP CHECK 07/28/2024 5:19 PM SUBJECTIVE: Patient reports adequate pain control with current regimen. Denies nausea, CP/SOB, fevers/chills. Voiding via floyd. OBJECTIVE: BP 119/65 (BP Location: left arm) Pulse 72 Temp 98.8 ???F (37.1 ???C) (Oral) Resp 18 SpO2 96% Vitals Recorded in This Encounter 07/28/2024 0903 07/28/2024 0926 07/28/2024 1330 07/28/2024 1400 07/28/2024 1622 BP: -- -- -- 119/63 119/65 Pulse: 67 -- -- 56 72 Resp: 15 18 16 14 18 Temp: -- -- -- 97.8 ???F (36.6 ???C) 98.8 ???F (37.1 ???C) Temp src: -- -- -- Oral Oral SpO2: 96 % 99 % 97 % 97 % 96 % Pain Score: -- 5 5 -- -- Intake/Output Summary (Last 24 hours) at 07/28/2024 1719 Last data filed at 07/28/2024 0829 Gross per 24 hour Intake 650 ml Output 20 ml Net 630 ml UOP: not documented since OOR General appearance: healthy, alert, no distress Lungs: nonlabored breathing on room air Heart: Regular rate and rhythm to palpation Abdomen: soft, nontender, nondistended Extremities: wwp, no edema Floyd with clear yellow urine ASSESSMENT/PLAN: 59 year old on POD #0 s/p tandem and ring device placement for stage 1B cervical cancer. 1) Routine post-op: -- afebrile, VSS -- chaz tylenol/toradol, dilaudid ASSISTANT PRODUCER -- ADAT -- Floyd in place, T AND R in place -- Antiemetics PRN. Imodium scheduled -- head of bed less than 30 degrees at all times 3) DVT prophylaxis: SCDs, lovenox Discharge following completion of brachytherapy treatments Charlene Ornelas MD, MEd CLIP LOADING MACHINE FEEDER PGY4 Normal The That{img} System TYPE AND SCREENon 07-28-2024 Blood group antibody screen Ql Negative [email or web address] ABO and Rh group Nom (Bld) Blood group O Rh(D) positive Normal The That{img} System Comment on above: Performed By: #### T S ####[facility] [address] [place], [address] ABSC INT Negative Normal The That{img} System Comment on above: Performed By: #### T S ####[facility] [id number] [place], [address] Basic Metabolic Profile (BMP )on 07-23-2024 BUN Normal 7-18 [facility] Comment on above: Result Comment: PER ROSITA PER DEBBIE H NOT NEEDED TODAY. Performed By: #### L 100.0100, L500.2500 ####[facility] [address] [place], [address] BUN/CRE Normal 10-20 [facility] Comment on above: Result Comment: PER ROSITA PER DEBBIE H NOT NEEDED TODAY. Performed By: #### L 100.0100, L500.2500 ####[facility] [address] [place], [address] CA,Total Normal 8.5-10.1 [facility] Comment on above: Result Comment: PER ROSITA PER DEBBIE H NOT NEEDED TODAY. Performed By: #### L 100.0100, L500.2500 ####[facility] [address] [place], [address] CL Normal 98-107 [facility] Comment on above: Result Comment: PER ROSITA PER DEBBIE H NOT NEEDED TODAY. Performed By: #### L 100.0100, L500.2500 ####[facility] [address] [place], [address] CO2 Normal 21.0-32.0 [facility] Comment on above: Result Comment: PER ROSITA PER DEBBIE H NOT NEEDED TODAY. Performed By: #### L 100.0100, L500.2500 ####[facility] [address] [place], [address] CREAT,SERUM Normal 0.55-1.02 [facility] Comment on above: Result Comment: PER ROSITA PER DEBBIE H NOT NEEDED TODAY. Performed By: #### L 100.0100, L500.2500 ####[facility] [address] [place], [address] EST GFR Normal >60 [facility] Comment on above: Result Comment: PER ROSITA PER DEBBIE H NOT NEEDED TODAY. Performed By: #### L 100.0100, L500.2500 ####[facility] [address] [place], [address] EST GFR - AA Normal >60 [facility] Comment on above: Result Comment: PER ROSITA PER DEBBIE H NOT NEEDED TODAY. Performed By: #### L 100.0100, L500.2500 ####[facility] [address] [place], [address] GAP Normal 5-15 [facility] Comment on above: Result Comment: PER ROSITA PER DEBIBE H NOT NEEDED TODAY. Performed By: #### L 100.0100, L500.2500 ####[facility] [address] [place], [address] GLU Normal 74-106 [facility] Comment on above: Result Comment: PER ROSITA PER DEBBIE H NOT NEEDED TODAY. Performed By: #### L 100.0100, L500.2500 ####[facility] [address] [place], [address] Potassium Normal 3.5-5.1 [facility] Comment on above: Result Comment: PER ROSITA PER DEBBIE H NOT NEEDED TODAY. Performed By: #### L 100.0100, L500.2500 ####[facility] [address] [place], [address] Basic Metabolic Profile (BMP) Normal 136-145 [facility] Comment on above: Result Comment: PER ROSITA PER DEBBIE H NOT NEEDED TODAY. Performed By: #### L 100.0100, L500.2500 ####[facility] [address] [place], [address] CBC W/Diff, Automatedon 09-2 Absolute Neut Normal 2.0-7.7 [facility] Comment on above: Result Comment: PER ROSITA PER DEBBIE H NOT NEEDED TODAY. Performed By: #### L 100.0100, L500.2500 ####[facility] [address] [place], [address] HCT Normal 37-47 [facility] Comment on above: Result Comment: PER ROSITA PER DEBBIE H NOT NEEDED TODAY. Performed By: #### L 100.0100, L500.2500 ####[facility] [address] [place], [address] HGB Normal 12.0-15.0 [facility] Comment on above: Result Comment: PER ROSITA PER DEBBIE H NOT NEEDED TODAY. Performed By: #### L 100.0100, L500.2500 ####[facility] [address] [place], [address] MCH Normal 27.0-32.0 [facility] Comment on above: Result Comment: PER ROSITA PER DEBBIE H NOT NEEDED TODAY. Performed By: #### L 100.0100, L500.2500 ####[facility] [address] [place], [address] MCHC Normal 32-36 [facility] Comment on above: Result Comment: PER ROSITA PER DEBBIE H NOT NEEDED TODAY. Performed By: #### L 100.0100, L500.2500 ####[facility] [address] [place], [address] MCV Normal 81-99 [facility] Comment on above: Result Comment: PER ROSITA PER DEBBIE H NOT NEEDED TODAY. Performed By: #### L 100.0100, L500.2500 ####[facility] [address] [place], [address] NEUT% Normal 47-70 [facility] Comment on above: Result Comment: PER ROSITA PER DEBBIE H NOT NEEDED TODAY. Performed By: #### L 100.0100, L500.2500 ####[facility] [address] [place], [address] PLT Normal 150-450 [facility] Comment on above: Result Comment: PER ROSITA PER DEBBIE H NOT NEEDED TODAY. Performed By: #### L 100.0100, L500.2500 ####[facility] [address] [place], [address] RBC Normal 4.2-5.4 [facility] Comment on above: Result Comment: PER ROSITA PER DEBBIE H NOT NEEDED TODAY. Performed By: #### L 100.0100, L500.2500 ####[facility] [address] [place], [address] RDW CV Normal 11.6-14.6 [facility] Comment on above: Result Comment: PER ROSITA PER DEBBIE H NOT NEEDED TODAY. Performed By: #### L 100.0100, L500.2500 ####[facility] [address] [place], [address] RDW SD Normal 35.1-43.9 [facility] Comment on above: Result Comment: PER ROSITA PER DEBBIE H NOT NEEDED TODAY. Performed By: #### L 100.0100, L500.2500 ####[facility] [address] [place], [address] WBC Normal 4.4-11.0 [facility] Comment on above: Result Comment: PER ROSITA PER DEBBIE H NOT NEEDED TODAY. Performed By: #### L 100.0100, L500.2500 ####[facility] [address] [place], [address] Radiation Oncology Visiton 0 07-23-2024 Radiation Oncology Visit Normal [facility] Radiation Oncology Visit Normal [facility] CBC W/Diff, Automatedon - PATH REV Reviewed Normal [facility] Comment on above: Result Comment: Panc ytopenia.Leukopenia.Normocytic anemia.Mild Thrombocytopenia.Clinical correlation necessary.Helder Carrizales M.D. 07/22/24 AMENDED REPORT 07/22/24 1138 PATH REV previously reported as: February Performed By: #### L 500.4050, L100.0100, L501.5200 ####[facility] [address] [place], [address] Basic Metabolic Profile (BMP )on 07-21-2024 BUN Normal 7-18 [facility] Comment on above: Result Comment: DUPL ICATED ORDER CMP IN TX PLAN Performed By: #### L 500.2500 ####[facility] [address] [place], [address] BUN/CRE Normal 10-20 [facility] Comment on above: Result Comment: DUPL ICATED ORDER CMP IN TX PLAN Performed By: #### L 500.2500 ####[facility] [address] [place], [address] CA,Total Normal 8.5-10.1 [facility] Comment on above: Result Comment: DUPL ICATED ORDER CMP IN TX PLAN Performed By: #### L 500.2500 ####[facility] [address] [place], [address] CL Normal 98-107 [facility] Comment on above: Result Comment: DUPL ICATED ORDER CMP IN [place] PLAN Performed By: #### L 500.2500 ####[facility] [address] [place], [address] CO2 Normal 21.0-32.0 [facility] Comment on above: Result Comment: DUPL ICATED ORDER CMP IN [place] PLAN Performed By: #### L 500.2500 ####[facility] [address] [place], [address] CREAT,SERUM Normal 0.55-1.02 [facility] Comment on above: Result Comment: DUPL ICATED ORDER CMP IN [place] PLAN Performed By: #### L 500.2500 ####[facility] [address] [place], [address] EST GFR Normal >60 [facility] Comment on above: Result Comment: DUPL ICATED ORDER CMP IN [place] PLAN Performed By: #### L 500.2500 ####[facility] [address] [place], [address] EST GFR - AA Normal >60 [facility] Comment on above: Result Comment: DUPL ICATED ORDER CMP IN [place] PLAN Performed By: #### L 500.2500 ####[facility] [address] [place], [address] GAP Normal 5-15 [facility] Comment on above: Result Comment: DUPL ICATED ORDER CMP IN [place] PLAN Performed By: #### L 500.2500 ####[facility] [address] [place], [address] GLU Normal 74-106 [facility] Comment on above: Result Comment: DUPL ICATED ORDER CMP IN [place] PLAN Performed By: #### L 500.2500 ####[facility] [address] [place], [address] Potassium Normal 3.5-5.1 [facility] Comment on above: Result Comment: DUPL ICATED ORDER CMP IN [place] PLAN Performed By: #### L 500.2500 ####[facility] [address] [place], [address] Basic Metabolic Profile (BMP) Normal 136-145 [facility] Comment on above: Result Comment: DUPL ICATED ORDER CMP IN [place] PLAN Performed By: #### L 500.2500 ####[facility] [address] [place], [address] Comprehensive Metabolic Prof dereck 07-21-2024 Albumin [Mass/Vol] 3.5 g/dL Normal 3.2-5.0 [facility] Comment on above: Performed By: #### L 500.4050, L100.0100, L501.5200 ####[facility] [address] [place], [address] Albumin/Globulin [Mass ratio] 1.0 {ratio} Normal 0.9-2.4 [facility] Comment on above: Performed By: #### L 500.4050, L100.0100, L501.5200 ####[facility] [address] [place], [address] ALK P 118 U/L High 45-117 [facility] Comment on above: Performed By: #### L 500.4050, L100.0100, L501.5200 ####[facility] [address] [place], [address] ALT [Catalytic activity/Vol] 27 U/L Normal 13-56 [facility] Comment on above: Performed By: #### L 500.4050, L100.0100, L501.5200 ####[facility] [address] [place], [address] AST [Catalytic activity/Vol] 19 U/L Normal 15-37 [facility] Comment on above: Performed By: #### L 500.4050, L100.0100, L501.5200 ####[facility] [address] [place], [address] Bilirubin [Mass/Vol] 0.20 mg/dL Normal 0.20-1.00 [facility] Comment on above: Result Comment: For patients on eltrombopag therapy, use of Dimension Hassell TBIL is not recommended. Performed By: #### L 500.4050, L100.0100, L501.5200 ####[facility] [address] [place], [address] BUN/CRE 21.5 RATIO High 10-20 [facility] Comment on above: Performed By: #### L 500.4050, L100.0100, L501.5200 ####[facility] [address] [place], [address] CA,Total 9.4 mg/dL Normal 8.5-10.1 [facility] Comment on above: Performed By: #### L 500.4050, L100.0100, L501.5200 ####[facility] [address] [place], [address] Chloride [Moles/Vol] 107 mmol/L Normal 98-107 [facility] Comment on above: Performed By: #### L 500.4050, L100.0100, L501.5200 ####[facility] [address] [place], [address] CO2 [Moles/Vol] 23.0 mmol/L Normal 21.0-32.0 [facility] Comment on above: Performed By: #### L 500.4050, L100.0100, L501.5200 ####[facility] [address] [place], [address] Creatinine [Mass/Vol] 0.65 mg/dL Normal 0.55-1.02 [facility] Comment on above: Result Comment: The validity of the calculated GFR GFRAA in patients over70 years has not been determined. Clinical correlation isessential. Performed By: #### L 500.4050, L100.0100, L501.5200 ####[facility] [address] [place], [address] ECRCL 92.86 ml/min Normal [facility] Comment on above: Performed By: #### L 500.4050, L100.0100, L501.5200 ####[facility] [address] [place], [address] EST GFR - AA 120 mL/min Normal >60 [facility] Comment on above: Result Comment: Afri can Australian GFR Calc Performed By: #### L 500.4050, L100.0100, L501.5200 ####[facility] [address] [place], [address] GAP 8 Normal 5-15 [facility] Comment on above: Performed By: #### L 500.4050, L100.0100, L501.5200 ####[facility] [address] [place], [address] GFR/1.73 sq M.predicted among non-blacks MDRD (S/P/Bld) [Vol rate/Area] 100 mL/min/{1.73_m2} Normal >60 [facility] Comment on above: Result Comment: Non- GFR Calc Performed By: #### L 500.4050, L100.0100, L501.5200 ####[facility] [address] [place], [address] Globulin (S) [Mass/Vol] 3.4 g/dL Normal 2.2-4.2 [facility] Comment on above: Performed By: #### L 500.4050, L100.0100, L501.5200 ####[facility] [address] [place], [address] Glucose [Mass/Vol] 99 mg/dL Normal 74-106 [facility] Comment on above: Performed By: #### L 500.4050, L100.0100, L501.5200 ####[facility] [address] [place], [address] Potassium [Moles/Vol] 3.5 mmol/L Normal 3.5-5.1 [facility] Comment on above: Performed By: #### L 500.4050, L100.0100, L501.5200 ####[facility] [address] [place], [address] Sodium [Moles/Vol] 138 mmol/L Normal 136-145 [facility] Comment on above: Performed By: #### L 500.4050, L100.0100, L501.5200 ####[facility] [address] [place], [address] T PROT 6.9 g/dL Normal 6.4-8.2 [facility] Comment on above: Performed By: #### L 500.4050, L100.0100, L501.5200 ####[facility] [address] [place], [address] Urea nitrogen [Mass/Vol] 14 mg/dL Normal 7-18 [facility] Comment on above: Performed By: #### L 500.4050, L100.0100, L501.5200 ####[facility] [address] 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 Ayana Ferris RN 59 year old 145 lbs 5' 7 Date of Surgery: 07-28-2024 AND 08-04-2024 Surgeon: Bethany Torres Type of Surgery: EXAM UNDER ANESTHESIA, PLACEMENT OF BRACHYTHERAPY DEVICE FOR CERVICAL CANCER TREATMENT HISTORY OF PRESENT ILLNESS: PAT telephone evaluation for EXAM UNDER ANESTHESIA, PLACEMENT OF BRACHYTHERAPY DEVICE FOR CERVICAL CANCER TREATMENT STOP-BANG Row Name 07/21/24 1312 History of sleep apnea? No Snoring No Tired/Fatigued No Observed Apnea No Pressure: Hypertension No BMI greater than 35 0 Age greater than 50 1 Neck circ greater than 40cm (15.75) Unable to Assess Gender male? 0 Score 1 EXERCISE CAPACITY: 4-10 mets ALLERGIES: Patient has no known allergies. 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, post-menopausal Comment: Malignant neoplasm of overlapping sites of cervix (HCC) Neuro/Psych - negative ROS Cardiovascular - negative ROS GI/Hepatic/Renal - negative ROS Heme/Other - negative ROS PAST SURGICAL HISTORY: Past Surgical History: Procedure Laterality Date COLONOSCOPY 02/2024 DENTAL SURGERY Mcdavid Teeth Removal EXCISION, LIPOMA Right Right Shoulder SOCIAL HISTORY: Social History Socioeconomic History Marital status: Single Tobacco Use Smoking status: Never Smokeless tobacco: Never Vaping Use Vaping status: Never Used Substance and Sexual Activity Alcohol use: Yes Comment: occassionally Drug use: Never Social History Narrative Lives in [place] lives with her No Pets Occasional/Social EtoH Non-smoker No current or past drug use Works at [employer] ASSESSMENT: Severity: 0 Location: N/A LABORATORY DATA: Type AND Screen (Last result in the past 30 days) 07/18/2024 12:14 PM ABO Rh O Positive Screen Int. Negative CBC (last 3 years, up to 8 values) 07/18/2024 05/02/2024 12:14 PM 9:32 AM WBC 3.3 7.3 RBC 4.11 4.99 Hgb 12.2 14.0 Hct 36.9 43.6 MCV 90 87 RDW 14.5 13.6 Plt 154 316 BMP (last 3 years, up to 8 values) 07/18/2024 05/02/2024 12:14 PM 9:32 AM Na 137 139 K 4.0 4.4 Cl 101 105 CO2 30 25 Gap 10 13 Glu 103 85 BUN 13 17 Cr 0.60 0.72 Ca 9.8 10.0 eGFR 105 98 TESTS REVIEWED: CXRay: No Chest x-ray found EKG: Last ECG Date: Not Found ECHO: Echocardiogram date: Not Found No results found for this basename: LVEF Stress test date: Last StressTest: none found going back to 05/02/2024 CURRENT MEDICATION LIST: Current Outpatient Medications Medication Sig Dispense Refill ibuprofen (MOTRIN) 600 MG tablet Take 600 mg by mouth every 8 hours as needed. Sennosides 15 MG TABS Take 15 mg by mouth daily. No current facility-administered medications for this visit. CURRENT MEDICATIONS: Aspirin: No NSAIDS: Yes Other Antiplatelet Medication: No Anticoagulants: No Steroids: No PATIENT MEDICATION INSTRUCTIONS: On the morning of your surgery, please take only the following medications, with a small sip of water: Do not take any Aspirin within 7 days of surgery. No Fish Oil, Ginseng and Ginko Biloba, No large amounts of Vit E hold 7 days No NSAIDs within 3 days of surgery Hold all supplements morning of procedure DAY OF SURGERY NOTES: Pt can have WATER only ( no additives) up to 2 hours prior to arrival time The patient is to have nothing to eat or any other liquids at least 8 hours prior to surgery arrival time Need to have carry all driver Patients whose assigned sex at was female, and are starting puberty or beyond, will be urine tested for per hospital policy. Post-op Nausea and Vomiting: A risk of anesthesia is nausea and/or vomiting (PONV). Certain patients are at higher risk than others. Talk to your anesthesiologist about the plan to minimize this risk. In general, it is best to start with only ice chips or small sips of water, then progress to clear, non-alcoholic fluids. You do not have to eat if you do not feel like it; fluids are the most important in the first 24 hours after surgery. If you start to eat, try bananas, applesauce, plain toast, saltine crackers, or broth; avoid fried or fatty foods. Make sure to eat something about 15 minutes before taking any pain medications. Seek medical attention for any prolonged PONV and signs of dehydration. Ayana Ferris RN Time Spent Performing this Telephone History: 15 mins Normal The That{img} System Magnesiumon 07-21-2024 Magnesium [Mass/Vol] 1.8 mg/dL Normal 1.6-2.6 [facility] Comment on above: Performed By: #### L 500.4050, L100.0100, L501.5200 ####[facility] [address] [place], [address] Oncology Visit Reporton 06-30 Oncology Visit Report Normal [facility] Pathologist review Claus (Unsp spec) [Interp]Ordered By: Emma Joseph on 07-21-2024 Differential Pathologist's Review Reviewed [facility] Comment on above: Previous reported re sult: Cherelle hi Edited by: GIO on 07/22/24:1138Pancytopenia.Leukopenia.Normocytic anemia.Mild Thrombocytopenia.Clinical correlation necessary.Helder Carrizales M.D. 07/22/24 AMENDED REPORT 07/22/24 1138 PATH REV previously reported as: Cherelle kolton Review by pathologistOrdered By: Emma Joseph on 07-21-2024 Pathologist review Claus (Unsp spec) [Interp] Reviewed [facility] Comment on above: Previous reported re sult: Cherelle hi Edited by: GIO on 07/22/24:1138Pancytopenia.Leukopenia.Normocytic anemia.Mild Thrombocytopenia.Clinical correlation necessary.Helder Carrizales M.D. 07/22/24 AMENDED REPORT 07/22/24 1138 PATH REV previously reported as: Cherelle hi BASIC METABOLIC PANELon 06-30 Anion gap [Moles/Vol] 10 mmol/L Normal 10-20 [facility] Comment on above: Performed By: #### H EPATIC, CH8, CA125, FETIBC #### [facility] [address] [place] [address], Calcium [Mass/Vol] 9.8 mg/dL Normal 8.6-10.3 [facility] Comment on above: Performed By: #### H EPATIC, CH8, CA125, FETIBC #### [facility] [address] [place], [place], Chloride [Moles/Vol] 101 mmol/L Normal 98-107 [facility] Comment on above: Performed By: #### H EPATIC, CH8, CA125, FETIBC #### [facility] [address] [place], [place], CO2 [Moles/Vol] 30 mmol/L Normal 21-31 [facility] Comment on above: Performed By: #### H EPATIC, CH8, CA125, FETIBC #### [facility] [address] [place], [place], Creatinine [Mass/Vol] 0.60 mg/dL Normal 0.60-1.20 [facility] Comment on above: Performed By: #### H EPATIC, CH8, CA125, FETIBC #### [facility] [address] [place], [place], ESTIMATED GFR (CKD-EPI) 105 mL/min/1.73sqm Normal >=60 [facility] Comment on above: Result Comment: 2020 CKD EPI Equation using Creatinine without Race Comment: Estimated glomerular filtration rate (eGFR) is calculated without a race coefficient. Values should be interpreted in the context of the patient's full clinical presentation. Reference: 1. Brayden Mao, Alexandre M, Milli ROBERT, et al.. A Unifying Approach for GFR Estimation: Recommendations of the NKF-ASN Task Force on Reassessing the Inclusion of Race in Diagnosing Kidney Disease. [place] Journal of Kidney Diseases 2021;79(2):268-88.e1. 2. N Engl J Med 2020 Vol. 385 Issue 19 Pages 4584-9686 Performed By: #### H NATALIYA MILES8, CA125, FETIBC #### [facility] [address] [place] [address], Glucose [Mass/Vol] 103 mg/dL Normal 74-109 [facility] Comment on above: Performed By: #### H GINGER CH8, CA125, FETIBC #### [facility] [address] [place] [address], Potassium [Moles/Vol] 4.0 mmol/L Normal 3.5-5.0 [facility] Comment on above: Performed By: #### H GINGER CH8, CA125, FETIBC #### [facility] [address] [place] [address], Sodium [Moles/Vol] 137 mmol/L Normal 136-145 [facility] Comment on above: Performed By: #### H GINGER CH8, CA125, FETIBC #### [facility] [address] [place] [address], Urea nitrogen [Mass/Vol] 13 mg/dL Normal 7-25 [facility] Comment on above: Performed By: #### H GINGER CH8, CA125, FETIBC #### [facility] [address] [place] [address], Basic metabolic 2000 panelon 07-18-2024 Anion gap [Moles/Vol] 10 mmol/L 10 - 20 [facility] Calcium [Mass/Vol] 9.8 mg/dL 8.6 - 10. 3 mg/dL [facility] Chloride [Moles/Vol] 101 mmol/L 98 - 10 7 mmol/L [facility] CO2 [Moles/Vol] 30 mmol/L 21 - 31 mmol/L [facility] Creatinine [Mass/Vol] 0.60 mg/dL 0.60 - 1.20 mg/dL [facility] GFR/1.73 sq M.predicted CKD-EPI (S/P/Bld) [Vol rate/Area] 105 - PINF [facility] Comment on above: 2020 CKD EPI Equatio n using Creatinine without Race Comment: Estimated glomerular filtration rate (eGFR) is calculated without a race coefficient. Values should be interpreted in the context of the patient's full clinical presentation. Reference: 1. Brayden C, Alexandre M, Milli DC, et al.. A Unifying Approach for GFR Estimation: Recommendations of the NKF-ASN Task Force on Reassessing the Inclusion of Race in Diagnosing Kidney Disease. Australian Journal of Kidney Diseases 2021;79(2):268-88.e1. 2. N Engl J Med 1 Vol. 385 Issue 19 Pages 5976-3375 Glucose [Mass/Vol] 103 mg/dL 74 - 109 mg/dL [facility] Interpretation and review of laboratory results Normal [facility] Potassium [Moles/Vol] 4.0 mmol/L 3.5 - 5.0 mmol/L [facility] Sodium [Moles/Vol] 137 mmol/L 136 - 145 mmol/L [facility] Urea nitrogen [Mass/Vol] 13 mg/dL 7 - 25 mg/dL [facility] CBC panel Auto (Bld)on 07-18 Erythrocyte distribution width (RBC) [Ratio] 14.5 % 11.5 - 14.5 % [facility] Hematocrit (Bld) [Volume fraction] 36.9 % 36.0 - 46.0 % [facility] Hemoglobin (Bld) [Mass/Vol] 12.2 g/dL 12.0 - 15.0 g/dL [facility] Interpretation and review of laboratory results Abnormal [facility] MCH (RBC) [Entitic mass] 29.6 pg 26.0 - 34.0 pg [facility] MCHC (RBC) [Mass/Vol] 33.0 g/dL 32.0 - 35.9 g/dL [facility] MCV (RBC) [Entitic vol] 90 fL 80 - 100 fL [facility] Platelet mean volume (Bld) [Entitic vol] 6.8 fL Low 7.5 - 11.2 fL [facility] Platelets (Bld) [#/Vol] 154 10*3/uL 150 - 400 K/uL [facility] RBC (Bld) [#/Vol] 4.11 10*6/uL [facility] WBC (Bld) [#/Vol] 3.3 10*3/uL Low 4.5 - 11.5 K/uL [facility] COMPLETE BLOOD COUNTon 07-18 Erythrocyte distribution width (RBC) [Ratio] 14.5 % Normal 11.5-14.5 [facility] Comment on above: Performed By: #### H EPATIC, CH8, CA125, FETIBC #### [facility] [address] [place] [address], Hematocrit (Bld) [Volume fraction] 36.9 % Normal 36.0-46.0 [facility] Comment on above: Performed By: #### H EPATIC, CH8, CA125, FETIBC #### [facility] [address] [place] [address], Hemoglobin (Bld) [Mass/Vol] 12.2 g/dL Normal 12.0-15.0 [facility] Comment on above: Performed By: #### H EPATIC, CH8, CA125, FETIBC #### [facility] [address] [place] [address], MCH (RBC) [Entitic mass] 29.6 pg Normal 26.0-34.0 [facility] Comment on above: Performed By: #### H EPATIC, CH8, CA125, FETIBC #### [facility] [address] [place] [address], MCHC (RBC) [Mass/Vol] 33.0 g/dL Normal 32.0-35.9 [facility] Comment on above: Performed By: #### H EPATIC, CH8, CA125, FETIBC #### [facility] [address] [place] [address], MCV (RBC) [Entitic vol] 90 fL Normal 80-100 [facility] Comment on above: Performed By: #### H EPATIC, CH8, CA125, FETIBC #### [facility] [address] [place] [address], Platelet mean volume (Bld) [Entitic vol] 6.8 fL Low 7.5-11.2 [facility] Comment on above: Performed By: #### H EPATIC, CH8, CA125, FETIBC #### [facility] [address] [place] [address], Platelets (Bld) [#/Vol] 154 10*3/uL Normal 150-400 [facility] Comment on above: Performed By: #### H EPATIC, CH8, CA125, FETIBC #### [facility] [address] [place] [address], RBC (Bld) [#/Vol] 4.11 10*6/uL Normal 4.00-5.20 [facility] Comment on above: Performed By: #### H EPATIC, CH8, CA125, FETIBC #### [facility] [address] [place] [address], WBC (Bld) [#/Vol] 3.3 10*3/uL Low 4.5-11.5 [facility] Comment on above: Performed By: #### H EPATIC, CH8, CA125, FETIBC #### [facility] [address] [place] [address], MR PELVIS CERVICAL CANCER ST AGING W/WOon 07-18-2024 MR PELVIS CERVICAL CANCER STAGING W/WO EXAMINATION: MR PELVIS CERVICAL CANCER STAGING W/WO 07/18/2024 09:54 AM CLINICAL HISTORY: Cervical cancer, primary; Cervical Cancer, Staging ASSOCIATED DIAGNOSIS: Vaginal bleeding 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 ORDERING PROVIDER: BETHANY TORRES TECHNOLOGISTS NOTE: COMPARISON: None TECHNIQUE: Patient questionnaire was completed, and was reviewed by MRI personnel prior to the patient entering the scanner. Multiplanar, multisequence MR imaging of the pelvis was performed with and without intravenous contrast. INTRA-PROCEDURE MEDS: Gadoterate Meglumine (DOTAREM) 377 MG/ML solution 20 mL Route: Intravenous Push These findings FINDINGS: Uterus: Measures 5.3 x 4.5 x 6.1 cm. Multiple T2 hypointense masses are present in the uterus consistent with fibroids. The largest fibroid is FIGO 4 in the right upper body measuring 2.6 cm in diameter. A submucosal FIGO 1 fibroid is present extending into the upper endometrial canal which measures 2.8 cm. Other smaller fibroids are present. Endometrium: The endometrium is stretched and distorted by fibroids and it is difficult to accurately measure the thickness. Cervix and Tumor Site: The cervix is small in size, presumably related to prior biopsies and radiation therapy. Residual viable tumor involves the near entirety of the remaining cervix with extension into the lower uterine segment and body of the uterus. Tumor Size: 2.7 cm x 3.7 cm x 3.8 cm Uterine Invasion: Present involving the lower uterine segment and the body Parametrial Invasion: Absent Vaginal Invasion: Thickening and hyperenhancement is present of the upper vagina which demonstrates diffusion restriction (Series 21, Image 76) (Series 11, Image 15) . Tumor Extension: No tumor extension to the pelvic sidewall, bladder, or rectum. Ureteral Dilatation: Absent Additional Comments: None Ovaries: Right ovary measures 2.5 x 1.3 x 3.3 cm and left ovary measures 4.8 x 3.1 x 4.1 cm. A simple left ovarian cyst is present measuring 3.4 x 3.8 x 2.8 cm. Lymph Nodes: No lymphadenopathy identifed. Peritoneum: No free fluid or peritoneal implants. Bones: No aggressive bone lesions. IMPRESSION: 1. Residual viable tumor involves the near entirety of the remaining cervix with extension into the lower uterine segment and body of the uterus. The tumor measures 3.8 cm in largest dimension. Thickened upper vagina with diffusion restriction consistent with upper vaginal involvement. No parametrial involvement or hydronephrosis. No metastatic lymphadenopathy identified (MR stage FIGO IIA1). 2. A simple left ovarian cyst is present measuring 3.4 x 3.8 x 2.8 cm. 3. Multiple uterine fibroids as described above. The endometrium is stretched and distorted by fibroids and it is difficult to accurately measure the thickness. MACRO: None Normal The That{img} System MR Pelvis WO and W contrast Jenny 07-18-2024 EXAMINATION: MR PELV IS CERVICAL CANCER STAGING W/WO 07/18/2024 09:54 AM CLINICAL HISTORY: Cervical cancer, primary; Cervical Cancer, Staging ASSOCIATED DIAGNOSIS: Vaginal bleeding 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 ORDERING PROVIDER: BETHANY TORRES TECHNOLOGISTS NOTE: COMPARISON: None TECHNIQUE: Patient questionnaire was completed, and was reviewed by MRI personnel prior to the patient entering the scanner. Multiplanar, multisequence MR imaging of the pelvis was performed with and without intravenous contrast. INTRA-PROCEDURE MEDS: Gadoterate Meglumine (DOTAREM) 377 MG/ML solution 20 mL Route: Intravenous Push These findings FINDINGS: Uterus: Measures 5.3 x 4.5 x 6.1 cm. Multiple T2 hypointense masses are present in the uterus consistent with fibroids. The largest fibroid is FIGO 4 in the right upper body measuring 2.6 cm in diameter. A submucosal FIGO 1 fibroid is present extending into the upper endometrial canal which measures 2.8 cm. Other smaller fibroids are present. Endometrium: The endometrium is stretched and distorted by fibroids and it is difficult to accurately measure the thickness. Cervix and Tumor Site: The cervix is small in size, presumably related to prior biopsies and radiation therapy. Residual viable tumor involves the near entirety of the remaining cervix with extension into the lower uterine segment and body of the uterus. Tumor Size: 2.7 cm x 3.7 cm x 3.8 cm Uterine Invasion: Present involving the lower uterine segment and the body Parametrial Invasion: Absent Vaginal Invasion: Thickening and hyperenhancement is present of the upper vagina which demonstrates diffusion restriction (Series 21, Image 76) (Series 11, Image 15) . Tumor Extension: No tumor extension to the pelvic sidewall, bladder, or rectum. Ureteral Dilatation: Absent Additional Comments: None Ovaries: Right ovary measures 2.5 x 1.3 x 3.3 cm and left ovary measures 4.8 x 3.1 x 4.1 cm. A simple left ovarian cyst is present measuring 3.4 x 3.8 x 2.8 cm. Lymph Nodes: No lymphadenopathy identifed. Peritoneum: No free fluid or peritoneal implants. Bones: No aggressive bone lesions. IMPRESSION: 1. Residual viable tumor involves the near entirety of the remaining cervix with extension into the lower uterine segment and body of the uterus. The tumor measures 3.8 cm in largest dimension. Thickened upper vagina with diffusion restriction consistent with upper vaginal involvement. No parametrial involvement or hydronephrosis. No metastatic lymphadenopathy identified (MR stage FIGO IIA1). 2. A simple left ovarian cyst is present measuring 3.4 x 3.8 x 2.8 cm. 3. Multiple uterine fibroids as described above. The endometrium is stretched and distorted by fibroids and it is difficult to accurately measure the thickness. MACRO: None RADIOLOGY Luiz Hampton MD - 07/18/2024 EXAMINATION: MR PELVIS CERVICAL CANCER STAGING W/WO 07/18/2024 09:54 AM CLINICAL HISTORY: Cervical cancer, primary; Cervical Cancer, Staging ASSOCIATED DIAGNOSIS: Vaginal bleeding 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 ORDERING PROVIDER: BETHANY TORRES TECHNOLOGISTS NOTE: COMPARISON: None TECHNIQUE: Patient questionnaire was completed, and was reviewed by MRI personnel prior to the patient entering the scanner. Multiplanar, multisequence MR imaging of the pelvis was performed with and without intravenous contrast. INTRA-PROCEDURE MEDS: Gadoterate Meglumine (DOTAREM) 377 MG/ML solution 20 mL Route: Intravenous Push These findings FINDINGS: Uterus: Measures 5.3 x 4.5 x 6.1 cm. Multiple T2 hypointense masses are present in the uterus consistent with fibroids. The largest fibroid is FIGO 4 in the right upper body measuring 2.6 cm in diameter. A submucosal FIGO 1 fibroid is present extending into the upper endometrial canal which measures 2.8 cm. Other smaller fibroids are present. Endometrium: The endometrium is stretched and distorted by fibroids and it is difficult to accurately measure the thickness. Cervix and Tumor Site: The cervix is small in size, presumably related to prior biopsies and radiation therapy. Residual viable tumor involves the near entirety of the remaining cervix with extension into the lower uterine segment and body of the uterus. Tumor Size: 2.7 cm x 3.7 cm x 3.8 cm Uterine Invasion: Present involving the lower uterine segment and the body Parametrial Invasion: Absent Vaginal Invasion: Thickening and hyperenhancement is present of the upper vagina which demonstrates diffusion restriction (Series 21, Image 76) (Series 11, Image 15) . Tumor Extension: No tumor extension to the pelvic sidewall, bladder, or rectum. Ureteral Dilatation: Absent Additional Comments: None Ovaries: Right ovary measures 2.5 x 1.3 x 3.3 cm and left ovary measures 4.8 x 3.1 x 4.1 cm. A simple left ovarian cyst is present measuring 3.4 x 3.8 x 2.8 cm. Lymph Nodes: No lymphadenopathy identifed. Peritoneum: No free fluid or peritoneal implants. Bones: No aggressive bone lesions. IMPRESSION: 1. Residual viable tumor involves the near entirety of the remaining cervix with extension into the lower uterine segment and body of the uterus. The tumor measures 3.8 cm in largest dimension. Thickened upper vagina with diffusion restriction consistent with upper vaginal involvement. No parametrial involvement or hydronephrosis. No metastatic lymphadenopathy identified (MR stage FIGO IIA1). 2. A simple left ovarian cyst is present measuring 3.4 x 3.8 x 2.8 cm. 3. Multiple uterine fibroids as described above. The endometrium is stretched and distorted by fibroids and it is difficult to accurately measure the thickness. MACRO: None [facility] Radiology Study observation (narrative) [facility] MR Pelvis WO and W contrast IVOrdered By: Luiz Hampton on 07-18-2024 [employer] Work Phone: Progress Noteson 07-18-2024 Traffic Signal Technician Authentication Interface Message Text Patient was identified by name and date of . Cesar Aj RN Patient at risk for falls:No Falls Risk protocol implemented: N/A Encounter for blood test (Primary Diagnosis) [333438] Malignant neoplasm of overlapping sites of cervix (HCC) [0001158] Pt presented to clinic as add on from radiation for blood tests. Pt scheduled for PAT on Sunday. PAT agreeable to make visit a telephone visit if her labs are drawn today. Pt has port but wishes for labs to be drawn peripherally. 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 23g x 3/4in butterfly used for blood draw in [facility] Blood drawn and sent to lab. Dressing applied. T AND S for completed by myself, pt and PAT and sent with specimen to lab. Pt aware to wait for call from PAT on Sunday. Pt verbalized follow up instructions and discharged home. Cesar Aj RN Normal [employer] Traffic Signal Technician Authentication Interface Message Text The patient is a 58 year old woman with Cervical Cancer. She recently completed external beam RT with sensitizing cisplatin in [place]. She presents today to discuss further radiation with brachytherapy. She is doing well today. No major side effects from the treatment thus far. Vitals: 07/18/24 1031 BP: 109/69 Pulse: 94 Resp: 14 Temp: 97.9 ???F (36.6 ???C) SpO2: 100% I met with the patient with Dr. Godwin Discussed plan for brachytherapy. Will come up with a more definitive plan once we get the MRI Results. BETHANY TORRES MD [facility] - Gynecologic Oncology Office Pager: [phone] Normal [employer]} [employer] Traffic Signal Technician [employer] Interface Message Text Patient was identified by name and date of . MARTIN Novoa, RN Patient at risk for falls: No Falls Risk protocol implemented: No Pre-op teaching AND instructions (both written AND verbal) including but not limited to medications to avoid prior to surgery, bowel prep, and NPO status reviewed with patient. Patient was also provided with 'Preparing for Your Surgical Procedure' booklet. Patient verbalized understanding of information provided. She was encouraged to call our office with any further questions/concerns. MARTIN Novoa, RN Normal [employer] [facility] [email or web address] Interface Message Text Patient was identified by name and date of . [place] ..Patient at risk for falls:No Falls Risk protocol implemented: No Normal [employer] [facility] TYPE AND SCREENon 07-18-2024 ABO and Rh group Nom (Bld) Blood group O Rh(D) positive [facility] ABO and Rh group Nom (Bld) No Previous Results [facility] Comment on above: Patient REQUIRES a 2 nd sample with an order for an ABORH drawn prior to their approved surgery date of 07/28/2024. Specimen meets the Blood Bank's Pre-Surgical Protocol and is valid within 30 days from date of collection but will at midnight on the approved day of surgery. Corrected Result : 07/18/2024 14:25:38 : By Transfusion Medicine Blood group antibody screen Ql Negative [email or web address] ABO and Rh group Nom (Bld) Blood group O Rh(D) positive Normal [facility] Comment on above: Performed By: #### T S ####[facility] PATHOLOGY [id number] [place], [place], ABO and Rh group Nom (Bld) No Previous Results Normal [facility] Comment on above: Result Comment: Radha ent REQUIRES a 2nd sample with an order for an ABORH drawn prior to their approved surgery date of 07/28/2024. Specimen meets the Blood Bank's Pre-Surgical Protocol and is valid within 30 days from date of collection but will at midnight on the approved day of surgery. Corrected Result : 07/18/2024 14:25:38 : By Transfusion Medicine Performed By: #### T S ####[facility] PATHOLOGY [id number] [place], [place], ABSC INT Negative Normal [facility] Comment on above: Performed By: #### T S ####[facility] PATHOLOGY [id number] [place], [place], Radiation Oncology Visiton 0 - Radiation Oncology Visit Normal [facility] CBC W/Diff, Automatedon 09-1 Absolute Lymph 0.28 X10 3/uL Low 0.83-4.51 [facility] Comment on above: Performed By: #### L 500.4050, L100.0100, L501.5200 ####[facility] [address] [place], [address] Absolute Neut 2.7 X10 3/uL Normal 2.0-7.7 [facility] Comment on above: Performed By: #### L 500.4050, L100.0100, L501.5200 ####[facility] [address] [place], [address] Basophils/100 WBC (Bld) 0.8 % Normal 0-1 [facility] Comment on above: Performed By: #### L 500.4050, L100.0100, L501.5200 ####[facility] [address] [place], [address] Eosinophils/100 WBC (Bld) 8.1 % High 0-5 [facility] Comment on above: Performed By: #### L 500.4050, L100.0100, L501.5200 ####[facility] [address] [place], [address] Erythrocyte distribution width (RBC) [Ratio] 14.1 % Normal 11.6-14.6 [facility] Comment on above: Performed By: #### L 500.4050, L100.0100, L501.5200 ####[facility] [address] [place], [address] Hematocrit (Bld) [Volume fraction] 33.9 % Low 37-47 [facility] Comment on above: Performed By: #### L 500.4050, L100.0100, L501.5200 ####[facility] [address] [place], [address] Hemoglobin (Bld) [Mass/Vol] 10.8 g/dL Low 12.0-15.0 [facility] Comment on above: Performed By: #### L 500.4050, L100.0100, L501.5200 ####[facility] [address] [place], [address] IG% 0.300 Normal 0.0-0.9 [facility] Comment on above: Result Comment: IG% - Immature Granulocytes (promyelocytes, myelocytes andmetamyelocytes) > 1% indicates that a LEFT SHIFT is Present. Performed By: #### L 500.4050, L100.0100, L501.5200 ####[facility] [address] [place], [address] Lymphocytes/100 WBC (Bld) 7.5 % Low 19-41 [facility] Comment on above: Performed By: #### L 500.4050, L100.0100, L501.5200 ####[facility] [address] [place], [address] MCH (RBC) [Entitic mass] 28.3 pg Normal 27.0-32.0 [facility] Comment on above: Performed By: #### L 500.4050, L100.0100, L501.5200 ####[facility] [address] [place], [address] MCHC (RBC) [Mass/Vol] 31.9 g/dL Low 32-36 [facility] Comment on above: Performed By: #### L 500.4050, L100.0100, L501.5200 ####[facility] [address] [place], [address] MCV (RBC) [Entitic vol] 89.0 fL Normal 81-99 [facility] Comment on above: Performed By: #### L 500.4050, L100.0100, L501.5200 ####[facility] [address] [place], [address] Monocytes/100 WBC (Bld) 10.5 % High 0-10 [facility] Comment on above: Performed By: #### L 500.4050, L100.0100, L501.5200 ####[facility] [address] [place], [address] Neutrophils/100 WBC (Bld) 72.8 % High 47-70 [facility] Comment on above: Performed By: #### L 500.4050, L100.0100, L501.5200 ####[facility] [address] [place], [address] Nucleated RBC (Bld) [#/Vol] 0 10*3/uL Normal 0-5 [facility] Comment on above: Performed By: #### L 500.4050, L100.0100, L501.5200 ####[facility] [address] [place], [address] Platelet mean volume (Bld) [Entitic vol] 9.1 fL Normal 6.2-12.0 [facility] Comment on above: Performed By: #### L 500.4050, L100.0100, L501.5200 ####[facility] [address] [place], [address] Platelets (Bld) [#/Vol] 141 10*3/uL Low 150-450 [facility] Comment on above: Performed By: #### L 500.4050, L100.0100, L501.5200 ####[facility] [address] [place], [address] RBC (Bld) [#/Vol] 3.81 10*6/uL Low 4.2-5.4 [facility] Comment on above: Performed By: #### L 500.4050, L100.0100, L501.5200 ####[facility] [address] [place], [address] RDW SD 42.0 fl Normal 35.1-43.9 [facility] Comment on above: Performed By: #### L 500.4050, L100.0100, L501.5200 ####[facility] [address] [place], [address] WBC (Bld) [#/Vol] 3.7 10*3/uL Low 4.4-11.0 [facility] Comment on above: Performed By: #### L 500.4050, L100.0100, L501.5200 ####[facility] [address] [place], [address] Comprehensive Metabolic Prof ilon 07-14-2024 Albumin [Mass/Vol] 3.4 g/dL Normal 3.2-5.0 [facility] Comment on above: Performed By: #### L 500.4050, L100.0100, L501.5200 ####[facility] [address] [place], [address] Albumin/Globulin [Mass ratio] 1.1 {ratio} Normal 0.9-2.4 [facility] Comment on above: Performed By: #### L 500.4050, L100.0100, L501.5200 ####[facility] [address] [place], [address] ALK P 122 U/L High 45-117 [facility] Comment on above: Performed By: #### L 500.4050, L100.0100, L501.5200 ####[facility] [address] [place], [address] ALT [Catalytic activity/Vol] 36 U/L Normal 13-56 [facility] Comment on above: Performed By: #### L 500.4050, L100.0100, L501.5200 ####[facility] [address] [place], [address] AST [Catalytic activity/Vol] 23 U/L Normal 15-37 [facility] Comment on above: Performed By: #### L 500.4050, L100.0100, L501.5200 ####[facility] [address] [place], [address] BUN/CRE 25.2 RATIO High 10-20 [facility] Comment on above: Performed By: #### L 500.4050, L100.0100, L501.5200 ####[facility] [address] [place], [address] CA,Total 9.2 mg/dL Normal 8.5-10.1 [facility] Comment on above: Performed By: #### L 500.4050, L100.0100, L501.5200 ####[facility] [address] [place], [address] Chloride [Moles/Vol] 109 mmol/L High 98-107 [facility] Comment on above: Performed By: #### L 500.4050, L100.0100, L501.5200 ####[facility] [address] [place], [address] CO2 [Moles/Vol] 26.0 mmol/L Normal 21.0-32.0 [facility] Comment on above: Performed By: #### L 500.4050, L100.0100, L501.5200 ####[facility] [address] [place], [address] Creatinine [Mass/Vol] 0.56 mg/dL Normal 0.55-1.02 [facility] Comment on above: Result Comment: The validity of the calculated GFR GFRAA in patients over70 years has not been determined. Clinical correlation isessential. Performed By: #### L 500.4050, L100.0100, L501.5200 ####[facility] [address] [place], [address] ECRCL 107.78 ml/min Normal [facility] Comment on above: Performed By: #### L 500.4050, L100.0100, L501.5200 ####[facility] [address] [place], [address] EST GFR - AA 145 mL/min Normal >60 [facility] Comment on above: Result Comment: Afri can [place] GFR Calc Performed By: #### L 500.4050, L100.0100, L501.5200 ####[facility] [address] [place], [address] GAP 5 Normal 5-15 [facility] Comment on above: Performed By: #### L 500.4050, L100.0100, L501.5200 ####[facility] [address] [place], [address] GFR/1.73 sq M.predicted among non-blacks MDRD (S/P/Bld) [Vol rate/Area] 120 mL/min/{1.73_m2} Normal >60 [facility] Comment on above: Result Comment: Non- GFR Calc Performed By: #### L 500.4050, L100.0100, L501.5200 ####[facility] [address] [place], [address] Globulin (S) [Mass/Vol] 3.1 g/dL Normal 2.2-4.2 [facility] Comment on above: Performed By: #### L 500.4050, L100.0100, L501.5200 ####[facility] [address] [place], [address] Glucose [Mass/Vol] 109 mg/dL High 74-106 [facility] Comment on above: Result Comment: Fast ing Glucose result from 100 to 125 mg/dLsuggests IMPAIRED HOMEOSTASIS per A.D.A. criteria. Performed By: #### L 500.4050, L100.0100, L501.5200 ####[facility] [address] [place], [address] Potassium [Moles/Vol] 3.4 mmol/L Low 3.5-5.1 [facility] Comment on above: Performed By: #### L 500.4050, L100.0100, L501.5200 ####[facility] [address] [place], [address] Sodium [Moles/Vol] 140 mmol/L Normal 136-145 [facility] Comment on above: Performed By: #### L 500.4050, L100.0100, L501.5200 ####[facility] [address] [place], [address] T BILI < 0.10 Low 0.20-1.00 [facility] Comment on above: Result Comment: For patients on eltrombopag therapy, use of Dimension Hassell TBIL is not recommended. Performed By: #### L 500.4050, L100.0100, L501.5200 ####[facility] [address] [place], [address] T PROT 6.5 g/dL Normal 6.4-8.2 [facility] Comment on above: Performed By: #### L 500.4050, L100.0100, L501.5200 ####[facility] [address] [place], [address] Urea nitrogen [Mass/Vol] 14 mg/dL Normal 7-18 [facility] Comment on above: Performed By: #### L 500.4050, L100.0100, L501.5200 ####[facility] [address] [place], [address] Magnesiumon 07-14-2024 Magnesium [Mass/Vol] 1.9 mg/dL Normal 1.6-2.6 [facility] Comment on above: Performed By: #### L 500.4050, L100.0100, L501.5200 ####[facility] [address] [place], [address] Oncology Visit Reporton 06-29 Oncology Visit Report Normal [facility] Radiation Oncology Visiton 0 07-09-2024 Radiation Oncology Visit Normal [facility] CBC W/Diff, Automatedon 09-0 Absolute Lymph 0.39 X10 3/uL Low 0.83-4.51 [facility] Comment on above: Performed By: #### L 500.4050, L501.5200, L100.0100 ####[facility] [address] [place], [address] Absolute Neut 3.0 X10 3/uL Normal 2.0-7.7 [facility] Comment on above: Performed By: #### L 500.4050, L501.5200, L100.0100 ####[facility] [address] [place], [address] Basophils/100 WBC (Bld) 0.7 % Normal 0-1 [facility] Comment on above: Performed By: #### L 500.4050, L501.5200, L100.0100 ####[facility] [address] [place], [address] Eosinophils/100 WBC (Bld) 7.6 % High 0-5 [facility] Comment on above: Performed By: #### L 500.4050, L501.5200, L100.0100 ####[facility] [address] [place], [address] Erythrocyte distribution width (RBC) [Ratio] 13.9 % Normal 11.6-14.6 [facility] Comment on above: Performed By: #### L 500.4050, L501.5200, L100.0100 ####[facility] [address] [place], [address] Hematocrit (Bld) [Volume fraction] 38.2 % Normal 37-47 [facility] Comment on above: Performed By: #### L 500.4050, L501.5200, L100.0100 ####[facility] [address] [place], [address] Hemoglobin (Bld) [Mass/Vol] 12.2 g/dL Normal 12.0-15.0 [facility] Comment on above: Performed By: #### L 500.4050, L501.5200, L100.0100 ####[facility] [address] [place], [address] IG% 0.700 Normal 0.0-0.9 [facility] Comment on above: Result Comment: IG% - Immature Granulocytes (promyelocytes, myelocytes andmetamyelocytes) > 1% indicates that a LEFT SHIFT is Present. Performed By: #### L 500.4050, L501.5200, L100.0100 ####[facility] [address] [place], [address] Lymphocytes/100 WBC (Bld) 9.5 % Low 19-41 [facility] Comment on above: Performed By: #### L 500.4050, L501.5200, L100.0100 ####[facility] [address] [place], [address] MCH (RBC) [Entitic mass] 28.4 pg Normal 27.0-32.0 [facility] Comment on above: Performed By: #### L 500.4050, L501.5200, L100.0100 ####[facility] [address] [place], [address] MCHC (RBC) [Mass/Vol] 31.9 g/dL Low 32-36 [facility] Comment on above: Performed By: #### L 500.4050, L501.5200, L100.0100 ####[facility] [address] [place], [address] MCV (RBC) [Entitic vol] 89.0 fL Normal 81-99 [facility] Comment on above: Performed By: #### L 500.4050, L501.5200, L100.0100 ####[facility] [address] [place], [address] Monocytes/100 WBC (Bld) 9.3 % Normal 0-10 [facility] Comment on above: Performed By: #### L 500.4050, L501.5200, L100.0100 ####[facility] [address] [place], [address] Neutrophils/100 WBC (Bld) 72.2 % High 47-70 [facility] Comment on above: Performed By: #### L 500.4050, L501.5200, L100.0100 ####[facility] [address] [place], [address] Nucleated RBC (Bld) [#/Vol] 0 10*3/uL Normal 0-5 [facility] Comment on above: Performed By: #### L 500.4050, L501.5200, L100.0100 ####[facility] [address] [place], [address] Platelet mean volume (Bld) [Entitic vol] 9.1 fL Normal 6.2-12.0 [facility] Comment on above: Performed By: #### L 500.4050, L501.5200, L100.0100 ####[facility] [address] [place], [address] Platelets (Bld) [#/Vol] 181 10*3/uL Normal 150-450 [facility] Comment on above: Performed By: #### L 500.4050, L501.5200, L100.0100 ####[facility] [address] [place], [address] RBC (Bld) [#/Vol] 4.29 10*6/uL Normal 4.2-5.4 [facility] Comment on above: Performed By: #### L 500.4050, L501.5200, L100.0100 ####[facility] [address] [place], [address] RDW SD 42.7 fl Normal 35.1-43.9 [facility] Comment on above: Performed By: #### L 500.4050, L501.5200, L100.0100 ####[facility] [address] [place], [address] WBC (Bld) [#/Vol] 4.1 10*3/uL Low 4.4-11.0 [facility] Comment on above: Performed By: #### L 500.4050, L501.5200, L100.0100 ####[facility] [address] [place], [address] Comprehensive Metabolic Prof ilon 07-07-2024 Albumin [Mass/Vol] 3.5 g/dL Normal 3.2-5.0 [facility] Comment on above: Performed By: #### L 500.4050, L501.5200, L100.0100 ####[facility] [address] [place], [address] Albumin/Globulin [Mass ratio] 0.9 {ratio} Normal 0.9-2.4 [facility] Comment on above: Performed By: #### L 500.4050, L501.5200, L100.0100 ####[facility] [address] [place], [address] ALK P 125 U/L High 45-117 [facility] Comment on above: Performed By: #### L 500.4050, L501.5200, L100.0100 ####[facility] [address] [place], [address] ALT [Catalytic activity/Vol] 33 U/L Normal 13-56 [facility] Comment on above: Performed By: #### L 500.4050, L501.5200, L100.0100 ####[facility] [address] [place], [address] AST [Catalytic activity/Vol] 19 U/L Normal 15-37 [facility] Comment on above: Performed By: #### L 500.4050, L501.5200, L100.0100 ####[facility] [address] [place], [address] Bilirubin [Mass/Vol] 0.30 mg/dL Normal 0.20-1.00 [facility] Comment on above: Result Comment: For patients on eltrombopag therapy, use of Dimension Hassell TBIL is not recommended. Performed By: #### L 500.4050, L501.5200, L100.0100 ####[facility] [address] [place], [address] BUN/CRE 19.4 RATIO Normal 10-20 [facility] Comment on above: Performed By: #### L 500.4050, L501.5200, L100.0100 ####[facility] [address] [place], [address] CA,Total 9.5 mg/dL Normal 8.5-10.1 [facility] Comment on above: Performed By: #### L 500.4050, L501.5200, L100.0100 ####[facility] [address] [place], [address] Chloride [Moles/Vol] 105 mmol/L Normal 98-107 [facility] Comment on above: Performed By: #### L 500.4050, L501.5200, L100.0100 ####[facility] [address] [place], [address] CO2 [Moles/Vol] 24.0 mmol/L Normal 21.0-32.0 [facility] Comment on above: Performed By: #### L 500.4050, L501.5200, L100.0100 ####[facility] [address] [place], [address] Creatinine [Mass/Vol] 0.62 mg/dL Normal 0.55-1.02 [facility] Comment on above: Result Comment: The validity of the calculated GFR GFRAA in patients over70 years has not been determined. Clinical correlation isessential. Performed By: #### L 500.4050, L501.5200, L100.0100 ####[facility] [address] [place], [address] ECRCL 97.35 ml/min Normal [facility] Comment on above: Performed By: #### L 500.4050, L501.5200, L100.0100 ####[facility] [address] [place], [address] EST GFR - AA 128 mL/min Normal >60 [facility] Comment on above: Result Comment: Afri can Australian GFR Calc Performed By: #### L 500.4050, L501.5200, L100.0100 ####[facility] [address] [place], [address] GAP 11 Normal 5-15 [facility] Comment on above: Performed By: #### L 500.4050, L501.5200, L100.0100 ####[facility] [address] [place], [address] GFR/1.73 sq M.predicted among non-blacks MDRD (S/P/Bld) [Vol rate/Area] 106 mL/min/{1.73_m2} Normal >60 [facility] Comment on above: Result Comment: Non- GFR Calc Performed By: #### L 500.4050, L501.5200, L100.0100 ####[facility] [address] [place], [address] Globulin (S) [Mass/Vol] 3.8 g/dL Normal 2.2-4.2 [facility] Comment on above: Performed By: #### L 500.4050, L501.5200, L100.0100 ####[facility] [address] [place], [address] Glucose [Mass/Vol] 109 mg/dL High 74-106 [facility] Comment on above: Result Comment: Fast ing Glucose result from 100 to 125 mg/dLsuggests IMPAIRED HOMEOSTASIS per A.D.A. criteria. Performed By: #### L 500.4050, L501.5200, L100.0100 ####[facility] [address] [place], [address] Potassium [Moles/Vol] 3.7 mmol/L Normal 3.5-5.1 [facility] Comment on above: Performed By: #### L 500.4050, L501.5200, L100.0100 ####[facility] [address] [place], [address] Sodium [Moles/Vol] 140 mmol/L Normal 136-145 [facility] Comment on above: Performed By: #### L 500.4050, L501.5200, L100.0100 ####[facility] [address] [place], [address] T PROT 7.3 g/dL Normal 6.4-8.2 [facility] Comment on above: Performed By: #### L 500.4050, L501.5200, L100.0100 ####[facility] [address] [place], [address] Urea nitrogen [Mass/Vol] 12 mg/dL Normal 7-18 [facility] Comment on above: Performed By: #### L 500.4050, L501.5200, L100.0100 ####[facility] [address] [place], [address] Magnesiumon 07-07-2024 Magnesium [Mass/Vol] 2.0 mg/dL Normal 1.6-2.6 [facility] Comment on above: Performed By: #### L 500.4050, L501.5200, L100.0100 ####[facility] [address] [place], [address] Oncology Visit Reporton 0 Oncology Visit Report Normal [facility] Phosphoruson 07-07-2024 Phosphate [Mass/Vol] 3.0 mg/dL Normal 2.5-4.9 [facility] Comment on above: Performed By: #### L 501.2300 ####[facility] [address] [place], [address] Phosphorus measurementOrdere d By: Emma Joseph on 07-07-2024 Phosphorus Level 3.0 mg/dL 2.5-4.9 [facility] Radiation Oncology Visiton 0 - Radiation Oncology Visit Normal [facility] CBC W/Diff, Automatedon Absolute Lymph 0.53 X10 3/uL Low 0.83-4.51 [facility] Comment on above: Performed By: #### L 501.5200, L100.0100, L500.4050 ####[facility] [address] [place], [address] Absolute Neut 2.7 X10 3/uL Normal 2.0-7.7 [facility] Comment on above: Performed By: #### L 501.5200, L100.0100, L500.4050 ####[facility] [address] [place], [address] Basophils/100 WBC (Bld) 0.3 % Normal 0-1 [facility] Comment on above: Performed By: #### L 501.5200, L100.0100, L500.4050 ####[facility] [address] [place], [address] Eosinophils/100 WBC (Bld) 5.0 % Normal 0-5 [facility] Comment on above: Performed By: #### L 501.5200, L100.0100, L500.4050 ####[facility] [address] [place], [address] Erythrocyte distribution width (RBC) [Ratio] 13.1 % Normal 11.6-14.6 [facility] Comment on above: Performed By: #### L 501.5200, L100.0100, L500.4050 ####[facility] [address] [place], [address] Hematocrit (Bld) [Volume fraction] 36.0 % Low 37-47 [facility] Comment on above: Performed By: #### L 501.5200, L100.0100, L500.4050 ####[facility] [address] [place], [address] Hemoglobin (Bld) [Mass/Vol] 11.4 g/dL Low 12.0-15.0 [facility] Comment on above: Performed By: #### L 501.5200, L100.0100, L500.4050 ####[facility] [address] [place], [address] IG% 0.500 Normal 0.0-0.9 [facility] Comment on above: Result Comment: IG% - Immature Granulocytes (promyelocytes, myelocytes andmetamyelocytes) > 1% indicates that a LEFT SHIFT is Present. Performed By: #### L 501.5200, L100.0100, L500.4050 ####[facility] [address] [place], [address] Lymphocytes/100 WBC (Bld) 13.9 % Low 19-41 [facility] Comment on above: Performed By: #### L 501.5200, L100.0100, L500.4050 ####[facility] [address] [place], [address] MCH (RBC) [Entitic mass] 28.1 pg Normal 27.0-32.0 [facility] Comment on above: Performed By: #### L 501.5200, L100.0100, L500.4050 ####[facility] [address] [place], [address] MCHC (RBC) [Mass/Vol] 31.7 g/dL Low 32-36 [facility] Comment on above: Performed By: #### L 501.5200, L100.0100, L500.4050 ####[facility] [address] [place], [address] MCV (RBC) [Entitic vol] 88.7 fL Normal 81-99 [facility] Comment on above: Performed By: #### L 501.5200, L100.0100, L500.4050 ####[facility] [address] [place], [address] Monocytes/100 WBC (Bld) 8.2 % Normal 0-10 [facility] Comment on above: Performed By: #### L 501.5200, L100.0100, L500.4050 ####[facility] [address] [place], [address] Neutrophils/100 WBC (Bld) 72.1 % High 47-70 [facility] Comment on above: Performed By: #### L 501.5200, L100.0100, L500.4050 ####[facility] [address] [place], [address] Nucleated RBC (Bld) [#/Vol] 0 10*3/uL Normal 0-5 [facility] Comment on above: Performed By: #### L 501.5200, L100.0100, L500.4050 ####[facility] [address] [place], [address] Platelet mean volume (Bld) [Entitic vol] 9.1 fL Normal 6.2-12.0 [facility] Comment on above: Performed By: #### L 501.5200, L100.0100, L500.4050 ####[facility] [address] [place], [address] Platelets (Bld) [#/Vol] 188 10*3/uL Normal 150-450 [facility] Comment on above: Performed By: #### L 501.5200, L100.0100, L500.4050 ####[facility] [address] [place], [address] RBC (Bld) [#/Vol] 4.06 10*6/uL Low 4.2-5.4 [facility] Comment on above: Performed By: #### L 501.5200, L100.0100, L500.4050 ####[facility] [address] [place], [address] RDW SD 41.6 fl Normal 35.1-43.9 [facility] Comment on above: Performed By: #### L 501.5200, L100.0100, L500.4050 ####[facility] [address] [place], [address] WBC (Bld) [#/Vol] 3.8 10*3/uL Low 4.4-11.0 [facility] Comment on above: Performed By: #### L 501.5200, L100.0100, L500.4050 ####[facility] [address] [place], [address] Comprehensive Metabolic Prof [facility] 07-01-2024 Albumin [Mass/Vol] 3.3 g/dL Normal 3.2-5.0 [facility] Comment on above: Performed By: #### L 501.5200, L100.0100, L500.4050 ####[facility] [address] [place], [address] Albumin/Globulin [Mass ratio] 1.0 {ratio} Normal 0.9-2.4 [facility] Comment on above: Performed By: #### L 501.5200, L100.0100, L500.4050 ####[facility] [address] [place], [address] ALK P 123 U/L High 45-117 [facility] Comment on above: Performed By: #### L 501.5200, L100.0100, L500.4050 ####[facility] [address] [place], [address] ALT [Catalytic activity/Vol] 41 U/L Normal 13-56 [facility] Comment on above: Performed By: #### L 501.5200, L100.0100, L500.4050 ####[facility] [address] [place], [address] AST [Catalytic activity/Vol] 29 U/L Normal 15-37 [facility] Comment on above: Performed By: #### L 501.5200, L100.0100, L500.4050 ####[facility] [address] [place], [address] Bilirubin [Mass/Vol] 0.20 mg/dL Normal 0.20-1.00 [facility] Comment on above: Result Comment: For patients on eltrombopag therapy, use of Dimension Hassell TBIL is not recommended. Performed By: #### L 501.5200, L100.0100, L500.4050 ####[facility] [address] [place], [address] BUN/CRE 22.6 RATIO High 10-20 [facility] Comment on above: Performed By: #### L 501.5200, L100.0100, L500.4050 ####[facility] [address] [place], [address] CA,Total 9.2 mg/dL Normal 8.5-10.1 [facility] Comment on above: Performed By: #### L 501.5200, L100.0100, L500.4050 ####[facility] [address] [place], [address] Chloride [Moles/Vol] 107 mmol/L Normal 98-107 [facility] Comment on above: Performed By: #### L 501.5200, L100.0100, L500.4050 ####[facility] [address] [place], [address] CO2 [Moles/Vol] 26.0 mmol/L Normal 21.0-32.0 [facility] Comment on above: Performed By: #### L 501.5200, L100.0100, L500.4050 ####[facility] [address] [place], [address] Creatinine [Mass/Vol] 0.58 mg/dL Normal 0.55-1.02 [facility] Comment on above: Result Comment: The validity of the calculated GFR GFRAA in patients over70 years has not been determined. Clinical correlation isessential. Performed By: #### L 501.5200, L100.0100, L500.4050 ####[facility] [address] [place], [address] ECRCL 104.07 ml/min Normal [facility] Comment on above: Performed By: #### L 501.5200, L100.0100, L500.4050 ####[facility] [address] [place], [address] EST GFR - AA 139 mL/min Normal >60 [facility] Comment on above: Result Comment: Afri can Australian GFR Calc Performed By: #### L 501.5200, L100.0100, L500.4050 ####[facility] [address] [place], [address] GAP 8 Normal 5-15 [facility] Comment on above: Performed By: #### L 501.5200, L100.0100, L500.4050 ####[facility] [address] [place], [address] GFR/1.73 sq M.predicted among non-blacks MDRD (S/P/Bld) [Vol rate/Area] 115 mL/min/{1.73_m2} Normal >60 [facility] Comment on above: Result Comment: Non- GFR Calc Performed By: #### L 501.5200, L100.0100, L500.4050 ####[facility] [address] [place], [address] Globulin (S) [Mass/Vol] 3.4 g/dL Normal 2.2-4.2 [facility] Comment on above: Performed By: #### L 501.5200, L100.0100, L500.4050 ####[facility] [address] [place], [address] Glucose [Mass/Vol] 94 mg/dL Normal 74-106 [facility] Comment on above: Performed By: #### L 501.5200, L100.0100, L500.4050 ####[facility] [address] [place], [address] Potassium [Moles/Vol] 3.8 mmol/L Normal 3.5-5.1 [facility] Comment on above: Performed By: #### L 501.5200, L100.0100, L500.4050 ####[facility] [address] [place], [address] Sodium [Moles/Vol] 141 mmol/L Normal 136-145 [facility] Comment on above: Performed By: #### L 501.5200, L100.0100, L500.4050 ####[facility] [address] [place], [address] T PROT 6.7 g/dL Normal 6.4-8.2 [facility] Comment on above: Performed By: #### L 501.5200, L100.0100, L500.4050 ####[facility] [address] [place], [address] Urea nitrogen [Mass/Vol] 13 mg/dL Normal 7-18 [facility] Comment on above: Performed By: #### L 501.5200, L100.0100, L500.4050 ####[facility] [address] [place], [address] Magnesiumon 07-01-2024 Magnesium [Mass/Vol] 2.1 mg/dL Normal 1.6-2.6 [facility] Comment on above: Performed By: #### L 501.5200, L100.0100, L500.4050 ####[facility] [address] [place], [address] Oncology Visit Reporton Oncology Visit Report Normal [facility] Progress Noteson 06-26-2024 Traffic Signal Technician Authentication Interface Message Text Orders placed for Surgical Case Request Brachytherapy Device Placement on 07/28/2024 and 08/04/2024 Patient will need PAT prior to first procedure - CBC, BMP, EKG Will need bowel prep prior to each procedure also. BETHANY TORRES MD FACOG [facility] - Gynecologic Oncology Office Pager: [phone] Normal [facility] Radiation Oncology Visiton 0 06-25-2024 Radiation Oncology Visit Normal [facility] CBC W/Diff, Automatedon 05-30 Absolute Lymph 0.60 X10 3/uL Low 0.83-4.51 [facility] Comment on above: Performed By: #### L 100.0100, L501.5200 ####[facility] [address] [place], [address] Absolute Neut 3.1 X10 3/uL Normal 2.0-7.7 [facility] Comment on above: Performed By: #### L 100.0100, L501.5200 ####[facility] [address] [place], [address] Basophils/100 WBC (Bld) 1.2 % High 0-1 [facility] Comment on above: Performed By: #### L 100.0100, L501.5200 ####[facility] [address] [place], [address] Eosinophils/100 WBC (Bld) 2.8 % Normal 0-5 [facility] Comment on above: Performed By: #### L 100.0100, L501.5200 ####[facility] [address] [place], [address] Erythrocyte distribution width (RBC) [Ratio] 12.8 % Normal 11.6-14.6 [facility] Comment on above: Performed By: #### L 100.0100, L501.5200 ####[facility] [address] [place], [address] Hematocrit (Bld) [Volume fraction] 38.6 % Normal 37-47 [facility] Comment on above: Performed By: #### L 100.0100, L501.5200 ####[facility] [address] [place], [address] Hemoglobin (Bld) [Mass/Vol] 12.2 g/dL Normal 12.0-15.0 [facility] Comment on above: Performed By: #### L 100.0100, L501.5200 ####[facility] [address] [place], [address] IG% 1.200 High 0.0-0.9 [facility] Comment on above: Result Comment: IG% - Immature Granulocytes (promyelocytes, myelocytes andmetamyelocytes) > 1% indicates that a LEFT SHIFT is Present. Performed By: #### L 100.0100, L501.5200 ####[facility] [address] [place], [address] Lymphocytes/100 WBC (Bld) 14.2 % Low 19-41 [facility] Comment on above: Performed By: #### L 100.0100, L501.5200 ####[facility] [address] [place], [address] MCH (RBC) [Entitic mass] 28.0 pg Normal 27.0-32.0 [facility] Comment on above: Performed By: #### L 100.0100, L501.5200 ####[facility] [address] [place], [address] MCHC (RBC) [Mass/Vol] 31.6 g/dL Low 32-36 [facility] Comment on above: Performed By: #### L 100.0100, L501.5200 ####[facility] [address] [place], [address] MCV (RBC) [Entitic vol] 88.7 fL Normal 81-99 [facility] Comment on above: Performed By: #### L 100.0100, L501.5200 ####[facility] [address] [place], [address] Monocytes/100 WBC (Bld) 7.8 % Normal 0-10 [facility] Comment on above: Performed By: #### L 100.0100, L501.5200 ####[facility] [address] [place], [address] Neutrophils/100 WBC (Bld) 72.8 % High 47-70 [facility] Comment on above: Performed By: #### L 100.0100, L501.5200 ####[facility] [address] [place], [address] Nucleated RBC (Bld) [#/Vol] 0 10*3/uL Normal 0-5 [facility] Comment on above: Performed By: #### L 100.0100, L501.5200 ####[facility] [address] [place], [address] Platelet mean volume (Bld) [Entitic vol] 9.5 fL Normal 6.2-12.0 [facility] Comment on above: Performed By: #### L 100.0100, L501.5200 ####[facility] [address] [place], [address] Platelets (Bld) [#/Vol] 265 10*3/uL Normal 150-450 [facility] Comment on above: Performed By: #### L 100.0100, L501.5200 ####[facility] [address] [place], [address] RBC (Bld) [#/Vol] 4.35 10*6/uL Normal 4.2-5.4 [facility] Comment on above: Performed By: #### L 100.0100, L501.5200 ####[facility] [address] [place], [address] RDW SD 41.3 fl Normal 35.1-43.9 [facility] Comment on above: Performed By: #### L 100.0100, L501.5200 ####[facility] [address] [place], [address] WBC (Bld) [#/Vol] 4.2 10*3/uL Low 4.4-11.0 [facility] Comment on above: Performed By: #### L 100.0100, L501.5200 ####[facility] [address] [place], [address] Comprehensive Metabolic [facility] 06-23-2024 Albumin [Mass/Vol] 3.6 g/dL Normal 3.2-5.0 [facility] Comment on above: Performed By: #### L 500.4050 ####[facility] [address] [place], [address] Albumin/Globulin [Mass ratio] 1.1 {ratio} Normal 0.9-2.4 [facility] Comment on above: Performed By: #### L 500.4050 ####[facility] [address] [place], [address] ALK P 120 U/L High 45-117 [facility] Comment on above: Performed By: #### L 500.4050 ####[facility] [address] [place], [address] ALT [Catalytic activity/Vol] 30 U/L Normal 13-56 [facility] Comment on above: Performed By: #### L 500.4050 ####[facility] [address] [place], [address] AST [Catalytic activity/Vol] 22 U/L Normal 15-37 [facility] Comment on above: Performed By: #### L 500.4050 ####[facility] [address] [place], [address] Bilirubin [Mass/Vol] 0.40 mg/dL Normal 0.20-1.00 [facility] Comment on above: Result Comment: For patients on eltrombopag therapy, use of Dimension Hassell TBIL is not recommended. Performed By: #### L 500.4050 ####[facility] [address] [place], [address] BUN/CRE 28.3 RATIO High 10-20 [facility] Comment on above: Performed By: #### L 500.4050 ####[facility] [address] [place], [address] CA,Total 9.6 mg/dL Normal 8.5-10.1 [facility] Comment on above: Performed By: #### L 500.4050 ####[facility] [address] [place], [address] Chloride [Moles/Vol] 108 mmol/L High 98-107 [facility] Comment on above: Performed By: #### L 500.4050 ####[facility] [address] [place], [address] CO2 [Moles/Vol] 27.0 mmol/L Normal 21.0-32.0 [facility] Comment on above: Performed By: #### L 500.4050 ####[facility] [address] [place], [address] Creatinine [Mass/Vol] 0.64 mg/dL Normal 0.55-1.02 [facility] Comment on above: Result Comment: The validity of the calculated GFR GFRAA in patients over70 years has not been determined. Clinical correlation isessential. Performed By: #### L 500.4050 ####[facility] [address] [place], [address] ECRCL 95.45 ml/min Normal [facility] Comment on above: Performed By: #### L 500.4050 ####[facility] [address] [place], [address] EST GFR - AA 124 mL/min Normal >60 [facility] Comment on above: Result Comment: Afri can Australian GFR Calc Performed By: #### L 500.4050 ####[facility] [address] [place], [address] GAP 5 Normal 5-15 [facility] Comment on above: Performed By: #### L 500.4050 ####[facility] [address] [place], [address] GFR/1.73 sq M.predicted among non-blacks MDRD (S/P/Bld) [Vol rate/Area] 103 mL/min/{1.73_m2} Normal >60 [facility] Comment on above: Result Comment: Non- GFR Calc Performed By: #### L 500.4050 ####[facility] [address] [place], [address] Globulin (S) [Mass/Vol] 3.2 g/dL Normal 2.2-4.2 [facility] Comment on above: Performed By: #### L 500.4050 ####[facility] [address] [place], [address] Glucose [Mass/Vol] 95 mg/dL Normal 74-106 [facility] Comment on above: Performed By: #### L 500.4050 ####[facility] [address] [place], [address] Potassium [Moles/Vol] 4.1 mmol/L Normal 3.5-5.1 [facility] Comment on above: Performed By: #### L 500.4050 ####[facility] [address] [place], [address] Sodium [Moles/Vol] 140 mmol/L Normal 136-145 [facility] Comment on above: Performed By: #### L 500.4050 ####[facility] [address] [place], [address] T PROT 6.8 g/dL Normal 6.4-8.2 [facility] Comment on above: Performed By: #### L 500.4050 ####[facility] [address] [place], [address] Urea nitrogen [Mass/Vol] 18 mg/dL Normal 7-18 [facility] Comment on above: Performed By: #### L 500.4050 ####[facility] [address] [place], [address] ALB Normal 3.2-5.0 [facility] Comment on above: Result Comment: DUPL ICATE. SEE 0826:[id number] Performed By: #### L 500.4050 ####[facility] [address] [place], [address] ALK P Normal 45-117 [facility] Comment on above: Result Comment: DUPL ICATE. SEE 0826:[id number] Performed By: #### L 500.4050 ####[facility] [address] [place], [address] ALT Normal 13-56 [facility] Comment on above: Result Comment: DUPL ICATE. SEE 0826:[id number] Performed By: #### L 500.4050 ####[facility] [address] [place], [address] AST Normal 15-37 [facility] Comment on above: Result Comment: DUPL ICATE. SEE 0826:[id number] Performed By: #### L 500.4050 ####[facility] [address] [place], [address] BUN Normal 7-18 [facility] Comment on above: Result Comment: DUPL ICATE. SEE 0826:[id number] Performed By: #### L 500.4050 ####[facility] [address] [place], [address] BUN/CRE Normal 10-20 [facility] Comment on above: Result Comment: DUPL ICATE. SEE 0826:[id number] Performed By: #### L 500.4050 ####[facility] [address] [place], [address] CA,Total Normal 8.5-10.1 [facility] Comment on above: Result Comment: DUPL ICATE. SEE 0826:[id number] Performed By: #### L 500.4050 ####[facility] [address] [place], [address] CL Normal 98-107 [facility] Comment on above: Result Comment: DUPL ICATE. SEE 0826:[id number] Performed By: #### L 500.4050 ####[facility] [address] [place], [address] CO2 Normal 21.0-32.0 [facility] Comment on above: Result Comment: DUPL ICATE. SEE 0826:[id number] Performed By: #### L 500.4050 ####[facility] [address] [place], [address] CREAT,SERUM Normal 0.55-1.02 [facility] Comment on above: Result Comment: DUPL ICATE. SEE 0826:[id number] Performed By: #### L 500.4050 ####[facility] [address] [place], [address] EST GFR Normal >60 [facility] Comment on above: Result Comment: DUPL ICATE. SEE 0826:[id number] Performed By: #### L 500.4050 ####[facility] [address] [place], [address] EST GFR - AA Normal >60 [facility] Comment on above: Result Comment: DUPL ICATE. SEE 0826:[id number] Performed By: #### L 500.4050 ####[facility] [address] [place], [address] GAP Normal 5-15 [facility] Comment on above: Result Comment: DUPL ICATE. SEE 0826:[id number] Performed By: #### L 500.4050 ####[facility] [address] [place], [address] GLU Normal 74-106 [facility] Comment on above: Result Comment: DUPL ICATE. SEE 0826:[id number] Performed By: #### L 500.4050 ####[facility] [address] [place], [address] Potassium Normal 3.5-5.1 [facility] Comment on above: Result Comment: DUPL ICATE. SEE 0826:[id number] Performed By: #### L 500.4050 ####[facility] [address] [place], [address] T BILI Normal 0.20-1.00 [facility] Comment on above: Result Comment: DUPL ICATE. SEE 0826:[id number] Performed By: #### L 500.4050 ####[facility] [address] [place], [address] T PROT Normal 6.4-8.2 [facility] Comment on above: Result Comment: DUPL ICATE. SEE 0826:[id number] Performed By: #### L 500.4050 ####[facility] [address] [place], [address] Comprehensive Metabolic Profil Normal 136-145 [facility] Comment on above: Result Comment: DUPL ICATE. SEE 0826:[id number] Performed By: #### L 500.4050 ####[facility] [address] [place], [address] Magnesiumon 06-23-2024 Magnesium [Mass/Vol] 2.2 mg/dL Normal 1.6-2.6 [facility] Comment on above: Performed By: #### L 100.0100, L501.5200 ####[facility] [address] [place], [address] Oncology Visit Reporton 05-30 Oncology Visit Report Normal [facility] Radiation Oncology Visiton 0 06-19-2024 Radiation Oncology Visit Normal [facility] CBC W/Diff, Automatedon 05-30 Absolute Lymph 0.91 X10 3/uL Normal 0.83-4.51 [facility] Comment on above: Performed By: #### L 501.5200, L100.0100 ####[facility] [address] [place], [address] Absolute Neut 3.6 X10 3/uL Normal 2.0-7.7 [facility] Comment on above: Performed By: #### L 501.5200, L100.0100 ####[facility] [address] [place], [address] Basophils/100 WBC (Bld) 0.6 % Normal 0-1 [facility] Comment on above: Performed By: #### L 501.5200, L100.0100 ####[facility] [address] [place], [address] Eosinophils/100 WBC (Bld) 4.4 % Normal 0-5 [facility] Comment on above: Performed By: #### L 501.5200, L100.0100 ####[facility] [address] [place], [address] Erythrocyte distribution width (RBC) [Ratio] 13.1 % Normal 11.6-14.6 [facility] Comment on above: Performed By: #### L 501.5200, L100.0100 ####[facility] [address] [place], [address] Hematocrit (Bld) [Volume fraction] 40.7 % Normal 37-47 [facility] Comment on above: Performed By: #### L 501.5200, L100.0100 ####[facility] [address] [place], [address] Hemoglobin (Bld) [Mass/Vol] 12.9 g/dL Normal 12.0-15.0 [facility] Comment on above: Performed By: #### L 501.5200, L100.0100 ####[facility] [address] [place], [address] IG% 0.400 Normal 0.0-0.9 [facility] Comment on above: Result Comment: IG% - Immature Granulocytes (promyelocytes, myelocytes andmetamyelocytes) > 1% indicates that a LEFT SHIFT is Present. Performed By: #### L 501.5200, L100.0100 ####[facility] [address] [place], [address] Lymphocytes/100 WBC (Bld) 17.5 % Low 19-41 [facility] Comment on above: Performed By: #### L 501.5200, L100.0100 ####[facility] [address] [place], [address] MCH (RBC) [Entitic mass] 28.3 pg Normal 27.0-32.0 [facility] Comment on above: Performed By: #### L 501.5200, L100.0100 ####[facility] [address] [place], [address] MCHC (RBC) [Mass/Vol] 31.7 g/dL Low 32-36 [facility] Comment on above: Performed By: #### L 501.5200, L100.0100 ####[facility] [address] [place], [address] MCV (RBC) [Entitic vol] 89.3 fL Normal 81-99 [facility] Comment on above: Performed By: #### L 501.5200, L100.0100 ####[facility] [address] [place], [address] Monocytes/100 WBC (Bld) 8.3 % Normal 0-10 [facility] Comment on above: Performed By: #### L 501.5200, L100.0100 ####[facility] [address] [place], [address] Neutrophils/100 WBC (Bld) 68.8 % Normal 47-70 [facility] Comment on above: Performed By: #### L 501.5200, L100.0100 ####[facility] [address] [place], [address] Nucleated RBC (Bld) [#/Vol] 0 10*3/uL Normal 0-5 [facility] Comment on above: Performed By: #### L 501.5200, L100.0100 ####[facility] [address] [place], [address] Platelet mean volume (Bld) [Entitic vol] 9.9 fL Normal 6.2-12.0 [facility] Comment on above: Performed By: #### L 501.5200, L100.0100 ####[facility] [address] [place], [address] Platelets (Bld) [#/Vol] 256 10*3/uL Normal 150-450 [facility] Comment on above: Performed By: #### L 501.5200, L100.0100 ####[facility] [address] [place], [address] RBC (Bld) [#/Vol] 4.56 10*6/uL Normal 4.2-5.4 [facility] Comment on above: Performed By: #### L 501.5200, L100.0100 ####[facility] [address] [place], [address] RDW SD 42.5 fl Normal 35.1-43.9 [facility] Comment on above: Performed By: #### L 501.5200, L100.0100 ####[facility] [address] [place], [address] WBC (Bld) [#/Vol] 5.2 10*3/uL Normal 4.4-11.0 [facility] Comment on above: Performed By: #### L 501.5200, L100.0100 ####[facility] [address] [place], [address] Comprehensive Metabolic Prof laon 06-17-2024 Albumin [Mass/Vol] 3.6 g/dL Normal 3.2-5.0 [facility] Comment on above: Performed By: #### L 500.4050 ####[facility] [address] [place], [address] Albumin/Globulin [Mass ratio] 1.0 {ratio} Normal 0.9-2.4 [facility] Comment on above: Performed By: #### L 500.4050 ####[facility] [address] [place], [address] ALK P 119 U/L High 45-117 [facility] Comment on above: Performed By: #### L 500.4050 ####[facility] [address] [place], [address] ALT [Catalytic activity/Vol] 23 U/L Normal 13-56 [facility] Comment on above: Performed By: #### L 500.4050 ####[facility] [address] [place], [address] AST [Catalytic activity/Vol] 28 U/L Normal 15-37 [facility] Comment on above: Performed By: #### L 500.4050 ####[facility] [address] [place], [address] Bilirubin [Mass/Vol] 0.40 mg/dL Normal 0.20-1.00 [facility] Comment on above: Result Comment: For patients on eltrombopag therapy, use of Dimension Hassell TBIL is not recommended. Performed By: #### L 500.4050 ####[facility] [address] [place], [address] BUN/CRE 25.0 RATIO High 10-20 [facility] Comment on above: Performed By: #### L 500.4050 ####[facility] [address] [place], [address] CA,Total 10.0 mg/dL Normal 8.5-10.1 [facility] Comment on above: Performed By: #### L 500.4050 ####[facility] [address] [place], [address] Chloride [Moles/Vol] 109 mmol/L High 98-107 [facility] Comment on above: Performed By: #### L 500.4050 ####[facility] [address] [place], [address] CO2 [Moles/Vol] 23.0 mmol/L Normal 21.0-32.0 [facility] Comment on above: Performed By: #### L 500.4050 ####[facility] [address] [place], [address] Creatinine [Mass/Vol] 0.68 mg/dL Normal 0.55-1.02 [facility] Comment on above: Result Comment: The validity of the calculated GFR GFRAA in patients over70 years has not been determined. Clinical correlation isessential. Performed By: #### L 500.4050 ####[facility] [address] [place], [address] ECRCL 89.83 ml/min Normal [facility] Comment on above: Performed By: #### L 500.4050 ####[facility] [address] [place], [address] EST GFR - AA 115 mL/min Normal >60 [facility] Comment on above: Result Comment: Afri can Australian GFR Calc Performed By: #### L 500.4050 ####[facility] [address] [place], [address] GAP 7 Normal 5-15 [facility] Comment on above: Performed By: #### L 500.4050 ####[facility] [address] [place], [address] GFR/1.73 sq M.predicted among non-blacks MDRD (S/P/Bld) [Vol rate/Area] 95 mL/min/{1.73_m2} Normal >60 [facility] Comment on above: Result Comment: Non- GFR Calc Performed By: #### L 500.4050 ####[facility] [address] [place], [address] Globulin (S) [Mass/Vol] 3.6 g/dL Normal 2.2-4.2 [facility] Comment on above: Performed By: #### L 500.4050 ####[facility] [address] [place], [address] Glucose [Mass/Vol] 121 mg/dL High 74-106 [facility] Comment on above: Result Comment: Fast ing Glucose result from 100 to 125 mg/dLsuggests IMPAIRED HOMEOSTASIS per A.D.A. criteria. Performed By: #### L 500.4050 ####[facility] [address] [place], [address] Potassium [Moles/Vol] 3.9 mmol/L Normal 3.5-5.1 [facility] Comment on above: Performed By: #### L 500.4050 ####[facility] [address] [place], [address] Sodium [Moles/Vol] 139 mmol/L Normal 136-145 [facility] Comment on above: Performed By: #### L 500.4050 ####[facility] [address] [place], [address] T PROT 7.2 g/dL Normal 6.4-8.2 [facility] Comment on above: Performed By: #### L 500.4050 ####[facility] [address] [place], [address] Urea nitrogen [Mass/Vol] 17 mg/dL Normal 7-18 [facility] Comment on above: Performed By: #### L 500.4050 ####[facility] [address] [place], [address] Magnesiumon 06-17-2024 Magnesium [Mass/Vol] 2.2 mg/dL Normal 1.6-2.6 [facility] Comment on above: Performed By: #### L 501.5200, L100.0100 ####[facility] [address] [place], [address] Oncology Visit Reporton 05-30 Oncology Visit Report Normal [facility] CXR for Line Placementon CXR for Line Placement [facility] Discharge Instructionon 05-29 Discharge Instruction Normal [facility] MR/POSTOP.ANEon 06-13-2024 MR/POSTOP.ANE Normal [facility] MR/SYDUGVRA5cw 06-13-2024 MR/POSTOPAN2 Normal [facility] Operative Reporton Operative Report Normal [facility] Surgery Visit Reporton 06-11 Surgery Visit Report Normal [facility] Oncology Visit Reporton 05-29 Oncology Visit Report Normal [facility] Telephone Encounteron 2023 Traffic Signal Technician Authentication Interface Message Text Dr. Roth would still like to speak to you regarding this pt, please call [phone]). Pt has appointment with him tomorrow 06/03. [facility] 2023 Traffic Signal Technician Authentication Interface Message Text Requested documentation sent to [place]. Normal [facility] Telephone Encounteron 2023 Traffic Signal Technician Authentication Interface Message Text Left message on patient's voice mail informing her our office is faxing requested additional information to [facility] Radiation Oncology Department and once information is received their office will call her to schedule an appointment. Office phone number provided for any further questions/concerns. Khushbu Phillips RN Normal [facility] NON-LUNG PDL-1on 05-27-2024 NON-LUNG PDL-1 Surgical Pathology Report Case: [id number] Authorizing Provider: Bethany Torres MD Collected: 05/27/2024637 Ordering Location: [facility] PIZZA BAKER Oncology Received: 05/27/2024637 Pathologist: Magalie Maharaj MD Specimen: [id number] Cervix Cervical invasive cancer 10.00 CPS > or = 1 Adequate positive and negative controls. This case has been reviewed and accepted by Magalie Maharaj MD on 05/29/2024. OPVpmos28PVDBGt9iHgBCM iXi48/RALveETOjs6JmGJv bJKx9YAchLGAeA8WoiRiqD RLkJR1PX1Nnq0LuNkPuLOe 0RCH0XmTeSuaeI5VvTSRwv 02WHZBwJGO4BjWzHOZ7CZR xCsSpGJSuSNYyMDWvUE5Ob 2AINVZeDWU1MzKzTTV7UCU wTjAyQHWlZXRoZDQvOV7Ys aVjjN0lWQDlyEBhM3kbuGU eccCDg5Bvy2WvoDxyzsrEA bEjKb6OWhFjBU2pmv6LIGT kRE1nrx1QGDD1HK7EhYk4S BVcA0FdPQOjMSDve4BjOK0 URP9kzZqkVvc2Ou9+DQogI QH9qePhzC1MBCRdFbqm93O Sfd+q/Ce2bEYNLPpqA9Wbr ZUt+Ep3PoI3J9GK12QEaME AQMlWWRp1hM0QWHwPNo/oE 1LlzCZJ2sI2FlK4e8/T3TM Ehaj//SEpZzwhVKptas2Iz kV/LP7+E0U8q8STw691Ot5 MKbXjT1x+aOjB2FiBJOoOI 8+l6AxNkw/GaEBenZ0Zf4d a0g7Xm1M35wK/4umh+H4bY PYHnf9eexhp35ZgYlw+RWz t9l9sp6puu183TK+fif3Hh y/evnr7/XmxFlRzD6vM4FL jQeTMZldjcplVornLkmB4K ZlRL1WfuLpaX3uXZm+gpiv FEnJ70+A3aSykSazhRt8O9 VGYhIbg4w4Hi9Byz4TwzAH f2oTemRR4hBchaAF344sQe 6jkMlfcPATEq5J/yT43uB0 4qhp4ghndrsF5r86AXI6ld E6u7wMsifpaIQutm01UsIq xS/77mtC6t0oUMj3XQcoEz +4G4lMj7KHcKeVpBjm9LuV CXGGjl9LBfeEvklYF2OdcQ 8d1gMm6eSk15VuNdXAvw4d zg6X2pocWzI5Me1aaEGU+q JLoDO0wPCWtcCbFYL00spt Jh3Lp7ppqU6JtDcmyfBShL CI5L2kVeklldG/16ISyUNI hpRJdjLi/vLhv59DBn/qit tKjdWafWwbehUwO7JihTa5 qBMmL1TlV1ftZ6Fg1x2oU1 zrDs3P3aNf+Sc24xdeDEqR u16E8xgBCBV0Jqr2l76nef dk7e07Bm8aq/IReLOlwSoy rJbn6ttu8ObO17dTS1duDQ gUCCcOx4EgKTpV9JnZLhoa cQtNv6NjrUkwaxmfEfilbZ iLmi9f78kSo4XEVxX3Wmlt Tjj2RNd41opnfaw9O6d7I3 sYF7rJpy4LYGt9XzEbto4r Oywm/Mz6qad0KgZIdUFexN hW9GrAOYyBrv24LHqomW2+ iUl3PcmtY7ON+DamNHKA4t dmz5hh7KShEWbn1e4U3W21 SUI0BZUeuh1HVho7jy2SI9 CY5yktQF5z0mr85ZFdg7fF sxm/MVxkIQymUpfPva9CjC O2UEZGQhKPeBxmoMdGlDxD Z2zHK8iLUNKclDr0tiNCSi 7HnUM1Q9FXRQSpXMepp2YA R+10ZZJwyxtqzn17rSu0M/ dW9qNlsSLrGgj8C3gcHVkn dLX+ii6Cgh15YrKDXtw3VQ 2hvdElyIf5ET0vgJiYxmI6 uRmSlnrokF5gjJ/Cp1hHf2 JFE843iDMfyxHry8EQLZ5Q IdZJKVBxlq7aqyCLfyRT3V wSHGooQHp4usjgn29ZU3nJ +OocaBAlhRAQ7dI8qF029O LI4swhIFzyQcEpvYA/Ks+E Ex78IPfko2FRRxtMsHkNJM 1dyupZaMnIusrAmZmCDi3+ x323rX9y5LCvX2QODOWeGx xdKx4vuOOrJrc9uJXZi8Bf xRd5t3k7/+Zx2d7qrz9b/t J7p20pWmaxQxrFxG6ddeiY 02ytHqM6lnLohings8jjt8 hvz8Mepvlh3q7mqTMFLf2z UTOu3YiCGZKqSazN9/MpDp rxNNrsy5IrqAs85aD4zgXL T2jSEPmwzLWpSCdgFanYPL T8Cp3haNhEbl56nlQ7JOde kwuCSlRE1mhhLbwrixtYtr IW3fchA032uGkThmEzkawz rOr7Xgb1sBf73F9Taf3oT1 mZlPWthIyfQEiETUceigMM JYoJaW/QkTJCiez/CxAs6b Thsvz0XrNBLxfrZjpjVbIr 9qHC197o9lqeOl1Xq15Lt8 1yxiLoX4ixpjOmB5E18K4Z 9Td6BJNijyDIJVnFjxINUE Z0vZvFn6vZmBcMtC3G1HXn PesNx9+qWycYylIDM9Ni8f dRAWlWy20UyLiY6xp2F09z Xxr2++WijNUtiWJ+hOkBMr Cs38ZVq0mKlcxN9Moa3Uo8 6LB0NOYnNXpcFTlJBIaarL Cir48J7B7dTa577VN3T+43 HYwxqNlIWsP9eiM7SiZnsS fbvqR7ZLe3ZBFWYPfRzaRc 6pIWqJDDJouCqFpK61h3yq HS9W1DXC5+wX71br7ATikK 8e7l2I5f7dLwpvBB5uKxKF ckeLLVyzYbgzbyQTvzhin+ 36WJkuA+I7njkOBtTtl2Y4 aO07Aq6sQ0BxnezTEN61ag Owbib7sk8y/Gx+uu7S+Bci 4OSbFuSRjMWDUQmJI2WXkt dFt5yYQRUAGGVcXHHRqDJL SV8uVg3SXtfHaJYxhOaZ0l GHRx7F4D9kTNvtWE9G6y/o oHsZhLv7G0xxDxDHYynHSk drIFBbLNV5wTnIIBFrCwkj LJeWFEJWXYVG6NmkEN6qSm 6K7Q+XGVFVODcJnCqsNSDd QGtnZB+Z3TijitApO9DhBN cz8noTIa4L9zblPSkp2nIF lWpfVW2Ii3+8b4IreBbtSc a2cjw4GPQ8H9vOKA2fnrO+ 2o79LlGEDohnyKIIUXEZt0 bGsbrO2PW93VHHz7gyqoYJ zlqFyDVRyaeqCnCxDpyIvr kNVcxQkfVsEF0o1jBxVJo2 87Ti6lPINTKMUonQX1tf1C 5Oc1JcV8FotlgcMdWYZwfQ yH8VNI44jQ0k53qV+komtg VnzmIzFebUhCT0ziHZwhbt uRTF2TOx+rIQRSCt6aOk3L Ew/tAJHTUYQeOauEUPolqz PtSuFgASZP7Ipd+jZagUGA eTD1Xmxf3KXHJLm1Kvmq3G 17NWmxS/hncsKdtN1M0kJL ODs+mEXZ5Te2mujageJwc3 B+WsN6zsnLVcEFG9udxteF qetji+yW0ssCH/t05S4hNb 39gambEpEoX5HgTEF/mjPb IM3ciRzBK4fcLVRgrxI4mC JFPxioy2bLZd4UbwZgsiT0 Za8uyeMJryDLBupFvjvJs4 fXWY6QnCYfzoyskrXTVfQT eNSBIhJ5pgzVgpDhKQybdE FGlSC/G2pRBsSWUFtNCAhE hiB8AjeNazWvTyEKE29Fwl 3ZZHY7Um1jVmuMWnaxNEZy o9Jfpq3avrb0HbiarVE+4u sQlLWyP/YvmPtHcUHOIzix iMIoOEYMbmy+cqcXiwetkU PVHR4qt13+3zMj7mwSAS4G L5zaYujXQlzjIp4MQ3ooAi IzXxELl3Vkh1uA1VaRbHMQ WWjV9+P9LBRRyYdXJprt5k /XC5yWYURvFGo/PdA3jCQ9 +wVJy3HNV6SHKmtR/f1v5W A2x5oQLRKXlpOqfEd2KGjU vca5tgT6CtRvtrIELUjwGK 2aupYWMNZh8yDbTW3y77eP R4z72PaafXPaiw42/Y/71e Kxfk2jyt7txp8mV5fGZReE rym1TgglKiQ2zj6rg9d4n6 m243NqX/9/qXrPpYlSN/sE w2dveecmuPgNFQMJPGCucA 0Z20hYNAGkY5LuXOsR+aip U9oBbkTKcySqDKjrmrRPe8 XVhP07uu4NN4dXyI1eyp9h l1mISTbo410phnFrtS8Xj7 d76AHUNwcA8IrjxdXSEizb L2EpelKw4D+8pRblDi/IaR uauYy2CDl0BHK6hokF4SQi wfkATuwdkQh+pLxN6PaJcE 31GeCWXUYC1F+ZqdZxvAId e5JJpxlVNDOnDmUoDtMLEC zNs7KnQUEndFwSmHv0InVZ 2aeumIDxJhg//2fr9LaLXA 9jpbxpp5v9zZkCoPH3e58i zCp3SZvOoI/+aO+jegKN3H 56NeskHbExoAL/qO5xH57Q r4F0+VIo1PuCaqL45SDDSZ pquRVQsCK7MbqDRsWTg9+9 yqyPuTEDb0Cob6nbvTGYvK o0vI3MFZzrrdJ4FCXbp3wq 3UrQYHBF5m3j04JBme1fI3 RJb8H5y4Ved9Y9fuRD6rof SCIv426I+PpIeIbR5Fveux mALDatvNj4FkDaXrMF7N4g vDUVHMlbFNwUyCWS3GfQ/M SI5eLzjPXC5fqhdjMWSLE5 vRa5TWdayiMMAAFShJWpNP ZjCVTq46abdjMoaIB4L8Pm kmT5yXqqUc4vY0TkaPq1mg XAMO9FhNLznbix9ss/khOd BynLKmjBirOWTiWpSp7aN4 VBk6t+macJ8oHkynclEvjl pHVLA06awPRZ03Lsb9oEYB kpAbCYTRSib+WY22o7KGnH kSrQSOKUSydmpkEjOTodEP uiS5R/Ovij7FTilabdYx0u /WOTAA3lV92VOQmfzvSA4K 2WrEqIQAON93AACwjrvJO4 xCYJQM4SNn1zhXG136B+GI YxgYe47GJfaW/9eAj8cSfm nilKe+xVst9dvjWEdDUZRe 8k7Y/wLk (more content not included)... Normal [employer] [facility] Comment on above: Performed By: #### N [id number] ####[facility] [id number] [place], [address] Telephone Encounteron 2023 Traffic Signal Technician Authentication Interface Message Text Pt is calling in regards to her Rad onc appts She still has not heard from [place] to get scheduled and stated to give a call Michelle Vyas [employer]} [employer] Progress Noteson 05-23-2024 Traffic Signal Technician Authentication Interface Message Text GYNECOLOGIC ONCOLOGY - TELEPHONE VISIT CHIEF COMPLAINT: Cervical Cancer, Discuss Results REFERRING PHYSICIAN: Dr. Iona Emmanuel MD ([employer] in [place]) PCP: Dr. Marlen Rodríguez MD Documentation: Mode: Telephone Patient Patient Work Phone: Patient Cell Preferred phone: [phone] Consent: I confirmed patient understanding of the risks and benefits of telehealth visits and obtained consent to proceed with the telehealth visit. Location of Patient: Home of patient HPI: The patient is a 58 year old woman with Cervical Cancer. We scheduled today's telephone visit to discuss results of her cervical biopsy and PET/CT scan. Today the patient states she is doing well. No complaints. RESULTS: - I reviewed the results of the lab work from 05/02/2024: HIV Non-Reactive CA-125 = 74.4 Glucose 85, Na 139, K 4.4, Cl 105, CO2 25, BUN 17, Creat 0.72 Calcium 10.0 WBC 7.3, Hgb 14.0, Hct 43.6, PLT 316, ANC 5,200 - I reviewed the pathology report of the 05/02/2024 Cervical Biopsy A. Cervix, biopsy INVASIVE, MODERATELY-DIFFERENTIA HEATHER, NON-KERATINIZING SQUAMOUS CELL CARCINOMA (see immunohistochemistry). P16: Positive - I reviewed the report of the 05/13/2024 PET/CT Scan ([facility]): - Head/Neck: There is no evidence of abnormal increased glucose metabolism in the pharyngeal mucosal space, parapharyngeal space, bilateral-lateral and anterior neck, hypopharynx and distribution of the laryngeal structures. - The visualized portion of the cerebral cortical-subcortical structures demonstrate symmetric and preserved glucose metabolism. - CHEST: There is no quantitative scintigraphic evidence of abnormal increased glucose metabolism within the context of the bilateral hemithorax pulmonary parenchyma, right and left hemithoracic pleural interface, mediastinal structures and thoracic perihilum.? - Pertinent chest CT findings are as follows. There is atherosclerotic calcification defined in the thoracic aorta without evidence of dilatation-aneurysm formation. Coronary arterial calcification is observed. Right and left axillary soft tissue densities are ametabolic. There are no parenchymal densities-nodules defined in the right and left hemithorax with quantitively significant increased FDG uptake. Bilateral axillary soft tissue densities are ametabolic. Meticulous attention paid to the bilateral hemithorax reveals no evidence of increased tracer uptake. - Abdomen/Pelvis: Enhanced tracer uptake is defined in the lower pelvis, uterus-uterine cervix. The calculated maximum standard uptake value is 8.4. The maximum axial diameter of the largest metabolic abnormality is 43.7 mm. Normal physiologic distribution of the radiopharmaceutical is apparent in the hepatic (3.0) and splenic parenchyma, both renal units, bladder and visualized intestinal tract. Diffuse radiopharmaceutical concentration is noted in all four quadrants of the abdomen and pelvis. - Abdomen and pelvis CT findings are as follows. There is atherosclerotic calcification defined in the abdominal aorta without evidence of dilatation-aneurysm formation. Abdominal-pelvic arterial calcification is defined. Colonic diverticula are defined without evidence of diverticulitis. Bilateral inguinal soft tissue densities with fatty hilus are nonglucose avid. Right and left inguinal soft tissue densities are ametabolic. Calcifications are defined within the uterine mass formation. Cyst formation is defined without increased FDG uptake in the left adnexal region. - Skeletal: L4 on L5 anterolisthesis is demonstrated. Degenerative changes are noted in the cervical, thoracic and lumbar spine. IMPRESSION: 1. ABNORMAL EXAMINATION INDICATIVE OF MALIGNANT-VIABLE NEOPLASM. 2. Increased tracer uptake noted in the pelvis associated with the uterus-uterine cervix fulfills quantitative criteria for viable neoplasm. 3. No other quantitative significant hypermetabolic abnormalities are encountered. Electronic Signature Maciej Pearson D.O. IMPRESSION/PLAN: 58 year old with locally advanced cervical cancer. Will need primary chemo RT. Not a candidate for surgery. Will refer to rad onc and med onc in [place]. We can see her back at [facility] for brachytherapy. BETHANY TORRES MD FACOG [facility] - Gynecologic Oncology Office Pager: [phone] Total Encounter Time = 15 minutes Normal The [facility]{img} System Telephone Encounteron 2023 Traffic Signal Technician Authentication Interface Message Text Olivia calling in regards to mutual (attached) patient Olivia states that a PA needs to be received by May 24 in order for patient to proceed with orders Olivia was able to provide the number for [facility] - [phone] to obtain PA - states it can be done over the phone as a same day authorization Olivia can be reached at [phone] with any additional questions/concerns Normal [facility]{img} [facility] Telephone Encounteron 2023 Traffic Signal Technician Authentication Interface Message Text Patient calling Patient states that she had a pelvis MRI originally scheduled for 05/20 changed to 05/15 and then changed again 05/16 - in the process your insurance cancelled / denied the MRI MRI is currently rescheduled for 05/26 - information will need to be resubmitted so that the insurance will approve imaging procedure Patient can be reached at [phone] with any questions Normal [facility]{img} [facility] Telephone Encounteron 2023 Traffic Signal Technician Authentication Interface Message Text Pt has an MRI on 05/15 at [facility] [phone] Jesus They need authorization from her insurance by noon today or they will cancel pt. Normal [facility]} [facility] BASIC METABOLIC PANELon 07 Anion gap [Moles/Vol] 13 mmol/L Normal 10-20 [facility]} [facility] Comment on above: Performed By: #### H EPATIC, CH8, CA125, FETIBC #### [facility] [address] [place] [address], Calcium [Mass/Vol] 10.0 mg/dL Normal 8.6-10.3 [facility] Comment on above: Performed By: #### H EPATIC, CH8, CA125, FETIBC #### [facility] [address] [place] [address], Chloride [Moles/Vol] 105 mmol/L Normal 98-107 [facility]} [facility] Comment on above: Performed By: #### H EPATIC, CH8, CA125, FETIBC #### [facility] [address] [place] [address], CO2 [Moles/Vol] 25 mmol/L Normal 21-31 [facility] Comment on above: Performed By: #### H NATALIYA MILES8, CA125, FETIBC #### [facility] [address] [place] [address], Creatinine [Mass/Vol] 0.72 mg/dL Normal 0.60-1.20 [facility] Comment on above: Performed By: #### H GINGER CH8, CA125, FETIBC #### [facility] [address] [place], [place], ESTIMATED GFR (CKD-EPI) 98 mL/min/1.73sqm Normal >=60 [facility] Comment on above: Result Comment: 2020 CKD EPI Equation using Creatinine without Race Comment: Estimated glomerular filtration rate (eGFR) is calculated without a race coefficient. Values should be interpreted in the context of the patient's full clinical presentation. Reference: 1. Brayden C, Alexandre M, Milli ROBERT, et al.. A Unifying Approach for GFR Estimation: Recommendations of the NKF-ASN Task Force on Reassessing the Inclusion of Race in Diagnosing Kidney Disease. Australian Journal of Kidney Diseases 202;79(2):268-88.e1. 2. N Engl J Med 1 Vol. 385 Issue 19 Pages [phone] Performed By: #### H GINGER, CH8, CA125, FETIBC #### [facility] [address] [place], [place], Glucose [Mass/Vol] 85 mg/dL Normal 74-109 [facility] Comment on above: Performed By: #### Alex MILES CH8, CA125, FETIBC #### [facility] [address] [place], [place], Potassium [Moles/Vol] 4.4 mmol/L Normal 3.5-5.0 [facility] Comment on above: Performed By: #### H GINGER CH8, CA125, FETIBC #### [facility] [address] [place], [place], Sodium [Moles/Vol] 139 mmol/L Normal 136-145 [facility] Comment on above: Performed By: #### H EPATIC, CH8, CA125, FETIBC #### [facility] [address] [place], [place], Urea nitrogen [Mass/Vol] 17 mg/dL Normal 7-25 The [facility] Comment on above: Performed By: #### H EPATIC, CH8, CA125, FETIBC #### [facility] [address] [place], [place], Basic metabolic 2000 panelon 05-02-2024 Anion gap [Moles/Vol] 13 mmol/L 10 - 20 [facility] Calcium [Mass/Vol] 10.0 mg/dL 8.6 - 10. 3 mg/dL [facility] Chloride [Moles/Vol] 105 mmol/L 98 - 10 7 mmol/L [facility] CO2 [Moles/Vol] 25 mmol/L 21 - 31 mmol/L [facility] Creatinine [Mass/Vol] 0.72 mg/dL 0.60 - 1.20 mg/dL [facility] GFR/1.73 sq M.predicted CKD-EPI (S/P/Bld) [Vol rate/Area] 98 - PINF [facility] Comment on above: 2020 CKD EPI Equatio n using Creatinine without Race Comment: Estimated glomerular filtration rate (eGFR) is calculated without a race coefficient. Values should be interpreted in the context of the patient's full clinical presentation. Reference: 1. Brayden C, Alexandre M, Milli DC, et al.. A Unifying Approach for GFR Estimation: Recommendations of the NKF-ASN Task Force on Reassessing the Inclusion of Race in Diagnosing Kidney Disease. Australian Journal of Kidney Diseases 202;79(2):268-88.e1. 2. N Engl J Med 2020 Vol. 385 Issue 19 Pages 2092-4181 Glucose [Mass/Vol] 85 mg/dL 74 - 109 mg/dL [facility] Interpretation and review of laboratory results Normal [facility] Potassium [Moles/Vol] 4.4 mmol/L 3.5 - 5.0 mmol/L [facility] Sodium [Moles/Vol] 139 mmol/L 136 - 145 mmol/L [facility] Urea nitrogen [Mass/Vol] 17 mg/dL 7 - 25 mg/dL [facility] CA 125on 05-02-2024 Cancer Ag 125 Qn 74.4 High NINF [facility] Interpretation and review of laboratory results Abnormal [facility] The [employer] Antonina Access DxI CA 125 (cancer antigen 125) assay is a sandwich chemiluminescence immunoassay. Results obtained with different test methods or kits cannot be used interchangeably. Serial testing for patient CA 125 antigen concentrations should be used in conjunction with other clinical methods used for monitoring ovarian cancer. Monitor concentrations should not be interpreted as absolute evidence for the presence or absence of cancer. Patients with confirmed ovarian carcinoma may have pretreatment CA 125 values in the same range as healthy individuals. Elevations may be observed in patients with nonmalignant disease. Therefore, a CA 125 value, regardless of level, should not be interpreted as absolute evidence of the presence or absence of malignant disease. [facility] CA125 74.4 IU/mL High <35.1 The [facility] Comment on above: Order Comment: The AOI Medical Access DxI CA 125 (cancer antigen 125) assay is a sandwich chemiluminescence immunoassay. Results obtained with different test methods or kits cannot be used interchangeably. Serial testing for patient CA 125 antigen concentrations should be used in conjunction with other clinical methods used for monitoring ovarian cancer. Monitor concentrations should not be interpreted as absolute evidence for the presence or absence of cancer. Patients with confirmed ovarian carcinoma may have pretreatment CA 125 values in the same range as healthy individuals. Elevations may be observed in patients with nonmalignant disease. Therefore, a CA 125 value, regardless of level, should not be interpreted as absolute evidence of the presence or absence of malignant disease. Performed By: #### H EPATIC, CH8, CA125, FETIBC #### [facility] [address] [place] [address], [phone] CBC WITH DIFFERENTIALon Basophils (Bld) [#/Vol] 0.06 10*3/uL 0.00 - 0.20 K/uL [facility] Basophils/100 WBC (Bld) 0.9 % NINF - 1.9 % [facility] Eosinophils (Bld) [#/Vol] 0.20 10*3/uL 0.00 - 0.70 K/uL [facility] Eosinophils/100 WBC (Bld) 2.7 % 0.1 - 4.0 % [facility] Erythrocyte distribution width (RBC) [Ratio] 13.6 % 11.5 - 14.5 % [facility] Hematocrit (Bld) [Volume fraction] 43.6 % 36.0 - 46.0 % [facility] Hemoglobin (Bld) [Mass/Vol] 14.0 g/dL 12.0 - 15.0 g/dL [facility] Interpretation and review of laboratory results Abnormal [facility] Lymphocytes (Bld) [#/Vol] 1.35 10*3/uL 1.00 - 4.80 K/uL [facility] Lymphocytes/100 WBC (Bld) 18.6 % Low 24.0 - 44.0 % [facility] MCH (RBC) [Entitic mass] 28.1 pg 26.0 - 34.0 pg [facility] MCHC (RBC) [Mass/Vol] 32.1 g/dL 32.0 - 35.9 g/dL [facility] MCV (RBC) [Entitic vol] 87 fL 80 - 100 fL [facility] Monocytes (Bld) [#/Vol] 0.45 10*3/uL 0.20 - 1.00 K/uL [facility] Monocytes/100 WBC (Bld) 6.2 % 2.0 - 11.0 % [facility] Neutrophils (Bld) [#/Vol] 5.20 10*3/uL 1.50 - 8.00 K/uL [facility] Neutrophils/100 WBC (Bld) 71.6 % 31.0 - 76.0 % [facility] Platelet mean volume (Bld) [Entitic vol] 8.3 fL 7.5 - 11.2 fL [facility] Platelets (Bld) [#/Vol] 316 10*3/uL 150 - 400 K/uL [facility] RBC (Bld) [#/Vol] 4.99 10*6/uL [facility] WBC (Bld) [#/Vol] 7.3 10*3/uL 4.5 - 11.5 K/uL [facility] Basophils (Bld) [#/Vol] 0.06 10*3/uL Normal 0.00-0.20 The [facility] Comment on above: Performed By: #### H EPATIC, CH8, CA125, FETIBC #### [facility] [address] [place] [address], [phone] Basophils/100 WBC (Bld) 0.9 % Normal <=1.9 T [facility] Comment on above: Performed By: #### H EPATIC, CH8, CA125, FETIBC #### [facility] [address] [place] [address], Eosinophils (Bld) [#/Vol] 0.20 10*3/uL Normal 0.00-0.70 [facility] Comment on above: Performed By: #### H EPATIC, CH8, CA125, FETIBC #### [facility] [address] [place] [address], Eosinophils/100 WBC (Bld) 2.7 % Normal 0.1-4.0 [facility] Comment on above: Performed By: #### H EPAALON, CH8, CA125, FETIBC #### [facility] [address] [place] [address], Erythrocyte distribution width (RBC) [Ratio] 13.6 % Normal 11.5-14.5 The [facility] Comment on above: Performed By: #### H EPATIC, CH8, CA125, FETIBC #### [facility] [address] [place] [address], Hematocrit (Bld) [Volume fraction] 43.6 % Normal 36.0-46.0 The [facility] Comment on above: Performed By: #### H EPATIC, CH8, CA125, FETIBC #### [facility] [address] [place] [address], Hemoglobin (Bld) [Mass/Vol] 14.0 g/dL Normal 12.0-15.0 The [facility] Comment on above: Performed By: #### H EPATIC, CH8, CA125, FETIBC #### [facility] [address] [place] [address], Lymphocytes (Bld) [#/Vol] 1.35 10*3/uL Normal 1.00-4.80 The [facility] Comment on above: Performed By: #### H EPATIC, CH8, CA125, FETIBC #### [facility] [address] [place] [address], Lymphocytes/100 WBC (Bld) 18.6 % Low 24.0-44.0 The [facility] Comment on above: Performed By: #### H GINGER, CH8, CA125, FETIBC #### [facility] [address] [place] [address], MCH (RBC) [Entitic mass] 28.1 pg Normal 26.0-34.0 The [facility] Comment on above: Performed By: #### H EPAALON, CH8, CA125, FETIBC #### [facility] [address] [place] [address], MCHC (RBC) [Mass/Vol] 32.1 g/dL Normal 32.0-35.9 The [facility] Comment on above: Performed By: #### Alex MILES, CH8, CA125, FETIBC #### [facility] [address] [place] [address], MCV (RBC) [Entitic vol] 87 fL Normal 80-100 T [facility] Comment on above: Performed By: #### H GINGER, CH8, CA125, FETIBC #### [facility] [address] [place] [address], Monocytes (Bld) [#/Vol] 0.45 10*3/uL Normal 0.20-1.00 The [facility] Comment on above: Performed By: #### Alex MILES, CH8, CA125, FETIBC #### [facility] [address] [place] [address], Monocytes/100 WBC (Bld) 6.2 % Normal 2.0-11.0 T [facility] Comment on above: Performed By: #### H GINGER, CH8, CA125, FETIBC #### [facility] [address] [place] [address], Neutrophils (Bld) [#/Vol] 5.20 10*3/uL Normal 1.50-8.00 The [facility] Comment on above: Performed By: #### Alex EPAALON, CH8, CA125, FETIBC #### [facility] [address] [place] [address], Neutrophils/100 WBC (Bld) 71.6 % Normal 31.0-76.0 The [facility] Comment on above: Performed By: #### H EPATIC, CH8, CA125, FETIBC #### [facility] [address] [place] [address], Platelet mean volume (Bld) [Entitic vol] 8.3 fL Normal 7.5-11.2 The [facility] Comment on above: Performed By: #### H EPATIC, CH8, CA125, FETIBC #### [facility] [address] [place] [address], Platelets (Bld) [#/Vol] 316 10*3/uL Normal 150-400 The [facility] Comment on above: Performed By: #### H EPATIC, CH8, CA125, FETIBC #### [facility] [address] [place] [address], RBC (Bld) [#/Vol] 4.99 10*6/uL Normal 4.00-5.20 The [facility] Comment on above: Performed By: #### H EPATIC, CH8, CA125, FETIBC #### [facility] [address] [place] [address], WBC (Bld) [#/Vol] 7.3 10*3/uL Normal 4.5-11.5 The [facility] Comment on above: Performed By: #### H EPATIC, CH8, CA125, FETIBC #### [facility] [address] [place] [address], HIV 1 and 2 Ab and HIV 1 p24 Ag panel IAon 05-02-2024 HIV 1+2 Ab+HIV1 p24 Ag IA Ql Non-Reactive Non-Reactive [facility] Comment on above: No laboratory eviden ce for HIV Infection. Negative result does not rule out acute HIV infection. If acute HIV infection is suspected, recommend ordering an HIV-1 RNA quanitification test. Interpretation and review of laboratory results Normal [facility] HIV Information: [place] Rev. code 3701.243(E): This information has been disclosed to you from confidential records protected from disclosure by state law. You shall make no further disclosure of this information without the specific, written, and informed release of the individual to whom it pertains, or as otherwise permitted by state law. A general authorization for the release of medical or other information is not sufficient for the purpose of the release of HIV test results or diagnoses. [facility] HIV1 HIV2 AGAB SCRNon 2023 HIV AG-AB SCREEN Non-Reactive Normal Non-Reactive The [facility] Comment on above: Order Comment: HIV I nformation: ???[place] Rev. code 3701.243(E):This information has been disclosed to you from confidential records protected from disclosure by state law. ???You shall make no further disclosure of this information without the specific, written, and informed release of the individual to whom it pertains, or as otherwise permitted by state law. ???A general authorization for the release of medical or other information is not sufficient for the purpose of the release of HIV test results or diagnoses. Result Comment: No l aboratory evidence for HIV Infection. Negative result does not rule out acute HIV infection. If acute HIV infection is suspected, recommend ordering an HIV-1 RNA quanitification test. 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 Iona Emmanuel MD ([place], [place]) HPI: The patient is a 58 year old woman referred with a new diagnosis of cervical cancer. She has been having daily light vaginal bleeding for several months now. In March, she had an episode of 3 weeks of more heavy bleeding. Also been having some bloating and occasional pelvic pain. She has pain with intercourse as well. She feels like she is always constipated. 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 HISTORY: OB History Para Term AB Living 1 1 0 0 0 0 SAB IAB Ectopic Multiple Live Births 0 0 0 0 0 Obstetric Comments - x 1 Menarche in 9th Grade Not yet menopausal - had a 6 month time period with no menstrual period History of OCP use when she was younger for a couple of year No prior HRT use Mammogram February 2024 Colonoscopy February 2024 Has never had a DEXA scan FAMILY HISTORY: Family History Problem Relation Age of Onset Lymphoma Sister 23 Non Hodgkins Lymphoma Colon Cancer Negative Family History of Prostate cancer Negative Family History of Pancreatic Cancer Negative Family History of Ovarian Cancer Negative Family History of Uterine Cancer Negative Family History of Breast Cancer Negative Family History of SOCIAL HISTORY: Social History Socioeconomic History Marital status: Single Tobacco Use Smoking status: Never Smokeless tobacco: Never Vaping Use Vaping status: Never Used Substance and Sexual Activity Alcohol use: Yes Comment: occassionally Drug use: Never Social History Narrative Lives in [place] lives with her No Pets Occasional/Social EtoH Non-smoker No current or past drug use Works at [employer] MEDICATIONS: Current Outpatient Medications Medication Instructions ibuprofen (MOTRIN) 600 mg, Oral, EVERY 8 HOURS PRN Sennosides 15 mg, Oral, DAILY vitamin D2 ergocalciferol (DRISDOL) 50,000 Units, Oral, EVERY 7 DAYS ALLERGIES: No Known Allergies PHYSICAL EXAMINATION: Vitals: 05/02/24 0804 BP: 121/64 Pulse: 64 Resp: 16 Temp: 98.2 ???F (36.8 ???C) SpO2: 97% Performance Status: 0 General: Pt is well appearing, in NAD HEENT: No lymphadenopathy, non tender Lymph: No cervical, supraclavicular or axillary lymphadenopathy Breast: Not performed Cardiac: RRR, no murmurs, rubs or gallops Pulmonary: CTAP b, no wheezes, rales or crackles Abdomen: Soft, nontender, non distended, no masses or hernias, positive, normal bowel sounds : A thermoforming operator was present for the gynecologic portion of today's examination. No palpable groin adenopathy. Normal external genitalia, vulva and vagina without lesions. Large mass at the top of the vagina that has completely replaced the cervix. Bilateral parametrial extension. Uterus felt fixed. Extremities: Warm, no cyanosis, no edema, [place] Psych: Normal affect, demeanor, normal, non-pressured speech Neuro: Intact RESULTS: - I reviewed the results of the Pap smear which was collected on March 06, 2024: Epithelial cell abnormality. High-grade squamous intraepithelial lesion (HGSIL), encompassing moderate and severe dysplasia/carcinoma in-situ with features suspicious for invasion. High-risk HPV testing was positive. - I reviewed the report of the pelvic ultrasound which was performed at [facility] on March 12, 2024: Normal uterine size measuring 7.2 x 5.9 x 4.5 cm. 2.2 cm hypoechoic mass in the posterior fundus of the uterus, consistent with an intramural fibroid. Another 1.8 cm isoechoic mass in the posterior body of the uterus was consistent with a intramural fibroid. Normal endometrial thickness measuring 2 mm. There are no endometrial masses, and there was no fluid in the endometrial cavity. Normal uterine cervix. Normal right ovary measuring 3.0 x 1.8 x 2.0 cm. There are multiple follicles without a dominant cyst. Normal left ovary, measuring 4.3 x 3.8 x 3.2 cm. 3.2 cm oval anechoic mass with increased transmission of the left ovary consistent with a corpus luteum cyst. There was no free fluid in the pelvis. IMPRESSION/PLAN: The patient is a 58 year old woman referred with a new diagnosis of cervical cancer. I had a long conversation today patient in the office. Her was also present for today's office visit. We reviewed her symptoms in great detail. We discussed (more content not included)... Normal [facility] That{img} System Traffic Signal Technician Authentication Interface Message Text Patient was identified by name and date of . [place] ..Patient at risk for falls:No Falls Risk protocol implemented: No Normal [facility]{img} System Absolute lymphocyte countOrd ered By: Marlen Rodríguez on 01-29-2024 Lymphocytes Auto (Unsp spec) [#/Vol] 1.41 10*3/uL 0.83-4.51 [facility] Automated lymphocyte count a s percentage of total leukocytesOrdered By: Marlen Rodríguez on 01-29-2024 Lymphocytes/100 WBC Auto (Unsp spec) 24.3 % 19-41 [facility] Basophil percentageOrdered B y: Marlen Rodríguez on 01-29-2024 Basophil percentage 0 SEEN /hpf 0-5 [facility] Basophils/100 WBC (Bld) 0.5 % 0-1 [facility] Bilirubin [Mass/Vol] 0.30 mg/dL 0.20-1.00 [facility] Comment on above: For patients on eltr ombopag therapy, use of Dimension Hassell TBIL is not recommended. Chloride [Moles/Vol] 109 mmol/L 98-107 [facility] Cholesterol [Mass/Vol] 174 mg/dL <200 [place] Comment on above: <200 mg/dL Desirable 200-240 mg/dL Borderline >240 mg/dL High Risk Eosinophils/100 WBC (Bld) 3.3 % 0-5 [facility] Glucose [Mass/Vol] 96 mg/dL 74-106 [facility] Hemoglobin (Bld) [Mass/Vol] 13.3 g/dL 12.0-15.0 [facility] Monocytes/100 WBC (Bld) 7.2 % 0-10 [facility] Neutrophils (Bld) [#/Vol] 3.7 10*3/uL 2.0-7.7 [facility] Neutrophils/100 WBC (Bld) 64.5 % 47-70 [facility] Potassium [Moles/Vol] 4.1 mmol/L 3.5-5.1 [facility] Protein [Mass/Vol] 7.5 g/dL 6.4-8.2 [facility] Sodium [Moles/Vol] 140 mmol/L 136-145 [facility] Triglyceride [Mass/Vol] 77 mg/dL <199 [facility] Comment on above: The drugs N-Acetylcy steine and Metamizole may falsely depress this assay.Serum Triglycerides Reference Interval Normal <150 mg/dL Borderline high 150 - 199 mg/dL High 200 - 499 mg/dL Very High > or = 500 mg/dL WBC (Bld) [#/Vol] 5.8 10*3/uL 4.4-11.0 [facility] Bilirubin Test strip Ql (U)O rdered By: Marlen Rodríguez on 01-29-2024 Bilirubin Ql (U) Negative Negative [facility] Determination of erythrocyte mean corpuscular volume (MCV)Ordered By: Marlen Rodríguez on 01-29-2024 MCV (RBC) [Entitic vol] 88.4 fL 81-99 [facility] Erythrocyte distribution wid th ratioOrdered By: Marlen Rodríguez on 01-29-2024 Erythrocyte distribution width (RBC) [Ratio] 13.2 % 11.6-14.6 [facility] Erythrocyte distribution wid th standard deviationOrdered By: Marlen Rodríguez on 01-29-2024 Erythrocyte distribution width (RBC) [Entitic vol] 42.7 fL 35.1-43.9 [facility] Hematocrit Auto (Bld) [Volum e fraction]Ordered By: Marlen Rodríguez on 01-29-2024 Hematocrit (Bld) [Volume fraction] 42.7 % 37-47 [facility] Immature granulocytes/100 WB C Auto (Bld)Ordered By: Marlen Rodríguez on 01-29-2024 Immature granulocytes/100 WBC (Bld) 0.200 % 0.0-0.9 [facility] Comment on above: IG% - Immature Granu locytes (promyelocytes, myelocytes and metamyelocytes) > 1% indicates that a LEFT SHIFT is Present. Ketones Test strip Ql (U)Ord ered By: Marlen Rodríguez on 01-29-2024 Ketones Ql (U) Negative Negative [facility] Laboratory - Chemistry and C hemistry - challengeOrdered By: Marlen Rodríguez on 01-29-2024 Albumin/Globulin [Mass ratio] 1.0 {ratio} 0.9-2.4 [facility] ALP [Catalytic activity/Vol] 129 U/L 45-117 [facility] ALT [Catalytic activity/Vol] 29 U/L 13-56 [facility] Cholesterol in HDL [Mass/Vol] 91 mg/dL >40 [facility] Comment on above: The drugs N-Acetylcy steine and Metamizole may falsely depress this assay. Reference Range HDL <40 mg/dL Low HDL Cholesterol HDL >or= 60 mg/dL High HDL Cholesterol Cholesterol in LDL [Mass/Vol] 68 mg/dL 0-130 [facility] CO2 [Moles/Vol] 27.0 mmol/L 21.0-32.0 [facility] Globulin (S) [Mass/Vol] 3.8 g/dL 2.2-4.2 [facility] Urea nitrogen/Creatinine [Mass ratio] 26.5 mg/mg 10-20 [facility] Laboratory - Hematology and Cell countsOrdered By: Marlen Rodríguez on 01-29-2024 MCH (RBC) [Entitic mass] 27.5 pg 27.0-32.0 [facility] MCHC (RBC) [Mass/Vol] 31.1 g/dL 32-36 [facility] Nucleated RBC/100 WBC (Bld) [Ratio] 0 % 0-5 [facility] Platelet mean volume (Bld) [Entitic vol] 9.8 fL 6.2-12.0 [facility] Platelets (Bld) [#/Vol] 321 10*3/uL 150-450 [facility] Mucus LM Ql (Urine sed)Order ed By: Marlen Rodríguez on 01-29-2024 Mucus Ql (Urine sed) 0 SEEN /hpf [facility] Nitrite Test strip Ql (U)Ord ered By: Marlen Rodríguez on 01-29-2024 Nitrite Ql (U) Negative Negative [facility] No Panel InformationOrdered By: Marlen Rodríguez on 01-29-2024 Estimated GFR (MDRD) Amer 115 mL/min >60 [facility] Comment on above: GFR Calc Estimated GFR (MDRD) Non-Af Amer 95 mL/min >60 [facility] Comment on above: Non- GFR Calc Urine RBC 0 SEEN /hpf 0-5 [facility] VLDL Cholesterol 15 mg/dL 5-40 [facility] Protein Test strip Ql (U)Ord ered By: Marlen Rodríguez on 01-29-2024 Protein Ql (U) 15 mg/dl Negative [facility] RBC Auto (Bld) [#/Vol]Ordere d By: Marlen Rodríguez on 01-29-2024 RBC (Bld) [#/Vol] 4.83 10*6/uL 4.2-5.4 [facility] Serum or plasma calcium malvin urement (mass/volume)Ordered By: Marlen Rodríguez on 01-29-2024 Calcium [Mass/Vol] 9.8 mg/dL 8.5-10.1 [facility] Serum or plasma creatinine m easurement (mass/volume)Ordered By: Marlen Rodríguez on 01-29-2024 Creatinine [Mass/Vol] 0.68 mg/dL 0.55-1.02 [facility] Comment on above: The validity of the calculated GFR & GFRAA in patients over 70 years has not been determined. Clinical correlation is essential. Serum or plasma urea nitroge n measurement (mass/volume)Ordered By: Marlen Rodríguez on 01-29-2024 Urea nitrogen [Mass/Vol] 18 mg/dL 7-18 [facility] Squamous epithelial cells de tection in urine sediment by light microscopyOrdered By: Marlen Rodríguez on 01-29-2024 Epithelial cells.squamous LM Ql (Urine sed) 0-5 SEEN /hpf 5-10 [facility] Thin prep Papanicolaou smear with manual screeningOrdered By: Marlen Rodríguez on 01-29-2024 Thin prep Papanicolaou smear with manual screening 3.7 g/dL 3.2-5.0 [facility] Thin prep Papanicolaou smear with manual screening 27 U/L 15-37 [facility] Thin prep Papanicolaou smear with manual screening 4 5-15 [facility] Urine blood detectionOrdered By: Marlen Rodríguez on 01-29-2024 RBC Ql (U) Negative Negative [facility] Urine clarityOrdered By: Aaron Rodríguez on 01-29-2024 Clarity (U) Sl. Cloudy Clear [facility] Urine color determinationOrd ered By: Marlen Rodríguez on 01-29-2024 Color (U) Yellow Yellow [facility] Urine glucose detectionOrder ed By: Marlen Rodríguez on 01-29-2024 Glucose Ql (U) Normal mg/dl Normal [facility] Urine leukocyte esterase det ection by dipstickOrdered By: Marlen Rodríguez on 01-29-2024 Leukocyte esterase Test strip Ql (U) Negative Negative [facility] Urine pHOrdered By: Marlen wilcox on 01-29-2024 pH (U) 6.0 [pH] 5.0 - 8.0 [facility] Urine sediment bacteria coun t by microscopy (number/high power field)Ordered By: Marlen Rodríguez on 01-29-2024 Bacteria LM.HPF (Urine sed) [#/Area] 0 /[HPF] None Seen [facility] Urine specific gravity measu rementOrdered By: Marlen Rodríguez on 01-29-2024 Specific gravity (U) [Rel density] 1.020 1.002-1.030 [facility] Urine urobilinogen measureme ntOrdered By: Marlen Rodríguez on 01-29-2024 Urobilinogen Ql (U) Normal mg/dl Normal [facility] Absolute lymphocyte countOrd ered By: Antonella Aguila on 10-16-2023 Lymphocytes Auto (Unsp spec) [#/Vol] 1.31 10*3/uL 0.83-4.51 [facility] Basophil percentageOrdered B y: Antonella Aguila on 10-16-2023 Basophil percentage 10-25 SEEN /hpf 0-5 [facility] Basophils/100 WBC (Bld) 0.6 % 0-1 [facility] Chloride [Moles/Vol] 109 mmol/L 98-107 [facility] Eosinophils/100 WBC (Bld) 3.1 % 0-5 [facility] Glucose [Mass/Vol] 124 mg/dL 74-106 [facility] Comment on above: Fasting Glucose resu lt from 100 to 125 mg/dL suggests IMPAIRED HOMEOSTASIS per A.D.A. criteria. Neutrophils (Bld) [#/Vol] 4.7 10*3/uL 2.0-7.7 [facility] Neutrophils/100 WBC (Bld) 69.7 % 47-70 [facility] Potassium [Moles/Vol] 3.3 mmol/L 3.5-5.1 [facility] Sodium [Moles/Vol] 141 mmol/L 136-145 [facility] WBC (Bld) [#/Vol] 6.7 10*3/uL 4.4-11.0 [facility] Bilirubin Test strip Ql (U)O rdered By: Antonella Aguila on 10-16-2023 Bilirubin Ql (U) Negative Negative [facility] Blood erythrocytes count (nu mber/volume)Ordered By: Antonella Aguila on 10-16-2023 RBC (Bld) [#/Vol] 4.70 10*6/uL 4.2-5.4 [facility] Blood hemoglobin measurement (mass/volume)Ordered By: Antonella Aguila on 10-16-2023 Hemoglobin (Bld) [Mass/Vol] 13.1 g/dL 12.0-15.0 [facility] Blood lymphocytes/100 leukoc ytesOrdered By: Antonella Aguila on 10-16-2023 Lymphocytes/100 WBC (Bld) 19.6 % 19-41 [facility] Blood monocytes/100 leukocyt esOrdered By: Antonella Aguila on 10-16-2023 Monocytes/100 WBC (Bld) 6.6 % 0-10 [facility] Blood platelet mean volumeOr dered By: Antonella Aguila on 10-16-2023 Platelet mean volume (Bld) [Entitic vol] 9.7 fL 6.2-12.0 [facility] Culture, urineOrdered By: Jn Aguila on 10-16-2023 Bacteria identified Cx Nom (U) Culture exhibits no growth. [facility] Determination of erythrocyte mean corpuscular volume (MCV)Ordered By: Antonella Aguila on 10-16-2023 MCV (RBC) [Entitic vol] 88.9 fL 81-99 [facility] Hematocrit Auto (Bld) [Volum e fraction]Ordered By: Antonella Aguila on 10-16-2023 Hematocrit (Bld) [Volume fraction] 41.8 % 37-47 [facility] Ketones Test strip Ql (U)Ord ered By: Antonella Aguila on 10-16-2023 Ketones Ql (U) 5 mg/dl Negative [facility] Laboratory - Chemistry and C hemistry - challengeOrdered By: Antonella Aguila on 10-16-2023 CO2 [Moles/Vol] 28.0 mmol/L 21.0-32.0 [facility] Urea nitrogen/Creatinine [Mass ratio] 24.7 mg/mg 10-20 [facility] Laboratory - Hematology and Cell countsOrdered By: Antonella Aguila on 10-16-2023 Erythrocyte distribution width (RBC) [Entitic vol] 42.5 fL 35.1-43.9 [facility] Erythrocyte distribution width (RBC) [Ratio] 13.0 % 11.6-14.6 [facility] Immature granulocytes/100 WBC (Bld) 0.400 % 0.0-0.9 [facility] Comment on above: IG% - Immature Granu locytes (promyelocytes, myelocytes and metamyelocytes) > 1% indicates that a LEFT SHIFT is Present. MCH (RBC) [Entitic mass] 27.9 pg 27.0-32.0 [facility] Nucleated RBC/100 WBC (Bld) [Ratio] 0 % 0-5 [facility] MCHC Auto (RBC) [Mass/Vol]Or dered By: Antonella Aguila on 10-16-2023 MCHC (RBC) [Mass/Vol] 31.3 g/dL 32-36 [facility] Mucus LM Ql (Urine sed)Order ed By: Antonella Aguila on 10-16-2023 Mucus Ql (Urine sed) 0 SEEN /hpf [facility] Nitrite Test strip Ql (U)Ord ered By: Antonella Aguila on 10-16-2023 Nitrite Ql (U) Positive Negative [facility] No Panel InformationOrdered By: Antonella Aguila on 10-16-2023 Estimated Creatinine Clearance Calc 83.68 ml/min [facility] Estimated GFR (MDRD) Amer 106 mL/min >60 [facility] Comment on above: GFR Calc Estimated GFR (MDRD) Non-Af Amer 88 mL/min >60 [facility] Comment on above: Non- GFR Calc Platelets bldOrdered By: Albina Aguila on 10-16-2023 Platelets (Bld) [#/Vol] 251 10*3/uL 150-450 [facility] Protein Test strip Ql (U)Ord ered By: Antonella Aguila on 10-16-2023 Protein Ql (U) 100 mg/dl Negative [facility] Serum or plasma calcium malvin urement (mass/volume)Ordered By: Antonella Aguila on 10-16-2023 Calcium [Mass/Vol] 9.9 mg/dL 8.5-10.1 [facility] Serum or plasma creatinine m easurement (mass/volume)Ordered By: Antonella Aguila on 10-16-2023 Creatinine [Mass/Vol] 0.73 mg/dL 0.55-1.02 [facility] Comment on above: The validity of the calculated GFR & GFRAA in patients over 70 years has not been determined. Clinical correlation is essential. Serum or plasma urea nitroge n measurement (mass/volume)Ordered By: Antonella Aguila on 10-16-2023 Urea nitrogen [Mass/Vol] 18 mg/dL 7-18 [facility] Squamous epithelial cells de tection in urine sediment by light microscopyOrdered By: Antonella Aguila on 10-16-2023 Epithelial cells.squamous LM Ql (Urine sed) 0-5 SEEN /hpf 5-10 [facility] Thin prep Papanicolaou smear with manual screeningOrdered By: Antonella Aguila on 10-16-2023 Thin prep Papanicolaou smear with manual screening 4 5-15 [facility] Urine blood detectionOrdered By: Antonella Aguila on 10-16-2023 RBC Ql (U) 250 /ul Negative [facility] RBC Ql (U) > 100 SEEN /hpf 0-5 [facility] Urine clarityOrdered By: Albina Aguila on 10-16-2023 Clarity (U) Cloudy Clear [facility] Urine color determinationOrd ered By: Antonella Aguila on 10-16-2023 Color (U) SEE COMMENT BELOW Yellow [facility] Comment on above: Visual Urine Color: PINK YELLOW Urine glucose detectionOrder ed By: Antonella Aguila on 10-16-2023 Glucose Ql (U) Normal mg/dl Normal [facility] Urine leukocyte esterase det ection by dipstickOrdered By: Antonella Aguila on 10-16-2023 Leukocyte esterase Test strip Ql (U) 500 /ul Negative [facility] Urine pHOrdered By: Antonella Aguila on 10-16-2023 pH (U) 6.0 [pH] 5.0 - 8.0 [facility] Urine sediment bacteria coun t by microscopy (number/high power field)Ordered By: Antonella Aguila on 10-16-2023 Bacteria LM.HPF (Urine sed) [#/Area] RARE /hpf None Seen [facility] Urine specific gravity measu rementOrdered By: Antonella Aguila on 10-16-2023 Specific gravity (U) [Rel density] 1.025 1.002-1.030 [facility] Urobilinogen Auto test strip Ql (U)Ordered By: Antonella Aguila on 10-16-2023 Urobilinogen Ql (U) 1 mg/dl Normal [facility] Vital Signs Date Time Vital Sign Value Performing Clinician Facility 04-01-2025 07:56-0400 Body height 167.[address] Marlen Rodríguez MD Work Phone: [facility] 04-01-2025 07:56-0400 Body mass index (BMI) [Ratio] 23.3 kg/m2 Dr. Marlen Rodríguez MD Work Phone: [facility] 04-01-2025 07:56-0400 Body temperature 97 [degF] Dr. Marlen Rodríguez MD Work Phone: [facility] 04-01-2025 07:56-0400 Body weight 65.[address] Marlen Rodríguez MD Work Phone: [facility] 04-01-2025 07:56-0400 Diastolic blood pressure 78 mm[Hg] Dr. Marlen Rodríguez MD Work Phone: [facility] 04-01-2025 07:56-0400 Heart rate 68 /min Dr. Marlen Rodríguez MD Work Phone: [facility] 04-01-2025 07:56-0400 Respiratory rate 14 /min Dr. Marlen Rodríguez MD Work Phone: [facility] 04-01-2025 07:56-0400 SaO2% (BldA) [Mass fraction] 98 % Dr. Marlen Rodríguez MD Work Phone: [facility] 04-01-2025 07:56-0400 Systolic blood pressure 112 mm[Hg] Dr. Marlen Rodríguez MD Work Phone: [facility] 03-20-2025 07:28-0400 Body height 170.2 cm Bethany Torres MD Work Phone: [facility] 03-20-2025 07:28-0400 Body mass index (BMI) [Ratio] 22.62 kg/m2 Bethany Torres MD Work Phone: [facility] 03-20-2025 07:28-0400 Body temperature 98.49 [degF] Bethany Torres MD Work Phone: [facility] 03-20-2025 07:28-0400 Body weight 65.5 kg Bethany oTrres MD Work Phone: [facility] 03-20-2025 07:28-0400 Diastolic blood pressure 64 mm[Hg] Bethany Torres MD Work Phone: [facility] 03-20-2025 07:28-0400 Heart rate 62 /min Bethany Torres MD Work Phone: [facility] 03-20-2025 07:28-0400 Respiratory rate 14 /min Bethany Torres MD Work Phone: [facility] 03-20-2025 07:28-0400 SaO2% (BldA) [Mass fraction] 100 % Bethany Torres MD Work Phone: [facility] 03-20-2025 07:28-0400 Systolic blood pressure 117 mm[Hg] Bethany Torres MD Work Phone: [facility] 02-27-2025 16:03-0400 Body temperature 97.7 [degF] Dr. Marlen Rodríguez MD Work Phone: [facility] 02-27-2025 16:03-0400 Diastolic blood pressure 75 mm[Hg] Dr. Marlen Rodríguez MD Work Phone: [facility] 02-27-2025 16:03-0400 Heart rate 58 /min Dr. Marlen Rodríguez MD Work Phone: [facility] 02-27-2025 16:03-0400 Respiratory rate 16 /min Dr. Marlen Rodríguez MD Work Phone: [facility] 02-27-2025 16:03-0400 SaO2% (BldA) [Mass fraction] 100 % Dr. Marlen Rodríguez MD Work Phone: [facility] 02-27-2025 16:03-0400 Systolic blood pressure 125 mm[Hg] Dr. Marlen Rodríguez MD Work Phone: [facility] 02-26-2025 06:11-0400 Body mass index (BMI) [Ratio] 21.7 kg/m2 Dr. Marlen Rodríguez MD Work Phone: [facility] 02-26-2025 06:11-0400 Body weight 62.[address] Marlen Rodríguez MD Work Phone: [facility] 01-20-2025 14:57-0400 Body height 170.[address] Marlen Rodríguez MD Work Phone: [facility] 01-20-2025 14:57-0400 Body mass index (BMI) [Ratio] 22.9 kg/m2 Dr. Marlen Rodríguez MD Work Phone: [facility] 01-20-2025 14:57-0400 Body temperature 97.2 [degF] Dr. Marlen Rodríguez MD Work Phone: [facility] 01-20-2025 14:57-0400 Body weight 66.[address] Marlen Rodríguez MD Work Phone: [facility] 01-20-2025 14:57-0400 Diastolic blood pressure 71 mm[Hg] Dr. Marlen Rodríguez MD Work Phone: [facility] 01-20-2025 14:57-0400 Heart rate 81 /min Dr. Marlen Rodríguez MD Work Phone: [facility] 01-20-2025 14:57-0400 Respiratory rate 16 /min Dr. Marlen Rodríguez MD Work Phone: [facility] 01-20-2025 14:57-0400 SaO2% (BldA) [Mass fraction] 98 % Dr. Marlen Rodríguez MD Work Phone: [facility] 01-20-2025 14:57-0400 Systolic blood pressure 105 mm[Hg] Dr. Marlen Rodríguez MD Work Phone: [facility] 12-16-2024 15:02-0500 Body mass index (BMI) [Ratio] 22.6 kg/m2 Dr. Marlen Rodríguez MD Work Phone: [facility] 12-16-2024 15:02-0500 Body temperature 96.6 [degF] Dr. Marlen Rodríguez MD Work Phone: [facility] 12-16-2024 15:02-0500 Body weight 65.[address] Marlen Rodríguez MD Work Phone: [facility] 12-16-2024 15:02-0500 Diastolic blood pressure 75 mm[Hg] Dr. Marlen Rodríguez MD Work Phone: [facility] 12-16-2024 15:02-0500 Heart rate 63 /min Dr. Marlen Rodríguez MD Work Phone: [facility] 12-16-2024 15:02-0500 Respiratory rate 16 /min Dr. Marlen Rodríguez MD Work Phone: [facility] 12-16-2024 15:02-0500 SaO2% (BldA) [Mass fraction] 97 % Dr. Marlen Rodríguez MD Work Phone: [facility] 12-16-2024 15:02-0500 Systolic blood pressure 122 mm[Hg] Dr. Marlen Rodríguez MD Work Phone: [facility] 11-21-2024 07:45-0500 Body height 170.2 cm [facility] 11-21-2024 07:45-0500 Body mass index (BMI) [Ratio] 23.03 kg/m2 [facility] 11-21-2024 07:45-0500 Body temperature 99.3 [degF] [facility] 11-21-2024 07:45-0500 Body weight 66.7 kg Beth[facility] Torres [facility] 11-21-2024 07:45-0500 Diastolic blood pressure 72 mm[Hg] Beth[facility] Torres [facility] 11-21-2024 07:45-0500 Heart rate 78 /min Beth[facility] Torres [facility] 11-21-2024 07:45-0500 Respiratory rate 14 /min Bethany Torres [facility] 11-21-2024 07:45-0500 SaO2% (BldA) [Mass fraction] 98 % Beth[facility] Torres [facility] 11-21-2024 07:45-0500 Systolic blood pressure 122 mm[Hg] Beth[facility] Torres [facility] 08-22-2024 07:59-0400 Body height 170.2 cm Bethany Torres [facility] 08-22-2024 07:59-0400 Body mass index (BMI) [Ratio] 22.75 kg/m2 Bethany Torres [facility] 08-22-2024 07:59-0400 Body temperature 98.2 [degF] Beth[facility] Torres [facility] 08-22-2024 07:59-0400 Body weight 65.9 kg Bethany Torres [facility] 08-22-2024 07:59-0400 Diastolic blood pressure 70 mm[Hg] [facility] Torres [facility] 08-22-2024 07:59-0400 Heart rate 59 /min Beth[facility] Torres [facility] 08-22-2024 07:59-0400 Respiratory rate 14 /min Beth[facility] Torres [facility] 08-22-2024 07:59-0400 SaO2% (BldA) [Mass fraction] 100 % Beth[facility] Torres [facility] 08-22-2024 07:59-0400 Systolic blood pressure 122 mm[Hg] [facility] Torres [facility] 07-30-2024 12:19-0400 Body temperature 98.01 [degF] Bethany Torres MD Work Phone: [facility] 07-30-2024 12:19-0400 Diastolic blood pressure 57 mm[Hg] Beth[facility] Torres [facility] 07-30-2024 12:19-0400 Heart rate 89 /min Beth[facility] Torres [facility] 07-30-2024 12:19-0400 Respiratory rate 18 /min Bethany Torres MD Work Phone: [facility] 07-30-2024 12:19-0400 SaO2% (BldA) [Mass fraction] 93 % Bethany Torres MD [facility] 07-30-2024 12:19-0400 Systolic blood pressure 130 mm[Hg] Bethany Torres MD [facility]: [facility] 07-30-2024 08:16-0400 Body temperature 98.1 [degF] Yakelin Godwin MD Work Phone: [facility] 07-30-2024 08:16-0400 Diastolic blood pressure 53 mm[Hg] Yakelin Godwin MD Work Phone: [facility] 07-30-2024 08:16-0400 Heart rate 74 /min Yakelin Godwin MD Work Phone: [facility] 07-30-2024 08:16-0400 Respiratory rate 14 /min Yakelin Godwin MD Work Phone: [facility] 07-30-2024 08:16-0400 SaO2% (BldA) [Mass fraction] 96 % Yakelin Godwin MD Work Phone: [facility] 07-30-2024 08:16-0400 Systolic blood pressure 116 mm[Hg] Yakelin Godwin MD Work Phone: [facility] 07-23-2024 14:39-0400 Diastolic blood pressure 65 mm[Hg] Dr. Marlen Rodríguez MD Work Phone: [facility] 07-23-2024 14:39-0400 Heart rate 72 /min Dr. Marlen Rodríguez MD Work Phone: [facility] 07-23-2024 14:39-0400 Systolic blood pressure 120 mm[Hg] Dr. Marlen Rodríguez MD Work Phone: [facility] 07-23-2024 12:26-0400 Body temperature 97.1 [degF] Dr. Marlen Rodríguez MD Work Phone: [facility] 07-23-2024 12:26-0400 Respiratory rate 16 /min Dr. Marlen Rodríguez MD Work Phone: [facility] 07-23-2024 12:26-0400 SaO2% (BldA) [Mass fraction] 100 % Dr. Marlen Rodríguez MD Work Phone: [facility] 07-21-2024 13:14-0400 Body height 170.2 cm Ayana Ferris RN [facility] 07-21-2024 13:14-0400 Body mass index (BMI) [Ratio] 22.71 kg/m2 Ayana Ferris RN [facility] 07-21-2024 13:14-0400 Body weight 65.77 kg Ayana Ferris RN [facility] 07-18-2024 10:31-0400 Body temperature 97.9 [degF] [facility] 07-18-2024 10:31-0400 Body weight 65.2 kg Bethany Torres MD [facility]: [facility] 07-18-2024 10:31-0400 Diastolic blood pressure 69 mm[Hg] Bethany Torres MD [facility]: [facility] 07-18-2024 10:31-0400 Heart rate 94 /min Bethany Torres MD [facility] 07-18-2024 10:31-0400 Respiratory rate 14 /min Bethany Torres MD [facility]: [facility] 07-18-2024 10:31-0400 SaO2% (BldA) [Mass fraction] 100 % Bethany Torres MD [facility]: [facility] 07-18-2024 10:31-0400 Systolic blood pressure 109 mm[Hg] Btehany Torres MD [facility] 06-19-2024 12:17-0400 Body mass index (BMI) [Ratio] 23.9 kg/m2 Dr. Marlen Rodríguez MD Work Phone: [facility] 05-02-2024 08:04-0400 Body temperature 98.2 [degF] Bethany Torres MD [facility]: [facility] 05-02-2024 08:04-0400 Body weight 68.58 kg Bethany Torres MD Work Phone: [facility] 05-02-2024 08:04-0400 Diastolic blood pressure 64 mm[Hg] Bethany Torres MD Work Phone: [facility]} 05-02-2024 08:04-0400 Heart rate 64 /min Bethany Torres MD [facility]: [facility] 05-02-2024 08:04-0400 Respiratory rate 16 /min Bethany Torres MD [facility]: [facility] 05-02-2024 08:04-0400 SaO2% (BldA) [Mass fraction] 97 % Bethany Torres MD Work Phone: [facility]} 05-02-2024 08:04-0400 Systolic blood pressure 121 mm[Hg] Bethany Torres MD [facility]: [facility] 01-29-2024 10:17-0400 Body height 170.18 cm No Primary Care Physician [facility] 01-29-2024 10:17-0400 Body mass index (BMI) [Ratio] 24.5 kg/m2 No Primary Care Physician [facility] 01-29-2024 10:17-0400 Body temperature 98.6 [degF] No Primary Care Physician [facility] 01-29-2024 10:17-0400 Body weight 71.21 kg No Primary Care Physician [facility] 01-29-2024 10:17-0400 Diastolic blood pressure 82 mm[Hg] No Primary Care Physician [facility] 01-29-2024 10:17-0400 Heart rate 64 /min No Primary Care Physician [facility] 01-29-2024 10:17-0400 Respiratory rate 14 /min No Primary Care Physician [facility] 01-29-2024 10:17-0400 SaO2% (BldA) [Mass fraction] 96 % No Primary Care Physician [facility] 01-29-2024 10:17-0400 Systolic blood pressure 120 mm[Hg] No Primary Care Physician [facility] 10-16-2023 01:00-0500 Body height 170.18 cm No Primary Care Physician [facility] 10-16-2023 01:00-0500 Body mass index (BMI) [Ratio] 24.5 kg/m2 No Primary Care Physician [facility] 10-16-2023 01:00-0500 Body temperature 97 [degF] No Primary Care Physician [facility] 10-16-2023 01:00-0500 Body weight 70.9 kg No Primary Care Physician [facility] 10-16-2023 01:00-0500 Diastolic blood pressure 79 mm[Hg] No Primary Care Physician [facility] 10-16-2023 01:00-0500 Heart rate 60 /min No Primary Care Physician [facility] 10-16-2023 01:00-0500 Respiratory rate 14 /min No Primary Care Physician [facility] 10-16-2023 01:00-0500 SaO2% (BldA) [Mass fraction] 97 % No Primary Care Physician [facility] 10-16-2023 01:00-0500 Systolic blood pressure 127 mm[Hg] No Primary Care Physician [facility] 07-19-2023 14:56-0400 Body temperature 97.1 [degF] No Primary Care Physician [facility] 07-19-2023 14:56-0400 Heart rate 70 /min No Primary Care Physician [facility] 07-19-2023 14:56-0400 Respiratory rate 16 /min No Primary Care Physician [facility] 07-19-2023 14:56-0400 SaO2% (BldA) [Mass fraction] 97 % No Primary Care Physician [facility] 07-05-2023 14:31-0400 Body temperature 97.2 [degF] No Primary Care Physician [facility] 07-05-2023 14:31-0400 Heart rate 61 /min No Primary Care Physician [facility] 07-05-2023 14:31-0400 Respiratory rate 16 /min No Primary Care Physician [facility] 07-05-2023 14:31-0400 SaO2% (BldA) [Mass fraction] 96 % No Primary Care Physician [facility] 06-27-2023 16:32-0400 Body temperature 97.8 [degF] No Primary Care Physician [facility] 06-27-2023 16:32-0400 Diastolic blood pressure 61 mm[Hg] No Primary Care Physician [facility] 06-27-2023 16:32-0400 Heart rate 71 /min No Primary Care Physician [facility] 06-27-2023 16:32-0400 Respiratory rate 16 /min No Primary Care Physician [facility] 06-27-2023 16:32-0400 SaO2% (BldA) [Mass fraction] 97 % No Primary Care Physician [facility] 06-27-2023 16:32-0400 Systolic blood pressure 116 mm[Hg] No Primary Care Physician [facility] 06-27-2023 08:41-0400 Body height 160.02 cm No Primary Care Physician [facility] 06-27-2023 08:41-0400 Body mass index (BMI) [Ratio] 28.3 kg/m2 No Primary Care Physician [facility] 06-27-2023 08:41-0400 Body weight 72.7 kg No Primary Care Physician [facility] 05-22-2023 10:02-0400 Body height 160.[address] Anirudh Amado Work Phone: [facility] 05-22-2023 10:02-0400 Body mass index (BMI) [Ratio] 29.1 kg/m2 Dr. Anirudh Amado Work Phone: [facility] 05-22-2023 10:02-0400 Body temperature 97.1 [degF] Dr. Anirudh Amado Work Phone: [facility] 05-22-2023 10:02-0400 Body weight 74.[address] Anirudh Amado Work Phone: [facility] 05-22-2023 10:02-0400 Diastolic blood pressure 77 mm[Hg] Dr. Anirudh Amado Work Phone: [facility] 05-22-2023 10:02-0400 Heart rate 63 /min Dr. Anirudh Amado Work Phone: [facility] 05-22-2023 10:02-0400 Respiratory rate 16 /min Dr. Anirudh Amado Work Phone: [facility] 05-22-2023 10:02-0400 SaO2% (BldA) [Mass fraction] 97 % Dr. Anirudh Amado Work Phone: [facility] 05-22-2023 10:02-0400 Systolic blood pressure 123 mm[Hg] Dr. Anirudh Amado Work Phone: [facility] Encounters Encounter Date Encounter Type Care Provider Facility [facility]: [facility] Start: 05-08-2025 End: 05-08-2025 Patient encounter procedure Marco Rondon DO -[facility] Work Phone: Start: 05-08-2025 End: 05-08-[address] Marlen Rodríguez MD Work Phone: -[facility] Start: 04-13-2025 End: 04-13-[address] Marlen Rodríguez MD Work Phone: [facility] Work Phone: Start: 04-13-2025 End: 04-13-[address] Marlen Rodríguez MD -Ultrasound [facility] Work Phone: Start: 04-13-2025 End: 04-13-2025 ambulatory Marlen Rodríguez Facility:[facility] Start: 04-04-2025 End: 04-04-2025 Letter encounter Bethany Torres MD Work Phone: [facility] Start: 04-01-2025 End: 04-01-[address] Marlen Rodríguez MD -[facility] Work Phone: Start: 04-01-2025 End: 04-01-[address] Marlen Rodríguez MD Work Phone: [facility] Work Phone: Start: 03-20-2025 End: 03-20-2025 ambulatory UNKNOWN PROVIDER Facility:[facility] Start: 03-20-2025 End: 03-20-2025 Office outpatient visit 15 minutes Bethany Torres MD Work Phone: [facility] Comment on above: Dx: Malignant neopla sm of overlapping sites of cervix (HCC) (Primary Dx) Start: 02-27-2025 Non-patient / Non-visit Dr. Stephen HOLDEN -[facility] Work Phone: Start: 02-26-2025 Non-patient / Non-visit Dr. Stephen HOLDEN -[facility] Work Phone: Start: 02-26-2025 Non-patient / Non-visit Marco Frie hi DO -[facility] Start: 02-26-2025 End: 02-26-2025 ambulatory Stefano Jean Baptiste Facility:[facility] Start: 02-26-2025 End: 02-26-2025 Non-patient / Non-visit Dr. Nilo Andrews MD -[facility] Work Phone: Start: 02-25-2025 Non-patient / Non-visit Marcoedil Toure hi DO -[facility] Start: 02-25-2025 Non-patient / Non-visit Dr. Stephen HOLDEN -[facility] Work Phone: Start: 02-24-2025 Non-patient / Non-visit Dr. Sharon Jean Baptiste MD -[facility] Work Phone: Start: 02-24-2025 ambulatory Stefano Jean Baptiste Facility:[facility] Start: 02-24-2025 End: 02-27-2025 Evaluation and management of inpatient Dr. Eric Sweet MD -[facility] 3 Work Phone: Start: 02-09-2025 End: 02-09-[address] Marlen Rodríguez MD Work Phone: [facility] Work Phone: Start: 02-09-2025 End: 02-09-[address] Emma Joseph MD -Outpatient Breast Imaging Work Phone: Start: 02-09-2025 End: 02-09-2025 ambulatory Emma Joseph Facility:[facility] Start: 01-27-2025 End: 01-27-2025 Patient encounter procedure Polly Giles PA-C -[facility] Work Phone: Start: 01-27-2025 End: 01-27-2025 ambulatory Marlen Marcos Facility:[facility] Start: 01-20-2025 End: 01-20-[address] Ruben Savage DO -[facility] Work Phone: Start: 01-20-2025 End: 01-20-2025 ambulatory [place] Facility:[facility] Start: 01-15-2025 End: 01-15-[address] Margarito Reyes MD -[facility] Work Phone: Start: 01-15-2025 End: 01-15-2025 ambulatory Marlen Marcos Facility:[facility] Start: 12-16-[address] Ruben Savage [facility] Start: 12-16-2024 End: 12-16-[address] Emma Joseph MD -[facility] Work Phone: Start: 12-16-2024 End: 12-16-2024 ambulatory Marlen [place] Facility:[facility] Start: 11-21-2024 End: 11-21-2024 ambulatory UNKNOWN PROVIDER Facility:[facility] Start: 11-21-2024 End: 11-21-2024 Office outpatient visit 15 minutes Bethany Torres MD Work Phone: [facility] Comment on above: Dx: Malignant neopla sm of overlapping sites of cervix (HCC) (Primary Dx) Start: 11-11-2024 End: 11-11-[address] Bethany Torres MD -[facility] Start: 11-11-2024 End: 11-11-2024 ambulatory Marlen [place] Facility:[facility] Start: 09-18-2024 ambulatory UNKNOWN PROVIDER Facili ty:[facility] Start: 09-17-2024 ambulatory UNKNOWN PROVIDER Facili ty:[facility] Start: 09-01-2024 End: 09-01-2024 ambulatory Marlen [place] Facility:[facility] Start: 08-28-2024 End: 08-28-2024 Orders Only Bethany Torres MD Work Phone: [facility] Start: 08-25-2024 End: 08-25-2024 ambulatory Marlen Rodríguez Facility:[facility] Start: 08-22-2024 End: 08-22-2024 Patient encounter procedure Yakelin Godwin MD Work Phone: [facility] Radiation Oncology Comment on above: Malignant neoplasm o f overlapping sites of cervix (HCC) (Primary Dx) Start: 08-22-2024 End: 08-22-2024 ambulatory [facility] Start: 08-22-2024 End: 08-22-2024 Subsequent hospital visit by physician Janet Jean RN Work Phone: [facility] Oncology Medical Comment on above: Dx: Malignant neopla sm of overlapping sites of cervix (HCC) (Primary Dx) Start: 08-01-2024 End: 08-01-2024 Telephone encounter Alison Virk RN Work Phone: [facility] Comment on above: Appointment Start: 07-30-2024 End: 07-30-2024 Professional / ancillary services management Yakelin Godwin MD Work Phone: [facility] Radiation Oncology Start: 07-30-2024 End: 07-30-2024 Evaluation and management of inpatient BETHANY TORRES Facility:[facility] Start: 07-30-2024 End: 07-30-2024 Patient encounter procedure Yakelin Godwin MD Work Phone: [facility] Radiation Oncology Comment on above: Malignant neoplasm o f overlapping sites of cervix (HCC) (Primary Dx) Start: 07-30-2024 End: 07-30-2024 ambulatory Yakelin Godwin MD Work Phone: [facility] Radiation Oncology Start: 07-29-2024 End: 07-29-2024 ambulatory [facility]ELIN GODWIN [facility] Start: 07-29-2024 End: 07-29-2024 ambulatory YAKELIN GODWIN Facility:[facility] Start: 07-28-2024 ambulatory UNKNOWN PROVIDER Facili ty:[facility] Start: 07-28-2024 End: 07-29-2024 Patient encounter procedure Yakelin Godwin MD Work Phone: [facility] Radiation Oncology Comment on above: Malignant neoplasm o f overlapping sites of cervix (HCC) (Primary Dx) Start: 07-28-2024 End: 07-30-2024 Evaluation and management of inpatient Bethany Torres MD Work Phone: [facility] Comment on above: Dx: Malignant neopla sm of overlapping sites of cervix (HCC) Start: 07-23-2024 End: 07-23-2024 ambulatory Marlen Marcos Facility:[facility] Start: 07-21-2024 End: 07-21-2024 Nursing evaluation of patient and report Ayana Ferris RN [facility] Pre-Admission Testing Comment on above: Pre-op evaluation (P rimary Dx) Start: 07-21-2024 End: 07-21-2024 Preprocedural examination done Ayana Ferris RN [facility] Start: 07-21-2024 Encounter for other preprocedural examination [facility] Start: 07-21-2024 End: 07-21-2024 ambulatory UNKNOWN PROVIDER Facility:[facility] Start: 07-18-2024 End: 07-18-2024 ambulatory UNKNOWN PROVIDER Facility:[facility] Start: 07-18-2024 End: 07-18-2024 Patient encounter status Cesar Aj RN Work Phone: [facility] Start: 07-18-2024 End: 07-18-2024 Subsequent hospital visit by physician Cesar Aj RN Work Phone: [facility] Oncology Medical Comment on above: Dx: Encounter for bl ood test (Primary Dx) Start: 07-18-2024 End: 07-18-2024 Office outpatient new 30 minutes Yakelin Godwin MD Work Phone: [facility] Radiation Oncology Comment on above: Malignant neoplasm o f overlapping sites of cervix (HCC) (Primary Dx) Start: 07-18-2024 End: 07-18-2024 ambulatory [facility]ELIN GODWIN [facility] Start: 07-18-2024 End: 07-18-2024 Subsequent hospital visit by physician Bethany Torres MD Work Phone: [facility] Comment on above: Dx: Malignant neopla sm of cervix, unspecified site (HCC) (Primary Dx) Start: 07-18-2024 End: 07-18-2024 ambulatory [facility] TORRES [facility] Start: 07-18-2024 End: 07-18-2024 Subsequent hospital visit by physician Ip/Op Mri 2 [facility] Radiology Comment on above: Vaginal bleeding; 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 Start: 07-16-2024 End: 07-16-2024 ambulatory Marlen Marcos Facility:[facility] Start: 07-14-2024 End: 07-14-2024 ambulatory Marlen [place] Facility:[facility] Start: 07-09-2024 End: 07-09-2024 ambulatory Marlen Marcos Facility:[facility] Start: 07-07-2024 End: 07-07-2024 ambulatory Marlen Marcos Facility:[facility] Start: 07-02-2024 End: 07-02-2024 ambulatory Marlen [place] Facility:[facility] Start: 07-01-2024 End: 07-01-2024 ambulatory Marlen [place] Facility:[facility] Start: 06-26-2024 End: 06-26-2024 Orders Only Bethany Torres MD Work Phone: [facility] Start: 06-26-2024 Evaluation and management of inpatient [facility]ORRES [facility] Start: 06-25-2024 End: 06-25-2024 ambulatory Marlen [place] Facility:[facility] Start: 06-23-2024 End: 06-23-2024 ambulatory Marlen [place] Facility:[facility] Start: 06-19-2024 End: 06-19-2024 ambulatory Marlen Marcos Facility:[facility] Start: 06-17-2024 End: 06-17-2024 ambulatory Marlen Marcos Facility:[facility] Start: 06-13-2024 ambulatory Marlen Marcos Facility :[facility] Start: 06-13-2024 ambulatory Marlen Marcos Facility :[facility] Start: 06-13-2024 End: 06-13-2024 ambulatory Marlen Marcos Facility:[facility] Start: 06-12-2024 ambulatory Marlen Marcos Facility :[facility] Start: 06-11-2024 End: 06-11-2024 ambulatory Marlen [place] Facility:[facility] Start: 06-09-2024 End: 06-09-2024 ambulatory Marlen [place] Facility:[facility] Start: 05-28-2024 End: 05-28-2024 Telephone encounter Khushbu Phillips RN Work Phone: [facility] Start: 05-27-2024 End: 05-27-2024 Telephone encounter [facility]any Torres MD [facility] Start: 05-23-2024 End: 05-23-2024 Subsequent hospital visit by physician Bethany Torres MD Work Phone: [facility] Comment on above: Dx: Malignant neopla sm of overlapping sites of cervix (HCC) (Primary Dx) Start: 05-23-2024 End: 05-23-2024 ambulatory UNKNOWN PROVIDER Facility:[facility] Start: 05-16-2024 End: 05-22-2024 Telephone encounter Bethany Torres MD Work Phone: [facility] Start: 05-14-2024 End: 05-14-2024 Telephone encounter Bethany Torres MD Work Phone: [facility] Start: 05-02-2024 ambulatory UNKNOWN PROVIDER Facili ty:[facility] Start: 05-02-2024 End: 05-02-2024 ambulatory UNKNOWN PROVIDER [facility] Start: 05-02-2024 End: 05-02-2024 Subsequent hospital visit by physician Bethany Torres MD Work Phone: [facility] Comment on above: Dx: Vaginal bleeding (Primary Dx) Start: 02-06-2024 End: 02-06-2024 ambulatory No Primary Care Physician [facility] Work Phone: Start: 02-06-2024 End: 02-06-2024 Patient encounter procedure No Primary Care Physician [facility]-Outpatient Breast Imaging Work Phone: Start: 01-29-2024 End: 01-29-2024 ambulatory No Primary Care Physician [facility] Work Phone: Start: 01-29-2024 End: 01-29-2024 Patient encounter procedure No Primary Care Physician [facility]-Laboratory, [facility] Start: 01-29-2024 End: 01-29-2024 Patient encounter procedure No Primary Care Physician [facility] Work Phone: Start: 10-16-2023 End: 10-16-2023 Emergency department patient visit No Primary Care Physician [facility]-Emergency Department Work Phone: Start: 07-19-2023 End: 07-19-2023 Patient encounter procedure No Primary Care Physician [facility] Work Phone: Start: 07-05-2023 End: 07-05-2023 Patient encounter procedure No Primary Care Physician [facility] Work Phone: Start: 06-27-2023 End: 06-27-2023 Admission to same day surgery center No Primary Care Physician [facility]-Surgical Day Care Start: 06-27-2023 End: 06-27-2023 ambulatory No Primary Care Physician [facility] Work Phone: Start: 06-27-2023 Non-patient / Non-visit No [facility] Physician [facility] Start: 05-22-2023 End: 05-22-[address] Anirudh Amado Work Phone: [facility] Work Phone: Start: 05-22-2023 End: 05-22-[address] Anirudh Amado Work Phone: [facility]-Radiology, [facility] Work Phone: Start: 05-22-2023 End: 05-22-[address] Anirudh Amado Work Phone: [facility] Work Phone: Procedures Date Procedure Procedure Detail Performing Clinician Start: 04-13-[address] Marlen archer MD Work Phone: Start: 03-20-2025 Microscopic observation [Identifier] in Cervix by Cyto stain Bethany Torres MD Work Phone: Start: 02-27-[address] Deisy Rodríguez MD Work Phone: Start: 02-26-[address] Marlen archer MD Work Phone: Start: 02-26-2025 Serum inorganic phosphate measurement Dr. Marlen Rodríguez MD Work Phone: Start: 02-24-2025 Urnls dip stick/tablet reagent auto microscopy Dr. Marlen Rodríguez MD Work Phone: Start: 02-24-2025 Computed tomography of abdomen and pelvis with intravenous contrast Dr. Marlen Rodríguez MD Work Phone: Start: 02-09-[address] Marlen Rodríguez MD Work Phone: Start: 12-16-[address] Deisy Rodríguez MD Work Phone: Start: 12-16-2024 Measurement of renal function Dr. Marlen Rodríguez MD Work Phone: Comment on above: GFR Calc Start: 11-11-2024 PET study for localization of tumor Dr. Marlen Rodríguez MD Work Phone: Start: 09-01-[address] Marlen steinberg MD Work Phone: Start: 08-22-2024 25 hydroxy includes fractions if performed Atiya Lakhani [employer]UD[employer]ER[employer]PER[employer] Work Phone: Start: 08-22-2024 Immunoassay tumor antigen quantitative ca 125 Atiya Lakhani STUDIO [employer]ER[employer]SUPER[employer] Work Phone: Start: 07-30-2024 Assay of magnesium Zahra Arnold MD Work Phone: Start: 07-29-2024 RAD ONC ARIA SESSION SUMMARY Rad Onc Pro vider Start: 07-29-2024 Assay of magnesium Margarita Ornelas MD Work Phone: Start: 07-28-2024 End: 07-28-2024 INSERTION, TANDEMS AND OVOIDS Bethany yadav MD Work Phone: Start: 07-28-2024 Blood typing, ABO, Rho(D) and RBC antibody screening Bethany Torres MD Work Phone: Start: 07-18-2024 Blood count complete automated Bethany brock MD Work Phone: Start: 07-18-2024 Blood typing, ABO, Rho(D) and RBC antibody screening Bethany Torres MD Work Phone: Start: 07-18-2024 Mri pelvis w/o & w/contrast material Bethany Torres MD Work Phone: Start: 07-07-2024 Assay of phosphorus inorganic Dr. Marlen Rodríguez MD Work Phone: Start: 05-02-2024 Basic metabolic panel calcium total Bethany Torres MD Work Phone: Start: 05-02-2024 Immunoassay tumor antigen quantitative ca 125 Bethany Torres MD Work Phone: Start: 02-06-2024 Screening mammography No Primary Care Physician Start: 10-16-2023 Urine culture No Primary Care Physician Start: 10-16-2023 CT of abdomen and pelvis without contrast No Primary Care Physician Start: 06-27-2023 Excision of mass No Primary Care Physician Start: 05-22-2023 Plain X-ray of shoulder Dr. 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 with 7 cm complex closure - 06/27/23 History of radiation therapy His tory of radiation therapy Bethany Torres MD Work Phone: History of radiation therapy His tory of radiation therapy Bethany Torres MD Work Phone: History of radiation therapy His tory of radiation therapy Bethany Torres MD Work Phone: Laboratory test result abnormal Other abnormal tumor markers Bethany Torres MD Work Phone: Plan of Treatment Date Care Activity Detail Author Start: 01-28-2029 Cholesterol [Mass/volume] in Serum or Plasma Cholesterol [facility] Start: 01-28-2029 Lipid panel Cholesterol [facility] Start: 03-20-2028 Screening for malignant neoplasm of cervix [facility] Start: 07-27-2025 End: 07-27-2025 Patient encounter procedure 07/27/2025 10:00 AM EDT Appointment [facility] [address] [place] [address] Tasneem Hooper MD [address] [place] [address] [employer] [place] [id number] [facility] Start: 04-01-2025 Patient referral [facility] Work Phone: Start: 02-27-2025 Patient discharge [facility] Start: 02-27-2025 [facility] Start: 02-26-2025 [facility] Start: 02-24-2025 End: 02-25-2025 [facility] Start: 02-24-2025 Ambulation without limitation [facility] Start: 02-24-2025 Assessment of risk of venous thromboembolism [facility] Start: 02-24-2025 Insertion of catheter into peripheral vein [facility] Start: 02-24-2025 Providing care according to standard [facility] Start: 02-24-2025 Referral to gastroenterology service [facility] Start: 02-24-2025 Admission procedure [facility] Start: 02-05-2025 Screening for malignant neoplasm of breast Mammography [facility] Start: 12-16-2024 Patient referral [facility] Work Phone: Start: 11-21-2024 End: 11-21-2024 Patient encounter procedure 11/21/2024 9:30 AM EST Appointment [facility] [address] [place] [address] Bethany Torres MD [address] [place] [id number] [facility] Start: 09-03-2024 End: 09-03-2024 Patient encounter procedure 09/03/2024 2:00 PM EST Office Visit [facility] [address] [place] [address] Hamzah Muñoz MD [address] [place] [id number] [facility] Start: 08-22-2024 End: 08-22-2025 PET+CT Guidance for localization of tumor of Whole body-- W 18F-FDG IV PET SKULL TO THIGH SUBSEQ UNLIST Imaging Routine Malignant neoplasm of overlapping sites of cervix (HCC) Expected: 08/22/2024, Expires: 08/22/2025 [employer] Work Phone: Comment on above: Expected: 08/22/2024, Expires: Start: 08-22-2024 End: 08-22-2024 Patient encounter procedure [facility] Start: 08-15-2024 End: 08-15-2024 Patient encounter procedure 08/15/2024 10:45 AM EDT Appointment [facility] [address] [place] [address] Bethany Torres MD [address] [place] [address] [facility] Start: 08-04-2024 End: 08-04-2024 Admission to same day surgery center [facility] Main OR Comment on above: EXAM UNDER ANESTHESIA, PLACEMENT OF BRAC HYTHERAPY DEVICE FOR CERVICAL CANCER TREATMENT Start: 08-04-2024 End: 08-04-2024 INSERTION, TANDEMS AND OVOIDS [facility] Start: 08-04-2024 Subsequent hospital visit by physician [facility] Main OR Start: 07-29-2024 Influenza vaccination Influenza Vaccine (#1) [facility] Start: 07-28-2024 End: 07-28-2024 Admission to same day surgery center [facility] Main OR Comment on above: EXAM UNDER ANESTHESIA, PLACEMENT OF BRAC HYTHERAPY DEVICE FOR CERVICAL CANCER TREATMENT Start: 07-28-2024 End: 07-28-2024 INSERTION, TANDEMS AND OVOIDS [facility] Start: 07-28-2024 Subsequent hospital visit by physician [facility] Main OR Start: 07-21-2024 End: 07-21-2024 Nursing evaluation of patient and report 07/21/2024 1:00 PM EDT Nurse Visit [facility] Pre-Admission Testing [address] [place], [place] [id number] Ayana Ferris, RN [address] [place] [address] [facility] Pre-Admission Testing Start: 07-21-2024 End: 07-21-2024 Patient encounter procedure 07/21/2024 1:00 PM EDT Office Visit [facility] Pre-Admission Testing [address] [place] [address] Antonella Croft APRN-GRABIEL [address] [place], [place] [phone] [facility] Pre-Admission Testing Start: 07-21-2024 Vital signs measurements [facility] Start: 07-18-2024 End: 07-18-2024 Patient encounter procedure [facility] Start: 07-18-2024 End: 07-18-2024 Patient encounter procedure 07/18/2024 9:30 AM EDT Appointment [facility] Radiology [address] [place] [address] [facility] Radiology Start: 07-14-2024 Vital signs measurements [facility] Start: 07-07-2024 Vital signs measurements [facility] Start: 07-01-2024 Vital signs measurements [facility] Start: 06-29-2024 COVID-19 Vaccine ( season) COVID-19 Vaccine () [facility] Start: 06-29-2024 Influenza vaccination Influenza Vaccine (#1) [facility] Start: 06-23-2024 Vital signs measurements [facility] Start: 06-17-2024 Venous catheter care management [facility] Start: 06-17-2024 Vital signs measurements [facility] Start: 05-23-2024 End: 05-23-2024 Patient encounter procedure 05/23/2024 1:00 PM EDT Appointment [facility] [address] [place] [address] Bethany Torres MD [address] [place] [address] [facility] Start: 05-02-2024 End: 05-02-2025 MR Pelvis WO and W contrast IV MR PELVIS CERVICAL CANCER STAGING W/WO Imaging Within 1 week Vaginal bleeding 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 Expected: 05/02/2024, Expires: 05/02/2025 [employer] Work Phone: Comment on above: Expected: 05/02/2024, Expires: Start: 05-02-2024 End: 05-02-2025 PET+CT Guidance for localization of tumor of Whole body-- W 18F-FDG IV PET SKULL TO THIGH INITIAL Imaging STAT Vaginal bleeding 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 Malignant neoplasm of overlapping sites of cervix (HCC) 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 (HCC) Expected: 05/02/2024, Expires: 05/02/2025 [facility] Comment on above: Expected: 05/02/2024, Expires: Start: 01-29-2024 Patient referral [facility] Work Phone: Start: 10-16-2023 End: 10-16-2023 [facility] Start: 06-29-2023 COVID-19 Vaccine ( season) COVID-19 Vaccine () [facility] Start: 06-27-2023 Patient discharge [facility] Start: 06-27-2023 Anes nrv musc tndn fscia bursa shoulder & axilla ANESTH SURGERY OF SHOULDER [facility] Start: 06-27-2023 Exc tumor soft tissue shoulder subfascial 5 cm/> EXC SHOULDER NAOMIE DEEP 5 CM/> [facility] Start: 06-27-2023 Repair complex scalp/arm/leg 2.6-7.5 cm CMPLX RPR S/A/L 2.6-7.5 CM [facility] Start: 2017 Shingles (RZV) Vaccine (1 of 2) Shingles (RZV) Vaccine (1 of 2) [facility] Start: 2012 Screening for malignant neoplasm of colon [facility] Start: 1988 Screening for malignant neoplasm of cervix Pap Smear [facility] Start: 1986 Hepatitis A (HAV) Vaccine (optional start 19+ years) Hepatitis A (HAV) Vaccine (optional start 19+ years) [facility] Start: 1986 Hepatitis B vaccination Hepatitis B (HBV) Vaccine (1 of 3 - 19+ 3-dose series) [facility] Start: 1986 Pneumococcal vaccination Pneumococcal Vaccine(s) (50+ yrs) (1 of 2 - PCV) [facility] Start: 1986 Shingles (RZV) Vaccine (1 of 2) Shingles (RZV) Vaccine (1 of 2) [facility] Start: 1985 Hepatitis C screening Hepatitis C Antibody [facility] Start: 1985 Tetanus + diphtheria + acellular pertussis vaccine (product) Tdap Booster [facility] Start: 1973 Pneumococcal vaccination Pneumococcal Vaccine(s) (1 of 2 - PCV) [facility] Start: 1972 COVID-19 Vaccine (#1) COVID-19 Vaccine (#1) [facility] Start: 1967 Screening for malignant neoplasm of colon Colonoscopy [facility] End: 09-26-2024 Basic metabolic 2000 panel - Serum or Plasma BASIC METABOLIC PANEL Lab Routine Malignant neoplasm of overlapping sites of cervix (HCC) 1 Occurrences starting 06/26/2024 until 09/26/2024 [facility] Comment on above: 1 Occurrences starting 06/26/2024 until 09/26/2024 End: 09-26-2024 CBC panel - Blood by Automated count COMPLETE BLOOD COUNT Lab Routine Malignant neoplasm of overlapping sites of cervix (HCC) 1 Occurrences starting 06/26/2024 until 09/26/2024 [employer] Work Phone: Comment on above: 1 Occurrences starting 06/26/2024 until 09/26/2024 CBC W Auto Different ial panel - Blood [facility] Comprehensive metabo lic 2000 panel - Serum or Plasma [facility] End: 06-26-2024 Ecg routine ecg w/least 12 lds trcg only w/o i&r EKG 12 LEAD - PERFORM MUSE Routine Once for 1 Occurrences starting 06/26/2024 until 06/26/2024 That{img} Comment on above: Once for 1 Occurrences starting 06/26/20 until 06/26/2024 HUMAN PAPILLOMA VIRUS HUMAN CAROLYNN LLOMA VIRUS Lab Routine Malignant neoplasm of overlapping sites of cervix (HCC) 03/20/2025 7:57 AM EDT [facility] INSERTION, TANDEMS A ND OVOIDS INSERTION, TANDEMS AND OVOIDS Routine scheduled Malignant neoplasm of overlapping sites of cervix (HCC) [facility] Magnesium measurement [facility] MG Breast - bilatera l Screening [facility] Microscopic examinat ion of cervical Papanicolaou smear PAP SMEAR Anatomic Pathology Routine Malignant neoplasm of overlapping sites of cervix (HCC) 03/20/2025 7:57 AM EDT [employer] Work Phone: NON-LUNG PDL-1 NON-LUNG PDL-1 A natomic Pathology Routine Malignant neoplasm of overlapping sites of cervix (HCC) Ordered: 05/23/2024 [employer] Work Phone: Comment on above: Ordered: 05/23/2024 Patient Education ED Cystitis Fe male Adult ED Kidney Stone with Pain [facility] Work Phone: Patient referral [facility] Work Phone: Serum inorganic phos phate measurement [facility] Surgical pathology procedure [facility] Anatomic Pathology Routine Vaginal bleeding 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 Malignant neoplasm of overlapping sites of cervix (HCC) 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 (HCC) Ordered: 05/02/2024 [facility] Comment on above: Ordered: 05/02/2024 [facility] Immunizations Immunization Date Immunization Notes Care Provider Fa cility 10-27-2022 Covid Pfizer Bivalen t Booster No Primary Care Physician [facility] 04-16-2022 Covid (Pfizer) No Primary Ca re Physician [facility] 09-27-2021 Covid (Pfizer) No Primary Ca re Physician [facility] 02-11-2021 Covid (Pfizer) No Primary Ca re Physician [facility] 01-21-2021 Covid (Pfizer) No Primary Ca re Physician [facility] Payers Date Payer Category Payer Self-pay [id number] 2024 Commercial Indemnity [employer] [id number] 2024 Unknown [employer] [id number] 2024-Present [phone] [place] [address] Indemnity [id number] 2024 Unknown [id number] 1965 Unknown [id number] 2.840.1.444812.3.579. 2.732 1967 Unknown [id number] 12.14.830.1.866300.3.579. 2. 1967 Unknown [id number] 2.16.840.1.874688.3.579. 2 1967 Unknown [id number] 2.16.840.1.040843.3.579. 2 1967 Unknown [id number] 2.16.840.1.467841.3.579. 1967 Unknown [id number] 2..840.1.840678.3.579. 2 1967 Unknown [id number] .840.1.909151.3.579. 1967 Unknown [id number] 2.840.1.718384.3.579. 1967 Unknown [id number] 2.840.1.738834.3.579. 1967 Unknown [id number] 2.840.1.490061.3.579. 1967 Unknown [id number] .840.1.935639.3.579. 1967 Unknown [id number] .840.1.453746.3.579. 2 1967 Unknown [id number] 840.1.375997.3.579. 2 1967 Unknown [id number] .840.1.920305.3.579. 2 1967 Unknown [id number] .840.1.011519.3.579. 2 1967 Unknown [id number] .840.1.657305.3.579. 2 1967 Unknown [id number] 2.840.1.721950.3.579. 2 1967 Unknown [id number] 2.840.1.503163.3.579. 2.732 1967 Unknown [id number] 2.840.1.052073.3.579. 2.732 1967 Unknown [id number] 2.840.1.147590.3.579. 2.732 1967 Unknown [id number] 2.0.1.183605.3.579. 2.732 1967 Unknown [id number] 2.840.1.698337.3.579. 2.732 1967 Unknown [id number] .0.1.118619.3.579. 2.732 Private Health Insurance [facility] *DONOTUSE [id number] Unknown [id number] Unknown [id number] 2.840.1.580154.3.579. 2.462 Unknown [id number] .0.1.441039.3.579. 2.462 Unknown [id number] .0.1.586498.3.579. 2.462 Unknown [id number] .0.1.524199.3.579. 2.462 Unknown [id number] 840.1.235738.3.579. 2.462 Unknown [id number] .840.1.288725.3.579. 2.462 Unknown [id number] .840.1.490024.3.579. 2.462 Unknown [id number] .840.1.215433.3.579. 2.462 Unknown [id number] 2.840.1.292577.3.579. 2.462 Unknown [id number] 2.16.840.1.802062.3.579. 2.462 Unknown [id number] 2.16.840.1.652293.3.579. 2.462 Unknown [id number] 2.16.840.1.826679.3.579. 2.462 Unknown [id number] 2.16.840.1.618747.3.579. 2.462 Unknown [id number] 2.16.840.1.695544.3.579. 2.462 Unknown [id number] 2.16.840.1.140258.3.579. 2.462 Unknown [id number] 2.840.1.133271.3.579. 2.462 Unknown [id number] 2.840.1.904023.3.579. 2.462 Unknown [id number] 2.840.1.290365.3.579. 2.462 Unknown [id number] 2.840.1.953248.3.579. 2.462 Unknown [id number] 2..840.1.612953.3.579. 2.462 Unknown [id number] 2.16.840.1.997133.3.579. 2.462 Unknown [id number] 2.16.840.1.254463.3.579. 2.462 Unknown [id number] 2.16.840.1.525945.3.579. 2.462 Unknown [id number] 2.16.840.1.318668.3.579. 2.462 Unknown [id number] 2.16.840.1.073502.3.579. 2.462 Unknown [id number] 2.16.840.1.359211.3.579. 2.462 Unknown [id number] 2.16.840.1.381598.3.579. 2.462 Unknown [id number] 2.16.840.1.111494.3.579. 2.462 Unknown [id number] 2.16.840.1.355856.3.579. 2.462 Unknown [id number] 2.16840.1.322628.3.579. 2.462 Unknown [id number] 2.16.840.1.028291.3.579. 2.462 Unknown [id number] 2.16840.1.987584.3.579. 2.462 Unknown [id number] 2.16840.1.531106.3.579. 2.462 Unknown [id number] 2.16840.1.185161.3.579. 2.462 Unknown [id number] 2.16840.1.534026.3.579. 2.462 Unknown [id number] 2.16840.1.683309.3.579. 2.462 Unknown [id number] 2.840.1.335775.3.579. 2.462 Unknown [id number] 2.16840.1.725308.3.579. 2.462 Unknown [id number] 2.840.1.247590.3.579. 2.462 Unknown [id number] 2.840.1.132224.3.579. 2.462 Social History Date Type Detail Facility Start: 05-22-2023 End: 01-29-2024 Tobacco smoking status OHIS Unknown if ever smoked [facility] Start: 1965 Sex Assigned At Female [facility] Start: 1965 Sex assigned at Not on file [facility] Start: 07-21-2024 End: 07-30-2024 Gender identity Not on file [facility] Start: 07-21-2024 End: 04-01-2025 Tobacco smoking status NHIS Never smoked tobacco [facility] Start: 07-21-2024 Tobacco use and exposure Smokeless tobacco non-user [facility] Start: 07-21-2024 End: 03-20-2025 Alcoholic beverage intake Current drinker of alcohol (finding) [facility] Start: 07-21-2024 End: 07-30-2024 History of Social function [facility] Start: 07-21-2024 Alcohol Comment occassionally Halle christianson Start: 04-29-2024 End: 02-13-2025 Sex Female (finding) [facility] Start: 11-06-2024 End: 03-20-2025 Details of drug misuse behavior Has never misused drugs (situation) [facility] NEGATED: Highlighted row [facility] NEGATED: Highlighted row Not [facility] Medical Equipment Procedure Code Equipment Code Equipment Origin al Text Equipment Identifier Dates Insertion, vascular access port ([id number]) Vascular port/catheter [id number] FDA Start: 06-13-2024 Excision, mass Plant polysaccha ride haemostatic agent, bioabsorbable ()[id number] FDA Start: 06-27-2023 Goals Date Patient Goal Desired Activity /State Functional Status Date Assessment Result Facility 02-27-2025 Functional status Ambulates;Up ad kassidy Bl[facility] Work Phone: Mental Status Date Assessment Result Facility 02-27-2025 Cognitive function Voice/Name [facility] Work Phone: 06-27-2023 Cognitive function Voice/Name [facility] Work Phone: Clinical Notes 06-27-2023 to 05-08-2025 Bethany Torres MD - 03/20/2025 9:18 AM Juana Malone MA - 03/20/2025 7:32 AM EDT Note Date & Type Note Facility 05-08-[address] [facility] 04-14-2025 Radiology Diagnostic study note [facility] Imaging Services [address] [place], [place] [address] Abdomen Limited MR#: [id number] Acct: [id number] Name: DEREK SHETTY Rep #: [id number] : 1965 F 59 From: [facility] DO PCP: Dr. Marlen Rodríguez MD Status: REG CLI Study:Abdomen Limited Date of Exam: 03/29 04/22 Exam# [id number] Ordering Dr: Marlen Rodríguez MD PROCEDURE: ABDOMEN LIMITED 04/13/2025 REASON FOR EXAM: Abdominal wall lump. Large lipoma. TECHNIQUE: ABDOMEN LIMITED COMPARISON: Abdomen CT of [id number] FINDINGS: Isoechoic to surrounding subcutaneous fat there is potentially an encapsulated lesion measuring 1.5 cm transverse 0 point 5 cm AP. Lesion is not identified in the sagittal plane. US/Abdomen Limited IMPRESSION: Vaguely discernible possible lipoma as detailed above. Reading Location: [facility] CC: Dr. Marlen Rodríguez MD ~ Tablet Tester: Signed [facility] 03-20-2025 History of Present illness Narrative Images from the original note were not included. GYNECOLOGIC ONCOLOGY - OFFICE NOTE REASON FOR VISIT: Cervical Cancer, Follow-Up Visit REFERRING PHYSICIAN: Dr. Iona Emmanuel MD (CLIP LOADING MACHINE FEEDER in [place]) PCP: Dr. Marlen Rodríguez MD RADIATION ONCOLOGIST: Dr. 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 She was treated with primary chemoradiation. She presents today for a follow-up visit. All treatments completed on July 30, 2024. Today the patient states she is feeling well. Recently had an EGD - told she has a peptic ulcer She denies fevers, chills, chest pain, shortness or breath. No coughing or wheezing. No headaches or dizziness. No change in vision or hearing. No new skin rashes. No hot flashes or easy bruising. No neuropathy. No nausea or vomiting. No bloating or pain. No diarrhea or constipation. No vaginal bleeding or rectal bleeding. No hematuria or dysuria. Appetite intact. Energy level good. GENETIC/TUMOR TESTING: - 05/02/2024: Cervical Biopsy = P16 Positive. PDL1 Positive (CPS 10). ONCOLOGY HISTORY: - 03/06/2024: Pap Smear = HGSIL. Positive HR HPV. - 03/12/2024: Pelivc US ([facility]) = Uterus 7.2cm. Fibroids. EMS 2mm. Normal Ovaries. No FF - 05/02/2024: Cervical Biopsy = Moderately Differentiated SCC of the Cervix - 05/02/2024: CA-125 = 74.4 - 05/13/2024: PET/CT ([facility]) = Abnormal exam with hypermetabolic cervical mass and uterus. No other distant mets. - 07/18/2024: MRI Pelvis = Multiple fibroids. Cervical Tumor up to 3.8cm in size. Tumor invades lower uterus. No parametrial disease. Hyperenhancement of the vagina. No lymphadenopathy. - 07/23/2024: Patient completed Whole Pelvic RT with Sensitizing Cisplatin at [facility] - 07/30/2024: Patient completed Brachytherapy at [facility]. 800 x 3, Tandem and Ring - 11/21/2024: PET/CT at [place] = [facility] MEDICAL HISTORY: Medical History[1] SURGICAL HISTORY: Review of patient's past surgical history indicates: EXCISION, LIPOMA Right Shoulder DENTAL SURGERY [facility] Teeth Removal COLONOSCOPY (02/2024) INSERTION, GALO SLEEVE (07/28/2024) Procedure: EXAM UNDER ANESTHESIA, PLACEMENT OF BRACHYTHERAPY DEVICE FOR CERVICAL CANCER TREATMENT, under ultrasound guidance; Surgeon: Bethany Torres MD; Location: PERIOPERATIVE SERVICES; Service: Gynecologic Oncology [employer]IP LO[employer]ING MACHINE FEEDER HISTORY: OB History Para Term AB Living 1 1 0 0 0 0 SAB IAB Ectopic Multiple Live Births 0 0 0 0 0 Obstetric Comments - x 1 Menarche in 9th Grade Not yet menopausal - had a 6 month time period with no menstrual period History of OCP use when she was younger for a couple of year No prior HRT use Mammogram February 2024 Colonoscopy February 2024 Has never had a DEXA scan FAMILY HISTORY: Family History[2] SOCIAL HISTORY: Social History[3] MEDICATIONS: Current Outpatient Medications Medication Instructions ibuprofen (MOTRIN) 600 mg, EVERY 8 HOURS PRN Sennosides 15 mg, DAILY ALLERGIES: Allergies[4] PHYSICAL EXAMINATION: Vitals: 03/20/25 0728 BP: 117/64 Pulse: 62 Resp: 14 Temp: 98.5 F (36.9 C) SpO2: 100% Performance Status: 0 General: Pt is well appearing, in NAD HEENT: No lymphadenopathy, non tender Lymph: No cervical, supraclavicular or axillary lymphadenopathy Breast: Not performed Cardiac: RRR, no murmurs, rubs or gallops Pulmonary: CTAP b, no wheezes, rales or crackles Abdomen: Soft, nontender, non distended, no masses or hernias, positive, normal bowel sounds : A thermoforming operator was present for the gynecologic portion of today's examination. No palpable groin adenopathy. Normal external genitalia, vulva and vagina without lesions. Moderate radiation changes with scarring and shortening of vagina. Some bleeding with collection of the pap smear. No visible or palpable tumors. Extremities: Warm, no cyanosis, no edema, [place] Psych: Normal affect, demeanor, normal, non-pressured speech Neuro: Intact RESULTS: No New Result. 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 She was treated with primary chemoradiation. She presents today for a follow-up visit. All treatments completed on July 30, 2024. I had a long conversation today with the patient in the office. We reviewed her treatment course to date. We discussed her symptoms in great detail. We reviewed the findings on physical examination, which was within normal limits. No evidence of disease recurrence. She was very pleased to hear this good news. Pap collected today. We reviewed signs and symptoms that could be concerning for cancer recurrence. She will call the office should she experience any of these. Follow up in [address] Hooper. The patient understands the plan and agrees. Routine precautions were reviewed and all questions were answered. BETHANY TORRES MD FACOG [facility] - Gynecologic Oncology Office Pager: [phone] [1] Past Medical History: Diagnosis Date Abnormal Pap smear of cervix History of chemotherapy History of radiation therapy Malignant neoplasm of overlapping sites of cervix (HCC) Peptic ulcer [2] Family History Problem Relation Age of Onset Lymphoma Sister 23 Non Hodgkins Lymphoma Colon Cancer Negative Family History of Prostate cancer Negative Family History of Pancreatic Cancer Negative Family History of Ovarian Cancer Negative Family History of Uterine Cancer Negative Family History of Breast Cancer Negative Family History of [3] Social History Socioeconomic History Marital status: Single Tobacco Use Smoking status: Never Smokeless tobacco: Never Vaping Use Vaping status: Never Used Substance and Sexual Activity Alcohol use: Yes Comment: occassionally Drug use: Never Social History Narrative Lives in [place] lives with her No Pets Occasional/Social EtoH Non-smoker No current or past drug use Works at [employer] [4] No Known Allergies Patient was identified by name and date of . Juana Seo MA Body Mass Index is 22.62. Body Surface Area is 1.76 square meters according to the formula of Chantel and Chantel. ..Patient at risk for falls:No Falls Risk protocol implemented: No documented in this encounter [facility] 02-27-2025 Note [facility] 01-15-2025 Evaluation note Diagnosis Onset Date Resolution Port-A-Cath in place resolved Panda h 2024 2:45pm Cervical cancer acute December 2:38pm History of removal of Port-a-Cath resolved January 27, 2025 7:47am Gastric outlet obstruction acute February 24, 2025 3:37pm Abdominal pain, acute resolved Apr il 2024 3:37pm Cervical cancer acute April 01, 2025 7:45am Gastric outlet obstruction acute April 01, 2025 7 :45am Hypokalemia acute April 01 7:45am Lipoma of abdominal wall noneactive April 01, 2025 7 :45am Screening for depression noneactive April 01, 2025 7 :45am Immunization due noneactive March 7:45am Vision problem noneactive April 01, 2025 7:45am Peptic ulcer disease noneactive April 01, 2025 7:45am [facility] Work Phone: 1(410) 937-197303-20-2025 Evaluation note* Diagnosis Onset Date Resolution Status Admit Date Port-A-Cath in place resolved Panda h 2024 2:45pm Cervical cancer acute December 2:38pm History of removal of Port-a-Cath resolved January 27, 2025 7:47am Gastric outlet obstruction acute February 24, 2025 3:37pm Abdominal pain, acute resolved Apr 2024 3:37pm Cervical cancer acute April 01, 2025 7:45am Gastric outlet obstruction acute April 01, 2025 7:45am Hypokalemia acute April 01 7:45am Lipoma of abdominal wall noneactive April 01, 2025 7:45am Screening for depression noneactive April 01, 2025 7:45am Immunization due noneactive March 7:45am Vision problem noneactive April 01, 2025 7:45am Peptic ulcer disease noneactive April 01, 2025 7:45am Gastric outlet obstruction acute May 08, 2025 7:22[address] [facility] Work Phone: 1(887) 684-190102-18-2025 Evaluation note* Diagnosis Onset Date Resolution Status Admit Date Cervical cancer acute December 16, 2024 2:26pm Hypokalemia acute November 2:26pm Port-A-Cath in place acute 2024 2:45pm Cervical cancer acute December 2:38pm History of removal of Port-a-Cath acute January 27, 2025 7:47am [facility] Work Phone: 1(458) 904-111002-18-2025 Evaluation note* Diagnosis Onset Date Resolution Status Admit Date Cervical cancer acute December 16, 2024 2:26pm Hypokalemia acute November 2:26pm Port-A-Cath in place resolved Panda h 2024 2:45pm Cervical cancer acute December 2:38pm History of removal of Port-a-Cath resolved January 27, 2025 7:47am Gastric outlet obstruction acute February 24, 2025 3:37pm Abdominal pain, acute resolved Apr 2024 3:37pm Cervical cancer acute April 01, 2025 7:45am Gastric outlet obstruction acute April 01, 2025 7:45am Hypokalemia acute April 01 7:45am Lipoma of abdominal wall noneactive April 01, 2025 7:45am Peptic ulcer disease noneactive April 01, 2025 7:[address] [facility] Work Phone: 1(149) 289-601101-24-2025 History of Present illness Narrative* Bethany Torres MD - 11/21/2024 11:59 PM EST Images from the original note were not included. GYNECOLOGIC ONCOLOGY - OFFICE NOTE REASON FOR VISIT: Cervical Cancer, Follow-Up Visit REFERRING PHYSICIAN: Dr. Iona Emmanuel MD (CLIP LOADING MACHINE FEEDER in [place]) PCP: Dr. Marlen Rodríguez MD RADIATION ONCOLOGIST: Dr. 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 She was treated with primary chemoradiation. She presents today for a follow-up visit. All treatments completed on July 30, 2024. Today the patient states she is feeling well. She denies fevers, chills, chest pain, shortness or breath. No coughing or wheezing. No headaches or dizziness. No change in vision or hearing. No new skin rashes. No hot flashes or easy bruising. Noneuropathy. No nausea or vomiting. No bloating or pain. No diarrhea or constipation. No vaginal bleeding or rectal bleeding. No hematuria or dysuria. Appetite intact. Energy level good. GENETIC/TUMOR TESTING: - 05/02/2024: Cervical Biopsy = P16 Positive. PDL1 Positive (CPS 10). ONCOLOGY HISTORY: - 03/06/2024: Pap Smear = HGSIL. Positive HR HPV. - 03/12/2024: Pelivc US ([facility]) = Uterus 7.2cm. Fibroids. EMS 2mm. Normal Ovaries. No FF - 05/02/2024: Cervical Biopsy = Moderately Differentiated SCC of the Cervix - 05/02/2024: CA-125 = 74.4 - 05/13/2024: PET/CT ([facility]) = Abnormal exam with hypermetabolic cervical mass and uterus. No other distant mets. - 07/18/2024: MRI Pelvis = Multiple fibroids. Cervical Tumor up to 3.8cm in size. Tumor invades lower uterus. No parametrial disease. Hyperenhancement of the vagina. No lymphadenopathy. - 07/23/2024: Patient completed Whole Pelvic RT with Sensitizing Cisplatin at [facility] - 07/30/2024: Patient completed Brachytherapy at [facility]. 800 x 3, Tandem and Ring 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 HISTORY: OB History Para Term AB Living 1 1 0 0 0 0 SAB IAB Ectopic Multiple Live Births 0 0 0 0 0 Obstetric Comments - x 1 Menarche in 9th Grade Not yet menopausal - had a 6 month time period with no menstrual period History of OCP use when she was younger for a couple of year No prior HRT use Mammogram February 2024 Colonoscopy February 2024 Has never had a DEXA scan FAMILY HISTORY: Family History Problem Relation Age of Onset Lymphoma Sister 23 Non Hodgkins Lymphoma Colon Cancer Negative Family History of Prostate cancer Negative Family History of Pancreatic Cancer Negative Family History of Ovarian Cancer Negative Family History of Uterine Cancer Negative Family History of Breast Cancer Negative Family History of SOCIAL HISTORY: Social History Socioeconomic History Marital status: Single Tobacco Use Smoking status: Never Smokeless tobacco: Never Vaping Use Vaping status: Never Used Substance and Sexual Activity Alcohol use: Yes Comment: occassionally Drug use: Never Social History Narrative Lives in [place] lives with her No Pets Occasional/Social EtoH Non-smoker No current or past drug use Works at [employer] MEDICATIONS: Current Outpatient Medications Medication Instructions ibuprofen (MOTRIN) 600 mg, EVERY 8 HOURS PRN Sennosides 15 mg, DAILY ALLERGIES: No Known Allergies PHYSICAL EXAMINATION: Vitals: 11/21/24 0745 BP: 122/72 Pulse: 78 Resp: 14 Temp: 99.3 F (37.4 C) SpO2: 98% Performance Status: 0 General: Pt is well appearing, in NAD HEENT: No lymphadenopathy, non tender Lymph: No cervical, supraclavicular or axillary lymphadenopathy Breast: Not performed Cardiac: RRR, no murmurs, rubs or gallops Pulmonary: CTAP b, no wheezes, rales or crackles Abdomen: Soft, nontender, non distended, no masses or hernias, positive, normal bowel sounds : A thermoforming operator was present for the gynecologic portion of today's examination. No palpable groin adenopathy. Normal external genitalia, vulva and vagina without lesions. Moderate radiation changes. Shortening of the vagina. No separately palpable or visible cervix. No Masses. Extremities: Warm, no cyanosis, no edema, [place] Psych: Normal affect, demeanor, normal, non-pressured speech Neuro: Intact RESULTS: PET/CT was done recently at [place] - Report was not yet available at the time of my visit with thepatient. 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 She was treated with primary chemoradiation. She presents today for a follow-up visit. All treatments completed on July 30, 2024. I had a long conversation today with the patient in the office. We reviewed her treatment course todate. We discussed her symptoms in great detail. We reviewed the findings on physical examination, which was within normal limits. No evidence of disease recurrence. She was very pleased to hear thisgood news. I will request a copy of the PET report and call her with the results. We reviewed signs and symptoms that could be concerning for cancer recurrence. She will call the office should she experience any of these. I will see her back in the office in 3 months for her next follow up visit. The patient understands the plan and agrees. Routine precautions were reviewed and all questions were answered. BETHANY TORRES MD [facility] - Gynecologic Oncology Office Pager: [phone] documented in this [id number] History of Present illness Narrative* Bethany Torres MD - 08/28/2024 12:32 PM EDT Images from the original note were not included. I reviewed the results of the lab work from 08/22/2024: Iron 62, Iron Saturation 15, TIBC 402, Transferring 287 Vitamin D 26.2 CA-125 = 45.3 Albumin 3.9, Direct Bili 0.06, Total Bili 0.3, Alk Phos 99, AST 22, ALT 18, Total Protein 6.3 Glucose 81, Na 141, K+ 4.4, Chloride 108, CO2 25, BUN 14, Creat 0.61 Calcium 9.1 Magnesium 2.0 WBC 3.2, Hgb 11.8, Hct 35.0, Plt 239, ANC 2330 Rx was sent in by my 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 for high dose vitamin D. Replacement last week. BETHANY TORRES MD FACOG [facility] - Gynecologic Oncology Office Pager: [phone] documented in this [id number] History of Present illness Narrative* Janet Jean RN - 08/22/2024 1:42 PM EDT Patient was identified by name and date of . Janet Jean RN Patient at risk for falls:No Falls Risk protocol implemented: No Patient arrived to clinic for blood obtained via venipuncture from RAC using 23G 3/4 in butterfly needle, sent to lab, patient tolerated well. Patient verbalized follow up instructions and dischargedhome. Janet Jean RN documented in this [id number] History of Present illness Narrative* Yakelin Godwin MD - 08/22/2024 8:16 AM EDT RADIATION ONCOLOGY FOLLOW UP VISIT DATE OF VISIT: 08/22/2024 Referring Physician: Dr. Torres DIAGNOSIS: (C53.8) Malignant neoplasm of overlapping sites of cervix (HCC) (primary encounter diagnosis) clinical stage IB p16 positive mod diff non keratinizing SCCA SCC cervix s/p TVUS (03/11/2024), cervical biopsy (05/02/2024), PET scan 4.4 cm cervix SUV max 8.4; MRI pelvis (fibroids no nodes, cervical disease only, no SW ext or nodes.). 45 Gy /25 fx + weekly cisplatin [place] 06/17- 07/23/24. Brachy 800 x 3 T+R Cancer Staging Malignant neoplasm of overlapping sites of cervix (HCC) Staging form: Cervix Uteri, AJCC 9th Edition - Clinical: FIGO Stage IB (cT1b, cN0, cM0) - Signed by Yakelin Godwin MD on 07/18/2024 TIME SINCE TREATMENT: 1 month INTERVAL HISTORY: Derek Shetty is a 59 year old female with cervical cancer status post 45 Gy /25 fx+ weekly cisplatin [place] 06/17- 07/23/24. Then Brachytherapy tandem and ring boost 800 x 3 completed on 07/30/24. She is doing well and reported only watery vaginal discharge, no other complaints. Here today for routine follow up . Sees [facility] oncology in [place] on Sunday and Dr Torres today I have reviewed Derek Shetty's medical, surgical and other pertinent history in detail, and have updated medication and allergy information in the electronic medical record. Allergies: Patient has no known allergies. PMH: Past Medical History: Diagnosis Date Abnormal Pap smear of cervix Vaginal bleeding Current Medications: Current Outpatient Medications Medication Sig Dispense Refill ibuprofen (MOTRIN) 600 MG tablet Take 600 mg by mouth every 8 hours as needed. Sennosides 15 MG TABS Take 15 mg by mouth daily. No current facility-administered medications for this visit. FamHx: Family History Problem Relation Age of Onset Lymphoma Sister 23 Non Hodgkins Lymphoma Colon Cancer Negative Family History of Prostate cancer Negative Family History of Pancreatic Cancer Negative Family History of Ovarian Cancer Negative Family History of Uterine Cancer Negative Family History of Breast Cancer Negative Family History of SocHx: Social History Socioeconomic History Marital status: Single Tobacco Use Smoking status: Never Smokeless tobacco: Never Vaping Use Vaping status: Never Used Substance and Sexual Activity Alcohol use: Yes Comment: occassionally Drug use: Never Social History Narrative Lives in [place] lives with her No Pets Occasional/Social EtoH Non-smoker No current or past drug use Works at [employer] Per HPI A 10-point ROS was performed, all other review of systems are negative, or as detailed in the patient history. Pain Evaluation: The patient's pain was assessed. Pain score reported at 0 Vital Signs: PER [facility] onc intake ECOG PS: 0 PE: NAD [facility] exam performed by Dr Torres All current data personally reviewed as outlined above. Assessment and Plan: In summary, Derek Shetty is a 59 year old female with FIGO 1B cervical cancer who is status post chemoradiation followed by brachytherapy boost completed on 07/30/24. She will continue to follow with una in [place] and Dr Torres. Vaginal dilator and instructions given today. Survivorship discussed.. Thank you for allowing us to participate in the care of this patient. Please do not hesitate to contact me should any questions arise. documented in this [id number] Telephone encounter Note* Telephone Encounter - Alison Virk RN - 08/01/2024 9:58 AM EDT Patient identified by three identifiers. Patient informed that per Dr. Torres she does not need any further procedures or surgery on 08/04/24 so that will be cancelled. I also informed her that Dr. Torres does not need to see her on 08/15 for a post op visit so that appointment is cancelled. I informed the patient that she will follow up with Dr. Torres and Dr. Godwin on 08/22. Patient verbalized understanding. MARTIN Novoa, RN [facility] Work Phone: 1(587) 272-936410-04-2024 Miscellaneous Notes* Telephone Encounter - Alison Virk RN - 08/01/2024 9:58 AM EDT Patient identified by three identifiers. Patient informed that per Dr. Torres she does not need any further procedures or surgery on 08/04/24 so that will be cancelled. I also informed her that Dr. Torres does not need to see her on 08/15 for a post op visit so that appointment is cancelled. I informed the patient that she will follow up with Dr. Torres and Dr. Godwin on 08/22. Patient verbalized understanding. MARTIN Novoa, RN documented in this [id number] [place] [id number] Derek ShettyN: [id number] Date of : 1965 59 year old female Attending No att. providers found Date of Admission 07/28/2024 Date of Discharge 07/30/24 Final Diagnosis: Malignant neoplasm of overlapping sites of cervix (HCC) Hospital Problems as of 07/30/2024 * (Principal) Malignant neoplasm of overlapping sites of cervix (HCC) No discharge procedures on file. Future Appointments Date Time Provider Department Center 08/22/2024 9:15 AM Bethany Torres MD [facility] 08/22/2024 10:00 AM Yakelin Godwin MD [facility] 09/03/2024 2:00 PM Hamzah Muñoz MD [facility] Condition at Discharge improved Symptoms to look out for after discharge: New or Severe Pain and Drainage/Bleeding from wound or surgical site Activity no restrictions Diet no restrictions Disposition home Functional Status ambulatory This patient is not being discharged to a facility, and does not require completion of the facility form. DISCHARGE DIAGNOSES: Stage IB cervical cancer HOSPITAL COURSE: HPI: Derek Shetty is a 59 year old woman with clinical stage IB cervical cancer s/p EBRT admitted for vaginal brachytherapy. HOSPITAL COURSE: The surgery, EUA and placement of brachytherapy device was performed on 07/28 by attending, Dr. Torres, and resident, Dr. Ornelas. There were no complications. Please see dictated operative report for details. Her postoperative course was unremarkable. She received daily radiation treatments for three days. At the completion of her treatment she was discharged home in stable condition. DISCHARGE INSTRUCTIONS: She was scheduled for her routine postoperative visit in 2 weeks. Discharge instructions included pelvic rest for 6 weeks. Patient verbalized understanding. Charlene Ornelas MD, MEd CLIP LOADING MACHINE FEEDER PGY4 I provided the patient and/or family/surrogate with the following information: Explanation of the primary diagnosis, and secondary diagnoses where applicable, including test results, Discussion of post-hospital day-to-day care needs, and Follow-up plans, and warning signs that should prompt more urgent follow-up [facility] ON[facility] ATTENDING ADDENDUM Agree with Discharge Summary BETHANY TORRES MD [facility] - Gynecologic Oncology Office Pager: [phone] History of Present illness Narrative* Yakelin Godwin MD - 07/30/2024 11:26 AM EDT RADIATION ONCOLOGY END OF TREATMENT SUMMARY Ms. Shetty completed a course of external beam radiotherapy in our department. Her history and radiation treatment is summarized below. Oncologic History: Derek Shetty is a 59 year old female with clinical stage IB p16 positive mod diff non keratinizing SCCA SCC cervix s/p TVUS (03/11/2024), cervical biopsy (05/02/2024), PET scan 4.4 cm cervix SUV max 8.4;MRI pelvis (fiboids no nodes, cervical disease only, no SW ext or nodes.). s/p 45 Gy /25 fx + weekly cisplatin 06/17- 07/23/24 Cancer Staging Malignant neoplasm of overlapping sites of cervix (HCC) Staging form: Cervix Uteri, AJCC 9th Edition - Clinical: FIGO Stage IB (cT1b, cN0, cM0) - Signed by Yakelin Godwin MD on 07/18/2024 Radiation Treatments Active CTV_High Most recent treatment: Dose given: 8 Gy (07/28/2024-07/30/24) Total: Dose given: 24 Gy Elapsed Days: 2 Details of treatment Treatment dates: 07/28-07/30/24 Concurrent systemic Therapy: none Tolerance and Response: Overall, Derek Shetty, who received external beam pelvic radiation with concurrent weekly radiosensitizing cisplatin in [place] completed 07/23/24, received tandem and ring HDR brachy therapy 07/28-07/30/24. She tolerated her radiation treatment well with no unanticipated acute toxicities. She will return in [address] Torres and myself in follow up. documented in this [id number] Hospital Discharge instructions* Discharge Instructions* Margarita Ornelas MD - 07/30/2024 9:54 AM EDT DISCHARGE INSTRUCTIONS Please read the instructions below. Refer to these instructions for the next few weeks. These instructions provide you with general information on caring for yourself after surgery. Your caregiver may also give you specific instructions. While your treatment has been planned according to the most current medical practices available, unavoidable problems sometimes happen. If you have any problems or questions after you leave, please call your caregiver. CONTACT INFO: - If it is during business hours (8:15 am - 5:00 pm), please call the the Gynecologic Oncology office at [phone] - If it is after business hours or on a weekend, please call [phone] and ask for GYNECOLOGY business solutions architect FOLLOW UP: - As scheduled below WHAT TO EXPECT: - You may have vaginal bleeding or spotting. - You may have some pelvic cramping or pain. - Healing will take time. You will have discomfort, tenderness, swelling, and bruising at the operative site for a couple of weeks. This is normal and will get better as time goes on. ACTIVITY: - Nothing in the vagina for 6 weeks - no sex, tampons, douching. - Showers are okay, do not soak in a tub or pool for 6 weeks. - You may eat a regular diet. Take stool softeners such as Colace, Milk of Magnesium, Miralax as needed. - Drink lots of fluid daily after surgery. - You may return to work as instructed by your doctor. PAIN MEDICATIONS: - Take pain medications as prescribed. Tylenol and motrin for pain. - Avoid aspirin. It can cause bleeding. CALL YOUR DOCTOR IF: - There is swelling, redness or increasing pain in the wound area. - Pus is coming from the wound. - You notice a bad smell from the wound or surgical dressing. - You have pain, redness, and swelling from the IV site. - You feel dizzy or feel like fainting. - You develop pain or bleeding when you urinate. - You develop nausea, vomiting, or diarrhea. - You develop heavier vaginal bleeding or abnormal vaginal discharge. - You develop a rash. - You have any type of abnormal reaction or develop an allergy to your medication. - You need stronger pain medication for your pain. SEEK IMMEDIATE MEDICAL CARE: - You develop a temperature of 100.4 F (38 C) or higher. - You develop abdominal pain. - You develop chest pain or shortness of breath. - You pass out. - You develop pain, swelling or redness of your leg. - You develop heavy vaginal bleeding with or without blood clots soaking > 1 pad per hour. For additional health information call: [facility] Line at : 24 hours a day. Future Appointments (next 10) Provider Department Center 08/15/2024 10:45 AM Bethany Torres MD [facility] On[facility] 08/22/2024 9:15 AM Bethany Torres MD [facility] On[facility] 08/22/2024 10:00 AM Yakelin Godwin MD [facility] Radiation Oncology [facility] 09/03/2024 2:00 PM Hamzah Muñoz MD [facility] documented in this [id number] NoteGYNECOLOGY ONCOLOGY PROGRESS NOTE 07/30/2024, 9:35 AM Hospital Day: 3 POD# 2 SUBJECTIVE: Patient without complaints. Pain is tolerable with ASSISTANT PRODUCER. Tolerating PO intake, denies CP/SOB, fevers. OBJECTIVE: BP 125/56 (BP Location: left arm) Pulse 74 Temp 98.4 ???F (36.9 ???C) (Oral) Resp 18 SpO2 95% Vitals Recorded in This Encounter 07/30/2024 0009 07/30/2024 0045 07/30/2024 0245 07/30/2024 0510 07/30/2024 0739 BP: -- 122/58 -- 125/56 -- Pulse: -- 73 72 74 -- Resp: -- 18 18 18 -- Temp: -- 98.6 ???F (37 ???C) -- 98.4 ???F (36.9 ???C) -- Temp src: -- Oral -- Oral -- SpO2: -- 93 % 95 % 95 % -- Pain Score: 1 -- -- -- 1 General: no acute distress Heart: warm well perfused Lungs: nonlabored breathing on room air Abdomen: soft, nontender, nondistended Extremities: no LE edema, no calf tenderness, SCDs on Intake/Output Summary (Last 24 hours) at 07/30/2024 0935 Last data filed at 07/30/2024 0700 Gross per 24 hour Intake 610.8 ml Output 610 ml Net 0.8 ml UOP: 610 mL in Floyd in the last 24 hours No stool in last 24 hrs Labs: CBC 07/30/2024 07/29/2024 07/18/2024 05/02/2024 4:54 AM 5:35 AM 12:14 PM 9:32 AM WBC 1.4 1.4 3.3 7.3 1.4 RBC 3.12 3.15 4.11 4.99 3.15 Hgb 9.3 9.3 12.2 14.0 9.3 Hct 27.8 28.4 36.9 43.6 27.7 MCV 89 90 90 87 88 RDW 16.2 17.5 14.5 13.6 15.8 Plt 143 129 154 316 131 BMP (last 1 year, up to 8 values) 07/30/2024 07/29/2024 07/18/2024 05/02/2024 4:54 AM 5:35 AM 12:14 PM 9:32 AM Na 137 139 137 139 K 3.6 3.3 4.0 4.4 Cl 103 102 101 105 CO2 29 28 30 25 Gap 9 12 10 13 Glu 89 85 103 85 BUN 10 11 13 17 Cr 0.39 0.48 0.60 0.72 Ca 8.3 8.3 9.8 10.0 eGFR 116 110 105 98 Mg 1.9 1.7 -- -- Fingerstick Glucose None ASSESSMENT/PLAN: Derek Shetty is a 59 year old female POD # 2 s/p tandem and ring device placement for stage 1B cervical cancer s/p 2nd radiation treatment #) Routine postop -- afebrile, VSS -- chaz tylenol/toradol, dilaudid ASSISTANT PRODUCER -- ADAT -- Floyd in place, T AND R in place -- Antiemetics PRN. Imodium scheduled -- head of bed less than 30 degrees at all times #) VTE Ppx: SCDs, lovenox DISPO: Anticipate discharge home after completion of radiation treatments Charlene Ornelas MD, MEd CLIP LOADING MACHINE FEEDER [id number]{img} [id number] History of Present illness Narrative * Silvestre Farrell MTA - 07/30/2024 8:16 AM EDT .Patient was identified by name and date of . DIONNA Lira .Patient at risk for falls:Yes Falls Risk protocol implemented: Yes documented in this [id number] NoteSW Coverage Note No team conference this date. SW remains available to assist with DC planning needs, social concerns, and support as needed. Please reach out via secure chat or consult SW if urgent needs arise. Medical team to alert SW if there is a change in medical readiness for transfer/DC. SW will continue to follow. TIFFANIE Pearl, MLFRANCHESKA, REAL ESTATE INVESTOR PRN Social WorkerThe [facility] [id number] History of Present illness Narrative* Edith Baker LSW - 07/29/2024 4:29 PM EDT SW Coverage Note No team conference this date. SW remains available to assist with DC planning needs, social concerns, and support as needed. Please reach out via secure chat or consult SW if urgent needs arise. Medical team to alert SW if there is a change in medical readiness for transfer/DC. SW will continue to follow. TIFFANIE Pearl, MLFRANCHESKA, REAL ESTATE INVESTOR PRN Manufacturing Analyst * Margarita Ornelas MD - 07/29/2024 9:06 AM EDT Images from the original note were not included. GYNECOLOGY ONCOLOGY PROGRESS NOTE 07/29/2024, 9:06 AM Hospital Day: 2 POD# 1 SUBJECTIVE: Patient has no complaints. Reports pain is tolerable with current regimen. Tolerating PO intake although difficult to eat when laying flat. Denies SOB, CP, fevers. OBJECTIVE: BP 115/49 (BP Location: left arm) Pulse 67 Temp 97.9 F (36.6 C) (Oral) Resp 18 SpO2 98% Vitals Recorded in This Encounter 07/29/2024 0015 07/29/2024 0127 07/29/2024 0230 07/29/2024 0525 07/29/2024 0807 BP: 117/50 -- -- 119/64 115/49 Pulse: 58 -- 60 58 67 Resp: 16 -- 16 16 18 Temp: 97.7 F (36.5 C) -- -- 97.7 F (36.5 C) 97.9 F (36.6 C) Temp src: Oral -- -- Oral Oral SpO2: 98 % -- 98 % 98 % 98 % Pain Score: -- Asleep -- -- -- General: no acute distress Heart: warm well perfused Lungs: nonlabored breathing on room air Abdomen: soft, nontender, nondistended Extremities: no LE edema, no calf tenderness, SCDs on Intake/Output Summary (Last 24 hours) at 07/29/2024 0906 Last data filed at 07/29/2024 0700 Gross per 24 hour Intake 289.2 ml Output 1250 ml Net -960.8 ml UOP: 960 mL in the last 24 hours No stool in last 24 hrs Labs: CBC 07/29/2024 07/18/2024 05/02/2024 5:35 AM 12:14 PM 9:32 AM WBC 1.4 3.3 7.3 RBC 3.15 4.11 4.99 Hgb 9.3 12.2 14.0 Hct 27.7 36.9 43.6 MCV 88 90 87 RDW 15.8 14.5 13.6 Plt 131 154 316 BMP (last 1 year, up to 8 values) 07/29/2024 07/18/2024 05/02/2024 5:35 AM 12:14 PM 9:32 AM Na 139 137 139 K 3.3 4.0 4.4 Cl 102 101 105 CO2 28 30 25 Gap 12 10 13 Glu 85 103 85 BUN 11 13 17 Cr 0.48 0.60 0.72 Ca 8.3 9.8 10.0 eGFR 110 105 98 Mg 1.7 -- -- Fingerstick Glucose None ASSESSMENT/PLAN: Derek Shetty is a 59 year old female POD #1 s/p tandem and ring device placement for stage 1B cervical cancer #) Routine postop -- afebrile, VSS -- chaz tylenol/toradol, dilaudid ASSISTANT PRODUCER -- ADAT -- Floyd in place, T&R in place -- Antiemetics PRN. Imodium scheduled -- head of bed less than 30 degrees at all times #) VTE Ppx: SCDs, lovenox DISPO: Anticipate discharge home after completion of radiation treatments Charlene Ornelas MD, MEd CLIP LOADING MACHINE FEEDER PGY4 * Molly Carvajal RN - 07/29/2024 6:43 AM EDT /DARIUS Ornelas notified of critical wbc value of 1.4. /DARIUS Ornelas read back critical results. New orders not received. * Margarita Ornelas MD - 07/28/2024 5:19 PM EDT GYNECOLOGY ONCOLOGY POST-OP CHECK 07/28/2024 5:19 PM SUBJECTIVE: Patient reports adequate pain control with current regimen. Denies nausea, CP/SOB, fevers/chills. Voiding via floyd. OBJECTIVE: BP 119/65 (BP Location: left arm) Pulse 72 Temp 98.8 F (37.1 C) (Oral) Resp 18 SpO2 96% Vitals Recorded in This Encounter 07/28/2024 0903 07/28/2024 0926 07/28/2024 1330 07/28/2024 1400 07/28/2024 1622 BP: -- -- -- 119/63 119/65 Pulse: 67 -- -- 56 72 Resp: 15 18 16 14 18 Temp: -- -- -- 97.8 F (36.6 C) 98.8 F (37.1 C) Temp src: -- -- -- Oral Oral SpO2: 96 % 99 % 97 % 97 % 96 % Pain Score: -- 5 5 -- -- Intake/Output Summary (Last 24 hours) at 07/28/2024 1719 Last data filed at 07/28/2024 0829 Gross per 24 hour Intake 650 ml Output 20 ml Net 630 ml UOP: not documented since OOR General appearance: healthy, alert, no distress Lungs: nonlabored breathing on room air Heart: Regular rate and rhythm to palpation Abdomen: soft, nontender, nondistended Extremities: wwp, no edema Floyd with clear yellow urine ASSESSMENT/PLAN: 59 year old on POD #0 s/p tandem and ring device placement for stage 1B cervical cancer. 1) Routine post-op: -- afebrile, VSS -- chaz tylenol/toradol, dilaudid ASSISTANT PRODUCER -- ADAT -- Floyd in place, T&R in place -- Antiemetics PRN. Imodium scheduled -- head of bed less than 30 degrees at all times 3) DVT prophylaxis: SCDs, lovenox Discharge following completion of brachytherapy treatments Charlene Ornelas MD, MEd CLIP LOADING MACHINE FEEDER PGY4 documented in this [id number] NoteGYNECOLOGY ONCOLOGY PROGRESS NOTE 07/29/2024, 9:06 AM Hospital Day: 2 POD# 1 SUBJECTIVE: Patient has no complaints. Reports pain is tolerable with current regimen. Tolerating PO intake although difficult to eat when laying flat. Denies SOB, CP, fevers. OBJECTIVE: BP 115/49 (BP Location: left arm) Pulse 67 Temp 97.9 ???F (36.6 ???C) (Oral) Resp 18 SpO2 98% Vitals Recorded in This Encounter 07/29/2024 0015 07/29/2024 0127 07/29/2024 0230 07/29/2024 0525 07/29/2024 0807 BP: 117/50 -- -- 119/64 115/49 Pulse: 58 -- 60 58 67 Resp: 16 -- 16 16 18 Temp: 97.7 ???F (36.5 ???C) -- -- 97.7 ???F (36.5 ???C) 97.9 ???F (36.6 ???C) Temp src: Oral -- -- Oral Oral SpO2: 98 % -- 98 % 98 % 98 % Pain Score: -- Asleep -- -- -- General: no acute distress Heart: warm well perfused Lungs: nonlabored breathing on room air Abdomen: soft, nontender, nondistended Extremities: no LE edema, no calf tenderness, SCDs on Intake/Output Summary (Last 24 hours) at 07/29/2024 0906 Last data filed at 07/29/2024 0700 Gross per 24 hour Intake 289.2 ml Output 1250 ml Net -960.8 ml UOP: 960 mL in the last 24 hours No stool in last 24 hrs Labs: CBC 07/29/2024 07/18/2024 05/02/2024 5:35 AM 12:14 PM 9:32 AM WBC 1.4 3.3 7.3 RBC 3.15 4.11 4.99 Hgb 9.3 12.2 14.0 Hct 27.7 36.9 43.6 MCV 88 90 87 RDW 15.8 14.5 13.6 Plt 131 154 316 BMP (last 1 year, up to 8 values) 07/29/2024 07/18/2024 05/02/2024 5:35 AM 12:14 PM 9:32 AM Na 139 137 139 K 3.3 4.0 4.4 Cl 102 101 105 CO2 28 30 25 Gap 12 10 13 Glu 85 103 85 BUN 11 13 17 Cr 0.48 0.60 0.72 Ca 8.3 9.8 10.0 eGFR 110 105 98 Mg 1.7 -- -- Fingerstick Glucose None ASSESSMENT/PLAN: Derek Shetty is a 59 year old female POD #1 s/p tandem and ring device placement for stage 1B cervical cancer #) Routine postop -- afebrile, VSS -- chaz tylenol/toradol, dilaudid ASSISTANT PRODUCER -- ADAT -- Floyd in place, T AND R in place -- Antiemetics PRN. Imodium scheduled -- head of bed less than 30 degrees at all times #) VTE Ppx: SCDs, lovenox DISPO: Anticipate discharge home after completion of radiation treatments Charlene Ornelas MD, MEd CLIP LOADING MACHINE FEEDER [id number] [facility] [id number] Miscellaneous Notes* OP Note - Bethany Torres MD - 07/28/2024 9:00 AM EDT Images from the original note were not included. GYNECOLOGIC ONCOLOGY - OPERATIVE REPORT - DR. RHETT VILLAFUERTE OR 03 Derek Shetty 59 year old female Surgical Contact Serial Number: [id number] DATE OF PROCEDURE: July 28, 2024 PROCEDURE: EXAMINATION UNDER ANESTHESIA. ULTRASOUND-GUIDED DILATION OF CERVIX AND PLACEMENT OF TANDEM AND RING BRACHYTHERAPY DEVICE PRE-OPERATIVE DIAGNOSIS: Locally Advanced Cervical Cancer, Need for Brachytherapy POST-OPERATIVE DIAGNOSIS: Same SURGEON: Dr. Bethany Torres MD FACOG RADIATION ONCOLOGIST: Dr. Yakelin Godwin MD FORTUNE COOKIE MAKER: Dr. Charlene Ornelas, PGY4 ANESTHESIA: General LMA Anesthesia. Dr. Silvano Fabian MD EBL: 10CC FLUIDS: 600CC of LR URINE OUTPUT: 10CC DRAINS/CATHETERS/IMPLANTS: Floyd Catheter to [place], Tandem and Ring Brachytherapy Device, VaginalPacking COMPLICATIONS: None INDICATIONS FOR THE PROCEDURE: The patient is a 59 year old with locally advanced cervical cancer. She was treated with primary chemoradiation at an outside hospital. She was referred back to [facility] for Brachytherapy treatment. INTRA-OPERATIVE FINDINGS: The patient had normal external genitalia. No palpable groin adenopathy. 3cm polypoid lesion right posterior vulva / upper buttock. Extensive scarring of the vagina. No normal cervix - it was quite scarred. Difficult to visualize the anatomy with a speculum in place due to how small the vagina was.Uterus sounded to 6.5cm. We confirmed adequate dilation and placement of the device with the Ultrasound. SURGEON'S NARRATIVE: After the risks, benefits, and alternatives were discussed with the patient, informed consent was signed. She was brought to the operating room, where general anesthesia was induced and found to be adequate. Bilateral sequential compression devices were placed on the lower extremities. She receiveda dose of prophylactic antibiotics. She was placed in dorsal lithotomy position. I performed an examination under anesthesia, with the above dictated findings noted. She was prepared and draped in the usual sterile fashion. A floyd catheter was placed sterilely. A speculum was placed inside the vagina. The cervix was grasped with a tenaculum. The bladder was backfilled with 200CC of Sterile Water. Under ultrasound guidance, the cervix was dilated and sounded. The brachytherapy device was placedand adequate position confirmed on ultrasound. The tenaculum and speculum were removed. The bladderwas drained. Vaginal packing was placed. This concluded the procedure. The patient was awoken from anesthesia and taken to the recovery room in good condition. All counts were correct x 2. I was present for the entire procedure. BETHANY TORRES MD FACOG [facility] - Gynecologic Oncology Office Pager: [phone] * Brief Operative Note - Bethany Torres MD - 07/28/2024 7:51 AM EDT Images from the original note were not included. Brief Operative Note MAIN OR 03 Derek Shetty 59 year old female Surgical Contact Serial Number: [id number] Preoperative Diagnosis: Pre-op Diagnosis * Malignant neoplasm of overlapping sites of cervix (HCC) [C53.8] Postoperative Diagnosis: * Malignant neoplasm of overlapping sites of cervix (HCC) [C53.8] Procedures: Exam under anesthesia Placement of brachytherapy device under ultrasound guidance Surgeon(s): Surgeon(s): Bethany Torres MD Staff: Scrub: Naila Sky CST Bank Vault Clerk Nurse: Ariela Neely RN Aviation Project Manager: Margairta Ornelas MD Anesthesia: General Anesthesiologist: Silvano Fabian MD CAA: Molly Torres CAA Specimen(s): * No specimens in log * Estimated Blood Loss: 10cc UOP 10cc IVF 600cc Lines/Drains: Peripheral IV Access: Left (Active) Peripheral IV Access: 07/28/24 07 20 gauge Anterior;Proximal;Right Forearm (Active) Site Assessment WNL 07/28/24 07 Infusion Status Port #1 Patent 07/28/24 07 Temporarily Retained Foreign Object: Yes Location: vagina Object: Tandem and ring brachytherapy device Anticipated removal date: 07/30 Findings: Atrophic EFG, 3cm pedunculated skin tag on R perineum, significant scarring of vaginal canal and cervix, correct placement of T&R device confirmed with transabdominal ultrasound Complications: None Status at end of surgery: Stable Activity: bedrest Surgical wound class: Yes, wound was clean contaminated. Patient Class: Planned Extended Recovery. Is this a patient scheduled as an outpatient that needs to be admitted as an inpatient? Yes, Clinical indication for admission: Other: radiation oncology treatment for three days Dr. Torres was present in the OR for the critical portion of the procedure and procedure sign-out. Signed by Margarita Ornelas MD 07/28/2024 8:18 AM GYNECOLOGIC ONCOLOGY - ATTENDING ADDENDUM I have reviewed the resident's documentation. Please refer to my dictated operative note for full details of the surgery. BETHANY TORRES MD FACOG [facility] - Gynecologic Oncology Office Pager: [phone] documented in this [id number] Surgery Surgical operation note* OP Note - Bethany Torres MD - 07/28/2024 9:00 AM EDT Images from the original note were not included. GYNECOLOGIC ONCOLOGY - OPERATIVE REPORT - DR. RHETT VILLAFUERTE OR 03 Derek Shetty 59 year old female Surgical Contact Serial Number: [id number] DATE OF PROCEDURE: July 28, 2024 PROCEDURE: EXAMINATION UNDER ANESTHESIA. ULTRASOUND-GUIDED DILATION OF CERVIX AND PLACEMENT OF TANDEM AND RING BRACHYTHERAPY DEVICE PRE-OPERATIVE DIAGNOSIS: Locally Advanced Cervical Cancer, Need for Brachytherapy POST-OPERATIVE DIAGNOSIS: Same SURGEON: Dr. Bethany Torres MD [facility] RADIATION ONCOLOGIST: Dr. Yakelin Godwin MD FORTUNE COOKIE MAKER: Dr. Charlene Ornelas, PGY4 ANESTHESIA: General LMA Anesthesia. Dr. Silvano Fabian MD EBL: 10CC FLUIDS: 600CC of LR URINE OUTPUT: 10CC DRAINS/CATHETERS/IMPLANTS: Floyd Catheter to [place], Tandem and Ring Brachytherapy Device, VaginalPacking COMPLICATIONS: None INDICATIONS FOR THE PROCEDURE: The patient is a 59 year old with locally advanced cervical cancer. She was treated with primary chemoradiation at an outside hospital. She was referred back to [facility] for Brachytherapy treatment. INTRA-OPERATIVE FINDINGS: The patient had normal external genitalia. No palpable groin adenopathy. 3cm polypoid lesion right posterior vulva / upper buttock. Extensive scarring of the vagina. No normal cervix - it was quite scarred. Difficult to visualize the anatomy with a speculum in place due to how small the vagina was.Uterus sounded to 6.5cm. We confirmed adequate dilation and placement of the device with the Ultrasound. SURGEON'S NARRATIVE: After the risks, benefits, and alternatives were discussed with the patient, informed consent was signed. She was brought to the operating room, where general anesthesia was induced and found to be adequate. Bilateral sequential compression devices were placed on the lower extremities. She receiveda dose of prophylactic antibiotics. She was placed in dorsal lithotomy position. I performed an examination under anesthesia, with the above dictated findings noted. She was prepared and draped in the usual sterile fashion. A floyd catheter was placed sterilely. A speculum was placed inside the vagina. The cervix was grasped with a tenaculum. The bladder was backfilled with 200CC of Sterile Water. Under ultrasound guidance, the cervix was dilated and sounded. The brachytherapy device was placedand adequate position confirmed on ultrasound. The tenaculum and speculum were removed. The bladderwas drained. Vaginal packing was placed. This concluded the procedure. The patient was awoken from anesthesia and taken to the recovery room in good condition. All counts were correct x 2. I was present for the entire procedure. BETHANY TORRES MD [facility] - Gynecologic Oncology Office Pager: [phone] [id number] Surgery Postoperative evaluation and management note* Brief Operative Note - Bethany Torres MD - 07/28/2024 7:51 AM EDT Images from the original note were not included. Brief Operative Note MAIN OR 03 Derek Shetty 59 year old female Surgical Contact Serial Number: [id number] Preoperative Diagnosis: Pre-op Diagnosis * Malignant neoplasm of overlapping sites of cervix (HCC) [C53.8] Postoperative Diagnosis: * Malignant neoplasm of overlapping sites of cervix (HCC) [C53.8] Procedures: Exam under anesthesia Placement of brachytherapy device under ultrasound guidance Surgeon(s): Surgeon(s): Bethany Torres MD Staff: Scrub: Naila Sky CST Bank Vault Clerk Nurse: Ariela Neely RN Aviation Project Manager: Margarita Ornelas MD Anesthesia: General Anesthesiologist: Silvano Fabian MD CAA: Molly Torres CAA Specimen(s): * No specimens in log * Estimated Blood Loss: 10cc UOP 10cc IVF 600cc Lines/Drains: Peripheral IV Access: Left (Active) Peripheral IV Access: 07/28/24703 20 gauge Anterior;Proximal;Right Forearm (Active) Site Assessment WNL 07/28/24 07 Infusion Status Port #1 Patent 07/28/24703 Temporarily Retained Foreign Object: Yes Location: vagina Object: Tandem and ring brachytherapy device Anticipated removal date: 07/30 Findings: Atrophic EFG, 3cm pedunculated skin tag on R perineum, significant scarring of vaginal canal and cervix, correct placement of T&R device confirmed with transabdominal ultrasound Complications: None Status at end of surgery: Stable Activity: bedrest Surgical wound class: Yes, wound was clean contaminated. Patient Class: Planned Extended Recovery. Is this a patient scheduled as an outpatient that needs to be admitted as an inpatient? Yes, Clinical indication for admission: Other: radiation oncology treatment for three days Dr. Torres was present in the OR for the critical portion of the procedure and procedure sign-out. Signed by Margarita Ornelas MD 07/28/2024 8:18 AM GYNECOLOGIC ONCOLOGY - ATTENDING ADDENDUM I have reviewed the resident's documentation. Please refer to my dictated operative note for full details of the surgery. BETHANY TORRES MD FACOG [facility] - Gynecologic Oncology Office Pager: [phone] [id number] Attending History and physical note* Margarita Ornelas MD - 07/28/2024 7:25 AM EDT H&P updated. The patient was examined and there are no findings. Medications, allergies, and pertinent laboratory and diagnostic tests were also reviewed at this time. Surgery still indicated. Vitals: 07/28/24 0624 BP: 121/82 Pulse: 84 Resp: 16 Temp: 97.5 F (36.4 C) SpO2: 100% NAD RRR Warm well perfused Abd soft nontender Pelvic deferred Charlene Ornelas MD, MEd CLIP LOADING MACHINE FEEDER PGY4 Source Note - Ayana Ferris RN - 07/21/2024 1:12 PM EDT Images from the original note were not included. EKG DOS Telephone History Derek Shetty, [id number] 07/21/2024 Patient was identified by name and date of . Ayana Ferris RN 59 year old 145 lbs 5' 7 Date of Surgery: 07-28-2024 & 08-04-2024 Surgeon: Bethany Torres Type of Surgery: EXAM UNDER ANESTHESIA, PLACEMENT OF BRACHYTHERAPY DEVICE FOR CERVICAL CANCER TREATMENT HISTORY OF PRESENT ILLNESS: PAT telephone evaluation for EXAM UNDER ANESTHESIA, PLACEMENT OF BRACHYTHERAPY DEVICE FOR CERVICAL CANCER TREATMENT STOP-BANG Row Name 07/21/24 1312 History of sleep apnea? No Snoring No Tired/Fatigued No Observed Apnea No Pressure: Hypertension No BMI greater than 35 0 Age greater than 50 1 Neck circ greater than 40cm (15.75) Unable to Assess Gender male? 0 Score 1 EXERCISE CAPACITY: 4-10 mets ALLERGIES: Patient has no known allergies. 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, post-menopausal Comment: Malignant neoplasm of overlapping sites of cervix (HCC) Neuro/Psych - negative ROS Cardiovascular - negative ROS GI/Hepatic/Renal - negative ROS Heme/Other - negative ROS PAST SURGICAL HISTORY: Past Surgical History: Procedure Laterality Date COLONOSCOPY 02/2024 DENTAL SURGERY Mcdavid Teeth Removal EXCISION, LIPOMA Right Right Shoulder SOCIAL HISTORY: Social History Socioeconomic History Marital status: Single Tobacco Use Smoking status: Never Smokeless tobacco: Never Vaping Use Vaping status: Never Used Substance and Sexual Activity Alcohol use: Yes Comment: occassionally Drug use: Never Social History Narrative Lives in [place] lives with her No Pets Occasional/Social EtoH Non-smoker No current or past drug use Works at [employer] PAIN ASSESSMENT: Severity: 0 Location: N/A LABORATORY DATA: Type & Screen (Last result in the past 30 days) 07/18/2024 12:14 PM ABO Rh O Positive Screen Int. Negative CBC (last 3 years, up to 8 values) 07/18/2024 05/02/2024 12:14 PM 9:32 AM WBC 3.3 7.3 RBC 4.11 4.99 Hgb 12.2 14.0 Hct 36.9 43.6 MCV 90 87 RDW 14.5 13.6 Plt 154 316 BMP (last 3 years, up to 8 values) 07/18/2024 05/02/2024 12:14 PM 9:32 AM Na 137 139 K 4.0 4.4 Cl 101 105 CO2 30 25 Gap 10 13 Glu 103 85 BUN 13 17 Cr 0.60 0.72 Ca 9.8 10.0 eGFR 105 98 TESTS REVIEWED: CXRay: No Chest x-ray found EKG: Last ECG Date: Not Found ECHO: Echocardiogram date: Not Found No results found for this basename: LVEF Stress test date: Last StressTest: none found going back to 05/02/2024 CURRENT MEDICATION LIST: Current Outpatient Medications Medication Sig Dispense Refill ibuprofen (MOTRIN) 600 MG tablet Take 600 mg by mouth every 8 hours as needed. Sennosides 15 MG TABS Take 15 mg by mouth daily. No current facility-administered medications for this visit. CURRENT MEDICATIONS: Aspirin: No NSAIDS: Yes Other Antiplatelet Medication: No Anticoagulants: No Steroids: No PATIENT MEDICATION INSTRUCTIONS: On the morning of your surgery, please take only the following medications, with a small sip of water: Do not take any Aspirin within 7 days of surgery. No Fish Oil, Ginseng and Ginko Biloba, No large amounts of Vit E hold 7 days No NSAIDs within 3 days of surgery Hold all supplements morning of procedure DAY OF SURGERY NOTES: Pt can have WATER only ( no additives) up to 2 hours prior to arrival time The patient is to have nothing to eat or any other liquids at least 8 hours prior to surgery arrival time Need to have carry all driver Patients whose assigned sex at was female, and are starting puberty or beyond, will be urine tested for per hospital policy. Post-op Nausea and Vomiting: A risk of anesthesia is nausea and/or vomiting (PONV). Certain patients are at higher risk than others. Talk to your anesthesiologist about the plan to minimize this risk. In general, it is best to start with only ice chips or small sips of water, then progress to clear, non-alcoholic fluids. You do not have to eat if you do not feel like it; fluids are the most important in the first 24 hours after surgery. If you start to eat, try bananas, applesauce, plain toast, saltine crackers, or broth; avoid fried or fatty foods. Make sure to eat something about 15 minutes before taking any pain medications. Seek medical attention for any prolonged PONV and signs of dehydration. Ayana Ferris RN Time Spent Performing this Telephone History: 15 mins [id number] History and physical note* Margarita Ornelas MD - 07/28/2024 7:25 AM EDT H&P updated. The patient was examined and there are no findings. Medications, allergies, and pertinent laboratory and diagnostic tests were also reviewed at this time. Surgery still indicated. Vitals: 07/28/24 0624 BP: 121/82 Pulse: 84 Resp: 16 Temp: 97.5 F (36.4 C) SpO2: 100% NAD RRR Warm well perfused Abd soft nontender Pelvic deferred Charlene Ornelas MD, MEd [employer]IP LO[employer]ING MACHINE [employer]EDER PGY4 Source Note - Ayana Ferris RN - 07/21/2024 1:12 PM EDT Images from the original note were not included. EKG DOS Telephone History Derek Shetty, [id number] 07/21/2024 Patient was identified by name and date of . Ayana Ferris RN 59 year old 145 lbs 5' 7 Date of Surgery: 07-28-2024 & 08-04-2024 Surgeon: Bethany Torres Type of Surgery: EXAM UNDER ANESTHESIA, PLACEMENT OF BRACHYTHERAPY DEVICE FOR CERVICAL CANCER TREATMENT HISTORY OF PRESENT ILLNESS: PAT telephone evaluation for EXAM UNDER ANESTHESIA, PLACEMENT OF BRACHYTHERAPY DEVICE FOR CERVICAL CANCER TREATMENT STOP-BANG Row Name 07/21/24 1312 History of sleep apnea? No Snoring No Tired/Fatigued No Observed Apnea No Pressure: Hypertension No BMI greater than 35 0 Age greater than 50 1 Neck circ greater than 40cm (15.75) Unable to Assess Gender male? 0 Score 1 EXERCISE CAPACITY: 4-10 mets ALLERGIES: Patient has no known allergies. 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, post-menopausal Comment: Malignant neoplasm of overlapping sites of cervix (HCC) Neuro/Psych - negative ROS Cardiovascular - negative ROS GI/Hepatic/Renal - negative ROS Heme/Other - negative ROS PAST SURGICAL HISTORY: Past Surgical History: Procedure Laterality Date COLONOSCOPY 02/2024 DENTAL SURGERY Mcdavid Teeth Removal EXCISION, LIPOMA Right Right Shoulder SOCIAL HISTORY: Social History Socioeconomic History Marital status: Single Tobacco Use Smoking status: Never Smokeless tobacco: Never Vaping Use Vaping status: Never Used Substance and Sexual Activity Alcohol use: Yes Comment: occassionally Drug use: Never Social History Narrative Lives in [place] lives with her No Pets Occasional/Social EtoH Non-smoker No current or past drug use Works at [employer] ASSESSMENT: Severity: 0 Location: N/A LABORATORY DATA: Type & Screen (Last result in the past 30 days) 07/18/2024 12:14 PM ABO Rh O Positive Screen Int. Negative CBC (last 3 years, up to 8 values) 07/18/2024 05/02/2024 12:14 PM 9:32 AM WBC 3.3 7.3 RBC 4.11 4.99 Hgb 12.2 14.0 Hct 36.9 43.6 MCV 90 87 RDW 14.5 13.6 Plt 154 316 BMP (last 3 years, up to 8 values) 07/18/2024 05/02/2024 12:14 PM 9:32 AM Na 137 139 K 4.0 4.4 Cl 101 105 CO2 30 25 Gap 10 13 Glu 103 85 BUN 13 17 Cr 0.60 0.72 Ca 9.8 10.0 eGFR 105 98 TESTS REVIEWED: CXRay: No Chest x-ray found EKG: Last ECG Date: Not Found ECHO: Echocardiogram date: Not Found No results found for this basename: LVEF Stress test date: Last StressTest: none found going back to 05/02/2024 CURRENT MEDICATION LIST: Current Outpatient Medications Medication Sig Dispense Refill ibuprofen (MOTRIN) 600 MG tablet Take 600 mg by mouth every 8 hours as needed. Sennosides 15 MG TABS Take 15 mg by mouth daily. No current facility-administered medications for this visit. CURRENT MEDICATIONS: Aspirin: No NSAIDS: Yes Other Antiplatelet Medication: No Anticoagulants: No Steroids: No PATIENT MEDICATION INSTRUCTIONS: On the morning of your surgery, please take only the following medications, with a small sip of water: Do not take any Aspirin within 7 days of surgery. No Fish Oil, Ginseng and Ginko Biloba, No large amounts of Vit E hold 7 days No NSAIDs within 3 days of surgery Hold all supplements morning of procedure DAY OF SURGERY NOTES: Pt can have WATER only ( no additives) up to 2 hours prior to arrival time The patient is to have nothing to eat or any other liquids at least 8 hours prior to surgery arrival time Need to have carry all driver Patients whose assigned sex at was female, and are starting puberty or beyond, will be urine tested for per hospital policy. Post-op Nausea and Vomiting: A risk of anesthesia is nausea and/or vomiting (PONV). Certain patients are at higher risk than others. Talk to your anesthesiologist about the plan to minimize this risk. In general, it is best to start with only ice chips or small sips of water, then progress to clear, non-alcoholic fluids. You do not have to eat if you do not feel like it; fluids are the most important in the first 24 hours after surgery. If you start to eat, try bananas, applesauce, plain toast, saltine crackers, or broth; avoid fried or fatty foods. Make sure to eat something about 15 minutes before taking any pain medications. Seek medical attention for any prolonged PONV and signs of dehydration. Ayana Ferris RN Time Spent Performing this Telephone History: 15 mins * Bethany Torres MD - 07/28/2024 7:18 AM EDT Images from the original note were not included. H&P reviewed. The patient was examined and there are no changes to the H&P. Medications, allergies, and pertinent laboratory and diagnostic tests were also reviewed at this time. Surgery still indicated. Charlene Ornelas MD, MEd [employer] LO[employer]ING MACHINE [employer]EDER PGY4 GYNECOLOGIC ONCOLOGY - ATTENDING ADDENDUM I personally saw and evaluated the patient in the pre-operative holding area prior to the surgery. We reviewed the plan for the surgery and reviewed the consent form. I reviewed all relevant laboratory and imaging studies. All of the patient's questions were answered. BETHANY TORRES MD [facility] - Gynecologic Oncology Office Pager: [phone] Source Note - Ayana Ferris RN - 07/21/2024 1:12 PM EDT Images from the original note were not included. EKG DOS Telephone History Derek Shetty, [id number] 07/21/2024 Patient was identified by name and date of . Ayana Ferris RN 59 year old 145 lbs 5' 7 Date of Surgery: 07-28-2024 & 08-04-2024 Surgeon: Bethany Torres Type of Surgery: EXAM UNDER ANESTHESIA, PLACEMENT OF BRACHYTHERAPY DEVICE FOR CERVICAL CANCER TREATMENT HISTORY OF PRESENT ILLNESS: PAT telephone evaluation for EXAM UNDER ANESTHESIA, PLACEMENT OF BRACHYTHERAPY DEVICE FOR CERVICAL CANCER TREATMENT STOP-BANG Row Name 07/21/24 1312 History of sleep apnea? No Snoring No Tired/Fatigued No Observed Apnea No Pressure: Hypertension No BMI greater than 35 0 Age greater than 50 1 Neck circ greater than 40cm (15.75) Unable to Assess Gender male? 0 Score 1 EXERCISE CAPACITY: 4-10 mets ALLERGIES: Patient has no known allergies. 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, post-menopausal Comment: Malignant neoplasm of overlapping sites of cervix (HCC) Neuro/Psych - negative ROS Cardiovascular - negative ROS GI/Hepatic/Renal - negative ROS Heme/Other - negative ROS PAST SURGICAL HISTORY: Past Surgical History: Procedure Laterality Date COLONOSCOPY 02/2024 DENTAL SURGERY Mcdavid Teeth Removal EXCISION, LIPOMA Right Right Shoulder SOCIAL HISTORY: Social History Socioeconomic History Marital status: Single Tobacco Use Smoking status: Never Smokeless tobacco: Never Vaping Use Vaping status: Never Used Substance and Sexual Activity Alcohol use: Yes Comment: occassionally Drug use: Never Social History Narrative Lives in [place] lives with her No Pets Occasional/Social EtoH Non-smoker No current or past drug use Works at [employer] ASSESSMENT: Severity: 0 Location: N/A LABORATORY DATA: Type & Screen (Last result in the past 30 days) 07/18/2024 12:14 PM ABO Rh O Positive Screen Int. Negative CBC (last 3 years, up to 8 values) 07/18/2024 05/02/2024 12:14 PM 9:32 AM WBC 3.3 7.3 RBC 4.11 4.99 Hgb 12.2 14.0 Hct 36.9 43.6 MCV 90 87 RDW 14.5 13.6 Plt 154 316 BMP (last 3 years, up to 8 values) 07/18/2024 05/02/2024 12:14 PM 9:32 AM Na 137 139 K 4.0 4.4 Cl 101 105 CO2 30 25 Gap 10 13 Glu 103 85 BUN 13 17 Cr 0.60 0.72 Ca 9.8 10.0 eGFR 105 98 TESTS REVIEWED: CXRay: No Chest x-ray found EKG: Last ECG Date: Not Found ECHO: Echocardiogram date: Not Found No results found for this basename: LVEF Stress test date: Last StressTest: none found going back to 05/02/2024 CURRENT MEDICATION LIST: Current Outpatient Medications Medication Sig Dispense Refill ibuprofen (MOTRIN) 600 MG tablet Take 600 mg by mouth every 8 hours as needed. Sennosides 15 MG TABS Take 15 mg by mouth daily. No current facility-administered medications for this visit. CURRENT MEDICATIONS: Aspirin: No NSAIDS: Yes Other Antiplatelet Medication: No Anticoagulants: No Steroids: No PATIENT MEDICATION INSTRUCTIONS: On the morning of your surgery, please take only the following medications, with a small sip of water: Do not take any Aspirin within 7 days of surgery. No Fish Oil, Ginseng and Ginko Biloba, No large amounts of Vit E hold 7 days No NSAIDs within 3 days of surgery Hold all supplements morning of procedure DAY OF SURGERY NOTES: Pt can have WATER only ( no additives) up to 2 hours prior to arrival time The patient is to have nothing to eat or any other liquids at least 8 hours prior to surgery arrival time Need to have carry all driver Patients whose assigned sex at was female, and are starting puberty or beyond, will be urine tested for per hospital policy. Post-op Nausea and Vomiting: A risk of anesthesia is nausea and/or vomiting (PONV). Certain patients are at higher risk than others. Talk to your anesthesiologist about the plan to minimize this risk. In general, it is best to start with only ice chips or small sips of water, then progress to clear, non-alcoholic fluids. You do not have to eat if you do not feel like it; fluids are the most important in the first 24 hours after surgery. If you start to eat, try bananas, applesauce, plain toast, saltine crackers, or broth; avoid fried or fatty foods. Make sure to eat something about 15 minutes before taking any pain medications. Seek medical attention for any prolonged PONV and signs of dehydration. Ayana Ferris RN Time Spent Performing this Telephone History: 15 mins documented in this [id number] Attending History and physical note* Bethany Torres MD - 07/28/2024 7:18 AM EDT Images from the original note were not included. H&P reviewed. The patient was examined and there are no changes to the H&P. Medications, allergies, and pertinent laboratory and diagnostic tests were also reviewed at this time. Surgery still indicated. Charlene Ornelas MD, MEd [employer]IP LOADING MACHINE FEEDER PGY4 GYNECOLOGIC ONCOLOGY - ATTENDING ADDENDUM I personally saw and evaluated the patient in the pre-operative holding area prior to the surgery. We reviewed the plan for the surgery and reviewed the consent form. I reviewed all relevant laboratory and imaging studies. All of the patient's questions were answered. BETHANY TORRES MD FACOG [facility] - Gynecologic Oncology Office Pager: [phone] Source Note - Ayana Ferris RN - 07/21/2024 1:12 PM EDT Images from the original note were not included. EKG DOS Telephone History Derek Shetty, [id number] 07/21/2024 Patient was identified by name and date of . Ayana Ferris RN 59 year old 145 lbs 5' 7 Date of Surgery: 07-28-2024 & 08-04-2024 Surgeon: Bethany Torres Type of Surgery: EXAM UNDER ANESTHESIA, PLACEMENT OF BRACHYTHERAPY DEVICE FOR CERVICAL CANCER TREATMENT HISTORY OF PRESENT ILLNESS: PAT telephone evaluation for EXAM UNDER ANESTHESIA, PLACEMENT OF BRACHYTHERAPY DEVICE FOR CERVICAL CANCER TREATMENT STOP-BANG Row Name 07/21/24 1312 History of sleep apnea? No Snoring No Tired/Fatigued No Observed Apnea No Pressure: Hypertension No BMI greater than 35 0 Age greater than 50 1 Neck circ greater than 40cm (15.75) Unable to Assess Gender male? 0 Score 1 EXERCISE CAPACITY: 4-10 mets ALLERGIES: Patient has no known allergies. 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, post-menopausal Comment: Malignant neoplasm of overlapping sites of cervix (HCC) Neuro/Psych - negative ROS Cardiovascular - negative ROS GI/Hepatic/Renal - negative ROS Heme/Other - negative ROS PAST SURGICAL HISTORY: Past Surgical History: Procedure Laterality Date COLONOSCOPY 02/2024 DENTAL SURGERY Mcdavid Teeth Removal EXCISION, LIPOMA Right Right Shoulder SOCIAL HISTORY: Social History Socioeconomic History Marital status: Single Tobacco Use Smoking status: Never Smokeless tobacco: Never Vaping Use Vaping status: Never Used Substance and Sexual Activity Alcohol use: Yes Comment: occassionally Drug use: Never Social History Narrative Lives in [place] lives with her No Pets Occasional/Social EtoH Non-smoker No current or past drug use Works at [employer] ASSESSMENT: Severity: 0 Location: N/A LABORATORY DATA: Type & Screen (Last result in the past 30 days) 07/18/2024 12:14 PM ABO Rh O Positive Screen Int. Negative CBC (last 3 years, up to 8 values) 07/18/2024 05/02/2024 12:14 PM 9:32 AM WBC 3.3 7.3 RBC 4.11 4.99 Hgb 12.2 14.0 Hct 36.9 43.6 MCV 90 87 RDW 14.5 13.6 Plt 154 316 BMP (last 3 years, up to 8 values) 07/18/2024 05/02/2024 12:14 PM 9:32 AM Na 137 139 K 4.0 4.4 Cl 101 105 CO2 30 25 Gap 10 13 Glu 103 85 BUN 13 17 Cr 0.60 0.72 Ca 9.8 10.0 eGFR 105 98 TESTS REVIEWED: CXRay: No Chest x-ray found EKG: Last ECG Date: Not Found ECHO: Echocardiogram date: Not Found No results found for this basename: LVEF Stress test date: Last StressTest: none found going back to 05/02/2024 CURRENT MEDICATION LIST: Current Outpatient Medications Medication Sig Dispense Refill ibuprofen (MOTRIN) 600 MG tablet Take 600 mg by mouth every 8 hours as needed. Sennosides 15 MG TABS Take 15 mg by mouth daily. No current facility-administered medications for this visit. CURRENT MEDICATIONS: Aspirin: No NSAIDS: Yes Other Antiplatelet Medication: No Anticoagulants: No Steroids: No PATIENT MEDICATION INSTRUCTIONS: On the morning of your surgery, please take only the following medications, with a small sip of water: Do not take any Aspirin within 7 days of surgery. No Fish Oil, Ginseng and Ginko Biloba, No large amounts of Vit E hold 7 days No NSAIDs within 3 days of surgery Hold all supplements morning of procedure DAY OF SURGERY NOTES: Pt can have WATER only ( no additives) up to 2 hours prior to arrival time The patient is to have nothing to eat or any other liquids at least 8 hours prior to surgery arrival time Need to have carry all driver Patients whose assigned sex at was female, and are starting puberty or beyond, will be urine tested for per hospital policy. Post-op Nausea and Vomiting: A risk of anesthesia is nausea and/or vomiting (PONV). Certain patients are at higher risk than others. Talk to your anesthesiologist about the plan to minimize this risk. In general, it is best to start with only ice chips or small sips of water, then progress to clear, non-alcoholic fluids. You do not have to eat if you do not feel like it; fluids are the most important in the first 24 hours after surgery. If you start to eat, try bananas, applesauce, plain toast, saltine crackers, or broth; avoid fried or fatty foods. Make sure to eat something about 15 minutes before taking any pain medications. Seek medical attention for any prolonged PONV and signs of dehydration. Ayana Ferris RN Time Spent Performing this Telephone History: 15 mins That{img} Work Phone: [phone] Instructions* Discharge Instructions* Ayana Ferris RN - 07/21/2024 1:22 PM EDT PATIENT MEDICATION INSTRUCTIONS: On the morning of your surgery, please take only the following medications, with a small sip of water: Do not take any Aspirin within 7 days of surgery. No Fish Oil, Ginseng and Ginko Biloba, No large amounts of Vit E hold 7 days No NSAIDs within 3 days of surgery Hold all supplements morning of procedure DAY OF SURGERY NOTES: Pt can have WATER only ( no additives) up to 2 hours prior to arrival time The patient is to have nothing to eat or any other liquids at least 8 hours prior to surgery arrival time Need to have carry all driver Patients whose assigned sex at was female, and are starting puberty or beyond, will be urine tested for per hospital policy. Post-op Nausea and Vomiting: A risk of anesthesia is nausea and/or vomiting (PONV). Certain patients are at higher risk than others. Talk to your anesthesiologist about the plan to minimize this risk. In general, it is best to start with only ice chips or small sips of water, then progress to clear, non-alcoholic fluids. You do not have to eat if you do not feel like it; fluids are the most important in the first 24 hours after surgery. If you start to eat, try bananas, applesauce, plain toast, saltine crackers, or broth; avoid fried or fatty foods. Make sure to eat something about 15 minutes before taking any pain medications. Seek medical attention for any prolonged PONV and signs of dehydration. INSTRUCTIONS FOR SURGERY * Hospital staff will call you one business day before your surgery to inform you of your surgery arrival time. Please be on time- a late arrival may result in the cancellation or delay of your surgery. * DO NOT smoke after midnight the night before your surgery. * You may have plain water (no additives) up to 2 hours prior to surgery arrival time. Otherwise, no food or any other type of liquids for at least 8 hours prior to surgery arrival time. * If you were specifically directed by your doctor to take certain medication(s) on the day of surgery, you may do so with small sips of water. * DO NOT wear any jewelry including rings, earrings, or mouth, tongue or body piercings. * DO NOT use lotion, cream, deodorant or make-up. * DO NOT bring valuables, credit cards, or large amounts of sharp. A small amount of money may be needed for filling prescriptions. * Please bring your photo ID with you on the day of surgery. It will be stored in a secured locker and returned after surgery. * If you are scheduled to go home the same day of surgery, you MUST have a responsible adult to drive you home. A [employer], [employer] or other transportation manager company cannot be responsible for you. A responsible adult should stay with you for 24 hours after surgery. Your surgery will be cancelled if you do not have a ride home. * If you have sleep apnea and are staying overnight in the hospital, please bring your sleep apnea machine and mask. documented in this [id number] Evaluation note* PAT Call History - Ayana Ferris RN - 07/21/2024 1:12 PM EDT Images from the original note were not included. EKG DOS Telephone History Derek Shetty, [id number] 07/21/2024 Patient was identified by name and date of . Ayana Ferris RN 59 year old 145 lbs 5' 7 Date of Surgery: 07-28-2024 & 08-04-2024 Surgeon: Bethany Torres Type of Surgery: EXAM UNDER ANESTHESIA, PLACEMENT OF BRACHYTHERAPY DEVICE FOR CERVICAL CANCER TREATMENT HISTORY OF PRESENT ILLNESS: PAT telephone evaluation for EXAM UNDER ANESTHESIA, PLACEMENT OF BRACHYTHERAPY DEVICE FOR CERVICAL CANCER TREATMENT STOP-BANG Row Name 07/21/24 1312 History of sleep apnea? No Snoring No Tired/Fatigued No Observed Apnea No Pressure: Hypertension No BMI greater than 35 0 Age greater than 50 1 Neck circ greater than 40cm (15.75) Unable to Assess Gender male? 0 Score 1 EXERCISE CAPACITY: 4-10 mets ALLERGIES: Patient has no known allergies. 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, post-menopausal Comment: Malignant neoplasm of overlapping sites of cervix (HCC) Neuro/Psych - negative ROS Cardiovascular - negative ROS GI/Hepatic/Renal - negative ROS Heme/Other - negative ROS PAST SURGICAL HISTORY: Past Surgical History: Procedure Laterality Date COLONOSCOPY 02/2024 DENTAL SURGERY Mcdavid Teeth Removal EXCISION, LIPOMA Right Right Shoulder SOCIAL HISTORY: Social History Socioeconomic History Marital status: Single Tobacco Use Smoking status: Never Smokeless tobacco: Never Vaping Use Vaping status: Never Used Substance and Sexual Activity Alcohol use: Yes Comment: occassionally Drug use: Never Social History Narrative Lives in [place] lives with her No Pets Occasional/Social EtoH Non-smoker No current or past drug use Works at [employer] ASSESSMENT: Severity: 0 Location: N/A LABORATORY DATA: Type & Screen (Last result in the past 30 days) 07/18/2024 12:14 PM ABO Rh O Positive Screen Int. Negative CBC (last 3 years, up to 8 values) 07/18/2024 05/02/2024 12:14 PM 9:32 AM WBC 3.3 7.3 RBC 4.11 4.99 Hgb 12.2 14.0 Hct 36.9 43.6 MCV 90 87 RDW 14.5 13.6 Plt 154 316 BMP (last 3 years, up to 8 values) 07/18/2024 05/02/2024 12:14 PM 9:32 AM Na 137 139 K 4.0 4.4 Cl 101 105 CO2 30 25 Gap 10 13 Glu 103 85 BUN 13 17 Cr 0.60 0.72 Ca 9.8 10.0 eGFR 105 98 TESTS REVIEWED: CXRay: No Chest x-ray found EKG: Last ECG Date: Not Found ECHO: Echocardiogram date: Not Found No results found for this basename: LVEF Stress test date: Last StressTest: none found going back to 05/02/2024 CURRENT MEDICATION LIST: Current Outpatient Medications Medication Sig Dispense Refill ibuprofen (MOTRIN) 600 MG tablet Take 600 mg by mouth every 8 hours as needed. Sennosides 15 MG TABS Take 15 mg by mouth daily. No current facility-administered medications for this visit. CURRENT MEDICATIONS: Aspirin: No NSAIDS: Yes Other Antiplatelet Medication: No Anticoagulants: No Steroids: No PATIENT MEDICATION INSTRUCTIONS: On the morning of your surgery, please take only the following medications, with a small sip of water: Do not take any Aspirin within 7 days of surgery. No Fish Oil, Ginseng and Ginko Biloba, No large amounts of Vit E hold 7 days No NSAIDs within 3 days of surgery Hold all supplements morning of procedure DAY OF SURGERY NOTES: Pt can have WATER only ( no additives) up to 2 hours prior to arrival time The patient is to have nothing to eat or any other liquids at least 8 hours prior to surgery arrival time Need to have carry all driver Patients whose assigned sex at was female, and are starting puberty or beyond, will be urine tested for per hospital policy. Post-op Nausea and Vomiting: A risk of anesthesia is nausea and/or vomiting (PONV). Certain patients are at higher risk than others. Talk to your anesthesiologist about the plan to minimize this risk. In general, it is best to start with only ice chips or small sips of water, then progress to clear, non-alcoholic fluids. You do not have to eat if you do not feel like it; fluids are the most important in the first 24 hours after surgery. If you start to eat, try bananas, applesauce, plain toast, saltine crackers, or broth; avoid fried or fatty foods. Make sure to eat something about 15 minutes before taking any pain medications. Seek medical attention for any prolonged PONV and signs of dehydration. Ayana Ferris RN Time Spent Performing this Telephone History: 15 mins [id number] Miscellaneous Notes* PAT Call History - Ayana Ferris RN - 07/21/2024 1:12 PM EDT Images from the original note were not included. EKG DOS Telephone History Derek Diogenes, [id number] 07/21/2024 Patient was identified by name and date of . Ayana Ferris RN 59 year old 145 lbs 5' 7 Date of Surgery: 07-28-2024 & 08-04-2024 Surgeon: Bethany Torres Type of Surgery: EXAM UNDER ANESTHESIA, PLACEMENT OF BRACHYTHERAPY DEVICE FOR CERVICAL CANCER TREATMENT HISTORY OF PRESENT ILLNESS: PAT telephone evaluation for EXAM UNDER ANESTHESIA, PLACEMENT OF BRACHYTHERAPY DEVICE FOR CERVICAL CANCER TREATMENT STOP-BANG Row Name 07/21/24 1312 History of sleep apnea? No Snoring No Tired/Fatigued No Observed Apnea No Pressure: Hypertension No BMI greater than 35 0 Age greater than 50 1 Neck circ greater than 40cm (15.75) Unable to Assess Gender male? 0 Score 1 EXERCISE CAPACITY: 4-10 mets ALLERGIES: Patient has no known allergies. 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, post-menopausal Comment: Malignant neoplasm of overlapping sites of cervix (HCC) Neuro/Psych - negative ROS Cardiovascular - negative ROS GI/Hepatic/Renal - negative ROS Heme/Other - negative ROS PAST SURGICAL HISTORY: Past Surgical History: Procedure Laterality Date COLONOSCOPY 02/2024 DENTAL SURGERY M[facility]av[facility] Teeth Removal EXCISION, LIPOMA Right Right Shoulder SOCIAL HISTORY: Social History Socioeconomic History Marital status: Single Tobacco Use Smoking status: Never Smokeless tobacco: Never Vaping Use Vaping status: Never Used Substance and Sexual Activity Alcohol use: Yes Comment: occassionally Drug use: Never Social History Narrative Lives in [place] lives with her No Pets Occasional/Social EtoH Non-smoker No current or past drug use Works at [employer] ASSESSMENT: Severity: 0 Location: N/A LABORATORY DATA: Type & Screen (Last result in the past 30 days) 07/18/2024 12:14 PM ABO Rh O Positive Screen Int. Negative CBC (last 3 years, up to 8 values) 07/18/2024 05/02/2024 12:14 PM 9:32 AM WBC 3.3 7.3 RBC 4.11 4.99 Hgb 12.2 14.0 Hct 36.9 43.6 MCV 90 87 RDW 14.5 13.6 Plt 154 316 BMP (last 3 years, up to 8 values) 07/18/2024 05/02/2024 12:14 PM 9:32 AM Na 137 139 K 4.0 4.4 Cl 101 105 CO2 30 25 Gap 10 13 Glu 103 85 BUN 13 17 Cr 0.60 0.72 Ca 9.8 10.0 eGFR 105 98 TESTS REVIEWED: CXRay: No Chest x-ray found EKG: Last ECG Date: Not Found ECHO: Echocardiogram date: Not Found No results found for this basename: LVEF Stress test date: Last StressTest: none found going back to 05/02/2024 CURRENT MEDICATION LIST: Current Outpatient Medications Medication Sig Dispense Refill ibuprofen (MOTRIN) 600 MG tablet Take 600 mg by mouth every 8 hours as needed. Sennosides 15 MG TABS Take 15 mg by mouth daily. No current facility-administered medications for this visit. CURRENT MEDICATIONS: Aspirin: No NSAIDS: Yes Other Antiplatelet Medication: No Anticoagulants: No Steroids: No PATIENT MEDICATION INSTRUCTIONS: On the morning of your surgery, please take only the following medications, with a small sip of water: Do not take any Aspirin within 7 days of surgery. No Fish Oil, Ginseng and Ginko Biloba, No large amounts of Vit E hold 7 days No NSAIDs within 3 days of surgery Hold all supplements morning of procedure DAY OF SURGERY NOTES: Pt can have WATER only ( no additives) up to 2 hours prior to arrival time The patient is to have nothing to eat or any other liquids at least 8 hours prior to surgery arrival time Need to have carry all driver Patients whose assigned sex at was female, and are starting puberty or beyond, will be urine tested for per hospital policy. Post-op Nausea and Vomiting: A risk of anesthesia is nausea and/or vomiting (PONV). Certain patients are at higher risk than others. Talk to your anesthesiologist about the plan to minimize this risk. In general, it is best to start with only ice chips or small sips of water, then progress to clear, non-alcoholic fluids. You do not have to eat if you do not feel like it; fluids are the most important in the first 24 hours after surgery. If you start to eat, try bananas, applesauce, plain toast, saltine crackers, or broth; avoid fried or fatty foods. Make sure to eat something about 15 minutes before taking any pain medications. Seek medical attention for any prolonged PONV and signs of dehydration. Ayana Ferris RN Time Spent Performing this Telephone History: 15 mins documented in this [id number] History of Present illness Narrative* Cesar Aj RN - 07/18/2024 12:54 PM EDT Patient was identified by name and date of . Cesar Aj RN Patient at risk for falls:No Falls Risk protocol implemented: N/A Encounter for blood test (Primary Diagnosis) [[id number]] Malignant neoplasm of overlapping sites of cervix (HCC) [6319755] Pt presented to clinic as add on from radiation for blood tests. Pt scheduled for PAT on Sunday. PAT agreeable to make visit a telephone visit if her labs are drawn today. Pt has port but wishes for labs to be drawn peripherally. 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 23g x 3/4in butterfly used for blood draw in RAC. Blood drawn and sent to lab. Dressing applied. T&S for completed by myself, pt and PAT and sent with specimen to lab. Pt aware to wait for call from PAT on Sunday. Pt verbalized follow up instructions and discharged home. Cesar Aj, RN documented in this [id number] NoteRADIATION ONCOLOGY NEW PATIENT EVALUATION DATE OF VISIT: 07/18/2024 Requesting Physician: Dr. Torres (C53.8) Malignant neoplasm of overlapping sites of cervix (HCC) (primary encounter diagnosis) w clinical stage IB p16 positive mod diff non keratinizing SCCA SCC cervix s/p TVUS (03/11/2024), cervical biopsy (05/02/2024), PET scan 4.4 cm cervix SUV max 8.4; MRI pelvis (fibroids no nodes, cervical disease only, no SW ext or nodes Cancer Staging Malignant neoplasm of overlapping sites of cervix (HCC) Staging form: Cervix Uteri, AJCC 9th Edition - Clinical: FIGO Stage IB (cT1b, cN0, cM0) - Signed by Yakelin Godwin MD on 07/18/2024 CURRENT COMPLAINT: Here today for brachytherapy planning HPI: I was asked by Dr. Torres to see this 59 year old female with a diagnosis of FIGO Stage 1B cervical cancer. The patient presented with vaginal bleeding for about a year associated with occasional pelvic pressure. Chronic constipation with recent normal colonoscopy and no other symptoms. On 03/11 she underwent TVUS showing normal size uterus 7.1 x 5.9 x 4.5 cm, of normal endometrial thickness (up to 2mm), with a 2.2 and 2.8 cm mass in the posterior fundus c/w fibroids Colonoscopy 03/11/24 normal no biopsies 05/02/24: cervical biopsy INVASIVE, MODERATELY-DIFFERENTIATED, NON-KERATINIZING SQUAMOUS CELL CARCINOMA P16: Positive 05/13/[address] -Head/Neck: There is no evidence of abnormal increased glucose metabolism in the pharyngeal mucosal space, parapharyngeal space, bilateral-lateral and anterior neck, hypopharynx and distribution of the laryngeal structures. - The visualized portion of the cerebral cortical-subcortical structures demonstrate symmetric and preserved glucose metabolism. - CHEST: There is no quantitative scintigraphic evidence of abnormal increased glucose metabolism within the context of the bilateral hemithorax pulmonary parenchyma, right and left hemithoracic pleural interface, mediastinal structures and thoracic perihilum.? - Pertinent chest CT findings are as follows. There is atherosclerotic calcification defined in the thoracic aorta without evidence of dilatation-aneurysm formation. Coronary arterial calcification is observed. Right and left axillary soft tissue densities are ametabolic. There are no parenchymal densities-nodules defined in the right and left hemithorax with quantitively significant increased FDG uptake. Bilateral axillary soft tissue densities are ametabolic. Meticulous attention paid to the bilateral hemithorax reveals no evidence of increased tracer uptake. - Abdomen/Pelvis: Enhanced tracer uptake is defined in the lower pelvis, uterus-uterine cervix. The calculated maximum standard uptake value is 8.4. The maximum axial diameter of the largest metabolic abnormality is 43.7 mm. Normal physiologic distribution of the radiopharmaceutical is apparent in the hepatic (3.0) and splenic parenchyma, both renal units, bladder and visualized intestinal tract. Diffuse radiopharmaceutical concentration is noted in all four quadrants of the abdomen and pelvis. - Abdomen and pelvis CT findings are as follows. There is atherosclerotic calcification defined in the abdominal aorta without evidence of dilatation-aneurysm formation. Abdominal-pelvic arterial calcification is defined. Colonic diverticula are defined without evidence of diverticulitis. Bilateral inguinal soft tissue densities with fatty hilus are nonglucose avid. Right and left inguinal soft tissue densities are ametabolic. Calcifications are defined within the uterine mass formation. Cyst formation is defined without increased FDG uptake in the left adnexal region. - Skeletal: L4 on L5 anterolisthesis is demonstrated. Degenerative changes are noted in the cervical, thoracic and lumbar spine. IMPRESSION: 1. ABNORMAL EXAMINATION INDICATIVE OF MALIGNANT-VIABLE NEOPLASM. 2. Increased tracer uptake noted in the pelvis associated with the uterus-uterine cervix fulfills quantitative criteria for viable neoplasm. 3. No other quantitative significant hypermetabolic abnormalities are encountered. She is receiving ENVIRONMENTAL COMMUNICATIONS SPECIALIST (pelvic RT) at [place] to be completed 07/23. She complains of some loose stool and fatigue but otherwise tolerating well. She is here today for brachytherapy planning. MRI end of XRT obtained this am no yet read Prior Radiation Therapy: Yes completes 45 Gy pelvic RT 25 fx at [place] 07/23 Prior Chemotherapy: Yes concurrent weekly cisplatin Surgery: The patient has not had surgery; Allergies: Patient has no known allergies. PMH: Past Medical History: Diagnosis Date Abnormal Pap smear of cervix Vaginal bleeding Medication: Current Outpatient Medications Medication Sig Dispense Refill ibuprofen (MOTRIN) 600 MG tablet Take 600 mg by mouth every 8 hours as needed. Sennosides 15 MG TABS Take 15 mg by mouth daily. No current (more content not included)...The That{img} [id number] History of Present illness Narrative* Yakelin Godwin MD - 07/18/2024 11:55 AM EDT RADIATION ONCOLOGY NEW PATIENT EVALUATION DATE OF VISIT: 07/18/2024 Requesting Physician: Dr. Torres (C53.8) Malignant neoplasm of overlapping sites of cervix (HCC) (primary encounter diagnosis) w clinical stage IB p16 positive mod diff non keratinizing SCCA SCC cervix s/p TVUS (03/11/2024), cervical biopsy (05/02/2024), PET scan 4.4 cm cervix SUV max 8.4; MRI pelvis (fibroids no nodes, cervical disease only, no SW ext or nodes Cancer Staging Malignant neoplasm of overlapping sites of cervix (HCC) Staging form: Cervix Uteri, AJCC 9th Edition - Clinical: FIGO Stage IB (cT1b, cN0, cM0) - Signed by Yakelin Godwin MD on 07/18/2024 CURRENT COMPLAINT: Here today for brachytherapy planning HPI: I was asked by Dr. Torres to see this 59 year old female with a diagnosis of FIGO Stage 1B cervical cancer. The patient presented with vaginal bleeding for about a year associated with occasionalpelvic pressure. Chronic constipation with recent normal colonoscopy and no other symptoms. On 03/11 she underwent TVUS showing normal size uterus 7.1 x 5.9 x 4.5 cm, of normal endometrial thickness (up to 2mm), with a 2.2 and 2.8 cm mass in the posterior fundus c/w fibroids Colonoscopy 03/11/24 normal no biopsies 05/02/24: cervical biopsy INVASIVE, MODERATELY-DIFFERENTIATED, NON-KERATINIZING SQUAMOUS CELL CARCINOMA P16: Positive 05/13/[address] -Head/Neck: There is no evidence of abnormal increased glucose metabolism in the pharyngeal mucosalspace, parapharyngeal space, bilateral-lateral and anterior neck, hypopharynx and distribution of the laryngeal structures. - The visualized portion of the cerebral cortical-subcortical structures demonstrate symmetric and preserved glucose metabolism. - CHEST: There is no quantitative scintigraphic evidence of abnormal increased glucose metabolism within the context of the bilateral hemithorax pulmonary parenchyma, right and left hemithoracic pleural interface, mediastinal structures and thoracic perihilum.? - Pertinent chest CT findings are as follows. There is atherosclerotic calcification defined in thethoracic aorta without evidence of dilatation- aneurysm formation. Coronary arterial calcification is observed. Right and left axillary soft tissue densities are ametabolic. There are no parenchymal de nsities-nodules defined in the right and left hemithorax with quantitively significant increased FDG uptake. Bilateral axillary soft tissue densities are ametabolic. Meticulous attention paid to the bilateral hemithorax reveals no evidence of increased tracer uptake. - Abdomen/Pelvis: Enhanced tracer uptake is defined in the lower pelvis, uterus- uterine cervix. Thecalculated maximum standard uptake value is 8.4. The maximum axial diameter of the largest metabolic abnormality is 43.7 mm. Normal physiologic distribution of the radiopharmaceutical is apparent in the hepatic (3.0) and splenic parenchyma, both renal units, bladder and visualized intestinal tract.Diffuse radiopharmaceutical concentration is noted in all four quadrants of the abdomen and pelvis. - Abdomen and pelvis CT findings are as follows. There is atherosclerotic calcification defined in the abdominal aorta without evidence of dilatation- aneurysm formation. Abdominal-pelvic arterial calcification is defined. Colonic diverticula are defined without evidence of diverticulitis. Bilateralinguinal soft tissue densities with fatty hilus are nonglucose avid. Right and left inguinal soft tissue densities are ametabolic. Calcifications are defined within the uterine mass formation. Cyst formation is defined without increased FDG uptake in the left adnexal region. - Skeletal: L4 on L5 anterolisthesis is demonstrated. Degenerative changes are noted in the cervical, thoracic and lumbar spine. IMPRESSION: 1. ABNORMAL EXAMINATION INDICATIVE OF MALIGNANT-VIABLE NEOPLASM. 2. Increased tracer uptake noted in the pelvis associated with the uterus- uterine cervix fulfills quantitative criteria for viable neoplasm. 3. No other quantitative significant hypermetabolic abnormalities are encountered. She is receiving ENVIRONMENTAL COMMUNICATIONS SPECIALIST (pelvic RT) at [place] to be completed 07/23. She complains of some loose stooland fatigue but otherwise tolerating well. She is here today for brachytherapy planning. MRI end of XRT obtained this am no yet read Prior Radiation Therapy: Yes completes 45 Gy pelvic RT 25 fx at [place] 07/23 Prior Chemotherapy: Yes concurrent weekly cisplatin Surgery: The patient has not had surgery; Allergies: Patient has no known allergies. PMH: Past Medical History: Diagnosis Date Abnormal Pap smear of cervix Vaginal bleeding Medication: Current Outpatient Medications Medication Sig Dispense Refill ibuprofen (MOTRIN) 600 MG tablet Take 600 mg by mouth every 8 hours as needed. Sennosides 15 MG TABS Take 15 mg by mouth daily. No current facility-administered medications for this visit. FamHx: Family History Problem Relation Age of Onset Lymphoma Sister 23 Non Hodgkins Lymphoma Colon Cancer Negative Family History of Prostate cancer Negative Family History of Pancreatic Cancer Negative Family History of Ovarian Cancer Negative Family History of Uterine Cancer Negative Family History of Breast Cancer Negative Family History of SocHx: Social History Socioeconomic History Marital status: Single Social History Narrative Lives in [place] lives with her No Pets Occasional/Social EtoH Non-smoker No current or past drug use Works at [employer] ROS: As per HPI A 10-point ROS was performed, all other review of systems are negative, or as detailed in patient history. Pain Evaluation: The patient's pain was assessed. Pain score reported at 0 Vital Signs: Per medical oncology intake BP 109/69 Pulse 94 Temp 97.9 F (36.6 C) (Oral) Resp 14 Wt 143 lb 11.8 oz (65.2 kg) SpO2 100% Pain Sc 0/10 ECOG PS: 0 PE: Physical Exam Constitutional: Appearance: Normal appearance. Eyes: Extraocular Movements: Extraocular movements intact. Conjunctiva/sclera: Conjunctivae normal. Pupils: Pupils are equal, round, and reactive to light. Cardiovascular: Rate and Rhythm: Normal rate and regular rhythm. Pulses: Normal pulses. Heart sounds: Normal heart sounds. Pulmonary: Effort: Pulmonary effort is normal. Breath sounds: Normal breath sounds. Abdominal: General: Abdomen is flat. Bowel sounds are normal. Palpations: Abdomen is soft. Neurological: Mental Status: She is alert. Labs: CBC (last 3 years, up to 8 values) 05/02/2024 9:32 AM WBC 7.3 RBC 4.99 Hgb 14.0 Hct 43.6 MCV 87 RDW 13.6 Plt 316 BMP (last 3 years, up to 8 values) 05/02/2024 9:32 AM Na 139 K 4.4 Cl 105 CO2 25 Gap 13 Glu 85 BUN 17 Cr 0.72 Ca 10.0 eGFR 98 LFT's (last 3 years, up to 8 values) No lab values to display. All current data personally reviewed data as outlined above. Assessment and Plan: In summary, Ms. Shetty has clinical stage IB p16 positive mod diff non keratinizing SCCA SCC cervix s/p TVUS (03/11/2024), cervical biopsy (05/02/2024), PET scan 4.4 cm cervix SUV max 8.4; MRI pelvis (fibroids no nodes, cervical disease only, no SW ext or nodes.) completing initial ENVIRONMENTAL COMMUNICATIONS SPECIALIST (45GY pelvis) at [place] anticipated to complete 07/23. Dr Torres and I have reviewed the MRI and discussed tandem andring brachytherapy boost (scheduled 07/28). Patient educated and consent obtained. I had an extensive discussion with Ms. Shetty about the natural history and overall treatment approach, as well as the likely outcome if treatment is not pursued. I reviewed the practicalities of radiation and the typical radiation treatment course. We reviewed the typical radiation course, including potential early and late side toxicities. We also discussed the treatment planning process including CT simulation. Following completion of intent of therapy, treatment options, and potential risks and benefits, thepatient was informed that a joint decision regarding treatment is to be made. We jointly discussed support of her preferences as well as her wish to make the decision, defer the decision, or discuss in follow-up. All of her questions were answered to the best of my ability. NCCN Guidelines were applicable and used to guide this patient's treatment plan. Thank you for allowing us to participate in the care of this patient. Please do not hesitate to contact me should any questions arise. Documentation was completed jointly with nursing staff. documented in this [id number] History of Present illness Narrative* Bethany Torres MD - 06/26/2024 8:12 AM EDT Images from the original note were not included. Orders placed for Surgical Case Request Brachytherapy Device Placement on 07/28/2024 and 08/04/2024 Patient will need PAT prior to first procedure - CBC, BMP, EKG Will need bowel prep prior to each procedure also. BETHANY TORRES MD [facility] - Gynecologic Oncology Office Pager: [phone] documented in this [id number] [facility] 05-30-2024 Telephone encounter Note* Telephone Encounter - Alison Lucas - 05/30/2024 9:43 AM EDT Requested documentation sent to [place]. [id number] Miscellaneous Notes* Telephone Encounter - Alison Lucas - 05/30/2024 9:43 AM EDT Requested documentation sent to [place]. * Telephone Encounter - Faustino Michelle - 05/27/2024 8:58 AM EDT Pt is calling in regards to her Rad onc appts She still has not heard from [place] to get scheduled and stated to give a call Michelle documented in this [id number] Telephone encounter Note* Telephone Encounter - Khushbu Phillips RN - 05/28/2024 11:02 AM EDT Left message on patient's voice mail informing her our office is faxing requested additional information to [facility] Radiation Oncology Department and once information is received their office will call her to schedule an appointment. Office phone number provided for any further questions/concerns. Khushbu Phillips RN [id number] Miscellaneous Notes* Telephone Encounter - Khushbu Phillips RN - 05/28/2024 11:02 AM EDT Left message on patient's voice mail informing her our office is faxing requested additional information to [facility] Radiation Oncology Department and once information is received their office will call her to schedule an appointment. Office phone number provided for any further questions/concerns. Khushbu Phillips RN documented in this [id number] Telephone encounter Note* Telephone Encounter - Michelle Harmon - 05/27/2024 8:58 AM EDT Pt is calling in regards to her Rad onc appts She still has not heard from [place] to get scheduled and stated to give a call Michelle [id number] Miscellaneous Notes* Telephone Encounter - Michelle Harmon - 05/27/2024 8:58 AM EDT Pt is calling in regards to her Rad onc appts She still has not heard from [place] to get scheduled and stated to give a call Michelle documented in this [id number] Telephone encounter Note* Telephone Encounter - Deya Dale - 05/22/2024 11:17 AM EDT Olivia calling in regards to mutual (attached) patient Olivia states that a PA needs to be received by May 24 in order for patient to proceed with orders Olivia was able to provide the number for [facility] - [phone] to obtain PA - states it can be done over the phone as a same day authorization Olivia can be reached at [phone] with any additional questions/concerns [id number] Miscellaneous Notes* Telephone Encounter - Deya Dale - 05/22/2024 11:17 AM EDT Olivia calling in regards to mutual (attached) patient Olivia states that a PA needs to be received by May 24 in order for patient to proceed with orders Olivia was able to provide the number for [facility] - [phone] to obtain PA - states it can be done over the phone as a same day authorization Olivia can be reached at [phone] with any additional questions/concerns * Telephone Encounter - Deya Dale - 05/16/2024 2:18 PM EDT Patient calling Patient states that she had a pelvis MRI originally scheduled for 05/20 changed to 05/15 and then changed again 05/16 - in the process your insurance cancelled / denied the MRI MRI is currently rescheduled for 05/26 - information will need to be resubmitted so that the insurance will approve imaging procedure Patient can be reached at [phone] with any questions documented in this [id number] Telephone encounter Note* Telephone Encounter - eDya Dale - 05/16/2024 2:18 PM EDT Patient calling Patient states that she had a pelvis MRI originally scheduled for 05/20 changed to 05/15 and then changed again 05/16 - in the process your insurance cancelled / denied the MRI MRI is currently rescheduled for 05/26 - information will need to be resubmitted so that the insurance will approve imaging procedure Patient can be reached at [phone] with any questions [id number] Telephone encounter Note* Telephone Encounter - Michelle Harmon - 05/14/2024 8:44 AM EDT Pt has an MRI on 05/15 at [facility] [phone] Maria [address] Jesus They need authorization from her insurance by noon today or they will cancel pt. [id number] Miscellaneous Notes* Telephone Encounter - Michelle Harmon - 05/14/2024 8:44 AM EDT Pt has an MRI on 05/15 at [facility] [phone] Maria De Jesus They need authorization from her insurance by noon today or they will cancel pt. documented in this [id number] NoteGYNECOLOGIC ONCOLOGY - OFFICE PROCEDURE NOTE: DATE OF PROCEDURE: May 02, 2024 PROCEDURE: Pelvic Examination, Cervical Mass Biopsy PRE-OPERATIVE DIAGNOSIS: Cervical Cancer POST-OPERATIVE DIAGNOSIS: Cervical Cancer SURGEON: Dr. Bethany Torres MD FACOG FORTUNE COOKIE MAKER: None ANESTHESIA: None EBL: Minimal COMPLICATIONS: None DESCRIPTION OF THE PROCEDURE: After the risks, benefits, and alternatives were discussed with the patient, consent was obtained. She was placed in dorsal lithotomy position. I performed a pelvic examination. Please see the office note for details of that examination. A speculum was placed inside the vagina. The tumor was adequately visualized. Using Tischler biopsy instrument, several biopsies were obtained of the mass. Hemostasis was achieved with application of pressure and Monsel's solution. The speculum was removed. The patient tolerated the procedure well. BETHANY TORRES MD FACOG [facility] - Gynecologic Oncology Office Pager: [phone]08-30-2023 History and physical note Author Anirudh Amado [facility] June 27, 2023 8:00am Note Date/Time June 27, 2023 7: 49am [facility] Medical Records Department [address] [place] [address] History & Physical Exam 06/27/23 0749 MR#: [id number] Acct: [id number] Name: DEREK SHETTY Rep #:[id number] : 1965 57 From: Anirudh Gomez PCP: Care Physician,No Primary Status :PRE [facility] Location: [facility] History and Physical Date of Admission: 06/27/23 HISTORY OF PRESENT ILLNESS 57 year old woman presents with a soft tissue mass on her right anterior shoulder that she has had for 10 years. It has bee getting larger over the pastseveral months. She denies trauma. She denies fever. She has no trouble moving her shoulder. Denies paresthesias right upper extremity. Patient is right hand dominant. She had a right shoulder x-ray on 05/22/23. It showed No soft tissue swelling or gas. No radiopaque foreign body. No acute fracture or subluxation.. Normal alignment. Preservation of the joint space.. No sclerotic or destructive changes observed. She presents at this time for further evaluation and treatment. PAST MEDICAL HISTORY Ganglion, right shoulder Mass of joint of right shoulder PAST SURGICAL HISTORY None. ALLERGIES No Known Allergies MEDICATIONS NK FAMILY HISTORY Non-contributory. SOCIAL HISTORY Smoking Status: Never smoker alcohol intake: current REVIEW OF SYSTEMS General - Denies fever, fatigue, and weight loss. Eyes - Denies cataracts and glaucoma. ENT - Denies nasal congestion and sore throat. Endocrine - Denies excessive thirst and urination. Skin - Denies suspicious lesions and skin cancer. Musculoskeletal - Denies joint pain, joint stiffness, weakness of muscles and joints, back pain, and arthritis. Has soft tissue mass right anterior shoulder. Neuro - Denies headaches. Cardiovascular - Denies chest pain, fatigue, and shortness of breath with exertion. Psych - Denies anxiety and depression. Respiratory - Denies chronic cough and shortness of breath. Gastrointestinal - Denies nausea, vomiting, diarrhea, and constipation. Hematologic - Denies abnormal bruising and bleeding. Genitourinary - Denies hematuria and urinary frequency. PHYSICAL EXAMINATION General - Alert and Oriented. HEENT - PERRL. EOMI. Throat is clear. Neck - Supple and nontender. No cervical adenopathy. Lungs - Clear to auscultation. Heart - Regular rate and rhythm. Abdomen - Soft and nondistended. Extremities - FROM. No axillary adenopathy. Radial pulses are palpable. Patient is right hand dominant. On her right anterior shoulder is a soft tissuemass that measures 7 cm. The mass is mobile. No evidence of infection. No recent infection. No paresthesias. Neuro - CN II-XII grossly intact. Psych - Normal mood and affect. ASSESSMENT 7 cm mass right anterior shoulder, clinically a ganglion cyst. PLAN Clinically the patient appears to have a ganglion cyst right anterior shoulder. She had a right shoulder x-ray on 05/22/23. It showed No soft tissue swelling or gas. No radiopaque foreign body. No acute fracture or subluxation.. Normal alignment. Preservation of the joint space.. No sclerotic or destructive changes observed. A ganglion cyst will have a stalk tracking to the shoulder joint or tendon. Surgery involves removing the cyst and the stalk that attaches it to the joint or tendon. Osteophytic spurs may be present as well and should be excised as well. Surgery will be done under general anesthetic on an outpatient basis. Tissue that is removed will be sent to Pathology for analysis to rule out carcinoma. Depending on the size of the cavity after removal of the mass will determine if a drain is necessary for a few days. A compression dressing will help to minimize seroma formation postoperatively. Patient was informed of the risks and complications of the procedure including alternatives to surgery. These were discussed with the patient personally. Patient voices understanding and wishes to proceed. Some of the risks and complications were included in a form from the [employer]. Potential risks and complications included but not inclusive of bleeding, infection, seroma, hematoma, bruising, swelling, prolonged need for drains, lossof sensation to skin, wound breakdown, need for wound care, poor scarring, poor aesthetic outcome, intra operative cardiac or neurologic events, DVT, PE, and reaction to anesthesia. Assessment & Plan Assessment/Plan (1) Mass of joint of right shoulder: (2) Ganglion, right shoulder: 06/27/23 0800 <Electronically signed by Anirudh Amado MD> Cosigner Signature (if applicable): CC: Dr. Anirudh Amado MD; No Primary Care Physician~ Signed [facility] Work Phone: Discharge summary Author Anirudh Amado [facility] June 27, 2023 3:21pm Note Date/Time June 27, 2023 2: 57pm [facility] Medical Records Department [address] [place] [address] Instructions for Home/Discharge Instructions 06/27/23 1447 MR#: [id number] Acct: [id number] Name: DEREK SHETTY Rep #:[id number] : 1965 57 From: Anirudh Gomez PCP: Care Physician,No Primary Status :REG [facility] Discharge Instructions Diet Discharge Diet: No restrictions (encourage nutritional supplementation with protein to help the healing process.) Activity Discharge Activity: May Not Drive, May Not Shower (until the drain is removed.) and - (no heavy lifting, elevate head. elevate head of bed when sleeping for 2 weeks (alternately may sleep on an extra pillow.) May shower in (days): 10 (tentative. after the drain is removed.) May resume sexual activity in: 4-6 weeks Weight Bearing Status: Weight bearing as tolerated Lifting Restrictions: 20 lbs. Keep extremity elevated above heart level: - (elevate head) Dressing / Incision Call your doctor if your incision/area has: Continuous Slow Oozing, Sudden Increased Bleeding, Increased Pain/ Swelling, Increased Redness, Foul Smelling Discharge and Swelling at the incision site Call your doctor if you observe: Fever of 101 or Higher, Coldness, Increased Pain, Shortness of breath, Chest pain, Calf discomfort and Uncontrolled pain Change Dressing in: do not change dressing (will change operative dressing in the office.) Cleanse incision/area with: - (may get incision wet in the shower after the drain is removed.) Drain: Suction (federica drain to bulb suction. empty and record output daily.) Follow Up Care Please Follow Up With: Anirudh Amado MD When: one week, 07/05/23, at 230pm. Call [phone] if any questions. Test Results: Test results from this visit will be discussed in further detail at your follow- up appointment, if applicable. Discharge Plan Admission Primary Reason for Your Visit: excision mass right anterior shoulder Attending Provider: Anirudh Amado Primary Care Provider: Care Physician,No Primary Discharge Orders/Prescriptions Prescriptions: New cefadroxil 500 mg capsule 500 mg PO BID Qty: 28 0RF L.acidoph,saliva-B.bif-S.therm [Acidophilus Probiotic Blend] 175 mg capsule 1 cap PO DAILY Qty: 30 0RF oxycodone-acetaminophen [Percocet] 5-325 mg tablet 1 tab PO Q6H PRN (Reason: pain (scale score 7-10)) 7 Days Qty: 28 0RF Rx Instructions: 28 tabs (twenty-eight) diazepam [Valium] 5 mg tablet 5 mg PO 4X/DAY PRN (Reason: muscle spasm) Qty: 30 0RF Rx Instructions: 30 tabs (thirty) Referrals / Follow Up: Care Physician,No Primary [Primary Care Provider] - Disposition Disposition (needs filled in before D/C Order can be placed): Home, Self Care 06/27/23 1521<Electronically signed by Anirudh Amado MD>Anirudh Amado MD CC: No Primary Care Physician ~ Signed [facility] Work Phone: Evaluation note* Diagnosis Onset Date Resolution Status Ganglion, right shoulder chr onic Mass of joint of right shoulder chronic [facility] Work Phone: Evaluation note* Diagnosis Onset Date Resolution Status Mass of joint of right shoulder chronic Lipoma of right shoulder chr onic Mass of joint of right shoulder chronic [facility] Work Phone: Evaluation note* Diagnosis Onset Date Resolution Status Lipoma of right shoulder chr onic 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 Mass of joint of right shoulder chronic [facility] Work Phone: Evaluation note* Diagnosis Onset Date Resolution Status Screening for colon cancer n oneactive Screening for cardiovascular condition noneactive Establishing care with new doctor, encounter for noneactive Lipoma noneactive Screening for cervical cancer noneactive Kidney stone noneactive Urinary dribbling noneactive Screening for breast cancer noneactive [facility] Work Phone: Evaluation note* Diagnosis Vaginal bleeding- Primary Other specified noninflammatory disorder of vagina 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 Malignant neoplasm of overlapping sites of cervix (HCC) 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 (HCC) Malignant neoplasm of other specified sites of female genital organs [facility] Malignant neoplasm of overlapping sites of cervix (HCC)- Primary [facility] Diagnosis Malignant neoplasm of overlapping sites of cervix (HCC)- Primary Malignant neoplasm of overlapping sites of cervix (HCC)- Primary [facility] Diagnosis Malignant neoplasm of overlapping sites of cervix (HCC)- Primary Malignant neoplasm of overlapping sites of cervix (HCC)- Primary Malignant neoplasm of overlapping sites of cervix (HCC) Malignant neoplasm of overlapping sites of cervix (HCC) [facility] Diagnosis Malignant neoplasm of overlapping sites of cervix (HCC)- Primary Malignant neoplasm of overlapping sites of cervix (HCC)- Primary Malignant neoplasm of overlapping sites of cervix (HCC) Malignant neoplasm of overlapping sites of cervix (HCC) [facility] Diagnosis Malignant neoplasm of overlapping sites of cervix (HCC)- Primary Encounter for blood test- Primary Laboratory examination, unspecified Malignant neoplasm of overlapping sites of cervix (HCC) Malignant neoplasm of overlapping sites of cervix (HCC) Malignant neoplasm of overlapping sites of cervix (HCC) [facility] Diagnosis Malignant neoplasm of overlapping sites of cervix (HCC)- Primary Vaginal bleeding Other specified noninflammatory disorder of vagina 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 Malignant neoplasm of overlapping sites of cervix (HCC) Malignant neoplasm of overlapping sites of cervix (HCC) [facility] Diagnosis Malignant neoplasm of overlapping sites of cervix (HCC)- Primary Malignant neoplasm of cervix, unspecified site (HCC)- Primary Malignant neoplasm of overlapping sites of cervix (HCC) Malignant neoplasm of overlapping sites of cervix (HCC) [facility] Diagnosis Malignant neoplasm of overlapping sites of cervix (HCC)- Primary Pre-op evaluation- Primary Preoperative examination, unspecified Malignant neoplasm of overlapping sites of cervix (HCC) Malignant neoplasm of overlapping sites of cervix (HCC) [facility] Diagnosis Malignant neoplasm of overlapping sites of cervix (HCC)- Primary Malignant neoplasm of overlapping sites of cervix (HCC) Malignant neoplasm of overlapping sites of cervix (HCC) [facility] Diagnosis Malignant neoplasm of overlapping sites of cervix (HCC)- Primary Malignant neoplasm of overlapping sites of cervix (HCC)- Primary Malignant neoplasm of overlapping sites of cervix (HCC) [facility] Diagnosis Malignant neoplasm of overlapping sites of cervix (HCC)- Primary Malignant neoplasm of overlapping sites of cervix (HCC) [facility] Diagnosis Malignant neoplasm of overlapping sites of cervix (HCC)- Primary [facility] Diagnosis Malignant neoplasm of overlapping sites of cervix (HCC)- Primary [facility] Diagnosis Malignant neoplasm of overlapping sites of cervix (HCC)- Primary History of chemotherapy History of radiation therapy Personal history of irradiation, presenting hazards to health Other abnormal tumor markers Other disorders of phosphorus metabolism [facility] Diagnosis Vitamin D deficiency- Primary Unspecified vitamin D deficiency [facility] Diagnosis Malignant neoplasm of overlapping sites of cervix (HCC)- Primary History of radiation therapy Personal history of irradiation, presenting hazards to health History of chemotherapy [facility] Diagnosis Malignant neoplasm of overlapping sites of cervix (HCC)- Primary History of radiation therapy Personal history of irradiation, presenting hazards to health History of chemotherapy [facility] Additional Instructions [facility]: Progress note Author Marco Rondon [facility] Note Date/Time May 08, 2025 8:01 am [facility] [address] [place] [address] OFFICE VISIT Date of Service: 05/08/25 MR#: [id number] Acct: [id number] Name: DIOGENESDEREK BAZAN Rep #: [id number] : 1965 Provider: Marco Rondon DO Age/Sex: 59/F Location: [facility] Status: Signed Intake Vital Signs 04/01/25 07:56 Height 5 ft 6 in Weight: 145 lb BMI 23.3 BP 112/78 Blood Pressure Location Lt brachial Position Sitting Respiration 14 Pulse 68 Pulse Source Monitor Temp 97 F L Temp Source Temporal Pulse Oximetry (%) 98 Oxygen Delivery Method room air Intake Visit Reasons: hosp fu Allergies No Known Allergies Allergy (Verified 05/08/25 07:28) Medications ?Medication ?Instructions ?Recorded ?Confirmed ?Type pantoprazole 40 mg tablet,delayed 40 mg PO DAILY 90 da ys #90 tabs 02/27/25 05/08/25 Rx release polysaccharide iron complex 150 mg 150 mg PO DAILY 90 days #90 caps 02/27/25 05/08/25 Rx iron capsule (Ferrex) sucralfate 1 gram tablet 1 g PO TID 4 weeks #84 tabs 05/04/25 05/08/25 Rx PFSH Medical History Kidney stones History of brachytherapy CINV (chemotherapy-induced nausea and vomiting) Herpes zoster Encounter for chemotherapy management Cancer Alcohol use Encounter for education Fibrolipoma Wears glasses Post-menopausal Non-smoker Surgical History History of removal of Port-a-Cath Hx of shoulder surgery Hx of colonoscopy History of excision of mass Family History Father Diabetes Aortic aneurysm Sister Cancer nonhodgkins lymphoma Social History adopted: No household members: significant other current occupational status: employed current occupation: [employer] pets and animals: No Smoking Status: Never smoker Electronic Cigarette Use: not used alcohol intake: current alcohol intake frequency: a few times a week Alcohol type: wine substance use type: does not use caffeine: Yes (1) Type: coffee what type of physical activity do you participate in: walking and aerobics frequency: 5-6 times per week seatbelt use: always do you feel safe at home: Yes additional social history: Single HPI HPI Details: DEREK SHETTY, is a 59 F who presents to the office today for HFU. [facility] inpatient 4.-5 PUD, Gastric outlet obstruction. Pt states she is well since the hospital visit. Denies abdominal pain, heartburn, nausea or vomiting. States herappetite has been normal. BMs are normal with daily stool softener. Denies bloody or dark stools. ROS Const Constitutional: No fatigue, fever(s) or weight change ENT ENT: No difficulty swallowing Gastro GI: Positive for abdominal pain; No belching, bloating, change in bowel habits, change in stool character, coffeeground emesis, constipation, cramping, diarrhea, heartburn, difficulty swallowing, feeling full early, excessive flatus, incontinent of stools, Vomiting blood/hematemesis, Blood in stool, loose stools, Black,tarry stools, nausea/dyspepsia, pain with swallowing, vomiting or other Musc Musculoskeletal: No joint pain Skin Skin: No yellowing of the eye or itchy eyes Psych Psychiatric: No anxiety and No depression Endo Endocrine: No fatigue or weight change Aller/Imm Allergy/Immunologic: No itchy eyes Cuauhtemoc/Lymp Hematologic/Lymphatic: No easy bleeding or easy bruising Exam Const General: cooperative, healthy appearing, no acute distress, well developed, not diaphoretic and not ill appearing Nutritional Appearance: well nourished Orientation: alert and oriented x3 Limitations: mental status not altered Eyes Sclera: sclerae normal Chest Chest palpation & inspection: normal inspection of the chest Resp Effort & Inspection: normal respiratory effort, able to speak in complete sentences, no audible wheezes and no cough Auscultation: Bilateral: Clear to Auscultation Cardio Rate: regular rate Rhythm: regular rhythm Heart Sounds: S1 normal, S2 normal and no murmurs GI Inspection: normal to inspection and non-distended Auscultation: normal bowel sounds Palpation: soft, no hepatosplenomegaly and nontender Skin General: no rashes or lesions noted and dry skin Wounds: no wounds Other: Soft, mobile nodule in her LUQ deep to palpation that appears consistent with a lipoma. Area of concern in right karlo-umbilical area could not be appreciated. Neuro General: patient alert and patient oriented x3 Cranial Nerves: PERRL Speech: speech normal Extrem General: normal to inspection and no edema Psych Appearance: grossly normal Affect: normal affect Attitude: cooperative Assessment and Plan Assessment and Plan (1) Gastric outlet obstruction: Status: Acute Plan: Derek is a very pleasant 59-year-old who I saw in consultation in the hospital for melanotic stools. She underwent an upper endoscopy and was discovered to have gastric outlet obstruction along with a large duodenal ulcer that was treated endoscopically. Her risk factors for her peptic ulcer disease was dailyaspirin for migraine prophylaxis along with ibuprofen on a as needed basis for her migraine attacks. 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 She does not take any vitamin C, tumeric or vitamin E. FIndings: No gross lesions were noted in the entire esophagus. One oozing cratered gastric ulcer with a visible vessel was found at the pylorus. The lesion was 25 mm in largest dimension. Coagulation for hemostasis using heater probe was successful. Estimated blood loss was minimal. A benign-appearing, intrinsic severe stenosis was found at the pylorus. This was non-traversed. A TTS dilator was passed through the scope. Dilation with a 15 mm pyloric balloon dilator was performed. The dilation site was examined and showed moderate improvement in luminal narrowing. Estimated blood loss was minimal. One non-bleeding cratered duodenal ulcer with no stigmata of bleeding was found in the duodenal bulb. The lesion was 20 mm in largest dimension. Biopsies were taken with a cold forceps for histology. Verification of patient identification for the specimen was done. Estimated blood loss was minimal. Impression: - No gross lesions in the entire esophagus. - Oozing gastric ulcer with a visible vessel. Treated with a heater probe. - Gastric stenosis was found at the pylorus. Dilated. - Non-bleeding duodenal ulcer with no stigmata of bleeding. Biopsied. Recommendation: Surveillance upper endoscopy to evaluate peptic ulcer disease - Use Protonix (pantoprazole) 40 mg PO BID indefinitely. - Stop Carafate Coding Level of Care Code Off vis,est,level 4 Diagnoses Gastric outlet obstruction K31.1 05/08/25 0801 <Electronically signed by Marco gomez DO> Date _ Marco Friend DO Cosigner Signature: Date (if applicable) CC: ~ [facility] Work Phone: Chief Complaint and Reason for Visit Chief Complaint CONSULT-CYST REMOVAL /SHOULDER Other specified joint disorders, right shoulder Reason for Visit Ganglion, right shou lder Mass of joint of right shoulder Chief Complaint CONSULT-CYST REMOVAL /SHOULDER Other specified joint disorders, right shoulder Excision Soft Tissue Mass Right Ant Excision Soft Tissue Mass Right Ant Reason for Visit Mass of joint of rig ht shoulder Lipoma of right shoulder Mass of joint of right shoulder Chief Complaint Excision Soft Tissue Mass Right Ant Excision Soft Tissue Mass Right Ant POST OP post op FLANK PAIN Reason for Visit Lipoma of right shou lder Mass of joint of right shoulder Fibrolipoma Lipoma of right shoulder Mass of joint of right shoulder Fibrolipoma Lipoma of right shoulder Mass of joint of right shoulder Chief Complaint 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 CARE-PPW SENT Reason for Visit Screening for colon cancer Screening for cardiovascular condition Establishing care with new doctor, encounter for Lipoma Screening for cervical cancer Kidney stone Urinary dribbling Screening for breast cancer Chief Complaint 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 CARE-PPW SENT SCREENING Reason for Visit Screening for colon cancer Screening for cardiovascular condition Establishing care with new doctor, encounter for Lipoma Screening for cervical cancer Kidney stone Urinary dribbling Screening for breast cancer Chief Complaint Admit Date CERVICAL November 11, 2024 7 :13am 3 MO - LABS December 16, 2024 2:26pm RAD TX December 16, 2024 2:30pm PORT REMOVAL January 15, 2025 2:4 5pm 5 MONTH F/U CERVICAL January 20, 2025 2: 38pm WOUND CHECK January 27, 2025 7:47 am SCREENING February 09, 2025 1:5 5pm Reason for Visit Admit Date Cervical cancer December 16, 2024 2:26pm Hypokalemia December 16, 2024 2:26pm Port-A-Cath in place January 15, 2025 2: 45pm Cervical cancer January 20, 2025 2:3 8pm History of removal of Port-a-Cath January 27, 2025 7:47am Chief Complaint Admit Date 3 MO - LABS December 16, 2024 2:26pm RAD TX December 16, 2024 2:30pm PORT REMOVAL January 15, 2025 2:4 5pm 5 MONTH F/U CERVICAL January 20, 2025 2: 38pm WOUND CHECK January 27, 2025 7:47 am SCREENING February 09, 2025 1:5 5pm GASTRIC OUTLET OBSTRUCTION February 24, 2 025 3:37pm GASTRIC OUTLET OBSTRUCTION February 24, 2 025 4:31pm GASTRIC OUTLET OBSTRUCTION February 25, 2 025 7:25am GASTRIC OUTLET OBSTRUCTION February 25, 2 025 6:37pm PREOP February 26, 2025 5:12am GASTRIC OUTLET OBSTRUCTION February 26, 2025 7:02am GASTRIC OUTLET OBSTRUCTION February 26, 2025 8:21am GASTRIC OUTLET OBSTRUCTION February 27, 2025 8:35am [facility] FU April 01, 2025 7:45a m Reason for Visit Admit Date Cervical cancer December 16, 2024 2:26pm Hypokalemia December 16, 2024 2:26pm Port-A-Cath in place January 15, 2025 2: 45pm Cervical cancer January 20, 2025 2:3 8pm History of removal of Port-a-Cath January 27, 2025 7:47am Gastric outlet obstruction February 24, 2 025 3:37pm Abdominal pain, acute February 24, 2025 3 :37pm Cervical cancer April 01, 2025 7:45a m Gastric outlet obstruction April 01 7:45am Hypokalemia April 01, 2025 7:45a m Lipoma of abdominal wall April 01, 2025 7:45am Peptic ulcer disease April 01, 2025 7:45 am Chief Complaint Admit Date PORT REMOVAL January 15, 2025 2:4 5pm 5 MONTH F/U CERVICAL January 20, 2025 2: 38pm WOUND CHECK January 27, 2025 7:47 am SCREENING February 09, 2025 1:5 5pm GASTRIC OUTLET OBSTRUCTION February 24, 2 025 3:37pm GASTRIC OUTLET OBSTRUCTION February 24, 2 025 4:31pm GASTRIC OUTLET OBSTRUCTION February 25, 2 025 7:25am GASTRIC OUTLET OBSTRUCTION February 25, 2 025 6:37pm PREOP February 26, 2025 5:12am GASTRIC OUTLET OBSTRUCTION February 26, 2025 7:02am GASTRIC OUTLET OBSTRUCTION February 26, 2025 8:21am GASTRIC OUTLET OBSTRUCTION February 27, 2025 8:35am [facility] FU April 01, 2025 7:45a m ABDOMINAL LUMPS April 13, 2025 3:23 pm Reason for Visit Admit Date Port-A-Cath in place January 15, 2025 2: 45pm Cervical cancer January 20, 2025 2:3 8pm History of removal of Port-a-Cath January 27, 2025 7:47am Gastric outlet obstruction February 24, 2 025 3:37pm Abdominal pain, acute February 24, 2025 3 :37pm Cervical cancer April 01, 2025 7:45a m Gastric outlet obstruction April 01 7:45am Hypokalemia April 01, 2025 7:45a m Lipoma of abdominal wall April 01, 2025 7:45am Screening for depression April 01, 2025 7:45am Immunization due April 01, 2025 7:45a m Vision problem April 01, 2025 7:45a m Peptic ulcer disease April 01, 2025 7:45 am Chief Complaint Admit Date PORT REMOVAL January 15, 2025 2:4 5pm 5 MONTH F/U CERVICAL January 20, 2025 2: 38pm WOUND CHECK January 27, 2025 7:47 am SCREENING February 09, 2025 1:5 5pm GASTRIC OUTLET OBSTRUCTION February 24, 2 025 3:37pm GASTRIC OUTLET OBSTRUCTION February 24, 2 025 4:31pm GASTRIC OUTLET OBSTRUCTION February 25, 2 025 7:25am GASTRIC OUTLET OBSTRUCTION February 25, 2 025 6:37pm PREOP February 26, 2025 5:12am GASTRIC OUTLET OBSTRUCTION February 26, 2025 7:02am GASTRIC OUTLET OBSTRUCTION February 26, 2025 8:21am GASTRIC OUTLET OBSTRUCTION February 27, 2025 8:35am [facility] FU April 01, 2025 7:45a m ABDOMINAL LUMPS April 13, 2025 3:23 pm hosp fu May 08, 2025 7:22 am Reason for Visit Admit Date Port-A-Cath in place January 15, 2025 2: 45pm Cervical cancer January 20, 2025 2:3 8pm History of removal of Port-a-Cath January 27, 2025 7:47am Gastric outlet obstruction February 24, 2 025 3:37pm Abdominal pain, acute February 24, 2025 3 :37pm Cervical cancer April 01, 2025 7:45a m Gastric outlet obstruction April 01 7:45am Hypokalemia April 01, 2025 7:45a m Lipoma of abdominal wall April 01, 2025 7:45am Screening for depression April 01, 2025 7:45am Immunization due April 01, 2025 7:45a m Vision problem April 01, 2025 7:45a m Peptic ulcer disease April 01, 2025 7:45 am Gastric outlet obstruction May 08 7:22am Advance Directives No Advanced Directives Records Found Date Activated Date Inactivated Comments 07/28/2024 4:41 PM 07/30/2024 5:06 PM Question Answer Comments Documentation of decision pr ocess for this code status: Patient and surrogate unable or unavailable to discuss. There is no previous documentation of code status. Defaulting to Full Code Advance Directive Response Recorded Date/ Time Living Will No June 18 2:45pm Power of Edge Cutting Machine Operator No June 18, 2 023 2:45pm Advance Directive Response Recorded Date/ Time Living Will No October 16, 2 023 1:03am Power of Edge Cutting Machine Operator No October 16, 2023 1:03am Advance Directive Response Recorded Date/ Time Living Will No October 16, 2 023 2:03am Power of Edge Cutting Machine Operator No October 16, 2023 2:03am Date Activated Date Inactivated Comments 07/28/2024 4:41 PM Question Answer Comments Documentation of decision pr ocess for this code status: Patient and surrogate unable or unavailable to discuss. There is no previous documentation of code status. Defaulting to Full Code Date Activated Date Inactivated Comments 07/28/2024 4:41 PM Date Activated Date Inactivated Comments 07/28/2024 4:41 PM 07/30/2024 5:06 PM Advance Directive Response Recorded Date/ Time Living Will No July 23, 2024 12:26pm Do you have a Healthcare Power of Edge Cutting Machine Operator? No July 23, 2024 12:26pm Advance Directives No June 12:26pm Advance Directive Response Recorded Date/ Time Living Will No July 23, 2024 12:26pm Do you have a Healthcare Power of Edge Cutting Machine Operator? No July 23, 2024 12:26pm Advance Directives No June 12:26pm Do you have a Healthcare Power of Edge Cutting Machine Operator? No February 24, 2025 4:16pm Advance Directive Response Recorded Date/ Time Living Will No July 23, 2024 12:26pm Do you have a Healthcare Power of Edge Cutting Machine Operator? No July 23, 2024 12:26pm Do you have a Healthcare Power of Edge Cutting Machine Operator? No February 24, 2025 4:16pm Advance Directives No June 12:26pm Family History No Family History Records Found Relationship Condition Age at Onset Recorded Date/T amber father Diabetes mellitus Unknown Aortic aneurysm Unknown sister Malignant neoplasm Unknown Reason for Referral Specialty Diagnoses / Procedures Referred By Contzayra t Referred To Contact Radiology Diagnoses Vaginal bleeding 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 Malignant neoplasm of overlapping sites of cervix (HCC) 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 (HCC) Procedures PET SKULL TO THIGH INITIAL Bethany Torres MD [address] [place] [address] [facility] PET SCAN [address] [place] [address] Referral ID Status Reason Start Date Expiration Date V isits Requested Visits Authorized [id number] Pending Review 05/02/2024 05/02/2025 2 2 Specialty Diagnoses / Procedures Referred By Jonoac t Referred To Contact Radiology Diagnoses Vaginal bleeding 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 Procedures MR PELVIS CERVICAL CANCER STAGING W/WO Bethany Torres MD [address] [place] [address] [address] [place] [address] Referral ID Status Reason Start Date Expiration Date V isits Requested Visits Authorized [id number] Pending Review 05/02/2024 05/02/2025 1 1 Specialty Diagnoses / Procedures Referred By Stanford t Referred To Contact Oncology/Medicine Diagnoses Malignant neoplasm of overlapping sites of cervix (HCC) Bethany Torres MD [address] [place] [address] Referral ID Status Reason Start Date Expiration Date V isits Requested Visits Authorized [id number] Authorized 05/23/2024 05/23/2025 3 3 Comments Locally Advanced Cervical Cancer Dr. Emma Joseph MD Medical Oncology [facility] Specialty Diagnoses / Procedures Referred By Stanford t Referred To Contact Radiation Oncology Diagnoses Malignant neoplasm of overlapping sites of cervix (HCC) Bethany Torres MD [address] [place] [address] Referral ID Status Reason Start Date Expiration Date Visits Requested Visits Authorized [id number] Authorized Patient Preference 05/23/2024 05/23/2025 3 3 Comments Locally Advanced Cervical Cancer Dr. Papi Schmitz, DO Radiation Oncology [facility] Specialty Diagnoses / Procedures Referred By Contac t Referred To Contact Anesthesiology Diagnoses Malignant neoplasm of overlapping sites of cervix (HCC) Bethany Torres MD [address] [place] [address] S PRE ADMISSION TESTING [address] [place] [address] Referral ID Status Reason Start Date Expiration Date V isits Requested Visits Authorized [id number] Authorized 06/26/2024 06/26/2025 1 1 Scheduling Instructions Your surgical team will reach out to you to schedule a pre-admission testing appointment. Question Answer Reason for consult? Recommended PAT Risk Score Referral ID Status Reason Start Date Expiration Date V isits Requested Visits Authorized [id number] Closed Transfer of Care-[facility] 05/16/2024 08/14/2024 1 1 Specialty Diagnoses / Procedures Referred By Contac t Referred To Contact Radiology Diagnoses Malignant neoplasm of overlapping sites of cervix (HCC) Procedures PET SKULL TO THIGH SUBSEQ UNLIST tAiya Lakhani, JILLIAN-GRABIEL [address] [place] [address] [facility] PET SCAN [address] [place] [address] Referral ID Status Reason Start Date Expiration Date V isits Requested Visits Authorized [id number] Pending Review 08/22/2024 08/22/2025 2 2 Summary Purpose Additional Source Comments Care Teams (unrecognized sec tion and content) Team Status: Active Member Role Status Dates No Primary Care Physician Primary Care Provider Active Team Status: Active Member Role Status Dates No Primary Care Physician Primary Care Provider Active Dr. Anirudh Amado MD Attending Provide r, Referring Provider, Other Provider Active Team Status: Inactive Member Role Status Dates No Primary Care Physician Primary Care Provider, Refer ring Provider Active Dr. Anirudh Amado MD Attending Provider Active Team Status: Inactive Member Role Status Dates No Primary Care Physician Primary Care Provider, Refer ring Provider Active Elena Sue 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, 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-C Attending Provider Active Team Status: Inactive Member Role Status Dates No Primary Care Physician Primary Care Provider Active Dr. Anirudh Amado MD Attending Provider, Referring P rojose Active Team Status: Inactive Member Role Status Dates No Primary Care Physician Primary Care Provider Active Dr. Antonella Aguila MD Emergency Provider Active Team Status: Inactive Member Role Status Dates Dr. Anirudh Amado MD Attending Provider Active Team Status: Active Member Role Status Dates No Primary Care Physician Primary Care Provider Active Dr. Anirudh Amado MD Attending Provider, Other Provi karthik Active Team Status: Active Member Role Status Dates Guillermina Cote NP-Mayco Primary Care Provider Active Team Status: Inactive Member Role Status Dates No Primary Care Physician Primary Care Provider, Refer ring Provider Active Dr. Marlen Rodríguez MD Attending Provider Active Team Status: Inactive Member Role Status Dates No Primary Care Physician Primary Care Provider Active Dr. Antonella Aguila MD Attending Provider, Emergency Provider Active Team Status: Inactive Member Role Status Dates Dr. Marlen Rodríguez MD Primary Care Pro vider, Attending Provider, Referring Provider Active Team Status: Inactive Member Role Status Dates Dr. Marlen Rodríguez MD Attending Provider, Referring Provider Active Guillermina Cote NP-C Primary Care Provider Active Director Of Architecture Relationship Specialty Start Date End Date Bethany Torres MD [address] [place] [address] (Fax) Physician Gynecologic Oncology 05/23/24 Director Of Architecture Relationship Specialty Start Date End Date Bethany Torres MD [address] [place] [address] (Fax) Physician Gynecologic Oncology 05/23/24 Director Of Architecture Relationship Specialty Start Date End Date Bethany Torres MD [address] [place] [address] (Fax) Physician Gynecologic Oncology 05/23/24 Director Of Architecture Relationship Specialty Start Date End Date Bethany Torres MD [address] [place] [address] (Fax) Physician Gynecologic Oncology 05/23/24 Director Of Architecture Relationship Specialty Start Date End Date Bethany Torres MD [address] [place] [address] (Fax) Physician Gynecologic Oncology 05/23/24 Director Of Architecture Relationship Specialty Start Date End Date Bethany Torres MD [address] [place] [address] (Fax) Physician Gynecologic Oncology 05/23/24 Director Of Architecture Relationship Specialty Start Date End Date Bethany Torres MD [address] [place] [address] (Fax) Physician Gynecologic Oncology 05/23/24 Director Of Architecture Relationship Specialty Start Date End Date Bethany Torres MD [address] [place] [address] (Fax) Physician Gynecologic Oncology 05/23/24 Director Of Architecture Relationship Specialty Start Date End Date Bethany Torres MD [address] [place] [address] (Fax) Physician Gynecologic Oncology 05/23/24 Director Of Architecture Relationship Specialty Start Date End Date Bethany Torres MD [address] [place] [address] (Fax) Physician Gynecologic Oncology 05/23/24 Director Of Architecture Relationship Specialty Start Date End Date Bethany Torres MD [address] [place] [address] (Fax) Physician Gynecologic Oncology 05/23/24 Director Of Architecture Relationship Specialty Start Date End Date Bethany Torres MD [address] [place] [address] (Fax) Physician Gynecologic Oncology 05/23/24 Director Of Architecture Relationship Specialty Start Date End Date Bethany Torres MD [address] [place] [phone] (Fax) Physician Gynecologic Oncology 05/23/24 Director Of Architecture Relationship Specialty Start Date End Date Bethany Torres MD [address] [place] [phone] (Fax) Physician Gynecologic Oncology 05/23/24 Director Of Architecture Relationship Specialty Start Date End Date Bethany Torres MD [address] [place] [phone] (Fax) Physician Gynecologic Oncology 05/23/24 Director Of Architecture Relationship Specialty Start Date End Date Bethany Torres MD [address] [place] [phone] (Fax) Physician Gynecologic Oncology 05/23/24 Yakelin Godwin MD [address] [place] [phone] Physician Radiation Oncology 08/02/24 Director Of Architecture Relationship Specialty Start Date End Date Bethany Torres MD [address] [place] [phone] (Fax) Physician Gynecologic Oncology 05/23/24 Yakelin Godwin MD [address] [place] [phone] Physician Radiation Oncology 08/02/24 Director Of Architecture Relationship Specialty Start Date End Date Bethany Torres MD [address] [place] [phone] Physician Gynecologic Oncology 05/23/24 Yakelin Godwin MD [address] [place] [phone] Physician Radiation Oncology 08/02/24 Team Status: Active Member Role Status Dates Dr. Marlen Rodríguez MD Primary Care Provider Active Team Status: Inactive Member Role Status Dates Dr. Marlen Rodríguez MD Primary Care Provider Active Start: November 11, 2024 End: November 11, 2024 Dr. Bethany Torres MD Attending Provider Active Start: November 11, 2024 End: November 11, 2024 Dr. Bethany Torres MD Referring Provider Active Start: November 11, 2024 End: November 11, 2024 Team Status: Inactive Member Role Status Dates Dr. Marlen Rodríguez MD Primary Care Provider Active Start: December 16, 2024 End: December 16, 2024 Dr. Marlen Rodríguez MD Referring Provider Active Start: December 16, 2024 End: December 16, 2024 Dr. Emma Joseph MD Attending Provider Active Start: December 16, 2024 End: December 16, 2024 Team Status: Active Member Role Status Dates Dr. Marlen Rodríguez MD Primary Care Provider Active Start: December 16, 2024 Dr. Ruben Savage DO Attending Provider Active Start: December 16, 2024 Dr. Ruben Savage DO Referring Provider Active Start: December 16, 2024 Team Status: Inactive Member Role Status Dates Dr. Marlen Rodríguez MD Primary Care Provider Active Start: January 15, 2025 End: January 15, 2025 Dr. Marlen Rodríguez MD Referring Provider Active Start: January 15, 2025 End: January 15, 2025 Dr. Margarito Reyes MD Attending Provider Active Start: January 15, 2025 End: January 15, 2025 Team Status: Inactive Member Role Status Dates Dr. Marlen Rodríguez MD Primary Care Provider Active Start: January 20, 2025 End: January 20, 2025 Dr. Marlen Rodríguez MD Referring Provider Active Start: January 20, 2025 End: January 20, 2025 Dr. Ruben Savage DO Attending Provider Active Start: January 20, 2025 End: January 20, 2025 Team Status: Inactive Member Role Status Dates Dr. Marlen Rodríguez MD Primary Care Provider Active Start: January 27, 2025 End: January 27, 2025 Dr. Marlen Rodríguez MD Referring Provider Active Start: January 27, 2025 End: January 27, 2025 Polly PHELPS PA-C Attending Provider Active Start: January 27, 2025 End: January 27, 2025 Team Status: Inactive Member Role Status Dates Dr. Marlne Rodríguez MD Primary Care Provider Active Start: February 09, 2025 End: February 09, 2025 Dr. Emma Joseph MD Attending Provider Active Start: February 09, 2025 End: February 09, 2025 Dr. Emma Joseph MD Referring Provider Active Start: February 09, 2025 End: February 09, 2025 Director Of Architecture Relationship Specialty Start Date End Date Bethany Torres MD [address] [place] [phone] Physician Gynecologic Oncology 05/23/24 Yakelin Godwin MD [address] [place] [phone] Physician Radiation Oncology 08/02/24 Director Of Architecture Relationship Specialty Start Date End Date Bethnay Torres MD [address] [place] [phone] Physician Gynecologic Oncology 05/23/24 Yakelin Godwin MD [address] [place] [phone] Physician Radiation Oncology 08/02/24 Team Status: Inactive Member Role Status Dates Dr. Marlen Rodríguez MD Primary Care Provider Active Start: February 24, 2025 End: February 27, 2025 Dr. Diallo Santoro DO Emergency Provider Active Start: February 24, 2025 End: February 27, 2025 Dr. Stefano Jean Baptiste MD Admit Provider Active Start: February 24, 2025 End: February 27, 2025 Dr. Stefano Jean Baptiste MD Other Provider Active Start: February 24, 2025 End: February 27, 2025 Dr. Eric Sweet MD Attending Provider Active Start: February 24, 2025 End: February 27, 2025 Team Status: Active Member Role Status Dates Dr. Marlen Rodríguez MD Primary Care Provider Active Start: February 24, 2025 Dr. Diallo Santoro DO Emergency Provider Active Start: February 24, 2025 Dr. Stefano Jean Baptiste MD Admit Provider Active Start: February 24, 2025 Dr. Stefano Jean Baptiste MD Attending Provider Active Start: February 24, 2025 Dr. Stefano Jean Baptiste MD Other Provider Active Start: February 24, 2025 Team Status: Active Member Role Status Dates Dr. Marlen Rodríguez MD Primary Care Provider Active Start: February 25, 2025 Dr. Diallo Santoro DO Emergency Provider Active Start: February 25, 2025 Dr. Stefano Jean Baptiste MD Admit Provider Active Start: February 25, 2025 Dr. Stefano Jean Baptiste MD Other Provider Active Start: February 25, 2025 Dr. Eric Sweet MD Attending Provider Active Start: February 25, 2025 Dr. Eric Sweet MD Other Provider Active Star t: February 25, 2025 Team Status: Active Member Role Status Dates Dr. Marlen Rodríguez MD Primary Care Provider Active Start: February 25, 2025 Dr. Diallo Santoro DO Emergency Provider Active Start: February 25, 2025 Dr. Stefano Jean Baptiste MD Admit Provider Active Start: February 25, 2025 Dr. Stefano Jean Baptiste MD Other Provider Active Start: February 25, 2025 Dr. Eric Sweet MD Referring Provider Active Start: February 25, 2025 Dr. Eric Sweet MD Other Provider Active Star t: February 25, 2025 Dr. Marco Rondon DO Attending Provider Active Start: February 25, 2025 Team Status: Active Member Role Status Dates Dr. Marlen Rodríguez MD Primary Care Provider Active Start: February 26, 2025 End: February 26, 2025 Dr. Nilo Andrews MD Attending Provider Active S tart: February 26, 2025 End: February 26, 2025 Dr. Stefano Jean Baptiste MD Referring Provider Active Start: February 26, 2025 End: February 26, 2025 Team Status: Active Member Role Status Dates Dr. Marlen Rodríguez MD Primary Care Provider Active Start: February 26, 2025 Dr. Diallo Santoro DO Emergency Provider Active Start: February 26, 2025 Dr. Stefano Jean Baptiste MD Admit Provider Active Start: February 26, 2025 Dr. Stefano Jean Baptiste MD Other Provider Active Start: February 26, 2025 Dr. Eric Sweet MD Referring Provider Active Start: February 26, 2025 Dr. Eric Sweet MD Other Provider Active Star t: February 26, 2025 Dr. Marco Rondon DO Attending Provider Active Start: February 26, 2025 Team Status: Active Member Role Status Dates Dr. Marlen Rodríguez MD Primary Care Provider Active Start: February 26, 2025 Dr. Diallo Santoro DO Emergency Provider Active Start: February 26, 2025 Dr. Stefano Jean Baptiste MD Admit Provider Active Start: February 26, 2025 Dr. Stefano Jean Baptiste MD Other Provider Active Start: February 26, 2025 Dr. Eric Sweet MD Attending Provider Active Start: February 26, 2025 Dr. Eric Sweet MD Other Provider Active Star t: February 26, 2025 Team Status: Active Member Role Status Dates Dr. Marlen Rodríguez MD Primary Care Provider Active Start: February 27, 2025 Dr. Diallo Santoro DO Emergency Provider Active Start: February 27, 2025 Dr. Stefano Jean Baptiste MD Admit Provider Active Start: February 27, 2025 Dr. Stefano Jean Baptiste MD Other Provider Active Start: February 27, 2025 Dr. Eric Sweet MD Attending Provider Active Start: February 27, 2025 Dr. Eric Sweet MD Other Provider Active Star t: February 27, 2025 Team Status: Inactive Member Role Status Dates Dr. Marlen Rodríguez MD Primary Care Provider Active Start: April 01, 2025 End: April 01, 2025 Dr. Marlen Rodríguez MD Attending Provider Active Start: April 01, 2025 End: April 01, 2025 Dr. Marlen Rodríguez MD Referring Provider Active Start: April 01, 2025 End: April 01, 2025 Team Status: Inactive Member Role Status Dates Dr. Marlne Rodríguez MD Primary Care Provider Active Start: April 13, 2025 End: April 13, 2025 Dr. Marlen Rodríguez MD Attending Provider Active Start: April 13, 2025 End: April 13, 2025 Dr. Marlen Rodríguez MD Referring Provider Active Start: April 13, 2025 End: April 13, 2025 Team Status: Active Member Role/Relationship Status Dates Dr. Marlen Rodríguez MD Primary Care Provider Active Team Status: Inactive Member Role/Relationship Status Dates Dr. Marlen Rodríguez MD Primary Care Provider Active Start: January 15, 2025 End: January 15, 2025 Dr. Marlen Rodríguez MD Referring Provider Active Start: January 15, 2025 End: January 15, 2025 Dr. Margarito Reyes MD Attending Provider Active Start: January 15, 2025 End: January 15, 2025 Team Status: Inactive Member Role/Relationship Status Dates Dr. Marlen Rodríguez MD Primary Care Provider Active Start: January 20, 2025 End: January 20, 2025 Dr. Marlen Rodríguez MD Referring Provider Active Start: January 20, 2025 End: January 20, 2025 Dr. Ruben Savage DO Attending Provider Active Start: January 20, 2025 End: January 20, 2025 Team Status: Inactive Member Role/Relationship Status Dates Dr. Marlen Rodríguez MD Primary Care Provider Active Start: January 27, 2025 End: January 27, 2025 Dr. Marlen Rodríguez MD Referring Provider Active Start: January 27, 2025 End: January 27, 2025 Polly PHELPS PA-C Attending Provider Active Start: January 27, 2025 End: January 27, 2025 Team Status: Inactive Member Role/Relationship Status Dates Dr. Marlen Rodríguez MD Primary Care Provider Active Start: February 09, 2025 End: February 09, 2025 Dr. Emma Joseph MD Attending Provider Active Start: February 09, 2025 End: February 09, 2025 Dr. Emma Joseph MD Referring Provider Active Start: February 09, 2025 End: February 09, 2025 Team Status: Inactive Member Role/Relationship Status Dates Dr. Marlen Rodríguez MD Primary Care Provider Active Start: February 24, 2025 End: February 27, 2025 Dr. Diallo Santoro DO Emergency Provider Active Start: February 24, 2025 End: February 27, 2025 Dr. Stefano Jean Baptiste MD Admit Provider Active Start: February 24, 2025 End: February 27, 2025 Dr. Stefano Jean Baptiste MD Other Provider Active Start: February 24, 2025 End: February 27, 2025 Dr. Eric Sweet MD Attending Provider Active Start: February 24, 2025 End: February 27, 2025 Team Status: Active Member Role/Relationship Status Dates Dr. Marlen Rodríguez MD Primary Care Provider Active Start: February 24, 2025 Dr. Diallo Santoro DO Emergency Provider Active Start: February 24, 2025 Dr. Stefano Jean Baptiste MD Admit Provider Active Start: February 24, 2025 Dr. Stefano Jean Baptiste MD Attending Provider Active Start: February 24, 2025 Dr. Stefano Jean Baptiste MD Other Provider Active Start: February 24, 2025 Team Status: Active Member Role/Relationship Status Dates Dr. Marlen Rodríguez MD Primary Care Provider Active Start: February 25, 2025 Dr. Diallo Santoro DO Emergency Provider Active Start: February 25, 2025 Dr. Stefano Jean Baptiste MD Admit Provider Active Start: February 25, 2025 Dr. Stefano Jean Baptiste MD Other Provider Active Start: February 25, 2025 Dr. Eric Sweet MD Attending Provider Active Start: February 25, 2025 Dr. Eric Sweet MD Other Provider Active Star t: February 25, 2025 Team Status: Active Member Role/Relationship Status Dates Dr. Marlen Rodríguez MD Primary Care Provider Active Start: February 25, 2025 Dr. Diallo Santoro DO Emergency Provider Active Start: February 25, 2025 Dr. Stefano Jean Baptiste MD Admit Provider Active Start: February 25, 2025 Dr. Stefano Jean Baptiste MD Other Provider Active Start: February 25, 2025 Dr. Eric Sweet MD Referring Provider Active Start: February 25, 2025 Dr. Eric Sweet MD Other Provider Active Star t: February 25, 2025 Dr. Marco Rondon DO Attending Provider Active Start: February 25, 2025 Team Status: Active Member Role/Relationship Status Dates Dr. Marlen Rodríguez MD Primary Care Provider Active Start: February 26, 2025 End: February 26, 2025 Dr. Nilo Andrews MD Attending Provider Active S tart: February 26, 2025 End: February 26, 2025 Dr. Stefano Jean Baptiste MD Referring Provider Active Start: February 26, 2025 End: February 26, 2025 Team Status: Active Member Role/Relationship Status Dates Dr. Marlen Rodríguez MD Primary Care Provider Active Start: February 26, 2025 Dr. Diallo Santoro DO Emergency Provider Active Start: February 26, 2025 Dr. Stefano Jean Baptiste MD Admit Provider Active Start: February 26, 2025 Dr. Stefano Jean Baptiste MD Other Provider Active Start: February 26, 2025 Dr. Eric Sweet MD Referring Provider Active Start: February 26, 2025 Dr. Eric Sweet MD Other Provider Active Star t: February 26, 2025 Dr. Marco Rondon DO Attending Provider Active Start: February 26, 2025 Team Status: Active Member Role/Relationship Status Dates Dr. Marlen Rodríguez MD Primary Care Provider Active Start: February 26, 2025 Dr. Diallo Santoro DO Emergency Provider Active Start: February 26, 2025 Dr. Stefano Jean Baptiste MD Admit Provider Active Start: February 26, 2025 Dr. Stefano Jean Baptiste MD Other Provider Active Start: February 26, 2025 Dr. Eric Sweet MD Attending Provider Active Start: February 26, 2025 Dr. Eric Sweet MD Other Provider Active Star t: February 26, 2025 Team Status: Active Member Role/Relationship Status Dates Dr. Marlen Rodríguez MD Primary Care Provider Active Start: February 27, 2025 Dr. Diallo Santoro DO Emergency Provider Active Start: February 27, 2025 Dr. Stefano Jean Baptiste MD Admit Provider Active Start: February 27, 2025 Dr. Stefano Jean Baptiste MD Other Provider Active Start: February 27, 2025 Dr. Eric Sweet MD Attending Provider Active Start: February 27, 2025 Dr. Eric Sweet MD Other Provider Active Star t: February 27, 2025 Team Status: Inactive Member Role/Relationship Status Dates Dr. Marlen Rodríguez MD Primary Care Provider Active Start: April 01, 2025 End: April 01, 2025 Dr. Marlen Rodríguez MD Attending Provider Active Start: April 01, 2025 End: April 01, 2025 Dr. Marlen Rodríguez MD Referring Provider Active Start: April 01, 2025 End: April 01, 2025 Team Status: Inactive Member Role/Relationship Status Dates Dr. Marlen Rodríguez MD Primary Care Provider Active Start: April 13, 2025 End: April 13, 2025 Dr. Marlen Rodríguez MD Attending Provider Active Start: April 13, 2025 End: April 13, 2025 Dr. Marlen Rodríguez MD Referring Provider Active Start: April 13, 2025 End: April 13, 2025 Team Status: Inactive Member Role/Relationship Status Dates Dr. Marlen Rodríguez MD Primary Care Provider Active Start: May 08, 2025 End: May 08, 2025 Dr. Marlen Rodríguez MD Referring Provider Active Start: May 08, 2025 End: May 08, 2025 Dr. Marco Rondon DO Attending Provider Active Start: May 08, 2025 End: May 08, 2025 Goals (unrecognized section and content) Goals may be documented in a n alternate sectionGoals may be documented in an alternate sectionGoals may be documented in an alternate sectionGoals may be documented in an alternate section Reason for Visit (unrecogniz ed section and content) Reason Comments New patient, to establish relationship Specialty Diagnoses / Procedures Referred By Contac t Referred To Contact Radiation Oncology Diagnoses Malignant neoplasm of overlapping sites of cervix (HCC) Bethany Torres MD [address] [place], [place] [id number] Referral ID Status Reason Start Date Expiration Date Visits Requested Visits Authorized [id number] Authorized Patient Preference 05/23/2024 05/23/2025 3 3 Reason Comments Blood test Specialty Diagnoses / Procedures Referred By Contac t Referred To Contact Radiology Diagnoses Vaginal bleeding 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 Procedures MR PELVIS CERVICAL CANCER STAGING W/WO Bethany Torres MD [address] [place] [address] [facility] [address] [place] [address] Referral ID Status Reason Start Date Expiration Date V isits Requested Visits Authorized [id number] Closed Transfer of Care[facility] 05/16/2024 08/14/2024 1 1 Specialty Diagnoses / Procedures Referred By [facility] t Referred To Contact General Surgery Diagnoses Malignant neoplasm of overlapping sites of cervix (HCC) Malignant neoplasm of overlapping sites of cervix (HCC) [C53.8] Procedures INS VAG BRACHYTX DEVICE INSERTION, UTERINE TANDEMS &/OR VAGINAL OVOIDS, CLINICAL BRACHYTHERAPY EXAM UNDER ANESTHESIA, PLACEMENT OF BRACHYTHERAPY DEVICE FOR CERVICAL CANCER TREATMENT Bethany Torres MD [address] [place], [place] [id number] [facility] [address] [place] [id number] Phone: [phone] Referral ID Status Reason Start Date Expiration Date Visits Re quested Visits Authorized [id number] 3 3 Reason Onset Date Comments Appointment 08/01/2024 Scheduled Active and Recently Administ ered Medications (unrecognized section and content) Medication Order 07/28/2024 07/29/2024 07/30/2024 acetaminophen (TYLENOL) tablet 1,000 mg, Oral, Every 6 hours, First dose on 07/28/24 at 1730, Until Discontinued 1719 (Given - Provider: Jim Penaloza RN)3604 (Hold/Not Given - Provider: Jammie Adam RN - Reason: Patient refused - Comment: couldn't swallow it last time) 0530 (Hold/Not Given - Provider: Jammie Adam RN - Reason: Patient refused)1100 (Hold/Not Given - Provider: Magalie Sutton RN - Reason: Off of unit (test/procedure/OR))1 700 (Hold/Not Given - Provider: Magalie Sutton RN - Reason: Patient refused)2330 (Hold/Not Given - Provider: Jammie Adam RN - Reason: Patient refused) 0530 (Hold/Not Given - Provider: Jammie Adam RN - Reason: Patient refused)1300 (Hold/Not Given - Provider: Magalie Sutton RN - Reason: Patient refused)1730 (Due)2330 (Due) ceFAZolin (ANCEF) 2,000 mg in dextrose 50 mL ivpb (COMPLETED) 2,000 mg, Intravenous, ONCE, 1 dose, On Sun07/28/24 at 0700 0748 (Given - Provider: SALOMÓN Mobley) enoxaparin (LOVENOX) 40 MG/0.4ML injection 40 mg 40 mg, Subcutaneous, EVERY 24 HOURS, First dose on Sun07/28/24 at 1730, Until Discontinued, Post-op 1719 (Given - Provider: Jim Penaloza RN) 1630 (Given - Provider: Magalie Sutton RN) 1730 (Due) heparin (porcine) 5000 UNIT/0.5ML injection (COMPLETED) 5,000 Units, Subcutaneous, ONCE, 1 dose, On Sun07/28/24 at 0700, Pre-op 0635 (Given - Provider: Brandy Dugan RN) ketorolac (TORADOL) 15 MG/ML injection 15 mg, Intravenous Push, Every 6 hours, 20 doses, First dose on Sun07/28/24 at 1730, Last dose on Sun08/02/24 at 1130 1719 (Given - Provider: Jim Penaloza RN)2324 (Given - Provider: Jammie Adam RN) 0537 (Given - Provider: Jammie Adam RN)1100 (Hold/Not Given - Provider: Magalie Sutton RN - Reason: Off of unit (test/procedure/OR))1 630 (Given - Provider: Magalie Sutton RN)2357 (Given - Provider: Jammie Adam RN) 0542 (Given - Provider: Jammie Adam RN)1300 (Hold/Not Given - Provider: Magalie Sutton RN - Reason: Patient refused)1730 (Due)2330 (Due) loperamide (IMODIUM) capsule 2 mg, Oral, 4 TIMES DAILY, First dose on Sun07/28/24 at 1730, Until Discontinued, Post-op 1719 (Given - Provider: Jim Penaloza RN)2230 (Given - Provider: Jammie Adam RN) 0809 (Given - Provider: Magalie Sutton RN)1309 (Given - Provider: Magalie Sutton RN)1626 (Given - Provider: Magalie Sutton RN)2135 (Given - Provider: Jammie Adam RN) 0800 (Hold/Not Given - Provider: Magalie Sutton RN - Reason: Off of unit (test/procedure/OR)) 1200 (Hold/Not Given - Provider: Magalie Sutton RN - Reason: Not indicated)1700 (Due)2100 (Due) LORazepam (ATIVAN) 2 MG/ML injection (COMPLETED) 1 mg, Intravenous Push, ONCE, 1 dose, On Sun07/30/24 at 1100 1032 (Given - Provider: Orquidea Finney RN) magnesium sulfate 2 GM/50ML in 50 mL ivpb (COMPLETED)(Linked Group 1) 2 g (2,000 mg), Intravenous, ONCE, 1 dose, On Sun07/29/24 at 1100 1613 (IV New Bag - Provider: Magalie Sutton RN) magnesium sulfate in dextrose 5 % 1,000 mg in 100 mL ivpb (COMPLETED)(Linked Group 1) 1,000 mg, Intravenous, ONCE, 1 dose, On Sun07/29/24 at 1000 1355 (IV New Bag - Provider: Magalie Sutton RN) potassium chloride 20 mEq in SW 100 mL IVPB (COMPLETED)(Linked Group 2) 20 mEq, Intravenous, ONCE, 1 dose, On Sun07/29/24 at 1000, at 50 mL/hr 1355 (IV New Bag - Provider: Magalie Sutton RN) potassium chloride 20 mEq in SW 100 mL IVPB (COMPLETED)(Linked Group 2) 20 mEq, Intravenous, ONCE, 1 dose, On Sun07/29/24 at 1200, at 50 mL/hr 1613 (IV New Bag - Provider: Magalie Sutton RN) potassium chloride 20 MEQ/15ML (10%) oral solution (COMPLETED) 40 mEq, Oral, ONCE, 1 dose, On Sun07/29/24 at 1000 1309 (Given - Provider: Magalie Sutton RN - Comment: pt not on unit) potassium chloride 20 MEQ/15ML (10%) oral solution (COMPLETED) 40 mEq, Oral, ONCE, 1 dose, On Sun07/30/24 at 1300 1300 (Given - Provider: Magalie Sutton RN) scopolamine (TRANSDERM-SCOP) 1 MG/3DAYS patch (CANCELED) 1.5 mg, Transdermal, EVERY 72 HOURS, First dose on Sun07/28/24 at 0700, Until Discontinued, Pre-op 0635 (Patch Applied - Provider: Brandy Dugan RN) Continuous Medication Order 07/28/2024 07/29/2024 07/30/2024 HYDROmorphone (DILAUDID) 1mg/mL ASSISTANT PRODUCER (CANCELED) 0845 (IV New Bag - Provider: Dolly Siegel RN)0926 (IVF Infusing Upon Transfer - Provider: Orquidea Finney RN)1934 (Shift Change Verification - Provider: Jim Penaloza RN) 0724 (Shift Change Verification - Provider: Molly Carvajal RN)1922 (Shift Change Verification - Provider: Magalie Sutton RN) 0713 (IV New Bag - Provider: Molly Carvajal RN - Comment: wasted 8 mg of removed syringe)0800 (IVF Infusing Upon Transfer - Provider: Orquidea Finney RN) lactated ringers iv infusion (CANCELED) Intravenous, at 125 mL/hr, CONTINUOUS, Starting on Sun07/28/24 at 0800, Until Sun07/28/24 at 1605 0845 (IV New Bag - Provider: Dolly Siegel RN)0926 (IVF Infusing Upon Transfer - Provider: Orquidea Finney RN)2200 (IV Stop - Provider: Jammie Adam RN) sodium chloride 0.9 % iv infusion (CANCELED) Intravenous, at 25 mL/hr, CONTINUOUS, Starting on Sun07/28/24 at 0900, Until Sun07/30/24 at 1141 2332 (IV New Bag - Provider: Jammie Adam RN) 0800 (IVF Infusing Upon Transfer - Provider: Orquidea Finney RN) PRN Medication Order 07/28/2024 07/29/2024 07/30/2024 dyclonine (SUCRETS) 2 MG lozenge 2 mg, Mouth/Throat, EVERY 4 HOURS PRN, Starting on Sun07/28/24 at 1640, Until Discontinued, Sore throat, Post-op HYDROmorphone (DILAUDID) 1 mg/mL IV bolus from infusion bag (COMPLETED) 2 mg, IV Bolus, PRN, 1 dose, Starting on Sun07/30/24 at 1123, Until Sun07/30/24 at 1118, Pain, prior to brachy removal 1118 (Given - Provid er: Orquidea Finney RN) lidocaine (XYLOCAINE) 2 % jelly (urethral/mucosal) (CANCELED) PRN, Starting on Sun07/28/24 at 0805, Until Sun07/28/24 at 0827, Intra-op 0805 (Given - Provider: Bethany Torres MD - Comment: Given topically on vaginal packing) naloxone (NARCAN) 0.4 MG/ML injection 0.4 mg, Intravenous Push, PRN, Starting on Sun07/28/24 at 0825, Until Discontinued, Respiratory Rate Less Than 8 for adults and less than 12 for Peds or for suspected overdose, Post-op ondansetron (ZOFRAN) 4 MG/2ML injection 4 mg, Intravenous Push, EVERY 6 HOURS PRN, Starting on Sun07/28/24 at 1640, Until Discontinued Linked Groups Order Group 1: magnesium sulfate in dextrose 5 % 1,000 mg in 100 mL ivpb (COMPLETED)Jump to med 1,000 mg, Intravenous, ONCE, 1 dose, On Sun07/29/24 at 1000 Followed by magnesium sulfate 2 GM/50ML in 50 mL ivpb (COMPLETED)Jump to med 2 g (2,000 mg), Intravenous, ONCE, 1 dose, On Sun07/29/24 at 1100 Group 2: potassium chloride 20 mEq in SW 100 mL IVPB (COMPLETED)Jump to med 20 mEq, Intravenous, ONCE, 1 dose, On Sun07/29/24 at 1000, at 50 mL/hr Followed by potassium chloride 20 mEq in SW 100 mL IVPB (COMPLETED)Jump to med 20 mEq, Intravenous, ONCE, 1 dose, On Sun07/29/24 at 1200, at 50 mL/hr INFORMATION SOURCE (unrecogn ized section and content) DATE CREATED AUTHOR 04/05/2025 [employer] DATE CREATED AUTHOR AUTHOR'S ORGANIZ ATION 06/08/2025 [facility] FOR RECORDS PERTAINING TO PATIENTS WHO ARE OR HAVE BEEN ENROLLED IN A CHEMICAL DEPENDENCY/SUBSTANCEABUSE PROGRAM, SOME INFORMATION MAY BE OMITTED. This clinical summary was aggregated from multiple sources. Caution should be exercised in using it in the provision of clinical care. This summary normalizes information from multiple sources, and as a consequence, information in this document may materially change the coding, format and clinical context of patient data. In addition, data may be omitted in some cases. CLINICAL DECISIONS SHOULD BE BASED ON THE PRIMARY CLINICAL RECORDS. [employer] provides no warranty or guarantee of the accuracy or completeness of information in this document.
[2025-06-09 06:13] VITALS: BP 103/70; PULSE 64; RESP 16; TEMP 36.4; O2SAT 100; BMI 22.8
[2025-06-09] MEDS: Lactated Ringers 1,000 ML 15 ML IV (06:20)
--- NOTE | 2025-06-09 06:33 | PCM.PRE.AN2 ---
ASA Classification* ASA Classification ASA Classification: 2 Assessment & Plan Anesthesia* Anesthesia Assessment Anesthesia Assessment: Discussed sedation and/or anesthesia options, risks, benefits, and alternatives with patient/parents/legal guardian/POA. Questions invited. The patient/parents/legal guardian/POA seems to understand and agrees to proceed with anesthesia plan. Reviewed the physical assessment, medical history, allergy history and patient home medications list prior to surgery/procedure/anesthetic and documented any changes. Performed airway and anesthesia risk assessments. Anesthesia Type Anesthesia Type: MAC History Source History Obtained from:: Patient and Chart Anesthesia Focused Assessment* Temperature: 97.5 F Pulse Rate: 64 Blood Pressure: 103/70 Respiratory Rate: 16 Pulse Ox: 100 Airway Assessment Mouth opens: >3 cm Mallampati Score: III Teeth Condition: Caps/Crowns (intact) Neck Range of motion (ROM): Full ROM Labs Anesthesia Preop lab: CBC WBC 3.1 K/mm3 (4.4-11.0) L 02/27/25 06:57 02/27/25 RBC 3.84 M/mm3 (4.2-5.4) L 02/27/25 06:57 02/27/25 Hgb 11.7 g/dL (12.0-15.0) L 02/27/25 06:57 02/27/25 Hct 34.9 % (37-47) L 02/27/25 06:57 02/27/25 Plt Count 166 K/mm3 (150-450) 02/27/25 06:57 02/27/25 CHEMISTRY Potassium 3.1 mmol/L (3.3-5.1) L 02/27/25 06:57 02/27/25 Sodium 139 mmol/L (133-145) 02/27/25 06:57 02/27/25 Magnesium 1.8 mg/dL (1.5-2.2) 02/26/25 05:35 02/26/25 Phosphorus 3.0 mg/dL (2.7-4.5) 02/26/25 05:35 02/26/25 BUN 6 mg/dL (4-19) 02/27/25 06:57 02/27/25 Creatinine 0.63 mg/dL (0.70-1.20) L 02/27/25 06:57 02/27/25 Glucose 90 mg/dL (70-99) 02/27/25 06:57 02/27/25 COAG Pre-Assessment Diagnosis/Proposed Procedure Planned Operative Procedure(s): EGD Anesthesia History Anesthesia History - sales project manager: Anesthesia History - sales project manager Hx Hospitalization No 06/05/25 15:50 Any Problems With Anesthesia No 06/05/25 15:50 Cholinesterase deficiency No 06/05/25 15:50 You/Your Family Experience No 06/05/25 15:50 fever (hyperthermia) with Relationship Recent Exposure to Contagious No 06/09/25 06:13 Disease Does patient have nerve No 06/05/25 15:50 stimulator Patient instructed to have device shut off --Does patient have Pacemaker No 06/09/25 06:13 or ICD? When Was Last Pacemaker Check QUESTION #4 FULL TEXT: You/Your Family Experience fever (hyperthermia) with Anesthesia Last Oral Intake Last Oral intake: Last Oral Intake NPO since 00:00 06/09/25 06:13 Meds taken in AM with sips of water? Meds patient instructed to take am of surgery PONV PONV - sales project manager: PONV - sales project manager Female Yes 06/05/25 15:50 HX of Motion Sickness No 06/05/25 15:50 HX of N/V After Surgery No 06/05/25 15:50 Non-Smoker Yes 06/05/25 15:50 Duration of Surgery greater No 06/05/25 15:50 than 60 minutes Number of Risk Factors 2 06/05/25 15:50 PONV Score Moderate Risk 06/05/25 15:50 Height & Weight Height & Weight: Anesthesia: Height & Weight Height 5 ft 7 in 06/09/25 06:13 Weight: 66 kg 06/09/25 06:13 Body Mass Index (BMI) 22.8 06/09/25 06:13 Respiratory Assessment Respiratory Assessment - sales project manager: Respiratory Tract Infection Hx - sales project manager Hx Respiratory Tract Infection No 06/05/25 15:50 STOP Sleep Apnea STOP Sleep Apnea - sales project manager: STOP Sleep Apnea - sales project manager Hx Hypertension No 06/05/25 15:50 Hx Sleep Apnea No 06/05/25 15:50 CPAP BIPAP Do you snore loudly (louder No 06/05/25 15:50 than talking or can be heard Do you often feel tired/ No 06/05/25 15:50 fatigued/ sleepy during daytime? Has anyone observed you stop No 06/05/25 15:50 breathing during sleep? STOP Results Negative 06/05/25 15:50 QUESTION #5 FULL TEXT : Do you snore loudly (louder than talking or can be heard through closed doors)? 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 Specify any problems Hx of Preganancy in last 3 No 06/05/25 15:50 Months Nurse Filling Out Transfusion [facility] 06/05/25 15:50 & Questions: Date: 06/05/25 06/05/25 15:50 Time: 15:51 06/05/25 15:50 Patient unable to answer at this time (ie. confused, unrespo /Reproduction History /Reproductive History - sales project manager: /Reproductive Hx- sales project manager Hx Now No 06/05/25 15:50 Gestational Age (in weeks): EDC: Hx Hx Para Hx Section SAB No 06/05/25 15:50 Active Medications Active Medications: Current Medications Generic Name Dose Route Start Last Admin Trade Name Freq PRN Reason Stop Dose Admin Lactated Ringer's 1,000 mls @ 15 mls/hr 06/09/25 06:15 06/09/25 06:20 IV 15 mls/hr .Q48H SAWYER Administration PFSH Medical History History of ulceration Kidney stones History of brachytherapy CINV (chemotherapy-induced nausea and vomiting) Herpes zoster Encounter for chemotherapy management Cancer Alcohol use Encounter for education Fibrolipoma Wears glasses Post-menopausal Non-smoker Home Medications ?Medication ?Instructions ?Recorded ?Last Taken ?Type NK 06/05/25 Unknown History Allergy/AdvReac Type Severity Reaction Status Date / Time No Known Allergies Allergy Verified 06/09/25 06:13 Family History Father Diabetes Aortic aneurysm Sister Cancer nonhodgkins lymphoma Surgical History History of removal of Port-a-Cath Hx of shoulder surgery Hx of colonoscopy History of excision of mass Social History adopted: No household members: significant other current occupational status: employed current occupation: [employer] pets and animals: No Smoking Status: Never smoker Electronic Cigarette Use: not used alcohol intake: current alcohol intake frequency: a few times a week Alcohol type: wine substance use type: does not use caffeine: Yes (1) Type: coffee what type of physical activity do you participate in: walking and aerobics frequency: 5-6 times per week seatbelt use: always do you feel safe at home: Yes additional social history: Single Review of Systems (Anesthesia) ROS Narrative System reviewed and no additional complaints, except as documented.
--- NOTE | 2025-06-09 06:33 | PCM.HP.STD ---
HPI - General General Date of Admission: 06/09/25 Date of Service: 06/09/25 Chief Complaint: Gastric outlet obstruction HPI Narrative DEREK SHETTY, is a 59 F who presents to the office today for HFU. [facility] inpatient 4.-02.27.25 PUD, Gastric outlet obstruction. Pt states she is well since the hospital visit. Denies abdominal pain, heartburn, nausea or vomiting. States her appetite has been normal. BMs are normal with daily stool softener. Denies bloody or dark stools. [facility] Medical History History of ulceration Kidney stones History of brachytherapy CINV (chemotherapy-induced nausea and vomiting) Herpes zoster Encounter for chemotherapy management Cancer Alcohol use Encounter for education Fibrolipoma Wears glasses Post-menopausal Non-smoker Home Medications ?Medication ?Instructions ?Recorded ?Last Taken ?Type NK 06/05/25 Unknown History Allergy/AdvReac Type Severity Reaction Status Date / Time No Known Allergies Allergy Verified 06/09/25 06:13 Family History Father Diabetes Aortic aneurysm Sister Cancer nonhodgkins lymphoma Surgical History History of removal of Port-a-Cath Hx of shoulder surgery Hx of colonoscopy History of excision of mass Social History adopted: No household members: significant other current occupational status: employed current occupation: [employer] pets and animals: No Smoking Status: Never smoker Electronic Cigarette Use: not used alcohol intake: current alcohol intake frequency: a few times a week Alcohol type: wine substance use type: does not use caffeine: Yes (1) Type: coffee what type of physical activity do you participate in: walking and aerobics frequency: 5-6 times per week seatbelt use: always do you feel safe at home: Yes additional social history: Single ROS Constitutional Constitutional: Denies fatigue, fever(s), poor appetite, weight gain or weight loss Gastrointestinal Gastrointestinal: Denies belching, bloating, change in bowel habits, change in stool character, chewing difficulty, coffee ground emesis, constipation, cramping, diarrhea, dyspepsia, dysphagia, early satiety, excessive flatus, fecal incontinence, heartburn, hematemesis, hematochezia, hemorrhoids, loose stools, melena, nausea, odynophagia, rectal bleeding, tenesmus, vomiting or weight changes Vital Signs Vital Signs Vital Signs: 06/09/25 06:13 06/09/25 06:13 Temperature 97.5 F L Temperature Source Temporal Pulse Rate 64 Respiratory Rate 16 Respiratory Pattern Normal Blood Pressure 103/70 Blood Pressure Mean 81 Blood Pressure Source Monitor Blood Pressure Position Semi-Fowlers Blood Pressure Location Right Arm Pulse Ox 100 Oxygen Delivery Method Room Air Weight Weight: 145 lb 8.081 oz Body Mass Index (BMI) 22.8 Physical Exam Const alert, oriented x3, no apparent distress and healthy appearing General Appearance: cooperative GI normal to inspection, nondistended, normoactive bowel sounds, soft to palpation, non-tender and non-distended Percussion: normal to percussion Rectal Exam: deferred Assessment & Plan Assessment/Plan (1) Gastric outlet obstruction: PLAN: Assessment and Plan Assessment and Plan (1) Gastric outlet obstruction: Status: Acute Plan: Derek is a very pleasant 59-year-old who I saw in consultation in the hospital for melanotic stools. She underwent an upper endoscopy and was discovered to have gastric outlet obstruction along with a large duodenal ulcer that was treated endoscopically. Her risk factors for her peptic ulcer disease was daily aspirin for migraine prophylaxis along with ibuprofen on a as needed basis for her migraine attacks. 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 She does not take any vitamin C, tumeric or vitamin E. FIndings: No gross lesions were noted in the entire esophagus. One oozing cratered gastric ulcer with a visible vessel was found at the pylorus. The lesion was 25 mm in largest dimension. Coagulation for hemostasis using heater probe was successful. Estimated blood loss was minimal. A benign-appearing, intrinsic severe stenosis was found at the pylorus. This was non-traversed. A TTS dilator was passed through the scope. Dilation with a 15 mm pyloric balloon dilator was performed. The dilation site was examined and showed moderate improvement in luminal narrowing. Estimated blood loss was minimal. One non-bleeding cratered duodenal ulcer with no stigmata of bleeding was found in the duodenal bulb. The lesion was 20 mm in largest dimension. Biopsies were taken with a cold forceps for histology. Verification of patient identification for the specimen was done. Estimated blood loss was minimal. Impression: - No gross lesions in the entire esophagus. - Oozing gastric ulcer with a visible vessel. Treated with a heater probe. - Gastric stenosis was found at the pylorus. Dilated. - Non-bleeding duodenal ulcer with no stigmata of bleeding. Biopsied. Recommendation: Surveillance upper endoscopy to evaluate peptic ulcer disease - Use Protonix (pantoprazole) 40 mg PO BID indefinitely. - Stop Carafate
--- NOTE | 2025-06-09 06:44 | PRE.ANES_ITS ---
ASA Classification* ASA Classification ASA Classification: 2 Assessment & Plan Anesthesia* Anesthesia Assessment Anesthesia Assessment: Discussed sedation and/or anesthesia options, risks, benefits, and alternatives with patient/parents/legal guardian/POA. Questions invited. The patient/parents/legal guardian/POA seems to understand and agrees to proceed with anesthesia plan. Reviewed the physical assessment, medical history, allergy history and patient home medications list prior to surgery/procedure/anesthetic and documented any changes. Performed airway and anesthesia risk assessments. Anesthesia Type Anesthesia Type: MAC History Source History Obtained from:: Patient and Chart Anesthesia Focused Assessment* Temperature: 97.5 F Pulse Rate: 64 Blood Pressure: 103/70 Respiratory Rate: 16 Pulse Ox: 100 Airway Assessment Mouth opens: >3 cm Mallampati Score: II Teeth Condition: Intact Neck Range of motion (ROM): Full ROM Labs Anesthesia Preop lab: CBC WBC 3.1 K/mm3 (4.4-11.0) L 02/27/25 06:57 02/27/25 RBC 3.84 M/mm3 (4.2-5.4) L 02/27/25 06:57 02/27/25 Hgb 11.7 g/dL (12.0-15.0) L 02/27/25 06:57 5 Hct 34.9 % (37-47) L 02/27/25 06:57 02/27/25 Plt Count 166 K/mm3 (150-450) 02/27/25 06:57 02/27/25 CHEMISTRY Potassium 3.1 mmol/L (3.3-5.1) L 02/27/25 06:57 02/27/25 Sodium 139 mmol/L (133-145) 02/27/25 06:57 02/27/25 Magnesium 1.8 mg/dL (1.5-2.2) 02/26/25 05:35 02/26/25 Phosphorus 3.0 mg/dL (2.7-4.5) 02/26/25 05:35 02/26/25 BUN 6 mg/dL (4-19) 02/27/25 06:57 02/27/25 Creatinine 0.63 mg/dL (0.70-1.20) L 02/27/25 06:57 Glucose 90 mg/dL (70-99) 02/27/25 06:57 02/27/25 COAG Pre-Assessment Diagnosis/Proposed Procedure Planned Operative Procedure(s): EGD Anesthesia History Anesthesia History - apple packing header: Anesthesia History - apple packing header Hx Hospitalization No 06/05/25 15:50 Any Problems With Anesthesia No 06/05/25 15:50 Cholinesterase deficiency No 06/05/25 15:50 You/Your Family Experience No 06/05/25 15:50 fever (hyperthermia) with Relationship Recent Exposure to Contagious No 06/09/25 06:13 Disease Does patient have nerve No 06/05/25 15:50 stimulator Patient instructed to have device shut off --Does patient have Pacemaker No 06/09/25 06:13 or ICD? When Was Last Pacemaker Check QUESTION #4 FULL TEXT: You/Your Family Experience fever (hyperthermia) with Anesthesia Last Oral Intake Last Oral intake: Last Oral Intake NPO since 00:00 06/09/25 06:13 Meds taken in AM with sips of water? Meds patient instructed to take am of surgery PONV PONV - apple packing header: PONV - apple packing header Female Yes 06/05/25 15:50 HX of Motion Sickness No 06/05/25 15:50 HX of N/V After Surgery No 06/05/25 15:50 Non-Smoker Yes 06/05/25 15:50 Duration of Surgery greater No 06/05/25 15:50 than 60 minutes Number of Risk Factors 2 06/05/25 15:50 PONV Score Moderate Risk 06/05/25 15:50 Height & Weight Height & Weight: Anesthesia: Height & Weight Height 5 ft 7 in 06/09/25 06:13 Weight: 66 kg 06/09/25 06:13 Body Mass Index (BMI) 22.8 06/09/25 06:13 Respiratory Assessment Respiratory Assessment - apple packing header: Respiratory Tract Infection Hx - apple packing header Hx Respiratory Tract Infection No 06/05/25 15:50 STOP Sleep Apnea STOP Sleep Apnea - apple packing header: STOP Sleep Apnea - apple packing header Hx Hypertension No 06/05/25 15:50 Hx Sleep Apnea No 06/05/25 15:50 CPAP BIPAP Do you snore loudly (louder No 06/05/25 15:50 than talking or can be heard Do you often feel tired/ No 06/05/25 15:50 fatigued/ sleepy during daytime? Has anyone observed you stop No 06/05/25 15:50 breathing during sleep? STOP Results Negative 06/05/25 15:50 QUESTION #5 FULL TEXT : Do you snore loudly (louder than talking or can be heard through closed doors)? 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 Specify any problems Hx of Preganancy in last 3 No 06/05/25 15:50 Months Nurse Filling Out Transfusion [facility] 06/05/25 15:50 & Questions: Date: 06/05/25 06/05/25 15:50 Time: 15:51 06/05/25 15:50 Patient unable to answer at this time (ie. confused, unrespo /Reproduction History /Reproductive History - apple packing header: /Reproductive Hx- apple packing header Hx Now No 06/05/25 15:50 Gestational Age (in weeks): EDC: Hx Hx Para Hx Section SAB No 06/05/25 15:50 Active Medications Active Medications: Current Medications Generic Name Dose Route Start Last Admin Trade Name Freq PRN Reason Stop Dose Admin Lactated Ringer's 1,000 mls @ 15 mls/hr 06/09/25 06:15 06/09/25 06:20 IV 15 mls/hr .Q48H SAWYER Administration PFSH Medical History History of ulceration Kidney stones History of brachytherapy CINV (chemotherapy-induced nausea and vomiting) Herpes zoster Encounter for chemotherapy management Cancer Alcohol use Encounter for education Fibrolipoma Wears glasses Post-menopausal Non-smoker Home Medications ?Medication ?Instructions ?Recorded ?Last Taken ?Type NK 06/05/25 Unknown History Allergy/AdvReac Type Severity Reaction Status Date / Time No Known Allergies Allergy Verified 06/09/25 06:13 Family History Father Diabetes Aortic aneurysm Sister Cancer nonhodgkins lymphoma Surgical History History of removal of Port-a-Cath Hx of shoulder surgery Hx of colonoscopy History of excision of mass Social History adopted: No household members: significant other current occupational status: employed current occupation: [employer] pets and animals: No Smoking Status: Never smoker Electronic Cigarette Use: not used alcohol intake: current alcohol intake frequency: a few times a week Alcohol type: wine substance use type: does not use caffeine: Yes (1) Type: coffee what type of physical activity do you participate in: walking and aerobics frequency: 5-6 times per week seatbelt use: always do you feel safe at home: Yes additional social history: Single Review of Systems (Anesthesia) ROS Narrative System reviewed and no additional complaints, except as documented.
[2025-06-09 06:49] VITALS: BP 103/70; PULSE 64; RESP 16; TEMP 36.4; O2SAT 100
--- NOTE | 2025-06-09 07:00 | EGD_PTH ---
PATIENT: DEREK SHETTY LOC: EN U#:[id number] AGE/SX: 59/F ROOM: RE06/09/[address]: Dr. Marco Rondon DO : 1965 BED: DIS: 06/09/2025 SPEC #: [id number] RECD: 06/09/25 07:29 STATUS: MELODY LUISA #: [id number] RITA: 06/09/25 07:[address]: Marco Rondon DEPT: SURGICAL PATHOLOGY RECD BY: Zeke Desir ENTERED: 06/09/25 09:36 SP TYPE: EGD BIOPSY MANUELITO DR: Dr. Marlen Rodríguez MD Tissues: A - Pylorus Procedures: Immunohistochemical Stains Surgery Specimen Level IV HEADER OPERATION: EGD, biopsy, dilation, hemostasis PRE-OP DIAGNOSIS: Gastric outlet obstruction TISSUE SUBMITTED: A- Pyloric channel ulcer biopsy MICROSCOPIC DIAGNOSIS A. Stomach, pyloric channel, ulcer, biopsy: - Chronic gastritis with features of reactive gastropathy. - IHC for H pylori is pending and will be reported in an addendum. MICROSCOPIC DESCRIPTION Slides are reviewed. GROSS DESCRIPTION A. Received in fixative is one container labeled with the patient's name and designated Pyloric channel ulcer biopsy. The specimen consists of multiple irregular fragments of light brenner soft tissue that in aggregate measure 1.9 x 0.6 x 0.1 cm. The specimen is totally submitted in one cassette. VT 06/09/2025 [facility]:[id number] ADDENDUM ADDENDUM ADDENDUM ADDENDUM ADDENDUM ADDENDUM ADDENDUM ADDENDUM ADDENDUM ADDENDUM 06/15/2025 15:01 ADDENDUM 06/15/2025 15:01 ADDENDUM 06/15/2025 15:01 ADDENDUM 06/15/2025 15:01 ADDENDUM 06/15/2025 15:01 This addendum is to report the H pylori IHC findings: A. IHC negative for H. pylori organisms. ?All matched controls reacted appropriately. These tests were developed and their performance characteristics determined by [facility]. They may not have been cleared or approved by the U.[place]. Food and Drug Administration. The FDA has determined that such clearance or approval is not necessary.? The above immunohistochemical?markers are reviewed by the Pathologist.
[2025-06-09 07:20] VITALS: BP 103/70; BP 99/54; PULSE 81; RESP 16; TEMP 36.2; O2SAT 96
[2025-06-09 07:25] VITALS: BP 103/70; BP 95/62; PULSE 69; RESP 16; O2SAT 95
--- NOTE | 2025-06-09 07:28 | OP.EGD_ITS ---
Patient Name: Gabriela Wilson Procedure Date: 06/09/2025 6:53 AM Date of : 1965 Age: 59 Procedure: Upper GI endoscopy Indications: Prepyloric stenosis, Pyloric stenosis, Follow-up of pyloric stenosis, For therapy of pyloric stenosis Providers: Marco Rondon DO Referring MD: Marlen Rodríguez Md Medicines: Monitored Anesthesia Care Patient Profile: This is a 59 year old female. Refer to note in patient chart for documentation of history and physical. Patient has symptoms of chronic dyspepsia. Complications: No immediate complications. Procedure: Pre-Anesthesia Assessment: - Prior to the procedure, a History and Physical was performed, and patient medications and allergies were reviewed. The patient is competent. The risks and benefits of the procedure and the sedation options and risks were discussed with the patient. All questions were answered and informed consent was obtained. Patient identification and proposed procedure were verified by the physician in the pre-procedure area. Mental Status Examination: alert and oriented. Airway Examination: normal oropharyngeal airway and neck mobility. Respiratory Examination: clear to auscultation. CV Examination: normal. Prophylactic Antibiotics: The patient does not require prophylactic antibiotics. Prior Anticoagulants: The patient has taken no anticoagulant or antiplatelet agents except for NSAID medication. ASA Grade Assessment: II - A patient with mild systemic disease. After reviewing the risks and benefits, the patient was deemed in satisfactory condition to undergo the procedure. The anesthesia plan was to use monitored anesthesia care (MAC). Immediately prior to administration of medications, the patient was re-assessed for adequacy to receive sedatives. The heart rate, respiratory rate, oxygen saturations, blood pressure, adequacy of pulmonary ventilation, and response to care were monitored throughout the procedure. The physical status of the patient was re-assessed after the procedure. After obtaining informed consent, the endoscope was passed under direct vision. Throughout the procedure, the patient's blood pressure, pulse, and oxygen saturations were monitored continuously. The gastroscope was introduced through the mouth, and advanced to the second part of duodenum. The upper GI endoscopy was accomplished without difficulty. The patient tolerated the procedure well. Scope In: 7:01:40 AM Scope Out: 7:16:32 AM Total Procedure Duration Time 0 hours 14 minutes 52 seconds Findings: The examined esophagus was normal. A benign-appearing, intrinsic severe stenosis was found at the pylorus. This was traversed. Biopsies were taken with a cold forceps for histology. Biopsies were taken with a cold forceps for Helicobacter pylori testing. Estimated blood loss was minimal. A TTS dilator was passed through the scope. Dilation with a 19 mm pyloric balloon dilator was performed. To prevent bleeding post-maneuver, two hemostatic clips were successfully placed. 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 There was no bleeding at the end of the procedure. Coagulation for bleeding prevention using argon plasma at 0.4 liters/minute and 20 gutierrez was successful. Estimated blood loss was minimal. The examined duodenum was normal. Impression: - Normal esophagus. - Gastric stenosis was found at the pylorus. Biopsied. Dilated. Clips were placed. 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 Treated with argon plasma coagulation (APC). - Normal examined duodenum. Recommendation: - Discharge patient to home. - Full liquid diet today. - Continue present medications. Procedure Code(s): --- Professional --- 44233, 59, Esophagogastroduodenoscopy, flexible, transoral; with control of bleeding, any method 31160, Esophagogastroduodenoscopy, flexible, transoral; with dilation of gastric/duodenal stricture(s) (eg, balloon, bougie) 11444, 59,51, Esophagogastroduodenoscopy, flexible, transoral; with biopsy, single or multiple CPT copyright 2021 [employer]. All rights reserved. The codes documented in this report are preliminary and upon medical record coder review may be revised to meet current compliance requirements. Marco Rondon DO 06/09/2025 7:27:26 AM This report has been signed electronically. Number of Addenda: 0 Note Initiated On: 06/09/2025 6:53 AM
--- NOTE | 2025-06-09 07:28 | OP.PROVAT_ITS ---
06/09/2025 Marlen Rodríguez Md Re : Upper GI endoscopy procedure for Gabriela Wilson Dear Marcos This procedure was performed on Monday, June 09, 2025. My impressions and recommendations are as follows: Impressions : - Normal esophagus. - Gastric stenosis was found at the pylorus. Biopsied. Dilated. Clips were placed. 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 Treated with argon plasma coagulation (APC). - Normal examined duodenum. Recommendations : - Discharge patient to home. - Full liquid diet today. - Continue present medications. My findings are described in the full procedure note, which is enclosed. If I can be of further assistance, please feel free to contact me at . Sincerely, Marco Rondon, 06/09/2025 7:27:26 AM This report has been signed electronically.
--- NOTE | 2025-06-09 07:29 | PCM.POST.ANE ---
Anesthesia: Postop Eval I Current Vital Signs Temperature: 97.1 F Pulse Rate: 77 Blood Pressure: 99/54 Respiratory Rate: 16 Pulse Ox: 97 Oxygen Delivery Method: Room Air Assessment Airway patent: Yes Spontaneous unlabored respirations: Yes Mental status: Asleep nausea: No Vomiting: No Anesthesia Complication: No Fluid Hydration Crystalloid volume administer (ml): 500 Total IV fluid infused: 500 Progress Note Anesthesia document: Postop Eval 1 completed: Yes
[2025-06-09 07:30] VITALS: BP 102/69; BP 103/70; BP 99/54; PULSE 56; PULSE 77; RESP 16; TEMP 36.2; O2SAT 94; O2SAT 97
[2025-06-09] MEDS: Pantoprazole Sodium 40 MG in 0.9% Normal Saline (100mL MB+) 100 ML 300 MG IV (07:44)
[2025-06-09 08:36] VITALS: BP 103/70
== END 2025-06-09 08:39 | disposition home or self-care (01) ==
LOC: EN 05:55 → AC 05:56
PROVIDERS: PCP Internal Medicine; Referring Provider Internal Medicine; Visit Provider Internal Medicine Gastroenterology
PROC: 0DJ08ZZ Inspection of Upper Intestinal Tract, Via Natural or Artificial Opening Endoscopic (ICD-10-PCS; CPT 43235; principal; 2025-06-09 06:55)
DX: K31.1 Adult hypertrophic pyloric stenosis (principal); Z79.82 Long term (current) use of aspirin
CPT/HCPCS: 43245; 43239; 88305; 88342; C1889; J2405